=== PATIENT | male | born 1940 | race Caucasian/White ===

== ENCOUNTER 2021-07-14 12:28 | Inpatient (IN) | payer MEDICARE, SELFPAY ==
[2021-07-14] VITALS (12 sets, daily range): BP systolic 76–126; BP diastolic 50–70; PULSE 83–147; RESP 13–24; TEMP 36.6–36.9; O2SAT 93–98; BMI 25.8; BMI 27.9
--- NOTE | ~2021-07-14 | NM_ITS ---
EXAMINATION: NM LUNG IMAGE PERFUSION CLINICAL INFORMATION: Shortness of breath. Elevated d-dimer. Tachycardia. COMPARISON: Previous chest x-ray from the same day and chest CT May 2018 TECHNIQUE: Patient was administered 4 mCi of technetium 99m labeled MAA for perfusion imaging. Perfusion imaging was performed in multiple projections. No ventilation imaging was performed. FINDINGS: There is a large segmental perfusion defect seen in the anterior segment of the right upper lobe. There is a small to moderate moderate segmental perfusion defect seen in the medial segment of the right middle lobe. Evaluation of the left lung is limited due to altered anatomy from previous left upper lobe resection and left base consolidation on chest x-ray. This is an indeterminate exam for pulmonary embolism. NM/NM pul perfusion IMPRESSION: Indeterminate exam for pulmonary embolism.
--- NOTE | ~2021-07-14 | US_ITS ---
EXAMINATION: US VENOUS ULTRASOUND WITH DOPPLER LOWER EXTREMITY, BILATERAL CLINICAL INFORMATION: Shortness of breath and tachycardia. Suspected DVT. COMPARISON: Perfusion lung scan done on 07/14/2021 and Chest radiograph done on 07/14/2021. TECHNIQUE: Ultrasound of the deep veins is performed from the hip to the calf with compression sonography and color and pulse Doppler assessment. Spectral analysis with color-flow imaging is performed. FINDINGS: RIGHT: There is normal venous compression and respiratory variation and augmented flow. The visualized common femoral vein, superficial femoral vein, profunda femoral vein, popliteal vein, and the trifurcation region shows no evidence of deep venous thrombosis. There is no significant popliteal fossa cyst. The right peroneal vein is not well visualized. LEFT: There is normal venous compression and respiratory variation and augmented flow. The visualized common femoral vein, superficial femoral vein, profunda femoral vein, popliteal vein, and the trifurcation region shows no evidence of deep venous thrombosis. There is no significant popliteal fossa cyst. If the patient's symptoms persist, followup ultrasound in 5 days 7 days might be of value to exclude proximal propagation from a non-visualized calf vein. US/US venous duplex LE BI IMPRESSION: No DVT demonstrated in the bilateral lower extremity. Suboptimal visualization of the right peroneal vein.
--- NOTE | ~2021-07-14 | XR_ITS ---
EXAMINATION: XR CHEST CLINICAL INFORMATION: SOB/tachycardia COMPARISON: None TECHNIQUE: Frontal view of the chest was obtained. FINDINGS: The lungs are well-expanded with patchy opacity seen in the left lower lobe likely cord chronic scarring or atelectasis. This wasn't present on the previous CT chest exam 05/27/2018. Mild blunting of left CP angle is noted. Rest of the lungs are clear. The heart size and pulmonary vascularity is normal. No gross bony abnormality seen. XR/XR chest 1V IMPRESSION: Chronic scarring or atelectasis left lung base with slight loss of left lung volume. There is mild blunting of right CP angle question pleural thickening similar findings were seen on the previous study The right lung is expanded and clear.
--- NOTE | 2021-07-14 12:44 | ECG_ITS ---
Test Reason : REPEAT Blood Pressure : / mmHG Vent. Rate : 098 BPM Atrial Rate : 098 BPM P-R Int : 214 ms QRS Dur : 084 ms QT Int : 338 ms P-R-T Axes : 074 098 038 degrees QTc Int : 431 ms Sinus rhythm with 1st degree A-V block Rightward axis Borderline ECG When compared with ECG of 14-JUL-2021 12:41, Rhythm change Referred By: Linda Smith Electronically Signed By:ROSIBEL CASTILLO
[2021-07-14 12:59] LABS: MANUAL DIFF FLAG NO
[2021-07-14 13:00] LABS: Basophils Absolute Auto 0.1 X10*3/uL (0.0-0.2); Basophils Percent Auto 0.3 % (0-2); Eosinophils Absolute Auto 0.1 X10*3/uL (0.0-0.4); Eosinophils Percent Auto 0.2 % (0-4); Hematocrit 46.2 % (42.0-52.0); Hemoglobin 15.6 g/dl (14.0-18.0); Imm Gran Abs Auto 0.08 X10*3/uL (0.00-0.03); Imm Gran Pct Auto 0.4 % (0.0-0.4); Lymphocytes Absolute Auto 0.8 X10*3/uL (1.2-4.9); Lymphocytes Percent Auto 3.7 % (20-40); Mean Corpuscular HGB Conc 33.8 g/dl (31.0-36.0); Mean Corpuscular Hemoglobin 31.5 pg (27.0-33.0); Mean Corpuscular Volume 93.1 fL (80.0-98.0); Mean Platelet Volume 9.4 fL (9.4-12.4); Monocytes Absolute Auto 1.4 X10*3/uL (0.1-1.2); Monocytes Percent Auto 6.5 % (2-11); Neutrophils Absolute Auto 19.1 x10*3/uL (2.0-8.3); Neutrophils Percent Auto 88.9 % (45-73); Platelet Count 193 X10*3/uL (160-400); Red Blood Count 4.96 X10*6/uL (4.60-5.80); Red Cell Distribution Width 12.8 % (11.0-16.0); White Blood Count 21.5 X10*3/uL (4.8-10.8)
--- NOTE | 2021-07-14 13:11 | ED_ITS ---
HPI - Chest Pain General Chief Complaint: Chest Pain Stated Complaint: diff breathing/dizziness Time Seen by Provider: 07/14/21 13:07 Source: patient and family (son) Mode of arrival: ambulatory Limitations: no limitations History of Present Illness HPI narrative: Patient is a 80 year old male presenting to the emergency department today with shortness of breath, intermittent chest pain, nausea, vomiting, and feeling generally unwell over the last 3 days. Patient states that he started feeling sick 3 days ago and is getting progressively worse. Patient denies any dizziness, lightheadedness, abdominal pain, fever, chills, blurry vision, double vision, loss of vision, chest pain, difficulty breathing, back pain, night sweats, pain with urination, increased urinary frequency, increased urinary ur gency, blood in his urine or stool, syncope or a near syncopal episode, recent trauma or falls, bowel incontinence, bladder incontinence, bowel retention, bladder retention, or any other complaints at this time. Onset (ago): day(s) (3) Severity: moderate Relieving factors: nothing Exacerbating factors: nothing Context: recent illness Associated symptoms: nausea, vomiting, diaphoresis, dyspnea and cough Treatment prior to arrival: none Related Data Home Medications Medication Instructions Recorded Confirmed albuterol sulfate 90 mcg/actuation 2 puff INHALATION Q4H PRN 07/14/21 07/14/21 aerosol inhaler metoprolol succinate 50 mg 1 tab PO DAILY 07/14/21 07/14/21 tablet,extended release 24 hr omeprazole 20 mg capsule,delayed 1 cap PO DAILY 07/14/21 07/14/21 release paroxetine HCl 40 mg tablet 1 tab PO QAM 07/14/21 07/14/21 tamsulosin 0.4 mg capsule 1 cap PO DAILY 07/14/21 07/14/21 zolpidem 12.5 mg tablet,extended 1 tab PO BEDTIME PRN 07/14/21 07/14/21 release,multiphase Allergies Allergy/AdvReac Type Severity Reaction Status Date / Time pseudoephedrine AdvReac Intermediate AGITATION Unverified 11/11/19 14:44 [facility] Review of Systems Constitutional: Constitutional: Reports no additional constitutional complaints, Denies chills, Denies fever(s) and Denies night sweats Eyes: Eyes: Reports no additional eye complaints, Denies blurry vision, Denies change in vision, Denies diplopia, Denies eye discharge, Denies loss of vision and Denies eye pain ENT: Denies dizziness Cardiovascular: Cardiovascular: Reports no additional cardiovascular complaints, Reports chest pain (intermittent), Denies lightheadedness, Denies Loss of Consciousness and Reports dyspnea Respiratory: Respiratory: Reports no additional respiratory complaints, Reports cough and Reports dyspnea Gastrointestinal: Gastrointestinal: Reports no additional gastrointestinal complaints, Denies abdominal pain, Denies melena, Denies hematochezia, Denies change in bowel habits, Denies change in stool character, Reports nausea and Reports vomiting Genitourinary: Genitourinary: Reports no additional male genitourinary complaints, Denies hematuria, Denies oliguria, Denies difficulty urinating, Denies dysuria, Denies urinary frequency, Denies urinary hesitancy, Denies urinary incontinence and Denies urinary urgency Musculoskeletal: Musculoskeletal: Reports no additional musculoskeletal complaints, Denies numbness and Denies tingling Neurologic: Denies dizziness, Denies loss of vision, Denies numbness and Denies tingling Psychiatric: Psychiatric: Reports no additional psychiatric complaints Endocrine: Endocrine: Reports no additional endocrine complaints Hematologic/Lymphatic: Hematologic/Lymphatic: Reports no additional hematologic/lymphatic complaints Allergic/Immunologic: Allergic/Immunologic: Reports no additional allergic/immunologic complaints PMFSH Past Medical History Attestation statement: The following information was validated with the patient. Source: old records reviewed Social History Social History Advance Directives: No Advance Directives Information Provided: Yes Physical Exam Vital Signs: Vital Signs: Last Vital Signs Temp 98.2 F 07/14/21 16:22 Pulse 103 H 07/14/21 16:28 Resp 18 07/14/21 16:28 BP 108/62 07/14/21 16:28 Pulse Ox 96 07/14/21 16:28 BMI result Body Mass Index 25.8 Const: General: cooperative, alert, awake, acute distress, diaphoretic and ill appearing Nutritional Appearance: well nourished Orientation/consciousness: patient oriented x3 Limitations: no limitations HEENT: Head: Yes normal to inspection and Yes atraumatic Ears: hearing grossly normal bilaterally and external ears normal General nose exam: Normal external nose present, no nasal discharge noted and no epistaxis Face and sinus: Yes normal facial exam, No abrasion and No laceration Mouth: Normal oral and palatal mucosa present, no drooling and no muffled voice Eyes: General: appearance normal, both eyes and all related structures Periorbital: periorbital findings normal Eyelids: Yes eyelids normal Conjunctivae: conjunctivae normal Pupils: Equal, round and reactive pupils present EOM: EOMs intact bilaterally Neck: Neck: Yes normal visual inspection, Yes full ROM and Yes no lymphadenopathy Chest: Chest palpation & inspection: normal inspection of the chest Resp: Effort & Inspection: able to speak in complete sentences and labored Auscultation: wheezes Cardio: Rate: tachycardic Rhythm: abnormal rhythm irregularly irregular GI: Inspection: Yes normal to inspection Palpation (GI): Soft to palpation, not firm, nontender and no guarding Neuro: General: patient oriented x3 and moves all extremities Cranial nerves: Yes Equal, round and reactive pupils present Cognition (Neuro): normal cognition Motor exam (neuro): 5/5 motor strength present throughout Sensory Exam: Normal double simultaneous stimulation for sensation Coordination: [id number] test normal Extrem: General: Yes normal to inspection, Yes full ROM and Yes capillary refill normal Psych: Appearance: grossly normal Mental Status: mental status grossly normal Affect: normal affect Attitude: cooperative Thought process: Normal thought process present Thought content: Normal thought content present Insight: Good insight present (Psych) MDM - Chest Pain MDM Narrative Medical decision making narrative: Patient is a 80 year old male presenting to the emergency department today with SOB. Patient's physical exam showed a 80 year old male in acute distress with shortness of breath, wheezing, cough, diaphoresis, and hypotension. Patient's blood work showed an elevated WBC count at 21.5, patient's magnesium was low at 1.4, patient's d dimer was elevated at 900. Patient's initial lactic acid was 2 .9 and repeated it went down to 2.6. Patient's EKG showed atrial fibrillation with rapid ventricular response. Patient's chest x-ray showed a left lower lobe infiltrate. After evaluating the patient, a sepsis alert was called. Patient was immediately given 30mg/kg of IV fluids, rocephin and azithromycin with cultures drawn, and all other sepsis protocol followed. Patient's heart rate dramatically reduced after fluids and 1 dose of digoxin. Patient's blood pressure also normalized very quickly after IV fluids. Patient was also given a duoneb which he stated helped his breathing significantly. Patient's rapid COVID-19 and influenza tests were negative. Patient's VQ scan is pending. I explained my physical exam findings as well as all test results to the patient and the patient's son. I answered all questions asked by the patient and the patient's son. I spoke to Dr. Yang who agreed to admission pending the results of the VQ scan. Patient verbalized agreement and understanding with this treatment plan and admission. Differential Diagnosis Differential diagnosis: pneumonia, sepsis, PE Medical Records Data Attestation: I reviewed the patient's medical records. Lab Data Attestation: I reviewed the patient's lab results. Result diagrams: 07/14/21 12:54 07/14/21 12:54 Labs: Lab Results 07/14/21 07/14/21 07/14/21 Range/Units 12:54 12:54 12:54 WBC 21.5 H (4.8-10.8) X10*3/uL RBC 4.96 (4.60-5.80) X10*6/uL Hgb 15.6 (14.0-18.0) g/dl Hct 46.2 (42.0-52.0) % MCV 93.1 (80.0-98.0) fL MCH 31.5 (27.0-33.0) pg MCHC 33.8 (31.0-36.0) g/dl RDW 12.8 (11.0-16.0) % Plt Count 193 (160-400) X10*3/uL MPV 9.4 (9.4-12.4) fL Immature Gran % (Auto) 0.4 (0.0-0.4) % Neut % (Auto) 88.9 H (45-73) % Lymph % (Auto) 3.7 L (20-40) % Karnes % (Auto) 6.5 (2-11) % Eos % (Auto) 0.2 (0-4) % Baso % (Auto) 0.3 (0-2) % Lymph # (Auto) 0.8 L (1.2-4.9) X10*3/uL Karnes # (Auto) 1.4 H (0.1-1.2) X10*3/uL Eos # (Auto) 0.1 (0.0-0.4) X10*3/uL Baso # (Auto) 0.1 (0.0-0.2) X10*3/uL Abs Immat Gran (auto) 0.08 H (0.00-0.03) X10*3/uL Absolute Neuts (auto) 19.1 H (2.0-8.3) x10*3/uL Absolute Nucleated RBC 0.000 (0.0-0.012) X10*3/uL Nucleated RBC % (auto) 0.0 (0.0-0.2) /100WBC PT (9.9-13.0) SEC INR (0.9-1.1) APTT (24.1-38.0) SEC D-Dimer High Sensitivty NG/ML Sodium 135 (135-145) mmol/L Potassium 4.3 (3.3-5.1) mmol/L Chloride 102 (96-108) mmol/L Carbon Dioxide 21 L (22-29) mmol/L Anion Gap 16 (12-20) BUN 29 H (9-16) mg/dL Creatinine 1.75 H (0.5-1.4) mg/dL Estim Creat Clear Calc 35.3 Estimated GFR 38 Random Glucose 125 H (60-115) mg/dL Lactic Acid (0.5-2.0) mmol/L Lactic Acid F/U @ 2Hr (0.5-2.0) mmol/L Calcium 9.2 (8.4-10.2) mg/dL Magnesium 1.4 L* (1.6-2.6) mg/dL Total Bilirubin 1.1 H (0.0-1.0) mg/dL Direct Bilirubin 0.5 (0.0-0.5) mg/dL AST 20 (5-37) U/L ALT 16 (0-40) U/L Alkaline Phosphatase 56 (39-117) U/L Troponin I High Sens 6.3 (<3.5-35.0) ng/L B-Natriuretic Peptide 73 (<100) pg/mL Total Protein 7.5 (6.5-8.0) g/dL Albumin 4.0 (3.5-5.0) g/dL COVID-19 (NATHANAEL) (Negative) COVID-19 Clin Com Influenza Type A (LISBET) (Negative) Influenza Type B (LISBET) (Negative) Influenza A & B Note 07/14/21 07/14/21 07/14/21 Range/Units 13:27 13:27 13:27 WBC (4.8-10.8) X10*3/uL RBC (4.60-5.80) X10*6/uL Hgb (14.0-18.0) g/dl Hct (42.0-52.0) % MCV (80.0-98.0) fL MCH (27.0-33.0) pg MCHC (31.0-36.0) g/dl RDW (11.0-16.0) % Plt Count (160-400) X10*3/uL MPV (9.4-12.4) fL Immature Gran % (Auto) (0.0-0.4) % Neut % (Auto) (45-73) % Lymph % (Auto) (20-40) % Karnes % (Auto) (2-11) % Eos % (Auto) (0-4) % Baso % (Auto) (0-2) % Lymph # (Auto) (1.2-4.9) X10*3/uL Karnes # (Auto) (0.1-1.2) X10*3/uL Eos # (Auto) (0.0-0.4) X10*3/uL Baso # (Auto) (0.0-0.2) X10*3/uL Abs Immat Gran (auto) (0.00-0.03) X10*3/uL Absolute Neuts (auto) (2.0-8.3) x10*3/uL Absolute Nucleated RBC (0.0-0.012) X10*3/uL Nucleated RBC % (auto) (0.0-0.2) /100WBC PT 12.4 (9.9-13.0) SEC INR 1.1 (0.9-1.1) APTT 31.8 (24.1-38.0) SEC D-Dimer High Sensitivty 900 NG/ML Sodium (135-145) mmol/L Potassium (3.3-5.1) mmol/L Chloride (96-108) mmol/L Carbon Dioxide (22-29) mmol/L Anion Gap (12-20) BUN (9-16) mg/dL Creatinine (0.5-1.4) mg/dL Estim Creat Clear Calc Estimated GFR Random Glucose (60-115) mg/dL Lactic Acid 2.9 H* (0.5-2.0) mmol/L Lactic Acid F/U @ 2Hr (0.5-2.0) mmol/L Calcium (8.4-10.2) mg/dL Magnesium (1.6-2.6) mg/dL Total Bilirubin (0.0-1.0) mg/dL Direct Bilirubin (0.0-0.5) mg/dL AST (5-37) U/L ALT (0-40) U/L Alkaline Phosphatase (39-117) U/L Troponin I High Sens (<3.5-35.0) ng/L B-Natriuretic Peptide (<100) pg/mL Total Protein (6.5-8.0) g/dL Albumin (3.5-5.0) g/dL COVID-19 (NATHANAEL) (Negative) COVID-19 Clin Com Influenza Type A (LISBET) Negative (Negative) Influenza Type B (LISBET) Negative (Negative) Influenza A & B Note See Note 07/14/21 07/14/21 07/14/21 Range/Units 13:27 16:01 16:35 WBC (4.8-10.8) X10*3/uL RBC (4.60-5.80) X10*6/uL Hgb (14.0-18.0) g/dl Hct (42.0-52.0) % MCV (80.0-98.0) fL MCH (27.0-33.0) pg MCHC (31.0-36.0) g/dl RDW (11.0-16.0) % Plt Count (160-400) X10*3/uL MPV (9.4-12.4) fL Immature Gran % (Auto) (0.0-0.4) % Neut % (Auto) (45-73) % Lymph % (Auto) (20-40) % Karnes % (Auto) (2-11) % Eos % (Auto) (0-4) % Baso % (Auto) (0-2) % Lymph # (Auto) (1.2-4.9) X10*3/uL Karnes # (Auto) (0.1-1.2) X10*3/uL Eos # (Auto) (0.0-0.4) X10*3/uL Baso # (Auto) (0.0-0.2) X10*3/uL Abs Immat Gran (auto) (0.00-0.03) X10*3/uL Absolute Neuts (auto) (2.0-8.3) x10*3/uL Absolute Nucleated RBC (0.0-0.012) X10*3/uL Nucleated RBC % (auto) (0.0-0.2) /100WBC PT (9.9-13.0) SEC INR (0.9-1.1) APTT (24.1-38.0) SEC D-Dimer High Sensitivty NG/ML Sodium (135-145) mmol/L Potassium (3.3-5.1) mmol/L Chloride (96-108) mmol/L Carbon Dioxide (22-29) mmol/L Anion Gap (12-20) BUN (9-16) mg/dL Creatinine (0.5-1.4) mg/dL Estim Creat Clear Calc Estimated GFR Random Glucose (60-115) mg/dL Lactic Acid (0.5-2.0) mmol/L Lactic Acid F/U @ 2Hr 2.6 H* (0.5-2.0) mmol/L Calcium (8.4-10.2) mg/dL Magnesium (1.6-2.6) mg/dL Total Bilirubin (0.0-1.0) mg/dL Direct Bilirubin (0.0-0.5) mg/dL AST (5-37) U/L ALT (0-40) U/L Alkaline Phosphatase (39-117) U/L Troponin I High Sens 19.9 D (<3.5-35.0) ng/L B-Natriuretic Peptide (<100) pg/mL Total Protein (6.5-8.0) g/dL Albumin (3.5-5.0) g/dL COVID-19 (NATHANAEL) Negative (Negative) COVID-19 Clin Com See Note Influenza Type A (LISBET) (Negative) Influenza Type B (LISBET) (Negative) Influenza A & B Note Imaging Data Chest x-ray: Attestation: I personally reviewed and interpreted this imaging study as follows: My impression: Left lower lobe infiltrate Radiologist's impression: EXAMINATION: XR CHEST CLINICAL INFORMATION: SOB/tachycardia COMPARISON: None TECHNIQUE: Frontal view of the chest was obtained. FINDINGS: The lungs are well-expanded with patchy opacity seen in the left lower lobe likely cord chronic scarring or atelectasis. This wasn't present on the previous CT chest exam 05/27/2018. Mild blunting of left CP angle is noted. Rest of the lungs are clear. The heart size and pulmonary vascularity is normal. No gross bony abnormality seen. XR/XR chest 1V IMPRESSION: Chronic scarring or atelectasis left lung base with slight loss of left lung volume. There is mild blunting of right CP angle question pleural thickening similar findings were seen on the previous study ? The right lung is expanded and clear. Dictated By: Neftali Leal MD Signed By: Electronically signed by Neftali Leal MD 07/14/21 1358 ECG Data ECG #1: Attestation: I personally reviewed and interpreted this ECG as follows: ECG interpretation date: 07/14/21 ECG interpretation time: 12:41 Prior ECG tracings: not available for review Interpretation: Ventricualr rate: 168bpm KS interval: QRS duration: 70ms QT/QTC: 292/488 ms P-R-T axes * 113 70 Undetermined rhythm Right axis deviation Low voltage QRS Septal infarct, age undetermined Abnormal ECG Discharge Plan Discharge Clinical Impression: Sepsis, Pneumonia, Hypomagnesemia Patient Disposition: Admitted As Inpatient Prescriptions: No Action metoprolol succinate 50 mg tablet extended release 24 hr 1 tab PO DAILY 0RF tamsulosin 0.4 mg capsule 1 cap PO DAILY 0RF omeprazole 20 mg capsule,delayed release(DR/EC) 1 cap PO DAILY 0RF albuterol sulfate 90 mcg/actuation HFA aerosol inhaler 2 puff inhalation Q4H PRN (Reason: wheezing) 0RF paroxetine HCl 40 mg tablet 1 tab PO QAM 0RF zolpidem 12.5 mg tablet,ext release multiphase 1 tab PO BEDTIME PRN (Reason: insomnia) 0RF Print Language: Jamaican
[2021-07-14 13:14] LABS: Anion Gap 16 (12-20); Blood Urea Nitrogen 29 mg/dL (9-16); Calcium 9.2 mg/dL (8.4-10.2); Carbon Dioxide 21 mmol/L (22-29); Chloride 102 mmol/L (96-108); Creatinine Clr Calc Pharmacy 35.3; Estimated Glomerular Filt Rate 38; Glucose Random 125 mg/dL (60-115); Potassium 4.3 mmol/L (3.3-5.1); Sodium 135 mmol/L (135-145)
[2021-07-14 13:21] LABS: Troponin-I High Sensitivity 6.3 ng/L (<3.5-35.0)
[2021-07-14] MEDS: 0.9 % Sodium Chloride 2,449.41 ML 2449.41 ML IV (13:32)
--- NOTE | 2021-07-14 13:50 | PC.NURSE ---
Pt comes in from home with c/o CP over the past few days with cough and congestion, pt states he thought it would improve on it's own. ST in the 150-170's on the monitor, denies pain at this time, lungs with coarse crackles throughout. PT is A&OX4, abd soft, non tender, no edema noted, +pulses. IV established, medicated as per MAR orders. Awaiting further orders. Will continue to monitor,
[2021-07-14 13:52] LABS: INTERNATIONAL NORM RATIO 1.1 (0.9-1.1); Prothrombin Time 12.4 SEC (9.9-13.0)
[2021-07-14 13:54] LABS: D Dimer High Sensitivity 900 NG/ML
[2021-07-14 13:55] LABS: Partial Thromboplastin Time 31.8 SEC (24.1-38.0)
[2021-07-14 14:04] LABS: COVID-19 Test Negative (Negative); IDNOW Serial# 16C4AD1C; Influenza A Negative (Negative); Influenza B2 Negative (Negative)
[2021-07-14 14:10] LABS: B Type Natriuretic Peptide 73 pg/mL (<100)
[2021-07-14 14:12] LABS: Lactic Acid 2.9 mmol/L (0.5-2.0)
[2021-07-14 14:15] LABS: Alanine Aminotransferase 16 U/L (0-40); Alkaline Phosphatase 56 U/L (39-117); Aspartate Amino Transferase 20 U/L (5-37); Bilirubin Direct 0.5 mg/dL (0.0-0.5); Bilirubin Total 1.1 mg/dL (0.0-1.0); Magnesium 1.4 mg/dL (1.6-2.6); Total Protein 7.5 g/dL (6.5-8.0)
[2021-07-14] MEDS: cefTRIAXone sodium 1 GM in 0.9 % Sodium Chloride 50 ML IV (14:16)
[2021-07-14] MEDS: Magnesium Sulfate/H2O 2 GM/50 ML PIGGYBACK IV (14:31)
[2021-07-14] MEDS: Azithromycin 500 MG in 0.9 % Sodium Chloride 250 ML 125 MG IV (14:31)
[2021-07-14 15:43] LABS: Reflex Lactate? Lactic Acid Added
[2021-07-14] MEDS: Albuterol/Iprat 2.5/0.5MG 3 ML AMPUL.NEB INHALE ×2 (16:22→19:41)
[2021-07-14 16:25] LABS: ~Lactic Acid-LAB USE ONLY 2.6 mmol/L (0.5-2.0)
[2021-07-14 17:05] LABS: Troponin-I High Sensitivity 19.9 ng/L (<3.5-35.0)
--- NOTE | 2021-07-14 17:13 | PHA.MEDREC ---
Pharmacy Consult ? Medication Reconciliation Pharmacy has completed the medication reconciliation. SPOKE WITH PT
[2021-07-14 18:04] LABS: Reflex Lactate? 2 Y
--- NOTE | 2021-07-14 18:43 | ECG_ITS ---
Test Reason : TACHY Blood Pressure : / mmHG Vent. Rate : 168 BPM Atrial Rate : 170 BPM P-R Int : 000 ms QRS Dur : 070 ms QT Int : 292 ms P-R-T Axes : 000 113 070 degrees QTc Int : 488 ms Atrial fibrillation with rapid ventricular response Right axis deviation Low voltage QRS Septal infarct , age undetermined Abnormal ECG When compared with ECG of 15-FEB-2013 15:21, Rhythm change Referred By: Linda Smith Electronically Signed By:ROSIBEL CASTILLO
--- NOTE | 2021-07-14 19:00 | P.HPHOSP_ITS ---
History of Present Illness Date of Service: 07/14/21 Attending physician on admission: Toñito Yang Chief Complaint: pneumonia ,hypotension ,aflutter 80-year-old male with history of hypertension, lung cancer post resection right- sided, 30 pack-year history of smoking-came to the hospital as per the patient he has progressive shortness of breath from last 5- 6 month but it was slowly g etting worse from last few weeks and he thought that maybe have had cold in last couple of weeks that might have contributed to it-and from last week or so he is having cough and clear phlegm and has subjective fever sensation also. He he also said that he was coughing a lot and having chest tightness which is upper chest , reproducible, non radiating, intermittent, could not tell the quality of the pain says on and off sharp pain specially with coughing. Does not able to tell any alleviating or aggravating factors. From 3-4 days also having nausea and vomiting and diarrhea. Denies any urinary complaints or weakness or numbness or any runny nose or ear pain or throat pain or headaches or blurry vision. Ed course: wbc 21.5, KATLIN creatinine of 1.75, magnesium 1.4, chest x-ray possible: Atelectasis//scarring. Past medical history: Hypertension, lung cancer as above. Social history: Came with the son Rafy, has history of 30 pack-year history of smoking, no alcohol or recreation drug use Family history: Both pain and had lung cancer. Review of Systems Review of Systems: As above. Yes all other systems are reviewed and are negative [facility] Social History Advance Directives: No Advance Directives Information Provided: Yes Meds Allergies Allergy/AdvReac Type Severity Reaction Status Date / Time pseudoephedrine AdvReac Intermediate AGITATION Unverified 11/11/19 14:44 [From SUDAFED] Active Medications: Current Medications Albuterol Sulfate (Albuterol Sulfate 90 Mcg 8 Gm Inhaler) 2 puff INHALE Q4H PRN PRN Reason: wheezing Albuterol/Ipratropium (Albuterol/Iprat 2.5/0.5mg 3 Ml Ampul.Neb) 3 ml INHALE RQ4H JOSE Azithromycin 500 mg/ Sodium (Chloride) 250 mls @ 125 mls/hr IV Q24H JOSE Ceftriaxone Sodium 1 gm/ (Sodium Chloride) 50 mls @ 100 mls/hr IV DAILY [facility] Metoprolol Succinate (Metoprolol Succinate Er 50 Mg Tab.Er.24h) 50 mg PO DAILY [facility]; Protocol Omeprazole (Omeprazole 20 Mg Capsule.Dr) 20 mg PO DAILY@0630 JOSE Paroxetine HCl (Paroxetine Hcl 40 Mg Tablet) 40 mg PO DAILY [facility] Pharmacy Consult (Consult Rx Perform Med Rec) 1 each MISCELLANE ONCE PRN PRN Reason: Consult order Sodium Chloride (0.9 % Sodium Chloride Flush 3 Ml Syringe) 3 ml IVFLUSH QSHIFT [facility] Tamsulosin HCl (Tamsulosin Hcl 0.4 Mg Capsule) 0.4 mg PO DAILY [facility] Zolpidem Tartrate (Zolpidem Tartrate 5 Mg Tablet) 5 mg PO BEDTIME PRN PRN Reason: insomnia Home Medications Medication Instructions Recorded Confirmed Last Taken Type albuterol sulfate 90 mcg/actuation 2 puff INHALATION Q4H PRN 07/14/21 07/14/21 07/13/21 History aerosol inhaler metoprolol succinate 50 mg 1 tab PO DAILY 07/14/21 07/14/21 07/13/21 History tablet,extended release 24 hr omeprazole 20 mg capsule,delayed 1 cap PO DAILY 07/14/21 07/14/21 07/13/21 History release paroxetine HCl 40 mg tablet 1 tab PO QAM 07/14/21 07/14/21 07/13/21 History tamsulosin 0.4 mg capsule 1 cap PO DAILY 07/14/21 07/14/21 07/13/21 History zolpidem 12.5 mg tablet,extended 1 tab PO BEDTIME PRN 07/14/21 07/14/21 07/13/21 History release,multiphase Physical Exam Vital Signs and Narrative: Vital Signs: Last Vital Signs Temp 98.2 F 07/14/21 16:22 Pulse 96 07/14/21 18:00 Resp 20 07/14/21 18:00 BP 114/59 L 07/14/21 18:00 Pulse Ox 94 07/14/21 18:00 BMI result Body Mass Index 25.8 Appearance: Alert.? Oriented X3.? not in distress.? Eyes: Pupils equal, round and reactive to light.? Sclera nonicteric.? ENT: Pharynx normal.? Moist mucous membranes. cvs: reglaur rythem, [id number] . res: fair air entry, has b/l wheezing abd: no rebound or guarding ,nt, bs present. ext pulses present , no cyanosis . neuro: axo3 , nonfocal. Results Labs CBC and Chem 7: 07/14/21 12:54 07/14/21 12:54 Labs: Laboratory Results - last 24 hr 07/14/21 07/14/21 07/14/21 12:54 12:54 12:54 MCV 93.1 MCH 31.5 MCHC 33.8 RDW 12.8 Plt Count 193 MPV 9.4 Immature Gran % (Auto) 0.4 Neut % (Auto) 88.9 H Lymph % (Auto) 3.7 L [place] % (Auto) 6.5 Eos % (Auto) 0.2 Baso % (Auto) 0.3 Lymph # (Auto) 0.8 L [place] # (Auto) 1.4 H Eos # (Auto) 0.1 Baso # (Auto) 0.1 Abs Immat Gran (auto) 0.08 H Absolute Neuts (auto) 19.1 H Absolute Nucleated RBC 0.000 Nucleated RBC % (auto) 0.0 PT INR APTT D-Dimer High Sensitivty Anion Gap 16 Estim Creat Clear Calc 35.3 Estimated GFR 38 Random Glucose 125 H Lactic Acid Lactic Acid F/U @ 2Hr Calcium 9.2 Magnesium 1.4 L* Total Bilirubin 1.1 H Direct Bilirubin 0.5 AST 20 ALT 16 Alkaline Phosphatase 56 Troponin I High Sens 6.3 B-Natriuretic Peptide 73 Total Protein 7.5 Albumin 4.0 COVID-19 (NATHANAEL) COVID-19 Clin Com Influenza Type A (LISBET) Influenza Type B (LISBET) Influenza A & B Note 07/14/21 07/14/21 07/14/21 13:27 13:27 13:27 MCV MCH MCHC RDW Plt Count MPV Immature Gran % (Auto) Neut % (Auto) Lymph % (Auto) [place] % (Auto) Eos % (Auto) Baso % (Auto) Lymph # (Auto) [place] # (Auto) Eos # (Auto) Baso # (Auto) Abs Immat Gran (auto) Absolute Neuts (auto) Absolute Nucleated RBC Nucleated RBC % (auto) PT 12.4 INR 1.1 APTT 31.8 D-Dimer High Sensitivty 900 Anion Gap Estim Creat Clear Calc Estimated GFR Random Glucose Lactic Acid 2.9 H* Lactic Acid F/U @ 2Hr Calcium Magnesium Total Bilirubin Direct Bilirubin AST ALT Alkaline Phosphatase Troponin I High Sens B-Natriuretic Peptide Total Protein Albumin COVID-19 (NATHANAEL) COVID-19 Clin Com Influenza Type A (LISBET) Negative Influenza Type B (LISBET) Negative Influenza A & B Note See Note 07/14/21 07/14/21 07/14/21 13:27 16:01 16:35 MCV MCH MCHC RDW Plt Count MPV Immature Gran % (Auto) Neut % (Auto) Lymph % (Auto) [place] % (Auto) Eos % (Auto) Baso % (Auto) Lymph # (Auto) [place] # (Auto) Eos # (Auto) Baso # (Auto) Abs Immat Gran (auto) Absolute Neuts (auto) Absolute Nucleated RBC Nucleated RBC % (auto) PT INR APTT D-Dimer High Sensitivty Anion Gap Estim Creat Clear Calc Estimated GFR Random Glucose Lactic Acid Lactic Acid F/U @ 2Hr 2.6 H* Calcium Magnesium Total Bilirubin Direct Bilirubin AST ALT Alkaline Phosphatase Troponin I High Sens 19.9 D B-Natriuretic Peptide Total Protein Albumin COVID-19 (NATHANAEL) Negative COVID-19 Clin Com See Note Influenza Type A (LISBET) Influenza Type B (LISBET) Influenza A & B Note ECG Attestation: I personally reviewed and interpreted this ECG as follows: (a flutter , vent rate 168 , no ther st changes ) Imaging Radiologist's Impressions: Impressions Chest X-Ray 07/14/21 13:25 IMPRESSION: Chronic scarring or atelectasis left lung base with slight loss of left lung volume. There is mild blunting of right CP angle question pleural thickening similar findings were seen on the previous study The right lung is expanded and clear. Assessment and Plan (1) Sepsis: Status: Acute (2) Pneumonia: Status: Acute (3) Hypomagnesemia: Status: Acute (4) Hypotension: Status: Acute Plan 80-year-old male came to the emergency room with shortness of breath, wheezing, cough initially also had hypotension. 1. Hypotension probably multifactorial: A flutter, dehydration, KATLIN, poor oral intake. Patient was given bolus for believes sepsis secondary to pneumonia also. 2. Possible severe sepsis secondary to possible clinical pneumonia with hypotension: res panel Responded to the fluid bolus above. Sepsis exam completed Lactic acid trending down last - 2.6 range Continue antibiotics, blood cultures sent Id evaluation 3. A flutter: Responded to fluid and dose of digoxin Patient converted back to sinus Rhythm, troponin flat Will start heparin drip and monitor closely Cardiology evaluation added. Currently heart rate is in 80s. Added echo Added IV heparin drip. 4. KATLIN: Probably related to dehydration, nausea vomiting and diarrhea. stool studies Received fluid as above Monitor BMP in the morning Hypomagnesemia-IV magnesium given EGD. 5. With above presentation with the hypotension/shortness of breath, elevated D- dimer: V/Q scan was done, pending Patient is already started on heparin drip for a flutter we will check V/Q scan results. 6. History of lung cancer status ? Lobectomy: Patient follows out patiently. 7. Possible also COPD exacerbation since has history of smoking and also has w heezing will add nebs, and low-dose steroids. DVT prophylaxis: Already IV heparin Patient seems to be improving with IV hydration given and antibiotics as well as converted back into sinus rhythm with digoxin and fluid bolus. Will continue to monitor. Above management discussed with patient in detail length as well as his son Mr. Hillman his phone number is [phone] patient is DNR DNI patient understand above management and in agreement with the plan. Considering multiple issues as above sepsis/pneumonia/KATLIN patient may benefit from 2 midnight stays Quality Stroke Does the patient have a stroke diagnosis?: No VTE Prior VTE?: No VTE Risk Level:: Medical - moderate - high VTE Device Contraindication: N/A - Device Ordered VTE Drug Contraindication: N/A - Med Ordered
[2021-07-14 19:23] LABS: ~Lactic Acid-LAB USE ONLY 2.5 mmol/L (0.5-2.0)
--- NOTE | 2021-07-14 19:48 | PC.NURSE ---
Addendum entered by Yelitza Diane 07/14/21 22:41: report given to RUTH Severino Addendum entered by Yelitza Diane 07/14/21 22:16: pt started on 2L NC for comfort Addendum entered by Yelitza Diane 07/14/21 22:15: audible wheezes notice, Dr. Ortiz aware, per DR hylton given another neb tx. respiratory made aware Original Note: report received from RUTH Sin. pt is alert and oriented. resting in bed. no signs of acute distress notice. pt on continuos cardiac monitoring
[2021-07-14 20:10] LABS: Thyroid Stimulating Hormone 1.53 uIU/mL (0.32-4.0)
[2021-07-14 20:22] LABS: Hematocrit 37.3 % (42.0-52.0); Hemoglobin 12.5 g/dl (14.0-18.0); Mean Corpuscular HGB Conc 33.5 g/dl (31.0-36.0); Mean Corpuscular Hemoglobin 31.6 pg (27.0-33.0); Mean Corpuscular Volume 94.2 fL (80.0-98.0); Mean Platelet Volume 9.4 fL (9.4-12.4); Platelet Count 156 X10*3/uL (160-400); Red Blood Count 3.96 X10*6/uL (4.60-5.80); Red Cell Distribution Width 12.8 % (11.0-16.0); White Blood Count 19.2 X10*3/uL (4.8-10.8)
[2021-07-14 20:29] LABS: INTERNATIONAL NORM RATIO 1.2 (0.9-1.1); Prothrombin Time 13.6 SEC (9.9-13.0)
[2021-07-14 20:31] LABS: PTT Heparin Drip 30.3 SEC (53-77.9)
[2021-07-14] MEDS: Heparin Sodium,Porcine/1/2NS 25,000 UNIT/250 ML IV.SOLN 12.38 UNIT IVCONT (20:37)
[2021-07-15] VITALS (9 sets, daily range): BP systolic 125–164; BP diastolic 67–78; PULSE 76–97; RESP 18–24; TEMP 36.5–37.1; O2SAT 92–97; BMI 27.9
[2021-07-15 02:46] LABS: Basophils Percent Auto 0.3 % (0-2); Eosinophils Absolute Auto 0.1 X10*3/uL (0.0-0.4); Eosinophils Percent Auto 0.4 % (0-4); Hematocrit 35.9 % (42.0-52.0); Hemoglobin 12.1 g/dl (14.0-18.0); Imm Gran Abs Auto 0.08 X10*3/uL (0.00-0.03); Imm Gran Pct Auto 0.5 % (0.0-0.4); Lymphocytes Absolute Auto 1.4 X10*3/uL (1.2-4.9); Lymphocytes Percent Auto 9.3 % (20-40); MANUAL DIFF FLAG NO; Mean Corpuscular HGB Conc 33.7 g/dl (31.0-36.0); Mean Corpuscular Hemoglobin 31.8 pg (27.0-33.0); Mean Corpuscular Volume 94.5 fL (80.0-98.0); Mean Platelet Volume 9.4 fL (9.4-12.4); Monocytes Absolute Auto 0.8 X10*3/uL (0.1-1.2); Monocytes Percent Auto 5.5 % (2-11); Neutrophils Absolute Auto 12.4 x10*3/uL (2.0-8.3); Platelet Count 148 X10*3/uL (160-400); White Blood Count 14.8 X10*3/uL (4.8-10.8)
[2021-07-15 02:55] LABS: PTT Heparin Drip 40.9 SEC (53-77.9)
[2021-07-15] MEDS: Heparin Sodium,Porcine 5,000 UNIT/ML VIAL 3500 UNIT IVPUSH (03:05)
[2021-07-15 03:07] LABS: Anion Gap 10 (12-20); Blood Urea Nitrogen 26 mg/dL (9-16); Calcium 8.3 mg/dL (8.4-10.2); Carbon Dioxide 23 mmol/L (22-29); Chloride 108 mmol/L (96-108); Creatinine Clr Calc Pharmacy 48.1; Estimated Glomerular Filt Rate 50; Glucose Random 101 mg/dL (60-115); Potassium 4.2 mmol/L (3.3-5.1); Sodium 137 mmol/L (135-145)
[2021-07-15] MEDS: Omeprazole 20 MG CAPSULE.DR PO (05:50)
[2021-07-15] MEDS: Metoprolol Succinate ER 50 MG TAB.ER.24H PO (07:49)
[2021-07-15] MEDS: PARoxetine HCL 40 MG TABLET PO (07:49)
--- NOTE | 2021-07-15 07:53 | PC.NURSE ---
patient a&ox3, pt medicated per order, pt has audible in/ex wheezing- will notify RT, cardiac rehabilitation specialist nsr 80s, vitals stable, call dejesus within reach, will continue to monitor
--- NOTE | 2021-07-15 07:54 | PC.NURSE ---
o2 sat 96% on 2L
[2021-07-15] MEDS: Albuterol/Iprat 2.5/0.5MG 3 ML AMPUL.NEB INHALE ×3 (08:04→15:18)
--- NOTE | 2021-07-15 08:20 | P.PNIM_ITS ---
Subjective Subjective Date of Service: 07/15/21 Interval History: pneumonia ,hypotension ,aflutter, pulm embolism Review of Systems Says shortness of breath seems improving, denies any chest pain or abdominal pain or nausea or vomiting. Physical Exam Vital Signs: Vital Signs: Last Vital Signs Temp 97.9 F 07/15/21 07:24 Pulse 78 07/15/21 08:04 Resp 18 07/15/21 08:04 BP 164/77 H 07/15/21 07:24 Pulse Ox 96 07/15/21 07:24 BMI result Body Mass Index 27.9 ?Appearance: Alert.? Oriented X3.? not in distress.? cvs: reglaur rythem, [id number] . res: fair air entry, has b/l wheezing abd: no rebound or guarding ,nt, bs present. ext pulses present , no cyanosis . neuro: axo3 , nonfocal. Objective Data Active Medications Albuterol Sulfate (Albuterol Sulfate 90 Mcg 8 Gm Inhaler) 2 puff INHALE Q4H PRN PRN Reason: wheezing Albuterol/Ipratropium (Albuterol/Iprat 2.5/0.5mg 3 Ml Ampul.Neb) 3 ml INHALE RQ4H JOSE Last Admin: 07/15/21 08:04 Dose: 3 ml Documented by: KATLYN Heparin Sodium (Porcine) (Heparin Sodium,Porcine 5,000 Unit/Ml Vial) 3,500 unit 40 unit/kg (3500 unit) IVPUSH PROTOCOL BOLUS PRN; Protocol PRN Reason: 40 unit/kg - Heparin Protocol Last Admin: 07/15/21 03:05 Dose: 3,500 unit Documented by: ABIGAIL Heparin Sodium (Porcine) (Heparin Sodium,Porcine 5,000 Unit/Ml Vial) 7,100 unit 80 unit/kg (7100 unit) IVPUSH PROTOCOL BOLUS PRN; Protocol PRN Reason: 80 unit/kg - Heparin Protocol Azithromycin 500 mg/ Sodium (Chloride) 250 mls @ 125 mls/hr IV Q24H JOSE Ceftriaxone Sodium 1 gm/ (Sodium Chloride) 50 mls @ 100 mls/hr IV Q24H JOSE Heparin Sodium/Sodium Chloride () 25,000 unit in 250 mls @ 0 mls/hr IVCONT .Q0M JOSE; Protocol Last Titration: 07/15/21 03:03 Dose: 16 units/kg/hr, 14.14 mls/hr Documented by: ABIGAIL Cosigned by: BENITO Metoprolol Succinate (Metoprolol Succinate Er 50 Mg Tab.Er.24h) 50 mg PO DAILY [facility]; Protocol Last Admin: 07/15/21 07:49 Dose: 50 mg Documented by: DORENE Omeprazole (Omeprazole 20 Mg Capsule.Dr) 20 mg PO DAILY@0630 [facility] Last Admin: 07/15/21 05:50 Dose: 20 mg Documented by: ABIGAIL Paroxetine HCl (Paroxetine Hcl 40 Mg Tablet) 40 mg PO DAILY [facility] Last Admin: 07/15/21 07:49 Dose: 40 mg Documented by: DORENE Pharmacy Consult (Consult Rx Perform Med Rec) 1 each MISCELLANE ONCE PRN PRN Reason: Consult order Sodium Chloride (0.9 % Sodium Chloride Flush 3 Ml Syringe) 3 ml IVFLUSH QSHIFT [facility] Last Admin: 07/15/21 07:49 Dose: Not Given Documented by: DORENE Non-Admin Reason: IV Running Tamsulosin HCl (Tamsulosin Hcl 0.4 Mg Capsule) 0.4 mg PO DAILY [facility] Zolpidem Tartrate (Zolpidem Tartrate 5 Mg Tablet) 5 mg PO BEDTIME PRN PRN Reason: insomnia Labs CBC & Chem 7: 07/15/21 08:46 07/15/21 02:36 Labs: Laboratory Results - last 24 hr 07/14/21 07/14/21 07/14/21 12:54 12:54 12:54 MCV 93.1 MCH 31.5 MCHC 33.8 RDW 12.8 Plt Count 193 MPV 9.4 Immature Gran % (Auto) 0.4 Neut % (Auto) 88.9 H Lymph % (Auto) 3.7 L [place] % (Auto) 6.5 Eos % (Auto) 0.2 Baso % (Auto) 0.3 Lymph # (Auto) 0.8 L [place] # (Auto) 1.4 H Eos # (Auto) 0.1 Baso # (Auto) 0.1 Abs Immat Gran (auto) 0.08 H Absolute Neuts (auto) 19.1 H Absolute Nucleated RBC 0.000 Nucleated RBC % (auto) 0.0 PT INR APTT aPTT Heparin Protocol D-Dimer High Sensitivty Anion Gap 16 Creatinine 1.75 H Estim Creat Clear Calc 35.3 Estimated GFR 38 Random Glucose 125 H Lactic Acid Lactic Acid F/U @ 2Hr Lactic Acid F/U @ 4Hr Calcium 9.2 Magnesium 1.4 L* Total Bilirubin 1.1 H Direct Bilirubin 0.5 AST 20 ALT 16 Alkaline Phosphatase 56 Troponin I High Sens 6.3 B-Natriuretic Peptide 73 Total Protein 7.5 Albumin 4.0 TSH 1.53 COVID-19 (NATHANAEL) COVID-19 Clin Com Influenza Type A (LISBET) Influenza Type B (LISBET) Influenza A & B Note 07/14/21 07/14/21 07/14/21 13:27 13:27 13:27 MCV MCH MCHC RDW Plt Count MPV Immature Gran % (Auto) Neut % (Auto) Lymph % (Auto) [place] % (Auto) Eos % (Auto) Baso % (Auto) Lymph # (Auto) [place] # (Auto) Eos # (Auto) Baso # (Auto) Abs Immat Gran (auto) Absolute Neuts (auto) Absolute Nucleated RBC Nucleated RBC % (auto) PT 12.4 INR 1.1 APTT 31.8 aPTT Heparin Protocol D-Dimer High Sensitivty 900 Anion Gap Creatinine Estim Creat Clear Calc Estimated GFR Random Glucose Lactic Acid 2.9 H* Lactic Acid F/U @ 2Hr Lactic Acid F/U @ 4Hr Calcium Magnesium Total Bilirubin Direct Bilirubin AST ALT Alkaline Phosphatase Troponin I High Sens B-Natriuretic Peptide Total Protein Albumin TSH COVID-19 (NATHANAEL) COVID-19 Clin Com Influenza Type A (LISBET) Negative Influenza Type B (LISBET) Negative Influenza A & B Note See Note 07/14/21 07/14/21 07/14/21 13:27 16:01 16:35 MCV MCH MCHC RDW Plt Count MPV Immature Gran % (Auto) Neut % (Auto) Lymph % (Auto) [place] % (Auto) Eos % (Auto) Baso % (Auto) Lymph # (Auto) [place] # (Auto) Eos # (Auto) Baso # (Auto) Abs Immat Gran (auto) Absolute Neuts (auto) Absolute Nucleated RBC Nucleated RBC % (auto) PT INR APTT aPTT Heparin Protocol D-Dimer High Sensitivty Anion Gap Creatinine Estim Creat Clear Calc Estimated GFR Random Glucose Lactic Acid Lactic Acid F/U @ 2Hr 2.6 H* Lactic Acid F/U @ 4Hr Calcium Magnesium Total Bilirubin Direct Bilirubin AST ALT Alkaline Phosphatase Troponin I High Sens 19.9 D B-Natriuretic Peptide Total Protein Albumin TSH COVID-19 (NATHANAEL) Negative COVID-19 Clin Com See Note Influenza Type A (LISBET) Influenza Type B (LISBET) Influenza A & B Note 07/14/21 07/14/21 07/14/21 19:00 20:13 20:13 MCV 94.2 MCH 31.6 MCHC 33.5 RDW 12.8 Plt Count 156 L MPV 9.4 Immature Gran % (Auto) Neut % (Auto) Lymph % (Auto) [place] % (Auto) Eos % (Auto) Baso % (Auto) Lymph # (Auto) [place] # (Auto) Eos # (Auto) Baso # (Auto) Abs Immat Gran (auto) Absolute Neuts (auto) Absolute Nucleated RBC 0.000 Nucleated RBC % (auto) 0.0 PT 13.6 H INR 1.2 H APTT aPTT Heparin Protocol 30.3 L D-Dimer High Sensitivty Anion Gap Creatinine Estim Creat Clear Calc Estimated GFR Random Glucose Lactic Acid Lactic Acid F/U @ 2Hr Lactic Acid F/U @ 4Hr 2.5 H* Calcium Magnesium Total Bilirubin Direct Bilirubin AST ALT Alkaline Phosphatase Troponin I High Sens B-Natriuretic Peptide Total Protein Albumin TSH COVID-19 (NATHANAEL) COVID-19 Clin Com Influenza Type A (LISBET) Influenza Type B (LISBET) Influenza A & B Note 07/15/21 07/15/21 07/15/21 02:36 02:36 02:36 MCV 94.5 MCH 31.8 MCHC 33.7 RDW 13.0 Plt Count 148 L MPV 9.4 Immature Gran % (Auto) 0.5 H Neut % (Auto) 84.0 H Lymph % (Auto) 9.3 L [place] % (Auto) 5.5 Eos % (Auto) 0.4 Baso % (Auto) 0.3 Lymph # (Auto) 1.4 [place] # (Auto) 0.8 Eos # (Auto) 0.1 Baso # (Auto) 0.0 Abs Immat Gran (auto) 0.08 H Absolute Neuts (auto) 12.4 H Absolute Nucleated RBC 0.000 Nucleated RBC % (auto) 0.0 PT INR APTT aPTT Heparin Protocol 40.9 L D D-Dimer High Sensitivty Anion Gap 10 L Creatinine 1.37 Estim Creat Clear Calc 48.1 Estimated GFR 50 Random Glucose 101 Lactic Acid Lactic Acid F/U @ 2Hr Lactic Acid F/U @ 4Hr Calcium 8.3 L D Magnesium Total Bilirubin Direct Bilirubin AST ALT Alkaline Phosphatase Troponin I High Sens B-Natriuretic Peptide Total Protein Albumin TSH COVID-19 (NATHANAEL) COVID-19 Clin Com Influenza Type A (LISBET) Influenza Type B (LISBET) Influenza A & B Note Assessment and Plan (1) COPD (chronic obstructive pulmonary disease): Status: Acute (2) Pulmonary emboli: Status: Acute (3) Atrial fibrillation with rapid ventricular response: Status: Acute Plan 80-year-old male came to the emergency room with shortness of breath, wheezing, cough initially also had hypotension. 1. Hypotension probably multifactorial:? A flutter, dehydration, KATLIN, poor oral intake. Patient was given bolus for believes sepsis secondary to pneumonia also. 2. Possible severe sepsis secondary to possible clinical pneumonia with hypotension: Lactic acid trend down ,no need further trend unless clinical condition worsens. Continue antibiotics, blood cultures pending pulm eval noted -continue iv antibiotics, may need to switch to oral anticoagulation, recommended to repeat V/Q scan in 2 months outpatient 3. A fib:? Responded to fluid and dose of digoxin Patient converted back to sinus Rhythm, troponin flat echo moniter IV heparin drip and pt/ptt as per protocol. 4. KATLIN:? Probably related to dehydration, nausea vomiting and diarrhea. stool studies Received fluid as above Monitor BMP in the morning 5. With above presentation with the hypotension/shortness of breath, elevated D- dimer:vq scan intermediate probability pulm eval added V/Q scan was done, pending Patient is already started on heparin drip for a flutter we will check V/Q scan results. 6. History of lung cancer status ?? Lobectomy:? Patient follows out patiently. 7. Possible also COPD exacerbation : continue nebs, and low-dose steroids. DVT prophylaxis:? Already IV heparin need for inaptient:copd excerebation , abnormal vq scan Quality Stroke Does the patient have a stroke diagnosis?: No VTE Prior VTE?: No VTE Risk Level:: Medical - moderate - high VTE Device Contraindication: N/A - Device Ordered VTE Drug Contraindication: N/A - Med Ordered
[2021-07-15] MEDS: Tamsulosin HCL 0.4 MG CAPSULE PO (08:21)
[2021-07-15 08:54] LABS: Hematocrit 36.5 % (42.0-52.0); Hemoglobin 12.4 g/dl (14.0-18.0); Mean Corpuscular Hemoglobin 31.8 pg (27.0-33.0); Mean Corpuscular Volume 93.6 fL (80.0-98.0); Mean Platelet Volume 9.9 fL (9.4-12.4); Platelet Count 147 X10*3/uL (160-400); Red Cell Distribution Width 12.9 % (11.0-16.0); White Blood Count 12.6 X10*3/uL (4.8-10.8)
[2021-07-15 09:01] LABS: INTERNATIONAL NORM RATIO 1.3 (0.9-1.1); Prothrombin Time 14.9 SEC (9.9-13.0)
[2021-07-15 09:04] LABS: PTT Heparin Drip 32.1 SEC (53-77.9)
[2021-07-15] MEDS: Heparin Sodium,Porcine 5,000 UNIT/ML VIAL 7100 UNIT IVPUSH (09:42)
[2021-07-15] MEDS: Heparin Sodium,Porcine/1/2NS 25,000 UNIT/250 ML IV.SOLN 17.68 UNIT IVCONT ×2 (09:43→13:44)
--- NOTE | 2021-07-15 10:06 | PC.NURSE ---
ptt was adjusted with nursing supervisor bottle machines bernabe, pharmacy noted that the 20 rate was not showing appropriately, upon the dosage was put in the field where ptt low is, nursing supervisor bottle machines was notified will fix in system, pt is currently at 20 per hr as needed.
--- NOTE | 2021-07-15 10:44 | PM.CNCAR ---
History of Present Illness History of Present Illness Date of Service: 07/15/21 Chief complaint: Pneumonia, Alutter Narrative: This is a cardiology consultation regarding atrial flutter. Patient has a history of hypertension, lung cancer status post resection and long smoking history. He states that he has been getting short of breath recently but he does have baseline shortness of breath. There is a mention of cold in the last couple of weeks that might have contributed. Some subjective fevers. He was coughing a lot and that led to chest tightness in the upper chest, not sounding anginal. Based on H and P, it seems that patient had atrial flutter and subsequently we have been asked to see him. Patient himself does not feel any cardiac symptoms at this time. He states he has never had anything cardiac related I coronary disease myocardial infarction or in fact anything cardiac related at all. Review of Systems Review of Systems: Yes all other systems are reviewed and are negative Constitutional: Constitutional: Reports as per HPI Eyes: Eyes: Reports as per HPI ENT: Reports as per HPI Cardiovascular: Cardiovascular: Reports as per HPI, Denies acrocyanosis, Denies cool extremities, Reports chest pain, Denies leg edema, Denies lightheadedness, Denies palpitations and Reports dyspnea Respiratory: Respiratory: Reports as per HPI, Reports no additional respiratory complaints and Reports dyspnea Gastrointestinal: Gastrointestinal: Reports as per HPI and Reports no additional gastrointestinal complaints Genitourinary: Genitourinary: Reports no additional male genitourinary complaints and Reports as per HPI Musculoskeletal: Musculoskeletal: Reports no additional musculoskeletal complaints and Reports as per HPI Integumentary/Breasts: Skin/Breast: Reports system reviewed and no additional complaints, except as docu Neurologic: Reports system reviewed and no additional complaints, except as documented and Reports as per HPI Psychiatric: Psychiatric: Reports no additional psychiatric complaints and Reports as per HPI Endocrine: Endocrine: Reports no additional endocrine complaints, Reports as per HPI and Denies palpitations Hematologic/Lymphatic: Hematologic/Lymphatic: Reports no additional hematologic/lymphatic complaints and Reports as per HPI Allergic/Immunologic: Allergic/Immunologic: Reports no additional allergic/immunologic complaints and Reports as per HPI [facility] Past Medical History Medical History (Updated 07/15/21 @ 10:55 by Tobin Morse MD) Essential hypertension Lung cancer Family History Family History (Updated 07/15/21 @ 10:46 by Tobin Morse MD) Father Lung cancer Social History Social History (Updated 07/15/21 @ 10:55 by Tobin Morse MD) Alcohol intake: never Patient Tobacco Use Status: Former Tobacco user Advance Directives: No Advance Directives Information Provided: Yes Meds Allergies Allergy/AdvReac Type Severity Reaction Status Date / Time pseudoephedrine AdvReac Intermediate AGITATION Unverified 11/11/19 14:44 [From SUDAFED] Active Medications: Current Medications Albuterol Sulfate (Albuterol Sulfate 90 Mcg 8 Gm Inhaler) 2 puff INHALE Q4H PRN PRN Reason: wheezing Albuterol/Ipratropium (Albuterol/Iprat 2.5/0.5mg 3 Ml Ampul.Neb) 3 ml INHALE RQ4H JOSE Last Admin: 07/15/21 08:04 Dose: 3 ml Documented by: Heparin Sodium (Porcine) (Heparin Sodium,Porcine 5,000 Unit/Ml Vial) 3,500 unit 40 unit/kg (3500 unit) IVPUSH PROTOCOL BOLUS PRN; Protocol PRN Reason: 40 unit/kg - Heparin Protocol Last Admin: 07/15/21 03:05 Dose: 3,500 unit Documented by: Heparin Sodium (Porcine) (Heparin Sodium,Porcine 5,000 Unit/Ml Vial) 7,100 unit 80 unit/kg (7100 unit) IVPUSH PROTOCOL BOLUS PRN; Protocol PRN Reason: 80 unit/kg - Heparin Protocol Last Admin: 07/15/21 09:42 Dose: 7,100 unit Documented by: Azithromycin 500 mg/ Sodium (Chloride) 250 mls @ 125 mls/hr IV Q24H JOSE Ceftriaxone Sodium 1 gm/ (Sodium Chloride) 50 mls @ 100 mls/hr IV Q24H JOSE Heparin Sodium/Sodium Chloride () 25,000 unit in 250 mls @ 0 mls/hr IVCONT .Q0M JOSE; Protocol Last Admin: 07/15/21 09:43 Dose: 16 units/kg/hr, 14.14 mls/hr Documented by: Metoprolol Succinate (Metoprolol Succinate Er 50 Mg Tab.Er.24h) 50 mg PO DAILY [facility]; Protocol Last Admin: 07/15/21 07:49 Dose: 50 mg Documented by: Omeprazole (Omeprazole 20 Mg Capsule.Dr) 20 mg PO DAILY@0630 [facility] Last Admin: 07/15/21 05:50 Dose: 20 mg Documented by: Paroxetine HCl (Paroxetine Hcl 40 Mg Tablet) 40 mg PO DAILY [facility] Last Admin: 07/15/21 07:49 Dose: 40 mg Documented by: Pharmacy Consult (Consult Rx Perform Med Rec) 1 each MISCELLANE ONCE PRN PRN Reason: Consult order Sodium Chloride (0.9 % Sodium Chloride Flush 3 Ml Syringe) 3 ml IVFLUSH QSHIFT [facility] Last Admin: 07/15/21 07:49 Dose: Not Given Documented by: Tamsulosin HCl (Tamsulosin Hcl 0.4 Mg Capsule) 0.4 mg PO DAILY [facility] Last Admin: 07/15/21 08:21 Dose: 0.4 mg Documented by: Zolpidem Tartrate (Zolpidem Tartrate 5 Mg Tablet) 5 mg PO BEDTIME PRN PRN Reason: insomnia Home Medications Medication Instructions Recorded Confirmed Last Taken Type albuterol sulfate 90 mcg/actuation 2 puff INHALATION Q4H PRN 07/14/21 07/14/21 07/13/21 History aerosol inhaler metoprolol succinate 50 mg 1 tab PO DAILY 07/14/21 07/14/21 07/13/21 History tablet,extended release 24 hr omeprazole 20 mg capsule,delayed 1 cap PO DAILY 07/14/21 07/14/21 07/13/21 History release paroxetine HCl 40 mg tablet 1 tab PO QAM 07/14/21 07/14/21 07/13/21 History tamsulosin 0.4 mg capsule 1 cap PO DAILY 07/14/21 07/14/21 07/13/21 History zolpidem 12.5 mg tablet,extended 1 tab PO BEDTIME PRN 07/14/21 07/14/21 07/13/21 History release,multiphase Physical Exam Vital Signs: Vital Signs: Last Vital Signs Temp 97.9 F 07/15/21 07:24 Pulse 78 07/15/21 08:04 Resp 18 07/15/21 08:04 BP 164/77 H 07/15/21 07:24 Pulse Ox 96 07/15/21 07:24 BMI result Body Mass Index 27.9 Const: General: comfortable and no acute distress Orientation/consciousness: patient oriented x3 HEENT: Other: Unremarkable Head: Yes normal to inspection Neck: Neck: Yes normal visual inspection Chest: Chest palpation & inspection: normal inspection of the chest Resp: Auscultation: rhonchi and diminished lung sounds Cardio: Other: Limited exam and heart sounds feel very distant. No definitive murmurs but difficult auscultation. GI: Palpation (GI): Soft to palpation Back/Spine/Pelvis: Other: unremarkable Skin: General skin exam: no rashes or lesions noted Neuro: General: patient oriented x3 Extrem: General: Yes normal to inspection Psych: Mental Status: mental status grossly normal Objective Labs and Meds Result diagrams: 07/15/21 08:46 07/15/21 02:36 Lab results: Laboratory Results - last 24 hr 07/14/21 07/14/21 07/14/21 12:54 12:54 12:54 WBC 21.5 H RBC 4.96 Hgb 15.6 Hct 46.2 MCV 93.1 MCH 31.5 MCHC 33.8 RDW 12.8 Plt Count 193 MPV 9.4 Immature Gran % (Auto) 0.4 Neut % (Auto) 88.9 H Lymph % (Auto) 3.7 L [place] % (Auto) 6.5 Eos % (Auto) 0.2 Baso % (Auto) 0.3 Lymph # (Auto) 0.8 L [place] # (Auto) 1.4 H Eos # (Auto) 0.1 Baso # (Auto) 0.1 Abs Immat Gran (auto) 0.08 H Absolute Neuts (auto) 19.1 H Absolute Nucleated RBC 0.000 Nucleated RBC % (auto) 0.0 PT INR APTT aPTT Heparin Protocol D-Dimer High Sensitivty Sodium 135 Potassium 4.3 Chloride 102 Carbon Dioxide 21 L Anion Gap 16 BUN 29 H Creatinine 1.75 H Estim Creat Clear Calc 35.3 Estimated GFR 38 Random Glucose 125 H Lactic Acid Lactic Acid F/U @ 2Hr Lactic Acid F/U @ 4Hr Calcium 9.2 Magnesium 1.4 L* Total Bilirubin 1.1 H Direct Bilirubin 0.5 AST 20 ALT 16 Alkaline Phosphatase 56 Troponin I High Sens 6.3 B-Natriuretic Peptide 73 Total Protein 7.5 Albumin 4.0 TSH 1.53 Respiratory Panel [place] Adenovirus (Rapid PCR) B.pert (TEM-PCR) B.parapertussis DNA PCR C. pneumoniae DNA (PCR) Coronavirus OC43 (PCR) Coronavirus HKU1 (PCR) Coronavirus 229E (PCR) COVID-19 (NATHANAEL) COVID-19 Clin Com Coronavirus NL63 (PCR) Human Metapneumovir PCR Influenza Type A (LISBET) Influenza A (RT-PCR) Influenza Type B (LISBET) Influenza B (RT-PCR) Influenza A & B Note M. pneumoniae (PCR) Parainfluenza 1 (PCR) Parainfluenza 2 (PCR) Parainfluenza 3 (PCR) Parainfluenza 4 (PCR) RSV (PCR) Entero/Rhino (PCR) SARS-CoV-2 RNA (RT-PCR) 07/14/21 07/14/21 07/14/21 13:27 13:27 13:27 WBC RBC Hgb Hct MCV MCH MCHC RDW Plt Count MPV Immature Gran % (Auto) Neut % (Auto) Lymph % (Auto) [place] % (Auto) Eos % (Auto) Baso % (Auto) Lymph # (Auto) [place] # (Auto) Eos # (Auto) Baso # (Auto) Abs Immat Gran (auto) Absolute Neuts (auto) Absolute Nucleated RBC Nucleated RBC % (auto) PT 12.4 INR 1.1 APTT 31.8 aPTT Heparin Protocol D-Dimer High Sensitivty 900 Sodium Potassium Chloride Carbon Dioxide Anion Gap BUN Creatinine Estim Creat Clear Calc Estimated GFR Random Glucose Lactic Acid 2.9 H* Lactic Acid F/U @ 2Hr Lactic Acid F/U @ 4Hr Calcium Magnesium Total Bilirubin Direct Bilirubin AST ALT Alkaline Phosphatase Troponin I High Sens B-Natriuretic Peptide Total Protein Albumin TSH Respiratory Panel [place] Adenovirus (Rapid PCR) B.pert (TEM-PCR) B.parapertussis DNA PCR C. pneumoniae DNA (PCR) Coronavirus OC43 (PCR) Coronavirus HKU1 (PCR) Coronavirus 229E (PCR) COVID-19 (NATHANAEL) COVID-19 Clin Com Coronavirus NL63 (PCR) Human Metapneumovir PCR Influenza Type A (LISBET) Negative Influenza A (RT-PCR) Influenza Type B (LISBET) Negative Influenza B (RT-PCR) Influenza A & B Note See Note M. pneumoniae (PCR) Parainfluenza 1 (PCR) Parainfluenza 2 (PCR) Parainfluenza 3 (PCR) Parainfluenza 4 (PCR) RSV (PCR) Entero/Rhino (PCR) SARS-CoV-2 RNA (RT-PCR) 07/14/21 07/14/21 07/14/21 13:27 16:01 16:35 WBC RBC Hgb Hct MCV MCH MCHC RDW Plt Count MPV Immature Gran % (Auto) Neut % (Auto) Lymph % (Auto) [place] % (Auto) Eos % (Auto) Baso % (Auto) Lymph # (Auto) [place] # (Auto) Eos # (Auto) Baso # (Auto) Abs Immat Gran (auto) Absolute Neuts (auto) Absolute Nucleated RBC Nucleated RBC % (auto) PT INR APTT aPTT Heparin Protocol D-Dimer High Sensitivty Sodium Potassium Chloride Carbon Dioxide Anion Gap BUN Creatinine Estim Creat Clear Calc Estimated GFR Random Glucose Lactic Acid Lactic Acid F/U @ 2Hr 2.6 H* Lactic Acid F/U @ 4Hr Calcium Magnesium Total Bilirubin Direct Bilirubin AST ALT Alkaline Phosphatase Troponin I High Sens 19.9 D B-Natriuretic Peptide Total Protein Albumin TSH Respiratory Panel [place] Adenovirus (Rapid PCR) B.pert (TEM-PCR) B.parapertussis DNA PCR C. pneumoniae DNA (PCR) Coronavirus OC43 (PCR) Coronavirus HKU1 (PCR) Coronavirus 229E (PCR) COVID-19 (NATHANAEL) Negative COVID-19 Clin Com See Note Coronavirus NL63 (PCR) Human Metapneumovir PCR Influenza Type A (LISBET) Influenza A (RT-PCR) Influenza Type B (LISBET) Influenza B (RT-PCR) Influenza A & B Note M. pneumoniae (PCR) Parainfluenza 1 (PCR) Parainfluenza 2 (PCR) Parainfluenza 3 (PCR) Parainfluenza 4 (PCR) RSV (PCR) Entero/Rhino (PCR) SARS-CoV-2 RNA (RT-PCR) 07/14/21 07/14/21 07/14/21 19:00 20:13 20:13 WBC 19.2 H RBC 3.96 L D Hgb 12.5 L Hct 37.3 L MCV 94.2 MCH 31.6 MCHC 33.5 RDW 12.8 Plt Count 156 L MPV 9.4 Immature Gran % (Auto) Neut % (Auto) Lymph % (Auto) [place] % (Auto) Eos % (Auto) Baso % (Auto) Lymph # (Auto) [place] # (Auto) Eos # (Auto) Baso # (Auto) Abs Immat Gran (auto) Absolute Neuts (auto) Absolute Nucleated RBC 0.000 Nucleated RBC % (auto) 0.0 PT 13.6 H INR 1.2 H APTT aPTT Heparin Protocol 30.3 L D-Dimer High Sensitivty Sodium Potassium Chloride Carbon Dioxide Anion Gap BUN Creatinine Estim Creat Clear Calc Estimated GFR Random Glucose Lactic Acid Lactic Acid F/U @ 2Hr Lactic Acid F/U @ 4Hr 2.5 H* Calcium Magnesium Total Bilirubin Direct Bilirubin AST ALT Alkaline Phosphatase Troponin I High Sens B-Natriuretic Peptide Total Protein Albumin TSH Respiratory Panel [place] Adenovirus (Rapid PCR) B.pert (TEM-PCR) B.parapertussis DNA PCR C. pneumoniae DNA (PCR) Coronavirus OC43 (PCR) Coronavirus HKU1 (PCR) Coronavirus 229E (PCR) COVID-19 (NATHANAEL) COVID-19 Clin Com Coronavirus NL63 (PCR) Human Metapneumovir PCR Influenza Type A (LISBET) Influenza A (RT-PCR) Influenza Type B (LISBET) Influenza B (RT-PCR) Influenza A & B Note M. pneumoniae (PCR) Parainfluenza 1 (PCR) Parainfluenza 2 (PCR) Parainfluenza 3 (PCR) Parainfluenza 4 (PCR) RSV (PCR) Entero/Rhino (PCR) SARS-CoV-2 RNA (RT-PCR) 07/14/21 07/15/21 07/15/21 23:15 02:36 02:36 WBC 14.8 H RBC 3.80 L Hgb 12.1 L Hct 35.9 L MCV 94.5 MCH 31.8 MCHC 33.7 RDW 13.0 Plt Count 148 L MPV 9.4 Immature Gran % (Auto) 0.5 H Neut % (Auto) 84.0 H Lymph % (Auto) 9.3 L [place] % (Auto) 5.5 Eos % (Auto) 0.4 Baso % (Auto) 0.3 Lymph # (Auto) 1.4 [place] # (Auto) 0.8 Eos # (Auto) 0.1 Baso # (Auto) 0.0 Abs Immat Gran (auto) 0.08 H Absolute Neuts (auto) 12.4 H Absolute Nucleated RBC 0.000 Nucleated RBC % (auto) 0.0 PT INR APTT aPTT Heparin Protocol 40.9 L D D-Dimer High Sensitivty Sodium Potassium Chloride Carbon Dioxide Anion Gap BUN Creatinine Estim Creat Clear Calc Estimated GFR Random Glucose Lactic Acid Lactic Acid F/U @ 2Hr Lactic Acid F/U @ 4Hr Calcium Magnesium Total Bilirubin Direct Bilirubin AST ALT Alkaline Phosphatase Troponin I High Sens B-Natriuretic Peptide Total Protein Albumin TSH Respiratory Panel [place] Cancelled Adenovirus (Rapid PCR) Cancelled B.pert (TEM-PCR) Cancelled B.parapertussis DNA PCR Cancelled C. pneumoniae DNA (PCR) Cancelled Coronavirus OC43 (PCR) Cancelled Coronavirus HKU1 (PCR) Cancelled Coronavirus 229E (PCR) Cancelled COVID-19 (NATHANAEL) COVID-19 Clin Com Coronavirus NL63 (PCR) Cancelled Human Metapneumovir PCR Cancelled Influenza Type A (LISBET) Influenza A (RT-PCR) Cancelled Influenza Type B (LISBET) Influenza B (RT-PCR) Cancelled Influenza A & B Note M. pneumoniae (PCR) Cancelled Parainfluenza 1 (PCR) Cancelled Parainfluenza 2 (PCR) Cancelled Parainfluenza 3 (PCR) Cancelled Parainfluenza 4 (PCR) Cancelled RSV (PCR) Cancelled Entero/Rhino (PCR) Cancelled SARS-CoV-2 RNA (RT-PCR) Cancelled 07/15/21 07/15/21 07/15/21 02:36 08:46 08:46 WBC 12.6 H RBC 3.90 L Hgb 12.4 L Hct 36.5 L MCV 93.6 MCH 31.8 MCHC 34.0 RDW 12.9 Plt Count 147 L MPV 9.9 Immature Gran % (Auto) Neut % (Auto) Lymph % (Auto) [place] % (Auto) Eos % (Auto) Baso % (Auto) Lymph # (Auto) [place] # (Auto) Eos # (Auto) Baso # (Auto) Abs Immat Gran (auto) Absolute Neuts (auto) Absolute Nucleated RBC 0.000 Nucleated RBC % (auto) 0.0 PT 14.9 H INR 1.3 H APTT aPTT Heparin Protocol 32.1 L D D-Dimer High Sensitivty Sodium 137 Potassium 4.2 Chloride 108 Carbon Dioxide 23 Anion Gap 10 L BUN 26 H Creatinine 1.37 Estim Creat Clear Calc 48.1 Estimated GFR 50 Random Glucose 101 Lactic Acid Lactic Acid F/U @ 2Hr Lactic Acid F/U @ 4Hr Calcium 8.3 L D Magnesium Total Bilirubin Direct Bilirubin AST ALT Alkaline Phosphatase Troponin I High Sens B-Natriuretic Peptide Total Protein Albumin TSH Respiratory Panel [place] Adenovirus (Rapid PCR) B.pert (TEM-PCR) B.parapertussis DNA PCR C. pneumoniae DNA (PCR) Coronavirus OC43 (PCR) Coronavirus HKU1 (PCR) Coronavirus 229E (PCR) COVID-19 ([facility]HA[facility]EL) COVID-19 Clin Com Coronavirus NL63 (PCR) Human Metapneumovir PCR Influenza Type A (LISBET) Influenza A (RT-PCR) Influenza Type B (LISBET) Influenza B (RT-PCR) Influenza A & B Note M. pneumoniae (PCR) Parainfluenza 1 (PCR) Parainfluenza 2 (PCR) Parainfluenza 3 (PCR) Parainfluenza 4 (PCR) RSV (PCR) Entero/Rhino (PCR) SARS-CoV-2 RNA (RT-PCR) ECG Interpretation: EKG from 07/15/19- 18:40-sinus rhythm, 98/Min; LA prolongation to 214 milliseconds; EKG from 12:41- atrial fibrillation rapid rate at 168/Min. Old septal infarct. Imaging Radiologist's impression: Impressions Chest X-Ray 07/14/21 13:25 IMPRESSION: Chronic scarring or atelectasis left lung base with slight loss of left lung volume. There is mild blunting of right CP angle question pleural thickening similar findings were seen on the previous study The right lung is expanded and clear. Pulmonary Perfusion Imaging 07/14/21 18:05 IMPRESSION: Indeterminate exam for pulmonary embolism. Venous Duplex 07/15/21 08:35 IMPRESSION: No DVT demonstrated in the bilateral lower extremity. Suboptimal visualization of the right peroneal vein. Assessment and Plan (1) Atrial fibrillation with rapid ventricular response: Status: Acute Plan Labs reviewed. Hemoglobin 12.4. White cells 12.6. Platelets 147. Creatinine 1.37. Potassium 4.2. Magnesium 1.4. High sensitivity troponins are 6.3 and 19.9. Cardiac BNP 73. We can scan reported have intermediate exam for pulmonary embolism. No evidence of DVT in lower extremities based on ultrasound. Chest x-ray with chronic scarring/atelectasis left lung base. Mild blunting of right costophrenic angle. Overall, elderly gentleman with chronic pulmonary issues also having atrial fibrillation rapid rate but now back in sinus rhythm. He is on metoprolol succinate 50 mg daily. We can go up on the dose to 75 mg daily (has slight LA prolongation on EKG). For anticoagulation, may use Eliquis. Echocardiogram tomorrow. Correct electrolyte issues. Will follow up with you. Discussed with Dr. Yang. Procedures Date of Service Date of Service: 07/15/21
--- NOTE | 2021-07-15 11:24 | PM.CNPUL ---
History of Present Illness History of Present Illness Consult date: 07/15/21 Chief complaint: Pneumonia, Alutter Narrative: This is an inpatient pulmonary consultation. The patient is a 80-year-old male with history of hypertension, lung cancer post resection right-sided, 30 pack-year history of smoking-came to the hospital as per the patient he has progressive shortness of breath from last 5- 6 month but it was slowly getting worse from last few weeks and he thought that maybe have had cold in last couple of weeks that might have contributed to it-and from last week or so he is having cough and clear phlegm and has subjective fever sensation also. He he also said that he was coughing a lot and having chest tightness which is upper chest , reproducible, non radiating, intermittent, could not tell the quality of the pain says on and off sharp pain specially with coughing. Does not able to tell any alleviating or aggravating factors. His chest x-ray I personally reviewed demonstrating a left lower lung zone opacity which appears to be more chronic. In addition to that he underwent a D-dimer study that was positive. He could not have a CTA due to the elevated creatinine so therefore had a V/Q scan was intermediate probability. His troponin I and brain atretic peptide were both negative for any evidence of any cardiac strain. The patient denies any leg swelling. His lower extremity Dopplers negative for any blood clots. The patient does not have a history of blood clots either. He was started on antibiotics for the left lower lobe opacity specially since his lactic levels were elevated suggesting some degree of sepsis. Currently the patient is feeling better. He is asking to go home. He is getting oxygen initially, but when I saw him he had taken off his oxygen he was maintaining a pulse ox of 92%. He has also had previous CT scans of the chest that I personally reviewed demonstrating significant emphysematous changes and Saber sheath trachea which is related to his significant COPD. Also to note while in hospital he was diagnosed with atrial fibrillation with rapid ventricular response that is likely contributing to a significant amount of his symptoms. Currently working with cardiology. He will need lifelong anticoagulation for that reason as well. Review of Systems Review of Systems: Yes all other systems are reviewed and are negative Constitutional: Constitutional: Reports as per HPI Eyes: Eyes: Reports as per HPI ENT: Reports as per HPI Cardiovascular: Cardiovascular: Reports as per HPI, Denies acrocyanosis, Denies cool extremities, Reports chest pain, Denies leg edema, Denies lightheadedness, Denies palpitations and Reports dyspnea Respiratory: Respiratory: Reports as per HPI, Reports no additional respiratory complaints and Reports dyspnea Gastrointestinal: Gastrointestinal: Reports as per HPI and Reports no additional gastrointestinal complaints Genitourinary: Genitourinary: Reports no additional male genitourinary complaints and Reports as per HPI Musculoskeletal: Musculoskeletal: Reports no additional musculoskeletal complaints and Reports as per HPI Integumentary/Breasts: Skin/Breast: Reports system reviewed and no additional complaints, except as docu Neurologic: Reports system reviewed and no additional complaints, except as documented and Reports as per HPI Psychiatric: Psychiatric: Reports no additional psychiatric complaints and Reports as per HPI Endocrine: Endocrine: Reports no additional endocrine complaints, Reports as per HPI and Denies palpitations Hematologic/Lymphatic: Hematologic/Lymphatic: Reports no additional hematologic/lymphatic complaints and Reports as per HPI Allergic/Immunologic: Allergic/Immunologic: Reports no additional allergic/immunologic complaints and Reports as per HPI [facility] Past Medical History Medical History (Updated 07/15/21 @ 11:29 by Jaylen Marley MD) COPD (chronic obstructive pulmonary disease) Essential hypertension Lung cancer Family History Family History (Updated 07/15/21 @ 10:46 by Tobin Morse MD) Father Lung cancer Social History Social History (Updated 07/15/21 @ 10:55 by Tobin Morse MD) Alcohol intake: never Patient Tobacco Use Status: Former Tobacco user Advance Directives: No Advance Directives Information Provided: Yes Meds Allergies Allergy/AdvReac Type Severity Reaction Status Date / Time pseudoephedrine AdvReac Intermediate AGITATION Unverified 11/11/19 14:44 [From SUDAFED] Active Medications: Current Medications Albuterol Sulfate (Albuterol Sulfate 90 Mcg 8 Gm Inhaler) 2 puff INHALE Q4H PRN PRN Reason: wheezing Albuterol/Ipratropium (Albuterol/Iprat 2.5/0.5mg 3 Ml Ampul.Neb) 3 ml INHALE RQ4H JOSE Last Admin: 07/15/21 08:04 Dose: 3 ml Documented by: Heparin Sodium (Porcine) (Heparin Sodium,Porcine 5,000 Unit/Ml Vial) 3,500 unit 40 unit/kg (3500 unit) IVPUSH PROTOCOL BOLUS PRN; Protocol PRN Reason: 40 unit/kg - Heparin Protocol Last Admin: 07/15/21 03:05 Dose: 3,500 unit Documented by: Heparin Sodium (Porcine) (Heparin Sodium,Porcine 5,000 Unit/Ml Vial) 7,100 unit 80 unit/kg (7100 unit) IVPUSH PROTOCOL BOLUS PRN; Protocol PRN Reason: 80 unit/kg - Heparin Protocol Last Admin: 07/15/21 09:42 Dose: 7,100 unit Documented by: Azithromycin 500 mg/ Sodium (Chloride) 250 mls @ 125 mls/hr IV Q24H JOSE Ceftriaxone Sodium 1 gm/ (Sodium Chloride) 50 mls @ 100 mls/hr IV Q24H JOSE Heparin Sodium/Sodium Chloride () 25,000 unit in 250 mls @ 0 mls/hr IVCONT .Q0M [facility]; Protocol Last Admin: 07/15/21 09:43 Dose: 20 units/kg/hr, 17.68 mls/hr Documented by: Metoprolol Succinate (Metoprolol Succinate Er 50 Mg Tab.Er.24h) 50 mg PO DAILY [facility]; Protocol Last Admin: 07/15/21 07:49 Dose: 50 mg Documented by: Omeprazole (Omeprazole 20 Mg Capsule.) 20 mg PO DAILY@0630 [facility] Last Admin: 07/15/21 05:50 Dose: 20 mg Documented by: Paroxetine HCl (Paroxetine Hcl 40 Mg Tablet) 40 mg PO DAILY [facility] Last Admin: 07/15/21 07:49 Dose: 40 mg Documented by: Pharmacy Consult (Consult Rx Perform Med Rec) 1 each MISCELLANE ONCE PRN PRN Reason: Consult order Sodium Chloride (0.9 % Sodium Chloride Flush 3 Ml Syringe) 3 ml IVFLUSH QSHIFT [facility] Last Admin: 07/15/21 07:49 Dose: Not Given Documented by: Tamsulosin HCl (Tamsulosin Hcl 0.4 Mg Capsule) 0.4 mg PO DAILY [facility] Last Admin: 07/15/21 08:21 Dose: 0.4 mg Documented by: Zolpidem Tartrate (Zolpidem Tartrate 5 Mg Tablet) 5 mg PO BEDTIME PRN PRN Reason: insomnia Home Medications Medication Instructions Recorded Confirmed Last Taken Type albuterol sulfate 90 mcg/actuation 2 puff INHALATION Q4H PRN 07/14/21 07/14/2122 History aerosol inhaler metoprolol succinate 50 mg 1 tab PO DAILY 07/14/21 07/14/21 07/13/21 History tablet,extended release 24 hr omeprazole 20 mg capsule,delayed 1 cap PO DAILY 07/14/21 07/14/21 07/13/21 History release paroxetine HCl 40 mg tablet 1 tab PO QAM 07/14/21 07/14/21 07/13/21 History tamsulosin 0.4 mg capsule 1 cap PO DAILY 07/14/21 07/14/21 07/13/21 History zolpidem 12.5 mg tablet,extended 1 tab PO BEDTIME PRN 07/14/21 07/14/21 07/13/21 History release,multiphase Physical Exam Vital Signs: Vital Signs: Last Vital Signs Temp 97.9 F 07/15/21 07:24 Pulse 78 07/15/21 08:04 Resp 18 07/15/21 08:04 BP 164/77 H 07/15/21 07:24 Pulse Ox 96 07/15/21 07:24 BMI result Body Mass Index 27.9 Const: General: alert Neck: Neck: Yes normal visual inspection, Yes full ROM and Yes no lymphadenopathy Chest: Chest palpation & inspection: normal inspection of the chest Resp: Auscultation: diminished lung sounds Cardio: Rate: regular rate Rhythm: regular rhythm Heart sounds: S1 normal heart sound present and S2 normal heart sound present GI: Palpation (GI): Soft to palpation and nontender Auscultation: normal bowel sounds Skin: General skin exam: rashes and/or lesions noted Results Laboratory Findings CBC and BMP: 07/15/21 08:46 07/15/21 02:36 ABG, PT/INR, D-dimer: PT/INR, D-dimer PT 14.9 SEC (9.9-13.0) H 07/15/21 08:46 INR 1.3 (0.9-1.1) H 07/15/21 08:46 Abnormal lab findings: Abnormal Labs 07/14/21 07/14/21 07/14/21 12:54 12:54 13:27 WBC 21.5 H RBC Hgb Hct Plt Count Immature Gran % (Auto) Neut % (Auto) 88.9 H Lymph % (Auto) 3.7 L Lymph # (Auto) 0.8 L Canadian # (Auto) 1.4 H Abs Immat Gran (auto) 0.08 H Absolute Neuts (auto) 19.1 H PT INR aPTT Heparin Protocol Carbon Dioxide 21 L Anion Gap BUN 29 H Creatinine 1.75 H Random Glucose 125 H Lactic Acid 2.9 H* Lactic Acid F/U @ 2Hr Lactic Acid F/U @ 4Hr Calcium Magnesium 1.4 L* Total Bilirubin 1.1 H 07/14/21 07/14/21 07/14/21 16:01 19:00 20:13 WBC 19.2 H RBC 3.96 L D Hgb 12.5 L Hct 37.3 L Plt Count 156 L Immature Gran % (Auto) Neut % (Auto) Lymph % (Auto) Lymph # (Auto) Canadian # (Auto) Abs Immat Gran (auto) Absolute Neuts (auto) PT INR aPTT Heparin Protocol Carbon Dioxide Anion Gap BUN Creatinine Random Glucose Lactic Acid Lactic Acid F/U @ 2Hr 2.6 H* Lactic Acid F/U @ 4Hr 2.5 H* Calcium Magnesium Total Bilirubin 07/14/21 07/15/21 07/15/21 20:13 02:36 02:36 WBC 14.8 H RBC 3.80 L Hgb 12.1 L Hct 35.9 L Plt Count 148 L Immature Gran % (Auto) 0.5 H Neut % (Auto) 84.0 H Lymph % (Auto) 9.3 L Lymph # (Auto) Canadian # (Auto) Abs Immat Gran (auto) 0.08 H Absolute Neuts (auto) 12.4 H PT 13.6 H INR 1.2 H aPTT Heparin Protocol 30.3 L 40.9 L D Carbon Dioxide Anion Gap BUN Creatinine Random Glucose Lactic Acid Lactic Acid F/U @ 2Hr Lactic Acid F/U @ 4Hr Calcium Magnesium Total Bilirubin 07/15/21 07/15/21 07/15/21 02:36 08:46 08:46 WBC 12.6 H RBC 3.90 L Hgb 12.4 L Hct 36.5 L Plt Count 147 L Immature Gran % (Auto) Neut % (Auto) Lymph % (Auto) Lymph # (Auto) Canadian # (Auto) Abs Immat Gran (auto) Absolute Neuts (auto) PT 14.9 H INR 1.3 H aPTT Heparin Protocol 32.1 L D Carbon Dioxide Anion Gap 10 L BUN 26 H Creatinine Random Glucose Lactic Acid Lactic Acid F/U @ 2Hr Lactic Acid F/U @ 4Hr Calcium 8.3 L D Magnesium Total Bilirubin Assessment and Plan (1) Pneumonia: Status: Acute (2) Sepsis: Status: Acute (3) Pulmonary emboli: Status: Acute (4) COPD (chronic obstructive pulmonary disease): Status: Acute Plan At this point the patient is presenting with symptoms of progressive dyspnea. He had an elevated D-dimer and also intermediate V/Q scan. Cannot rule out thromboembolic disease. However, it is less likely. The patient will need anticoagulation for the atrial fibrillation anyways so therefore they will be a reasonable treatment to go along with Eliquis and to treat both conditions. 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 Recommendations: Eliquis at least for 3 months for the pulmonary emboli but will need lifelong potentially for atrial fibrillation Will consider as an outpatient repeating V/Q scan in 2 months to make sure that there is resolution of the process Continue antibiotics for 8 days total Respiratory therapy Currently off oxygen but titrate oxygen to maintain a pulse ox above 90% the patient will need walking oximetry prior to discharge The patient will need outpatient set up with outpatient pulmonary Procedures Date of Service Date of Service: 07/15/21
--- NOTE | 2021-07-15 12:28 | PC.NURSE ---
patient a&ox3, ambulated the unit with stby assist, pt moved from overflow bed 4 to overflow bed 5 for hospital convenience, pt sitting up in chair, heparin drip running at 20,nsr 80s, call dejesus within reach, resting comfortably at this time, will continue to monitor.
[2021-07-15] MEDS: cefTRIAXone sodium 1 GM in 0.9 % Sodium Chloride 50 ML IV (13:48)
[2021-07-15] MEDS: Azithromycin 500 MG in 0.9 % Sodium Chloride 250 ML 125 MG IV (14:40)
[2021-07-15 16:31] LABS: PTT Heparin Drip 137.8 SEC (53-77.9)
--- NOTE | 2021-07-15 16:40 | PC.NURSE ---
pt PTT was elevated, heparin drip was put on hold, attempted to contact dr reyez who is covering for dr anderson but tiger text is currently down, nursing supervisor waterproofing was notified, this nurse obtained hospitalist office number, dr reyez is not in the office at this time and a message was taken to give him. this nurse is following the protocol in place, and will have a repeat ptt drawn
--- NOTE | 2021-07-15 17:00 | PC.NURSE ---
was able to get ahold of dr. reyez and notified him the heparin drip was placed on hold and repeat ptt would be done in an hour.
[2021-07-15 18:52] LABS: PTT Heparin Drip 76.4 SEC (53-77.9)
[2021-07-15] MEDS: 0.9 % Sodium Chloride Flush 3 ML SYRINGE IVFLUSH (19:26)
[2021-07-16] VITALS (9 sets, daily range): BP systolic 108–152; BP diastolic 67–87; PULSE 71–125; RESP 16–19; TEMP 36.4–37.1; O2SAT 92–97
--- NOTE | 2021-07-16 | ECG_ITS ---
Test Reason : a fklutter Blood Pressure : / mmHG Vent. Rate : 084 BPM Atrial Rate : 084 BPM P-R Int : 178 ms QRS Dur : 084 ms QT Int : 370 ms P-R-T Axes : 071 093 054 degrees QTc Int : 437 ms Normal sinus rhythm Rightward axis Borderline ECG When compared with ECG of 14-JUL-2021 18:40, [place] interval has decreased Referred By: Toñito Yang Electronically Signed By:Temo Jonas
[2021-07-16 01:34] LABS: PTT Heparin Drip 152.7 SEC (53-77.9)
[2021-07-16 03:05] LABS: PTT Heparin Drip 85.4 SEC (53-77.9)
[2021-07-16] MEDS: Omeprazole 20 MG CAPSULE.DR PO (05:48)
--- NOTE | 2021-07-16 07:00 | CA_ITS ---
Transthoracic Echocardiogram Patient (Last, First, Middle): Karson Taylor A Gender: Male Date of : 1940 Age: 81 Procedure Date: 07/16/2021 Procedure Type: Transthoracic [place]ocardi[place] [facility] [place]: 177.8 cm Weight: 88. kg BSA: 2.06 m2 Heart Rate: bpm BP: 143 / 82 mmHg [employer] Internship: FANY Angel MD: Toñito Yang MD Symptoms: aflutter ,sob Study Quality: Fair Conclusions: - Normal left ventricular size, thickness, systolic function, and wall motion. The visually estimated ejection fraction is between 55-60%. Diastolic function is normal for age. Normal global longitudinal strain. - Normal right ventricular cavity size and systolic function. - There is mild mitral valve regurgitation. Findings Left Ventricle Normal left ventricular size, thickness, systolic function, and wall motion. The visually estimated ejection fraction is between 55-60%. Diastolic function is normal for age. Normal global longitudinal strain. Right Ventricle Normal right ventricular cavity size and systolic function. Atria Both atria are normal in size. Aortic Valve There is a normal trileaflet aortic valve. There is no aortic valve stenosis. There is no aortic valve regurgitation. Aortic valve is mildly to moderately calcified. Mitral Valve The mitral valve appears normal. There is mild mitral valve regurgitation. There is no mitral valve stenosis. Pulmonic Valve The pulmonic valve is likely normal. Tricuspid Valve Normal tricuspid valve structure and function. There is trace tricuspid valve regurgitation. Normal right atrial pressure. There is no evidence of pulmonary hypertension. Great Vessels All visible segments of the aorta are normal in size. The visualized portions of the pulmonary artery and branches are normal. Venous The inferior vena cava is normal in size and collapses greater than 50% with inspiration. Pericardium/Pleural There is no evidence of pericardial effusion. Prior Study Comparison No prior study available for comparison. Measurements 2D Linear Measurements IVSd: 0.98 0.6-0.9/0.6-1.0 cm LVIDd: 3.90 3.9-5.3/4.2-5.9 cm LVIDd Index: 1.89 2.4-3.2/2.2-3.1 cm/m2 LVIDs: 2.93 2.0-3.6 cm LVPWd: 0.88 0.7-1.1 cm LA Diam: 3.60 2.7-3.8/3.0-4.0 cm LAIDs Index: 1.75 1.5-2.3 cm/m2 LV Mass: 136.64 67-162/88-224 g LV Mass Index: 66.33 43-95/49-115 g/m2 LVOT Diam: 2.00 3.0+(-)1.3 cm 2D Systolic Function EF 4C: 67.00 >55% EF 2C: 66.80 >55% EF BiP: 67.00 >55% Mitral Valve MV Pk E: 1.04 MV PK A: 1.43 MV Decel Time: 141.00 E/A: 0.70 E'Lateral: 9.14 E'Medial: 9.57 E/E' Med: 10.90 E/E' Lat: 11.40 PHT: 41.00 MVA PHT: 5.37 Decel Gordon: 7.35 Aortic Valve AoV Pk Crhistian: 1.35 AoV Mn Christian: 0.95 AoV VTI: 0.28 AoV Pk Grad: 7.00 Aov Mn Grad: 4.00 LIZETT Cont.VTI: 2.53 LVOT LVOT Pk Christian: 1.11 LVOT Mn Christian: 0.73 LVOT VTI: 0.23 LVOT Pk Grad: 5.00 LVOT Mn Grad: 2.00 LVOT Diam: 2.00 LVOT Area: 3.14 Diastolic Function MV Pk E: 1.04 MV Pk A: 1.43 E/A: 0.70 E'Medial: 9.57 E/E' Med: 10.90 E' Laterial: 9.14 E/E' Lat: 11.40 Right Ventricle TAPSE (mm): 26.40 TVS' Christian: 13.90 Tricuspid Valve TR Pk Christian: 2.57 TR Pk Grad: 26.00 RA Press: 3.00 RVSP: 29.00 Great Vessels Aorta Sinus of Valsalva: 3.08 2.0-3.[address] Ridge: 2.94 1.7-3.4 cm Ao Asc: 3.20 2.1-3.4 cm Updated in Other Vendor System with Status of Final Temo Jonas MD electronically signed on 07/16/2021 12:52:15 PM with status of Final
--- NOTE | 2021-07-16 07:35 | HO.PM.IMPN ---
Subjective Subjective Date of Service: 07/16/21 Interval History: pneumonia ,hypotension ,aflutter, pulm embolism Review of Systems Patient seems short of breath and wheezing Talking in short sentences Denies any nausea vomiting or abdominal pain No fever or night. Physical Exam Vital Signs: Vital Signs: Last Vital Signs Temp 98.2 F 07/16/21 02:56 Pulse 93 07/16/21 02:56 Resp 19 07/16/21 02:56 BP 143/82 H 07/16/21 02:56 Pulse Ox 94 07/16/21 02:56 BMI result Body Mass Index 27.9 Appearance: Alert.? Oriented X3.? not in distress.? cvs: reglaur rythem, [id number] . res: fair air entry, has b/l wheezing abd: no rebound or guarding ,nt, bs present. ext pulses present , no cyanosis . neuro: axo3 , nonfocal. Objective Data Active Medications Albuterol Sulfate (Albuterol Sulfate 90 Mcg 8 Gm Inhaler) 2 puff INHALE Q4H PRN PRN Reason: wheezing Albuterol/Ipratropium (Albuterol/Iprat 2.5/0.5mg 3 Ml Ampul.Neb) 3 ml INHALE RQ4H [facility] Last Admin: 07/16/21 03:38 Dose: Not Given Documented by: MAYA Non-Admin Reason: Patient Asleep Heparin Sodium (Porcine) (Heparin Sodium,Porcine 5,000 Unit/Ml Vial) 3,500 unit 40 unit/kg (3500 unit) IVPUSH PROTOCOL BOLUS PRN; Protocol PRN Reason: 40 unit/kg - Heparin Protocol Last Admin: 07/15/21 03:05 Dose: 3,500 unit Documented by: ABIGAIL Heparin Sodium (Porcine) (Heparin Sodium,Porcine 5,000 Unit/Ml Vial) 7,100 unit 80 unit/kg (7100 unit) IVPUSH PROTOCOL BOLUS PRN; Protocol PRN Reason: 80 unit/kg - Heparin Protocol Last Admin: 07/15/21 09:42 Dose: 7,100 unit Documented by: DORENE Azithromycin 500 mg/ Sodium (Chloride) 250 mls @ 125 mls/hr IV Q24H [facility] Last Infusion: 07/15/21 16:48 Dose: 0 mls/hr Documented by: DORENE Ceftriaxone Sodium 1 gm/ (Sodium Chloride) 50 mls @ 100 mls/hr IV Q24H [facility] Last Infusion: 07/15/21 14:20 Dose: 0 mls/hr Documented by: DORENE Heparin Sodium/Sodium Chloride () 25,000 unit in 250 mls @ 0 mls/hr IVCONT .Q0M [facility]; Protocol Last Titration: 07/16/21 03:15 Dose: 12 units/kg/hr, 10.61 mls/hr Documented by: DARIUSZ Cosigned by: LARY Metoprolol Succinate (Metoprolol Succinate Er 50 Mg Tab.Er.24h) 50 mg PO DAILY [facility]; Protocol Last Admin: 07/15/21 07:49 Dose: 50 mg Documented by: DORENE Omeprazole (Omeprazole 20 Mg Capsule.Dr) 20 mg PO DAILY@0630 [facility] Last Admin: 07/16/21 05:48 Dose: 20 mg Documented by: DARIUSZ Paroxetine HCl (Paroxetine Hcl 40 Mg Tablet) 40 mg PO DAILY [facility] Last Admin: 07/15/21 07:49 Dose: 40 mg Documented by: DORENE Pharmacy Consult (Consult Rx Perform Med Rec) 1 each MISCELLANE ONCE PRN PRN Reason: Consult order Sodium Chloride (0.9 % Sodium Chloride Flush 3 Ml Syringe) 3 ml IVFLUSH QSHIFT [facility] Last Admin: 07/15/21 19:26 Dose: 3 ml Documented by: DARIUSZ Tamsulosin HCl (Tamsulosin Hcl 0.4 Mg Capsule) 0.4 mg PO DAILY [facility] Last Admin: 07/15/21 08:21 Dose: 0.4 mg Documented by: DORENE Zolpidem Tartrate (Zolpidem Tartrate 5 Mg Tablet) 5 mg PO BEDTIME PRN PRN Reason: insomnia Labs CBC & Chem 7: 07/16/21 09:42 07/16/21 09:42 Labs: Laboratory Results - last 24 hr 07/14/21 07/14/21 07/14/21 12:54 12:54 23:15 MCV MCH MCHC RDW Plt Count MPV Absolute Nucleated RBC Nucleated RBC % (auto) PT INR aPTT Heparin Protocol Magnesium 1.4 L* Total Bilirubin 1.1 H Direct Bilirubin 0.5 AST 20 ALT 16 Alkaline Phosphatase 56 B-Natriuretic Peptide 73 Total Protein 7.5 Albumin 4.0 TSH 1.53 Respiratory Panel [place] Cancelled Adenovirus (Rapid PCR) Cancelled B.pert (TEM-PCR) Cancelled B.parapertussis DNA PCR Cancelled C. pneumoniae DNA (PCR) Cancelled Coronavirus OC43 (PCR) Cancelled Coronavirus HKU1 (PCR) Cancelled Coronavirus 229E (PCR) Cancelled Coronavirus NL63 (PCR) Cancelled Human Metapneumovir PCR Cancelled Influenza A (RT-PCR) Cancelled Influenza B (RT-PCR) Cancelled M. pneumoniae (PCR) Cancelled Parainfluenza 1 (PCR) Cancelled Parainfluenza 2 (PCR) Cancelled Parainfluenza 3 (PCR) Cancelled Parainfluenza 4 (PCR) Cancelled RSV (PCR) Cancelled Entero/Rhino (PCR) Cancelled SARS-CoV-2 RNA (RT-PCR) Cancelled 07/15/21 07/15/21 07/15/21 02:36 08:46 08:46 MCV 93.6 MCH 31.8 MCHC 34.0 RDW 12.9 Plt Count 147 L MPV 9.9 Absolute Nucleated RBC 0.000 Nucleated RBC % (auto) 0.0 PT 14.9 H INR 1.3 H aPTT Heparin Protocol 32.1 L D Magnesium 2.0 Total Bilirubin Direct Bilirubin AST ALT Alkaline Phosphatase B-Natriuretic Peptide Total Protein Albumin TSH Respiratory Panel [place] Adenovirus (Rapid PCR) B.pert (TEM-PCR) B.parapertussis DNA PCR C. pneumoniae DNA (PCR) Coronavirus OC43 (PCR) Coronavirus HKU1 (PCR) Coronavirus 229E (PCR) Coronavirus NL63 (PCR) Human Metapneumovir PCR Influenza A (RT-PCR) Influenza B (RT-PCR) M. pneumoniae (PCR) Parainfluenza 1 (PCR) Parainfluenza 2 (PCR) Parainfluenza 3 (PCR) Parainfluenza 4 (PCR) RSV (PCR) Entero/Rhino (PCR) SARS-CoV-2 RNA (RT-PCR) 07/15/21 07/15/21 07/16/21 15:39 18:16 00:58 MCV MCH MCHC RDW Plt Count MPV Absolute Nucleated RBC Nucleated RBC % (auto) PT INR aPTT Heparin Protocol 137.8 H* D 76.4 D 152.7 H* D Magnesium Total Bilirubin Direct Bilirubin AST ALT Alkaline Phosphatase B-Natriuretic Peptide Total Protein Albumin TSH Respiratory Panel [place] Adenovirus (Rapid PCR) B.pert (TEM-PCR) B.parapertussis DNA PCR C. pneumoniae DNA (PCR) Coronavirus OC43 (PCR) Coronavirus HKU1 (PCR) Coronavirus 229E (PCR) Coronavirus NL63 (PCR) Human Metapneumovir PCR Influenza A (RT-PCR) Influenza B (RT-PCR) M. pneumoniae (PCR) Parainfluenza 1 (PCR) Parainfluenza 2 (PCR) Parainfluenza 3 (PCR) Parainfluenza 4 (PCR) RSV (PCR) Entero/Rhino (PCR) SARS-CoV-2 RNA (RT-PCR) 07/16/21 02:49 MCV MCH MCHC RDW Plt Count MPV Absolute Nucleated RBC Nucleated RBC % (auto) PT INR aPTT Heparin Protocol 85.4 H D Magnesium Total Bilirubin Direct Bilirubin AST ALT Alkaline Phosphatase B-Natriuretic Peptide Total Protein Albumin TSH Respiratory Panel [place] Adenovirus (Rapid PCR) B.pert (TEM-PCR) B.parapertussis DNA PCR C. pneumoniae DNA (PCR) Coronavirus OC43 (PCR) Coronavirus HKU1 (PCR) Coronavirus 229E (PCR) Coronavirus NL63 (PCR) Human Metapneumovir PCR Influenza A (RT-PCR) Influenza B (RT-PCR) M. pneumoniae (PCR) Parainfluenza 1 (PCR) Parainfluenza 2 (PCR) Parainfluenza 3 (PCR) Parainfluenza 4 (PCR) RSV (PCR) Entero/Rhino (PCR) SARS-CoV-2 RNA (RT-PCR) Microbiology Microbiology Results: Microbiology 07/14/21 14:05 Blood Culture - Preliminary Blood - Venous No growth after 24 hours. 07/14/21 13:27 Blood Culture - Preliminary Blood - Venous No growth after 24 hours. Assessment and Plan (1) PAF (paroxysmal atrial fibrillation): Status: Acute (2) COPD (chronic obstructive pulmonary disease): Status: Acute (3) Pulmonary emboli: Status: Acute Plan 80-year-old male came to the emergency room with shortness of breath, wheezing, cough initially also had hypotension. 1. Hypotension probably multifactorial: ? A flutter, dehydration, KATLIN, poor oral intake. Patient was given bolus for believes sepsis secondary to pneumonia also. 2. Possible severe sepsis secondary to possible clinical pneumonia with hypotension: Lactic acid trend down ,no need further trend unless clinical condition worsens. Continue antibiotics, blood cultures @24 hours pendin pullaura coles noted -continue iv antibiotics, may need to switch to oral anticoagulation, recommended to repeat V/Q scan in 2 months outpatient 3. A fib:? Responded to fluid and dose of digoxin Patient converted back to sinus Rhythm, troponin flat echo pendin Continue metoprolol and Eliquis. 4. KATLIN:? Probably related to dehydration, nausea vomiting and diarrhea. stool studies,no stool sample yet Received fluid as above Monitor BMP in the morning 5. With above presentation with the hypotension/shortness of breath, elevated D-dimer:vq scan intermediate probability pullaura coles added V/Q scan was done-Indeterminate exam for pulmonary embolism. Patient is already started on heparin drip for a flutter we will check V/Q scan results. 6. History of lung cancer status ?? Lobectomy:? Patient follows out patiently. 7. COPD exacerbation :still sob and wheezing, continue? nebs, and low-dose steroids. DVT prophylaxis:?on AC. need for inaptient:copd excerebation , abnormal vq scan Quality Stroke Does the patient have a stroke diagnosis?: No VTE Prior VTE?: No VTE Risk Level:: Medical - moderate - high VTE Device Contraindication: N/A - Device Ordered VTE Drug Contraindication: N/A - Med Ordered
[2021-07-16] MEDS: PARoxetine HCL 40 MG TABLET PO (09:58)
[2021-07-16] MEDS: Tamsulosin HCL 0.4 MG CAPSULE PO (09:58)
[2021-07-16] MEDS: Metoprolol Succinate ER 50 MG TAB.ER.24H PO (09:58)
[2021-07-16] MEDS: 0.9 % Sodium Chloride Flush 3 ML SYRINGE IVFLUSH ×3 (09:58→21:14)
[2021-07-16 09:59] LABS: Hemoglobin 12.8 g/dl (14.0-18.0); Mean Corpuscular HGB Conc 33.7 g/dl (31.0-36.0); Mean Corpuscular Hemoglobin 31.6 pg (27.0-33.0); Mean Corpuscular Volume 93.8 fL (80.0-98.0); Mean Platelet Volume 9.7 fL (9.4-12.4); Platelet Count 170 X10*3/uL (160-400); Red Blood Count 4.05 X10*6/uL (4.60-5.80); Red Cell Distribution Width 12.8 % (11.0-16.0); White Blood Count 10.4 X10*3/uL (4.8-10.8)
[2021-07-16 10:10] LABS: PTT Heparin Drip 97.1 SEC (53-77.9)
[2021-07-16 10:21] LABS: Anion Gap 14 (12-20); Blood Urea Nitrogen 23 mg/dL (9-16); Calcium 8.8 mg/dL (8.4-10.2); Carbon Dioxide 20 mmol/L (22-29); Chloride 108 mmol/L (96-108); Creatinine Clr Calc Pharmacy 54.9; Estimated Glomerular Filt Rate 58; Glucose Random 107 mg/dL (60-115); Sodium 138 mmol/L (135-145)
[2021-07-16] MEDS: Azithromycin 500 MG TABLET PO (10:31)
[2021-07-16] MEDS: Apixaban 5 MG TABLET PO ×2 (10:31→21:13)
[2021-07-16] MEDS: Albuterol/Iprat 2.5/0.5MG 3 ML AMPUL.NEB INHALE ×3 (11:58→19:15)
--- NOTE | 2021-07-16 12:53 | PM.PNCARD ---
Subjective Subjective Date of Service: 07/16/21 Interval history: Back in sinus rhythm. Continues to be wheezy. Denies shortness of breath. Echocardiography reviewed which showed normal biventricular function. Physical Exam Vital Signs: Last Vital Signs Temp 97.5 F 07/16/21 11:36 Pulse 71 07/16/21 12:01 Resp 18 07/16/21 12:01 BP 139/82 07/16/21 11:36 Pulse Ox 95 07/16/21 11:36 BMI result Body Mass Index 27.9 GENERAL APPEARANCE: in no acute distress, pleasant. NECK: no carotid bruit, no significant jugular venous distention. SKIN: no suspicious lesions, warm and dry. HEART: no murmurs, regular rate and rhythm. LUNGS: Bilateral expiratory wheezes. ABDOMEN: soft, nontender. EXTREMITIES: no edema. PERIPHERAL PULSES: equal. NEUROLOGIC: No gross deficits, AAO X 3 Objective Labs and Meds Result diagrams: 07/16/21 09:42 07/16/21 09:42 Lab results: Laboratory Results - last 24 hr 07/15/21 07/15/21 07/15/21 02:36 15:39 18:16 WBC RBC Hgb Hct MCV MCH MCHC RDW Plt Count MPV Absolute Nucleated RBC Nucleated RBC % (auto) aPTT Heparin Protocol 137.8 H* D 76.4 D Sodium Potassium Chloride Carbon Dioxide Anion Gap BUN Creatinine Estim Creat Clear Calc Estimated GFR Random Glucose Calcium Magnesium 2.0 07/16/21 07/16/21 07/16/21 00:58 02:49 09:42 WBC 10.4 RBC 4.05 L Hgb 12.8 L Hct 38.0 L MCV 93.8 MCH 31.6 MCHC 33.7 RDW 12.8 Plt Count 170 MPV 9.7 Absolute Nucleated RBC 0.000 Nucleated RBC % (auto) 0.0 aPTT Heparin Protocol 152.7 H* D 85.4 H D Sodium Potassium Chloride Carbon Dioxide Anion Gap BUN Creatinine Estim Creat Clear Calc Estimated GFR Random Glucose Calcium Magnesium 07/16/21 07/16/21 09:42 09:42 WBC RBC Hgb Hct MCV MCH MCHC RDW Plt Count MPV Absolute Nucleated RBC Nucleated RBC % (auto) aPTT Heparin Protocol 97.1 H Sodium 138 Potassium 4.0 Chloride 108 Carbon Dioxide 20 L Anion Gap 14 BUN 23 H Creatinine 1.20 Estim Creat Clear Calc 54.9 Estimated GFR 58 Random Glucose 107 Calcium 8.8 D Magnesium Progress Note: A&P Assessment and plan (1) PAF (paroxysmal atrial fibrillation): Status: Acute Plan Pleasant 81-year-old gentleman with paroxysmal atrial fibrillation setting of pneumonia. Is on azithromycin and cefuroxime right now. Overall clinically improving but still wheezing on examination. He does not appear to be volume overloaded. He is back in sinus rhythm at this stage. Agree with Toprol 75 mg once a day. He should have nebulizer given to him and if breathing improving then can go home. Overall from cardiovascular point of view he is fairly stable. Paroxysmal atrial fibrillation probably happen due to pneumonia. Agree with Eliquis 5 mg twice a day. Thank you for allowing me to participate in the care of your patient. Please feel free to contact me if you have any questions. Time Spent With Patient Time: Total time spent is greater than 50% in coordination of care (as documented) at patient's floor/unit and/or counseling patient: Progress Note: Quality Stroke Does the patient have a stroke diagnosis?: No Procedures Date of Service Date of Service: 07/16/21
[2021-07-16] MEDS: methylPREDNISolone Sod Succ 40 MG/ML VIAL IVPUSH ×2 (14:28→21:13)
--- NOTE | 2021-07-16 15:44 | MHC.CM.PN ---
Male 81 DX PNA A-FLUTTER Per AC therapy s/p V-Q scan. Rolly guzman has been provided to RN for discharge.
[2021-07-16] MEDS: Metoprolol Tartrate 5 MG/5 ML VIAL IVPUSH (22:16)
[2021-07-16] MEDS: Zolpidem Tartrate 5 MG TABLET PO (23:20)
[2021-07-17 03:13] VITALS: BP 136/70; PULSE 80; RESP 17; TEMP 36.5; O2SAT 95
[2021-07-17 06:25] LABS: Hematocrit 36.2 % (42.0-52.0); Hemoglobin 12.2 g/dl (14.0-18.0)
[2021-07-17] MEDS: methylPREDNISolone Sod Succ 40 MG/ML VIAL IVPUSH (06:26)
[2021-07-17] MEDS: Omeprazole 20 MG CAPSULE.DR PO (06:26)
[2021-07-17 06:52] LABS: Anion Gap 13 (12-20); Blood Urea Nitrogen 25 mg/dL (9-16); Calcium 9.2 mg/dL (8.4-10.2); Carbon Dioxide 23 mmol/L (22-29); Chloride 107 mmol/L (96-108); Creatinine Clr Calc Pharmacy 52.7; Estimated Glomerular Filt Rate 56; Glucose Random 158 mg/dL (60-115); Potassium 4.3 mmol/L (3.3-5.1); Sodium 139 mmol/L (135-145)
[2021-07-17 07:25] VITALS: BP 173/85; PULSE 83; RESP 20; TEMP 36.7; O2SAT 95
--- NOTE | 2021-07-17 08:24 | PM.DS ---
DS: Providers Provider Date of Service: 07/17/21 Date of admission: 07/14/21 18:51 Primary care physician: Philippe Cesar III, MD Consults: 07/14/21 18:54 Consult to Cardiology Routine Consulting Provider: Tobin Morse Reason for consultation: new a flutter, chest tightness Has provider been notified: No 07/15/21 08:18 Consult to Pulmonology Routine Consulting Provider: Jaylen Marley Reason for consultation: Acute hypotension/hypoxia -pulm embolism Has provider been notified: No DS: Diagnosis Discharge Diagnosis (1) PAF (paroxysmal atrial fibrillation): Status: Acute (2) COPD (chronic obstructive pulmonary disease): Status: Acute (3) Pulmonary emboli: Status: Acute DS: Summary Hospital Course Hospital Course: 80-year-old male with history of hypertension, lung cancer post resection right-sided, 30 pack-year history of smoking-came to the hospital as per the patient he has progressive shortness of breath from last 5- 6 month but it was slowly getting worse from last few weeks and he thought that maybe have had cold in last couple of weeks that might have contributed to it-and from last week or so he is having cough and clear phlegm and has subjective fever sensation also. He he also said that he was coughing a lot and having chest tightness which is upper chest , reproducible, non radiating, intermittent, could not tell the quality of the pain says on and off sharp pain specially with coughing. Does not able to tell any alleviating or aggravating factors. From 3-4 days also having nausea and vomiting and diarrhea. Denies any urinary complaints or weakness or numbness or any runny nose or ear pain or throat pain or headaches or blurry vision. Ed course: wbc 21.5, KATLIN creatinine of 1.75, magnesium 1.4, chest x-ray possible:? Atelectasis//scarring. Past medical history:? Hypertension, lung cancer as above. Social history:? Came with the son Rafy, has history of 30 pack-year history of smoking, no alcohol or recreation drug use Family history: Both pain and had lung cancer. Hospital course: Patient was admitted due to acute hypoxemic respiratory failure secondary to possible pneumonia, sepsis, also had AFib new, in addition patient was found to have elevated D-dimer and intermediate probability of V/Q scan( possible pulmonary embolism): Patient was started on IV heparin, IV antibiotics, oxygen support, received digoxin load and adjusted metoprolol to 75 mg daily and started on Eliquis for stroke prevention, heart rate is controlled now in sinus rhythm. Blood culture negative at 48 hours. COPD exacerbation: Patient was sees treated with nebs and steroids. Plan: Complete the course of antibiotic for pneumonia, and repeat chest imaging in 3-4 weeks out patiently to seeresolution of pneumonia. Need to repeat v/qscan in 2 months out patiently-currently patient is anticoagulated due to AFib also-pulmonary recommended to continue that. Follow up outpatient with Pulmonary. Complete steroid therapy for COPD, continue home COPD medications If if patient condition worsen-come to the nearest emergency room. Above management discussed with the patient in detail length she understand and in agreement with the above plan, time spent 50 minutes and 50% time spent on counseling. Significant findings: As above. Procedures performed: None. Treatment and response: As above. Complications: None. Time Spent with Patient Time attestation: Total time spent providing and/or coordinating discharge services: Discharge coordination time: Greater than 30 minutes Quality: Safe Use of Opioids Does Pt have an Active Cancer Diagnosis on the Problem List?: No Quality: Stroke Does the patient have a stroke diagnosis?: No Physical Exam Vital Signs: Vital Signs: Last Vital Signs Temp 98.1 F 07/17/21 07:25 Pulse 83 07/17/21 07:25 Resp 20 07/17/21 07:25 BP 173/85 H 07/17/21 07:25 Pulse Ox 95 07/17/21 07:25 BMI result Body Mass Index 27.9 DS: Data Data Completed and Pending Labs on day of discharge: Laboratory Results - last 24 hr 07/16/21 07/16/21 07/16/21 09:42 09:42 09:42 WBC 10.4 RBC 4.05 L Hgb 12.8 L Hct 38.0 L MCV 93.8 MCH 31.6 MCHC 33.7 RDW 12.8 Plt Count 170 MPV 9.7 Absolute Nucleated RBC 0.000 Nucleated RBC % (auto) 0.0 aPTT Heparin Protocol 97.1 H Sodium 138 Potassium 4.0 Chloride 108 Carbon Dioxide 20 L Anion Gap 14 BUN 23 H Creatinine 1.20 Estim Creat Clear Calc 54.9 Estimated GFR 58 Random Glucose 107 Calcium 8.8 D 07/17/21 07/17/21 05:44 05:44 WBC RBC Hgb 12.2 L Hct 36.2 L MCV MCH MCHC RDW Plt Count MPV Absolute Nucleated RBC Nucleated RBC % (auto) aPTT Heparin Protocol Sodium 139 Potassium 4.3 Chloride 107 Carbon Dioxide 23 Anion Gap 13 BUN 25 H Creatinine 1.25 Estim Creat Clear Calc 52.7 Estimated GFR 56 Random Glucose 158 H D Calcium 9.2 Preliminary micro results at discharge 07/14/21 14:05 Blood Culture - Preliminary Blood - Venous No growth after 48 hours. 07/14/21 13:27 Blood Culture - Preliminary Blood - Venous No growth after 48 hours. Discharge Plan Discharge Patient Disposition: Home Health Service Discharge Diagnosis: sepsis possible pneumonia , afib , abnormal v/q scan intermediate probabilty(possible Pulm embolism),copd excerebation Referrals: [facility] [Other] - 1 Week [facility] [Outside] - 1 Week Philippe Cesar III, MD [Primary Care Provider] - 1 Week Jaylen Marley MD [Physician] - 2 Weeks (follow up outpatiently) Discharge Medications: New cefuroxime axetil 500 mg Tablet 500 mg PO Q12H Qty: 14 0RF azithromycin 500 mg Tablet 500 mg PO Q24H Qty: 5 0RF metoprolol succinate 25 mg Tablet Extended Release 24 Hr 75 mg PO DAILY Qty: 30 0RF Protocol: Hold for SBP/HR < HOLD for SBP < : 90 HOLD for HR < : 60 prednisone 20 mg tablet 40 mg PO DAILY Qty: 8 0RF Breo Ellipta 200-25 mcg/dose blister with device 1 inh inhalation DAILY Qty: 28 0RF Eliquis 5 mg Tablet 10 mg PO BID Qty: 40 0RF Rx Instructions: take 2 tabs eliquis by mouth twice daily until 07/23/21 and on 07/24/21 change to eliquis 1 tab by mouth twice daily Continued tamsulosin 0.4 mg capsule 1 cap PO DAILY 0RF omeprazole 20 mg capsule,delayed release(DR/EC) 1 cap PO DAILY 0RF albuterol sulfate 90 mcg/actuation HFA aerosol inhaler 2 puff inhalation Q4H PRN (Reason: wheezing) 0RF paroxetine HCl 40 mg tablet 1 tab PO QAM 0RF zolpidem 12.5 mg tablet,ext release multiphase 1 tab PO BEDTIME PRN (Reason: insomnia) 0RF Discontinued metoprolol succinate 50 mg tablet extended release 24 hr 1 tab PO DAILY 0RF Discharge Orders: Discharge Order (Routine); Ordered 07/17/21 Ordered By: Toñito Yang Diet: advance to usual diet Activity on Discharge: As tolerated Stand Alone Forms: Patient Portal Discharge page Print Language: Faroese Care Plan Goals: Patient was admitted due to acute hypoxemic respiratory failure secondary to possible pneumonia, sepsis, also had AFib new, in addition patient was found to have elevated D-dimer and intermediate probability of V/Q scan: Patient was started on IV heparin, IV antibiotics, oxygen support, received digoxin load and adjusted metoprolol to 75 mg daily and started on Eliquis for stroke prevention, heart rate is controlled now in sinus rhythm. Blood culture negative at 48 hours. COPD exacerbation: Patient was sees treated with nebs and steroids. Health Concerns: Complete the course of antibiotic for pneumonia, and repeat chest imaging in 3-4 weeks out patiently to seeresolution of pneumonia. Need to repeat v/qscan in 2 months out patiently-currently patient is anticoagulated due to AFib also-pulmonary recommended to continue that. Follow up outpatient with Pulmonary. Take Eliquis 2 tablets by mouth twice daily until 07/23/2021, afterwards changed to Eliquis 1 tab by mouth twice daily. Complete steroid therapy for COPD, continue home COPD medications If if patient condition worsen-come to the nearest emergency room. Above management discussed with the patient in detail length. Plan of Treatment: As above. Assessment: As above.
--- NOTE | 2021-07-17 08:35 | MHC.CM.PN ---
Patient has been medically cleared for dc to home today, with services. A referral was made to [facility], who has been made aware of today's dc. Last IMM addressed yesterday.
[2021-07-17] MEDS: Apixaban 5 MG TABLET 10 MG PO (10:09)
[2021-07-17] MEDS: Metoprolol Succinate ER 25 MG TAB.ER.24H 75 MG PO (10:10)
[2021-07-17] MEDS: PARoxetine HCL 40 MG TABLET PO (10:10)
[2021-07-17] MEDS: Azithromycin 500 MG TABLET PO (10:11)
[2021-07-17] MEDS: Tamsulosin HCL 0.4 MG CAPSULE PO (10:11)
[2021-07-17] MEDS: Fluticasone/Vilanterol 200/25 BLST.W.DEV 1 PUFF INHALE (10:22)
--- NOTE | 2021-07-17 10:57 | W.MHC.F2F ---
Service Date Service Date: 07/17/21 Encounter Date of encounter: 07/17/21 Encounter: COPD exacerbation, pneumonia, possible pulmonary embolism. Reasons for Services Signs and symptoms assessed: Shortness of breath, cough Reason for senior living: medication management, medication treatment and teach disease management MD Overseeing Care: Philippe Cesar III Homebound: Leaving the home is medically contraindicated at this time without the asist of a device and/or another person due th the listed conditions above and below. Reason homebound: weakness related to hospital stay Homebound supporting statement: Patient is generalized weak has multiple comorbidities including new AFib, possible pulmonary embolism, pneumonia-need help to go to appointments and blood draws and medication management. Certification: Based on the above findings, I certify that this patient is confined to the home and needs intermittent senior living care, physical therapy and/or speech therapy, or continues to need occupational therapy. The patient is under my care, and I have initiated the establishment of the plan of care. The patient will be followed by a physician who will periodically review the plan of care.
== END 2021-07-17 11:28 | disposition home health service (06) | DRG 871 ==
LOC: HO.ED 17:40 → HO.EDOVER 19:52 → HO.IMC 07-15 17:04
PROVIDERS: Physician Assistant Medical; Admitting Provider Internal Medicine; Emergency Provider Emergency Medicine; PCP Internal Medicine; Visit Provider Internal Medicine
DX: A41.9 Sepsis, unspecified organism (principal); J18.9 Pneumonia, unspecified organism; J96.01 Acute respiratory failure with hypoxia; I26.99 Other pulmonary embolism without acute cor pulmonale; J44.0 Chronic obstructive pulmonary disease with (acute) lower respiratory infection; J44.1 Chronic obstructive pulmonary disease with (acute) exacerbation; N17.9 Acute kidney failure, unspecified; I48.92 Unspecified atrial flutter; I48.0 Paroxysmal atrial fibrillation; E83.42 Hypomagnesemia; E86.0 Dehydration; R65.20 Severe sepsis without septic shock; Z85.118 Personal history of other malignant neoplasm of bronchus and lung; Z87.891 Personal history of nicotine dependence; Z88.8 Allergy status to other drugs, medicaments and biological substances; Z79.01 Long term (current) use of anticoagulants; Z79.51 Long term (current) use of inhaled steroids; Z79.52 Long term (current) use of systemic steroids; Z79.899 Other long term (current) drug therapy
CPT/HCPCS: 36415; 71045; 78580; 80048; 80076; 83605; 83735; 83880; 84443; 84484; 85014; 85018; 85025; 85027; 85379; 85610; 85730; 87040; 87502; 87633; 87635; 93005; 93306; 93970; 94640; 96365; 96367; 96375; 99285; A9540; J0456; J0696; J1160; J2920; J3475

== ENCOUNTER → 2021-08-16 13:03 | Outpatient (BNVA) | payer MEDICARE, SELFPAY | PROVIDERS: PCP Internal Medicine; Referring Provider Internal Medicine; Visit Provider Nurse Practitioner Family | DX: I48.0 Paroxysmal atrial fibrillation (principal); I26.99 Other pulmonary embolism without acute cor pulmonale; R06.02 Shortness of breath; Z79.01 Long term (current) use of anticoagulants; Z79.899 Other long term (current) drug therapy | CPT/HCPCS: 99212 ==

== ENCOUNTER 2021-10-06 19:51 | Inpatient (IN) | payer MEDICARE, SELFPAY ==
--- NOTE | 2021-10-06 | ECG_ITS ---
Test Reason : DYSPNEA Blood Pressure : / mmHG Vent. Rate : 096 BPM Atrial Rate : 096 BPM P-R Int : 160 ms QRS Dur : 082 ms QT Int : 352 ms P-R-T Axes : 062 096 053 degrees QTc Int : 444 ms Normal sinus rhythm Rightward axis Borderline ECG When compared with ECG of 16-JUL-2021 12:22, No significant change was found Referred By: Generic ED Physician Electronically Signed By:ROSIBEL CASTILLO
--- NOTE | ~2021-10-06 | XR_ITS ---
EXAMINATION: XR CHEST CLINICAL INFORMATION: Follow-up after diuresis. COMPARISON: 10/11/2021 TECHNIQUE: Frontal view of the chest was obtained. FINDINGS: Cardiac leads overlie the chest. The lungs are well expanded. There is no focal consolidation, edema, or effusion. No pneumothorax. The cardiomediastinal silhouette is within normal limits. No acute osseous abnormality. XR/XR chest 1V IMPRESSION: Improvement of previous edema. Clear lungs..
--- NOTE | ~2021-10-06 | XR_ITS ---
EXAMINATION: XR CHEST CLINICAL INFORMATION: Hypoxia COMPARISON: Previous chest x-ray most recent 10/06/2021 TECHNIQUE: Frontal view of the chest was obtained. FINDINGS: The cardiac and mediastinal contours are stable. There are increased lung markings suggestive of bronchial wall thickening and probable bronchopneumonia, right greater than left. There is no pleural effusion or pneumothorax. Bony structures are unremarkable. XR/XR chest 1V IMPRESSION: New increased lung markings probably representing bronchopneumonia, right side greater than left.
--- NOTE | ~2021-10-06 | XR_ITS ---
EXAMINATION: XR CHEST CLINICAL INFORMATION: Shortness breath COMPARISON: 07/14/2021 TECHNIQUE: Frontal view of the chest was obtained. FINDINGS: Volume loss on the left related to previous left upper lobectomy. Severe emphysema. Chronic pleural-parenchymal scarring redemonstrated at left lung base, with linear reticular markings within the mid and lower lung on the left. No discrete consolidation. No pleural effusion or pneumothorax. Normal heart size and pulmonary vascularity. XR/XR chest 1V IMPRESSION: No definite acute findings. 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
[2021-10-06 20:40] VITALS: BP 135/74; PULSE 102; RESP 26; TEMP 37.1; O2SAT 88; O2SAT 99; BMI 26.4
--- NOTE | 2021-10-06 21:05 | ED.SOB ---
HPI - SOB/Dyspnea General Chief Complaint: Dyspnea Stated Complaint: sob Time Seen by Provider: 10/06/21 20:55 Source: patient and EMS Mode of arrival: EMS Limitations: no limitations History of Present Illness HPI Narrative: Patient comes to the emergency room complaining of shortness of breath for approximately 4 days. Patient also reports vomiting, no abdominal pain or below. No fevers or chills. Today, patient called the ambulance, per EMS, patient's oxygen saturation was 88% on room air. On the way to the hospital, patient received 125 mg of Solu-Medrol and 1 DuoNeb. On arrival to the ED, patient was still getting his DuoNeb, speaking full sentences. Patient states that this time he feels much better, but still mildly short of breath. Patient denies any chest pain or palpitations Related Data Home Medications Medication Instructions Recorded Confirmed albuterol sulfate 90 mcg/actuation 2 puff inhalation Q4H PRN wheezing 07/14/21 08/16/21 aerosol inhaler omeprazole 20 mg capsule,delayed 1 cap PO DAILY 07/14/21 08/16/21 release paroxetine HCl 40 mg tablet 1 tab PO QAM 07/14/21 08/16/21 tamsulosin 0.4 mg capsule 1 cap PO DAILY 07/14/21 08/16/21 zolpidem 12.5 mg tablet,extended 1 tab PO BEDTIME PRN insomnia 07/14/21 08/16/21 release,multiphase apixaban 5 mg tablet (Eliquis) 5 mg PO BID 08/16/21 08/16/21 Previous Rx's Medication Instructions Recorded fluticasone furoate 200 1 inh inhalation DAILY #28 ea 07/17/21 mcg-vilanterol 25 mcg/dose inhalation powder (Breo Ellipta) metoprolol succinate 25 mg 75 mg PO DAILY #30 tabs 07/17/21 tablet,extended release 24 hr prednisone 20 mg tablet 40 mg PO DAILY #8 tabs 07/17/21 Allergies Allergy/AdvReac Type Severity Reaction Status Date / Time No Known Allergies Allergy Verified 08/16/21 13:32 Review of Systems Review of Systems: Constitutional : No Weight loss, No Fever, No Chills, No Night Sweats, No Fatigue, No Malaise ENT/Mouth : No Hearing loss, No Ear Pain, No Nasal Congestion, No Sinus Pain, No Hoarseness, No sore throat, No Rhinorrhea, No Swallowing Difficulty Eyes: No Eye Pain, No Swelling, No Redness, No Foreign Body, No Discharge, No Vision Changes Cardiovascular : No Chest Pain, complaining of dyspnea worse with exertion, no orthopnea no lower extremity edema Respiratory : Complaining of cough at baseline, worsening wheezing and shortness of breath Gastrointestinal : Complaining of nausea and vomiting. No Diarrhea, No Constipation, No abdominal Pain, No Hematochezia, No Melena Genitourinary : no irregular bleeding, No Dysuria, No Urinary Frequency, No Hematuria, No Urinary Incontinence, No Urgency, No Flank Pain, No Urinary Flow Changes, No Hesitancy Musculoskeletal : No joint pain, No Myalgias, No Joint Swelling Skin : No Skin Lesions, No rash Neuro : No Weakness, No Numbness, No Paresthesias, No Loss of Consciousness, No Dizziness, No Headache Psych : No Anxiety/Panic, No Depression, No SI/HI/AH/VH, No Social Issues, Heme/Lymph: No Bruising, No Bleeding,No Lymphadenopathy Endocrine : No Polyuria, No Polydipsia, No Temperature Intolerance [facility] Past Medical History Medical History (Updated 10/06/21 @ 22:09 by Lakesha Henriquez MD) COPD (chronic obstructive pulmonary disease) Essential hypertension Lung cancer PAF (paroxysmal atrial fibrillation) Pulmonary emboli Surgical History No pertinent past surgical history Family History Family History Father Lung cancer Social History Social History Household Members: Children Housing: House Alcohol intake: never Patient Tobacco Use Status: Former Tobacco user Advance Directives: No Advance Directives Information Provided: No Physical Exam Vital Signs: Vital Signs: Last Vital Signs Temp 98.8 F 10/06/21 20:40 Pulse 114 H 10/06/21 22:58 Resp 16 10/06/21 22:58 BP 119/67 10/06/21 22:58 Pulse Ox 95 10/06/21 22:58 O2 Del Method 10/06/21 22:58 O2 Flow Rate 2 10/06/21 22:58 BMI result Body Mass Index 26.4 Const: Other: Appearance: Alert. Oriented X3. No acute distress. Eyes: Pupils equal, round and reactive to light. ENT: Pharynx normal. Neck: Normal inspection. Neck supple. No lymph nodes noted. No crepitus CVS: Normal heart rate and rhythm. Pulses normal. Normal S1 and S2 Respiratory: No respiratory distress. Patient is on 2 L saturating 94%, bilateral wheezing, moderate air movement Abdomen: Soft and nontender. No rigidity. No distention. Skin: Skin warm and dry. Normal skin color. Normal skin turgor. Extremities: No lower extremity edema. No Lacerations. No Rash Neuro: Oriented X 3. No motor deficit. No sensory deficit. Moving all extremities. No slurred speech. CN 2 through 12 grossly intact Psych: calm, cooperative, normal affect Course Course Course Narrative: Patient's vitals are stable, respiratory rate mildly elevated. Patient is receiving at this time fluids, our long nebulization treatment. All the labs and imaging are pending. I discussed the labs with the patient, patient of positive for COVID-19. Patient states that he has been immunized. On room air, oxygen saturation drops to 88. Patient is not oxygen dependent. I discussed the patient with Dr. Landeros, patient is being admitted. MDM - SOB/Dyspnea Lab Data Result diagrams: 10/06/21 21:14 10/06/21 21:14 Labs: Lab Results 10/06/21 10/06/21 10/06/21 Range/Units 21:13 21:14 21:14 WBC 5.7 (4.8-10.8) X10*3/uL RBC 4.32 L (4.60-5.80) X10*6/uL Hgb 13.4 L (14.0-18.0) g/dl Hct 38.9 L (42.0-52.0) % MCV 90.0 (80.0-98.0) fL MCH 31.0 (27.0-33.0) pg MCHC 34.4 (31.0-36.0) g/dl RDW 13.2 (11.0-16.0) % Plt Count 152 L (160-400) X10*3/uL MPV 10.1 (9.4-12.4) fL Immature Gran % (Auto) 1.8 H (0.0-0.4) % Neut % (Auto) 87.0 H (45-73) % Lymph % (Auto) 6.2 L (20-40) % [place] % (Auto) 4.1 (2-11) % Eos % (Auto) 0.7 (0-4) % Baso % (Auto) 0.2 (0-2) % Lymph # (Auto) 0.4 L (1.2-4.9) X10*3/uL [place] # (Auto) 0.2 (0.1-1.2) X10*3/uL Eos # (Auto) 0.0 (0.0-0.4) X10*3/uL Baso # (Auto) 0.0 (0.0-0.2) X10*3/uL Abs Immat Gran (auto) 0.10 H (0.00-0.03) X10*3/uL Absolute Neuts (auto) 4.9 (2.0-8.3) x10*3/uL Absolute Nucleated RBC 0.000 (0.0-0.012) X10*3/uL Nucleated RBC % (auto) 0.0 (0.0-0.2) /100WBC PT (10.0-13.1) SEC INR (0.9-1.1) VBG pH (7.32-7.43) VBG pCO2 mmHg VBG pO2 mmHg VBG HCO3 (22-26) mmol/L VBG O2 Saturation % VBG Base Excess mmol/L Sodium 135 (135-145) mmol/L Potassium 4.5 (3.3-5.1) mmol/L Chloride 100 (96-108) mmol/L Carbon Dioxide 21 L (22-29) mmol/L Anion Gap 19 (12-20) BUN 23 H (9-16) mg/dL Creatinine 1.41 H (0.5-1.4) mg/dL Estim Creat Clear Calc 43.1 Estimated GFR 48 Random Glucose 107 (60-115) mg/dL Lactic Acid (0.5-2.0) mmol/L Calcium 8.0 L D (8.4-10.2) mg/dL Magnesium 1.6 (1.6-2.6) mg/dL Total Bilirubin 0.7 (0.0-1.0) mg/dL AST 30 D (5-37) U/L ALT 15 (0-40) U/L Alkaline Phosphatase 52 (39-117) U/L Troponin I High Sens 7.0 D (<3.5-35.0) ng/L B-Natriuretic Peptide 51 (<100) pg/mL Total Protein 6.6 (6.5-8.0) g/dL Albumin 3.5 (3.5-5.0) g/dL COVID-19 (NATHANAEL) (Negative) COVID-19 Clin Com 10/06/21 10/06/21 10/06/21 Range/Units 21:14 21:14 21:14 WBC (4.8-10.8) X10*3/uL RBC (4.60-5.80) X10*6/uL Hgb (14.0-18.0) g/dl Hct (42.0-52.0) % MCV (80.0-98.0) fL MCH (27.0-33.0) pg MCHC (31.0-36.0) g/dl RDW (11.0-16.0) % Plt Count (160-400) X10*3/uL MPV (9.4-12.4) fL Immature Gran % (Auto) (0.0-0.4) % Neut % (Auto) (45-73) % Lymph % (Auto) (20-40) % [place] % (Auto) (2-11) % Eos % (Auto) (0-4) % Baso % (Auto) (0-2) % Lymph # (Auto) (1.2-4.9) X10*3/uL [place] # (Auto) (0.1-1.2) X10*3/uL Eos # (Auto) (0.0-0.4) X10*3/uL Baso # (Auto) (0.0-0.2) X10*3/uL Abs Immat Gran (auto) (0.00-0.03) X10*3/uL Absolute Neuts (auto) (2.0-8.3) x10*3/uL Absolute Nucleated RBC (0.0-0.012) X10*3/uL Nucleated RBC % (auto) (0.0-0.2) /100WBC PT 20.2 H (10.0-13.1) SEC INR 1.7 H (0.9-1.1) VBG pH (7.32-7.43) VBG pCO2 mmHg VBG pO2 mmHg VBG HCO3 (22-26) mmol/L VBG O2 Saturation % VBG Base Excess mmol/L Sodium (135-145) mmol/L Potassium (3.3-5.1) mmol/L Chloride (96-108) mmol/L Carbon Dioxide (22-29) mmol/L Anion Gap (12-20) BUN (9-16) mg/dL Creatinine (0.5-1.4) mg/dL Estim Creat Clear Calc Estimated GFR Random Glucose (60-115) mg/dL Lactic Acid 1.2 (0.5-2.0) mmol/L Calcium (8.4-10.2) mg/dL Magnesium Cancelled (1.6-2.6) mg/dL Total Bilirubin (0.0-1.0) mg/dL AST (5-37) U/L ALT (0-40) U/L Alkaline Phosphatase (39-117) U/L Troponin I High Sens (<3.5-35.0) ng/L B-Natriuretic Peptide (<100) pg/mL Total Protein (6.5-8.0) g/dL Albumin (3.5-5.0) g/dL COVID-19 (NATHANAEL) (Negative) COVID-19 Clin Com 10/06/21 10/06/21 10/06/21 Range/Units 21:14 21:14 21:28 WBC (4.8-10.8) X10*3/uL RBC (4.60-5.80) X10*6/uL Hgb (14.0-18.0) g/dl Hct (42.0-52.0) % MCV (80.0-98.0) fL MCH (27.0-33.0) pg MCHC (31.0-36.0) g/dl RDW (11.0-16.0) % Plt Count (160-400) X10*3/uL MPV (9.4-12.4) fL Immature Gran % (Auto) (0.0-0.4) % Neut % (Auto) (45-73) % Lymph % (Auto) (20-40) % [place] % (Auto) (2-11) % Eos % (Auto) (0-4) % Baso % (Auto) (0-2) % Lymph # (Auto) (1.2-4.9) X10*3/uL [place] # (Auto) (0.1-1.2) X10*3/uL Eos # (Auto) (0.0-0.4) X10*3/uL Baso # (Auto) (0.0-0.2) X10*3/uL Abs Immat Gran (auto) (0.00-0.03) X10*3/uL Absolute Neuts (auto) (2.0-8.3) x10*3/uL Absolute Nucleated RBC (0.0-0.012) X10*3/uL Nucleated RBC % (auto) (0.0-0.2) /100WBC PT (10.0-13.1) SEC INR (0.9-1.1) VBG pH 7.42 (7.32-7.43) VBG pCO2 34 mmHg VBG pO2 52 mmHg VBG HCO3 22 (22-26) mmol/L VBG O2 Saturation 80.0 % VBG Base Excess -1.1 mmol/L Sodium (135-145) mmol/L Potassium (3.3-5.1) mmol/L Chloride (96-108) mmol/L Carbon Dioxide (22-29) mmol/L Anion Gap (12-20) BUN (9-16) mg/dL Creatinine (0.5-1.4) mg/dL Estim Creat Clear Calc Estimated GFR Random Glucose (60-115) mg/dL Lactic Acid (0.5-2.0) mmol/L Calcium (8.4-10.2) mg/dL Magnesium (1.6-2.6) mg/dL Total Bilirubin (0.0-1.0) mg/dL AST (5-37) U/L ALT (0-40) U/L Alkaline Phosphatase (39-117) U/L Troponin I High Sens (<3.5-35.0) ng/L B-Natriuretic Peptide Cancelled (<100) pg/mL Total Protein (6.5-8.0) g/dL Albumin (3.5-5.0) g/dL COVID-19 (NATHANAEL) Positive A (Negative) COVID-19 Clin Com See Note Imaging Data Chest x-ray: Radiologist's impression: FINDINGS: Volume loss on the left related to previous left upper lobectomy. Severe emphysema. Chronic pleural-parenchymal scarring redemonstrated at left lung base, with linear reticular markings within the mid and lower lung on the left. No discrete consolidation. No pleural effusion or pneumothorax. Normal heart size and pulmonary vascularity. XR/XR chest 1V IMPRESSION: No definite acute findings. 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 Critical Care Time Critical Care Time Critical Care Time: Yes Total Critical Care Time: 40 Attestation: I have personally provided critical care time. Time includes review of lab data, radiology results, discussion with consultants, and monitoring for potential decompensation. Intervention performed as documented. Discharge Plan Discharge Clinical Impression: COVID-19 Patient Disposition: Admitted As Inpatient
[2021-10-06 21:11] VITALS: BP 138/80; PULSE 96; RESP 16; O2SAT 96
[2021-10-06 21:20] VITALS: PULSE 96; RESP 18; O2SAT 96
[2021-10-06] MEDS: Albuterol Sulfate (0.083%) 2.5 MG/3 ML VIAL.NEB 10 MG INHALE (21:20)
[2021-10-06] MEDS: ondansetron HCL 4 MG/2 ML VIAL IVPUSH (21:24)
[2021-10-06] MEDS: Magnesium Sulfate/H2O 2 GM/50 ML PIGGYBACK IV (21:25)
[2021-10-06 21:32] LABS: MANUAL DIFF FLAG NO
[2021-10-06 21:33] LABS: VBG Base Excess -1.1 mmol/L; VBG HCO3 22 mmol/L (22-26); VBG pCO2 34 mmHg; VBG pH 7.42 (7.32-7.43); VBG pO2 52 mmHg
[2021-10-06 21:34] LABS: Venous Blood Gas Refer to POC result
[2021-10-06 21:38] LABS: Basophils Percent Auto 0.2 % (0-2); Eosinophils Percent Auto 0.7 % (0-4); Hematocrit 38.9 % (42.0-52.0); Hemoglobin 13.4 g/dl (14.0-18.0); Imm Gran Pct Auto 1.8 % (0.0-0.4); Lymphocytes Absolute Auto 0.4 X10*3/uL (1.2-4.9); Lymphocytes Percent Auto 6.2 % (20-40); Mean Corpuscular HGB Conc 34.4 g/dl (31.0-36.0); Mean Platelet Volume 10.1 fL (9.4-12.4); Monocytes Absolute Auto 0.2 X10*3/uL (0.1-1.2); Monocytes Percent Auto 4.1 % (2-11); Neutrophils Absolute Auto 4.9 x10*3/uL (2.0-8.3); Platelet Count 152 X10*3/uL (160-400); Red Blood Count 4.32 X10*6/uL (4.60-5.80); Red Cell Distribution Width 13.2 % (11.0-16.0); White Blood Count 5.7 X10*3/uL (4.8-10.8)
[2021-10-06 21:47] LABS: INTERNATIONAL NORM RATIO 1.7 (0.9-1.1); Prothrombin Time 20.2 SEC (10.0-13.1)
[2021-10-06 21:49] LABS: Lactic Acid 1.2 mmol/L (0.5-2.0)
[2021-10-06 21:54] LABS: COVID-19 Test Positive (Negative); IDNOW Serial# 55D5AD1C
[2021-10-06 21:55] LABS: Alanine Aminotransferase 15 U/L (0-40); Albumin Level 3.5 g/dL (3.5-5.0); Alkaline Phosphatase 52 U/L (39-117); Anion Gap 19 (12-20); Aspartate Amino Transferase 30 U/L (5-37); Bilirubin Total 0.7 mg/dL (0.0-1.0); Blood Urea Nitrogen 23 mg/dL (9-16); Carbon Dioxide 21 mmol/L (22-29); Chloride 100 mmol/L (96-108); Creatinine Clr Calc Pharmacy 43.1; Estimated Glomerular Filt Rate 48; Glucose Random 107 mg/dL (60-115); Magnesium 1.6 mg/dL (1.6-2.6); Potassium 4.5 mmol/L (3.3-5.1); Sodium 135 mmol/L (135-145); Total Protein 6.6 g/dL (6.5-8.0)
[2021-10-06 22:01] LABS: B Type Natriuretic Peptide 51 pg/mL (<100)
[2021-10-06] MEDS: dexAMETHasone sod phosphate 4 MG/ML VIAL 6 MG IVPUSH (22:49)
[2021-10-06] MEDS: 0.9 % Sodium Chloride 1,000 ML 500 ML IVCONT (22:49)
[2021-10-06 22:58] VITALS: BP 119/67; PULSE 114; RESP 16; O2SAT 95
--- NOTE | 2021-10-06 23:00 | P.HPHOSP_ITS ---
History of Present Illness Date of Service: 10/06/21 Chief Complaint: SOB 81-year-old male with past medical history of COPD, paroxysmal AFib, PE, HTN, who presents to the hospital with complaints of shortness of breath as well as wheezing for the past 4 days. Patient denies any cough, he reports that he does have some phlegm when he clears his throat, reports feeling feverish, has chills, no abdominal pain nausea or vomiting, has had few episodes of diarrhea nonbloody, no urinary symptoms and no lower extremity edema. No headache or change in vision. Patient reports being vaccinated against COVID x2 but does not remember the vaccine. Patient denies any headache, no change in vision, no chest pain, no palpitations, no numbness tingling or weakness in his extremities On arrival to the ED patient hemodynamically stable with no significant abnormal vitals except for heart rate of 102 and respiratory rate of 26 . Patient was found to have an oxygen level of 86-88% on room air. Labs are significant for WBC count of 5.7, hemoglobin of 13.4, hematocrit 38.9, INR of 1.7, creatinine of 1.41 with a baseline of around 1.2, positive COVID-19 pneumonia Chest x-ray showed no definite acute findings, severe emphysema Patient will be admitted for further management Review of Systems Review of Systems: Yes all other systems are reviewed and are negative [facility] Medical History COPD (chronic obstructive pulmonary disease) Essential hypertension Lung cancer PAF (paroxysmal atrial fibrillation) Pulmonary emboli Family History Father Lung cancer Surgical History No pertinent past surgical history Social History Household Members: Children Housing: House Alcohol intake: never Patient Tobacco Use Status: Former Tobacco user Advance Directives: No Advance Directives Information Provided: No Meds Allergies Allergy/AdvReac Type Severity Reaction Status Date / Time No Known Allergies Allergy Verified 08/16/21 13:32 Active Medications: Current Medications Magnesium Sulfate (Magnesium Sulfate/H2o) 2 gm in 50 mls @ 25 mls/hr IV ONCE ONE Stop: 10/06/21 23:03 Last Admin: 10/06/21 21:25 Dose: 25 mls/hr Sodium Chloride (Ns) 1,000 mls @ 500 mls/hr IVCONT .Q2H ONE Stop: 10/06/21 23:04 Last Admin: 10/06/21 22:49 Dose: 500 mls/hr Pharmacy Consult (Consult Rx Perform Med Rec) 1 each MISCELLANE ONCE PRN PRN Reason: Consult order Home Medications Medication Instructions Recorded Confirmed Last Taken Type albuterol sulfate 90 mcg/actuation 2 puff inhalation Q4H PRN wheezing 07/14/21 10/07/21 07/13/21 History aerosol inhaler omeprazole 20 mg capsule,delayed 1 cap PO DAILY 07/14/21 10/07/21 07/13/21 History release paroxetine HCl 40 mg tablet 1 tab PO QAM 07/14/21 10/07/21 07/13/21 History tamsulosin 0.4 mg capsule 1 cap PO DAILY 07/14/21 10/07/21 07/13/21 History zolpidem 12.5 mg tablet,extended 1 tab PO BEDTIME PRN insomnia 07/14/21 10/07/21 07/13/21 History release,multiphase apixaban 5 mg tablet (Eliquis) 5 mg PO BID 08/16/21 10/07/21 Unknown History Physical Exam Vital Signs and Narrative: Vital Signs: Last Vital Signs Temp 98.8 F 10/06/21 20:40 Pulse 114 H 10/06/21 22:58 Resp 16 10/06/21 22:58 BP 119/67 10/06/21 22:58 Pulse Ox 95 10/06/21 22:58 O2 Del Method 10/06/21 22:58 O2 Flow Rate 2 10/06/21 22:58 BMI result Body Mass Index 26.4 Const: General: cooperative and no acute distress Orientation/consciousness: patient oriented x3 Eyes: General: appearance normal, both eyes and all related structures Resp: Other: Patient has significant auditory wheezing Effort & Inspection: normal respiratory effort Cardio: Rate: regular rate Rhythm: regular rhythm GI: Palpation (GI): Soft to palpation Auscultation: normal bowel sounds Skin: General skin exam: no rashes or lesions noted Neuro: General: patient oriented x3 Cognition (Neuro): normal cognition Extrem: Other: No lower extremity edema General: Yes normal to inspection and Yes no pedal edema Results Labs CBC and Chem 7: 10/06/21 21:14 10/06/21 21:14 Labs: Laboratory Results - last 24 hr 10/06/21 10/06/21 10/06/21 21:13 21:14 21:14 MCV 90.0 MCH 31.0 MCHC 34.4 RDW 13.2 Plt Count 152 L MPV 10.1 Immature Gran % (Auto) 1.8 H Neut % (Auto) 87.0 H Lymph % (Auto) 6.2 L [place] % (Auto) 4.1 Eos % (Auto) 0.7 Baso % (Auto) 0.2 Lymph # (Auto) 0.4 L [place] # (Auto) 0.2 Eos # (Auto) 0.0 Baso # (Auto) 0.0 Abs Immat Gran (auto) 0.10 H Absolute Neuts (auto) 4.9 Absolute Nucleated RBC 0.000 Nucleated RBC % (auto) 0.0 PT INR VBG pH VBG pCO2 VBG pO2 VBG HCO3 VBG O2 Saturation VBG Base Excess Anion Gap 19 Estim Creat Clear Calc 43.1 Estimated GFR 48 Random Glucose 107 Lactic Acid Calcium 8.0 L D Magnesium 1.6 Total Bilirubin 0.7 AST 30 D ALT 15 Alkaline Phosphatase 52 B-Natriuretic Peptide 51 Total Protein 6.6 Albumin 3.5 COVID-19 (NATHANAEL) COVIDGamida Cell 10/06/21 10/06/21 10/06/21 21:14 21:14 21:14 MCV MCH MCHC RDW Plt Count MPV Immature Gran % (Auto) Neut % (Auto) Lymph % (Auto) [place] % (Auto) Eos % (Auto) Baso % (Auto) Lymph # (Auto) [place] # (Auto) Eos # (Auto) Baso # (Auto) Abs Immat Gran (auto) Absolute Neuts (auto) Absolute Nucleated RBC Nucleated RBC % (auto) PT 20.2 H INR 1.7 H VBG pH VBG pCO2 VBG pO2 VBG HCO3 VBG O2 Saturation VBG Base Excess Anion Gap Estim Creat Clear Calc Estimated GFR Random Glucose Lactic Acid 1.2 Calcium Magnesium Cancelled Total Bilirubin AST ALT Alkaline Phosphatase B-Natriuretic Peptide Total Protein Albumin COVID-19 (NATHANAEL) COVID-[place] 10/06/21 10/06/21 10/06/21 21:14 21:14 21:28 MCV MCH MCHC RDW Plt Count MPV Immature Gran % (Auto) Neut % (Auto) Lymph % (Auto) [place] % (Auto) Eos % (Auto) Baso % (Auto) Lymph # (Auto) [place] # (Auto) Eos # (Auto) Baso # (Auto) Abs Immat Gran (auto) Absolute Neuts (auto) Absolute Nucleated RBC Nucleated RBC % (auto) PT INR VBG pH 7.42 VBG pCO2 34 VBG pO2 52 VBG HCO3 22 VBG O2 Saturation 80.0 VBG Base Excess -1.1 Anion Gap Estim Creat Clear Calc Estimated GFR Random Glucose Lactic Acid Calcium Magnesium Total Bilirubin AST ALT Alkaline Phosphatase B-Natriuretic Peptide Cancelled Total Protein Albumin COVID-19 (NATHANAEL) Positive A COVID-19 Clin Com See Note Imaging Radiologist's Impressions: Impressions Chest X-Ray 10/06/21 21:55 IMPRESSION: No definite acute findings. 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 Assessment and Plan (1) COVID-19: Status: Acute (2) Acute respiratory failure with hypoxia: Status: Acute Plan 81-year-old male with past medical history of COPD, AFib who presents to the hospital with shortness of breath found to have COVID-19 infection # acute hypoxic respiratory failure - likely secondary to COVID-19 infection in an underlying COPD lung - patient has significant wheezing, was found to be in the 80s on room air - will continue oxygen supplement - will treat with dexamethasone and breathing treatments p.r.n. - monitor respiratory status # COVID-19 infection - no evidence of pneumonia on chest x-ray - but has significant hypoxia, therefore will treat with dexamethasone, DuoNeb p.r.n. as well as scheduled - continue to monitor respiratory status # COPD - although has dyspnea significant wheezing, patient has no cough or increased phone production - patient will be on breathing treatments as well as steroids for above # paroxysmal AFib - continue Eliquis, and metoprolol # history of PE - on Eliquis DVT prophylaxis: Eliquis Given patient's oxygen requirement patient will require minimum 2 night hospital stay for further management and monitoring Quality Stroke Does the patient have a stroke diagnosis?: No VTE Prior VTE?: No VTE Risk Level:: Medical - moderate - high VTE Device Contraindication: Treatment Not Indicated VTE Drug Contraindication: N/A - Med Ordered
[2021-10-06] MEDS: Azithromycin 500 MG in 0.9 % Sodium Chloride 250 ML 125 MG IV (23:53)
[2021-10-07] VITALS (7 sets, daily range): BP systolic 95–188; BP diastolic 54–91; PULSE 73–99; RESP 14–25; TEMP 36.9; O2SAT 90–96
--- NOTE | 2021-10-07 00:13 | PC.NURSE ---
Assumed care of pt. from EMS. Placed pt. on 2L O2, audible wheezing, respiratory called for nebulizer treatment. Pt. finished treatment and cont. on O2 at 2L. Pt. given medications per MAR and is resting comfortably in bed watching tv. Pt. denies pain. Pt. is A&O, however, is hard of hearing.
--- NOTE | 2021-10-07 03:50 | PC.NURSE ---
Pt. sleeping, in no apparent distress.
--- NOTE | 2021-10-07 04:42 | PC.NURSE ---
I assumed nursing care of Karson upon his arrival to bed 3 via EMS. he p[resented to ED from home for evaluation of increasing shortness of breath. Karson is alert and oriented x 3, very [place], calm and cooperative. he makes eye contact with staff and is able to verbalize his needs/demonstrates an understanding of how to use call dejesus. On arrival there is mild audible wheezing, RR 22-28, no cyanosis, room air sat's 91% (2L nc given, sat's up to 94%). Pt was given DuoNeb en route and it completed as he arrived. he is able to speak in full sentences. No cough noted. He denies fevers or chills. Karson takes PO fluids without difficulty. No nausea, no vomiting, no change in bowel or bladder habits. Karson is aware that he is TBADM and verbalizes an understanding of this. We sandra continue to monitor Karson.
[2021-10-07 06:35] LABS: Hematocrit 37.1 % (42.0-52.0); Hemoglobin 12.8 g/dl (14.0-18.0); Imm Gran Abs Auto 0.09 X10*3/uL (0.00-0.03); Imm Gran Pct Auto 4.3 % (0.0-0.4); Lymphocytes Absolute Auto 0.3 X10*3/uL (1.2-4.9); MANUAL DIFF FLAG SCAN; Mean Corpuscular HGB Conc 34.5 g/dl (31.0-36.0); Mean Corpuscular Hemoglobin 31.2 pg (27.0-33.0); Mean Corpuscular Volume 90.5 fL (80.0-98.0); Mean Platelet Volume 10.1 fL (9.4-12.4); Monocytes Absolute Auto 0.1 X10*3/uL (0.1-1.2); Monocytes Percent Auto 3.3 % (2-11); Neutrophils Absolute Auto 1.7 x10*3/uL (2.0-8.3); Neutrophils Percent Auto 80.4 % (45-73); Platelet Count 151 X10*3/uL (160-400); Red Cell Distribution Width 13.2 % (11.0-16.0); SCAN SMEAR FLAG 1
[2021-10-07 06:49] LABS: White Blood Count 2.1 X10*3/uL (4.8-10.8)
[2021-10-07 07:14] LABS: SLIDE REVIEW VERIFIED
[2021-10-07 08:01] LABS: Anion Gap 18 (12-20); Blood Urea Nitrogen 22 mg/dL (9-16); Carbon Dioxide 19 mmol/L (22-29); Chloride 102 mmol/L (96-108); Creatinine Clr Calc Pharmacy 46.7; Estimated Glomerular Filt Rate 53; Glucose Random 205 mg/dL (60-115); Potassium 4.8 mmol/L (3.3-5.1); Sodium 134 mmol/L (135-145)
[2021-10-07] MEDS: dexAMETHasone sod phosphate 4 MG/ML VIAL 6 MG IVPUSH (08:04)
[2021-10-07] MEDS: 0.9 % Sodium Chloride Flush 3 ML SYRINGE IVFLUSH ×2 (08:08→16:57)
--- NOTE | 2021-10-07 09:50 | MHC.CM.PN ---
Patient is Covid (+); CM spoke with Son/HCP/Gregory @ [phone] and addressed IMM with him (original to be mailed certified letter to Gregory and a copy to be placed on the chart. Patient lives in a house with his Son and he required no DME nor services [employer]. Home/no services is the goal and CM gas initiated and will follow for dc planning. Patient has received Covid vax X 2 and his PCP is from [facility] (Dr. Cesar).
[2021-10-07] MEDS: Omeprazole 20 MG CAPSULE.DR PO (10:15)
[2021-10-07] MEDS: Remdesivir 200 MG in 0.9 % Sodium Chloride 210 ML 105 MG IV (10:15)
[2021-10-07] MEDS: Metoprolol Succinate ER 25 MG TAB.ER.24H 75 MG PO (10:15)
[2021-10-07] MEDS: Apixaban 5 MG TABLET PO ×2 (10:15→22:09)
--- NOTE | 2021-10-07 10:26 | HO.PM.IMPN ---
Subjective Subjective Date of Service: 10/07/21 Interval History: the patient was seen and evaluated this morning Laying in bed, feels Chest tightness and shortness of breath denies any chest pain No reported other overnight events. Systemic review: No fever, chills but has decreased appetite and increase weakness No chest pain, palpitation reporting shortness of breath, wheezing and coughing No abdominal pain, nausea or vomiting No urinary symptoms No any rash or wounds Physical Exam Vital Signs: Vital Signs: Last Vital Signs Temp 98.8 F 10/06/21 20:40 Pulse 99 10/07/21 08:07 Resp 22 H 10/07/21 08:07 BP 144/77 H 10/07/21 08:07 Pulse Ox 92 10/07/21 08:07 O2 Del Method 10/07/21 08:07 O2 Flow Rate 2 10/07/21 08:07 BMI result Body Mass Index 26.4 Const: Other: Constitutional : Alert, oriented, not in distress Neck : Normal inspection, Supple Cardiovascular : RRR, no JVP, no lower extremity edema Respiratory : fair bilateral air entry, no crackles, bilateral expiratory wheezes oxygen supply Gastrointestinal: soft, lax, Normal bowel sounds, Non tender Skin : Warm, Dry Neurological : Alert & oriented x3, No focal deficit , CN 2-12 within normal Objective Data Active Medications Acetaminophen (Acetaminophen 325 Mg Tablet) 650 mg PO Q6H PRN PRN Reason: Pain, Mild (Pain Scale 1-3) Albuterol/Ipratropium (Albuterol/Iprat 2.5/0.5mg 3 Ml Ampul.Neb) 3 ml INHALE RQ4H PRN PRN Reason: Shortness of Breath/Wheezing Albuterol/Ipratropium (Albuterol/Iprat 2.5/0.5mg 3 Ml Ampul.Neb) 3 ml INHALE RQ4H WHILE AWAKE [facility] Last Admin: 10/07/21 08:23 Dose: Not Given Documented By: TRACEY Non-Admin Reason: Patient Asleep Apixaban (Apixaban 5 Mg Tablet) 5 mg PO BID [facility] Last Admin: 10/07/21 10:15 Dose: 5 mg Documented By: JOSEPHINE Dexamethasone Sodium Phosphate (Dexamethasone Sod Phosphate 4 Mg/Ml Vial) 6 mg IVPUSH DAILY [facility] Last Admin: 10/07/21 08:04 Dose: 6 mg Documented By: JOSEPHINE Docusate Sodium (Docusate Sodium 100 Mg Capsule) 100 mg PO DAILY PRN PRN Reason: Constipation Azithromycin 500 mg/ Sodium (Chloride) 250 mls @ 125 mls/hr IV Q24H [facility] Last Infusion: 10/07/21 05:26 Dose: 0 mls/hr Documented By: LORRIE Remdesivir 200 mg/ Sodium (Chloride) 210 mls @ 105 mls/hr IV ONCE ONE Stop: 10/07/21 11:59 Last Admin: 10/07/21 10:15 Dose: 105 mls/hr Documented By: JOSEPHINE Remdesivir 100 mg/ Sodium (Chloride) 230 mls @ 115 mls/hr IV Q24H [facility] Stop: 10/11/21 11:59 Metoprolol Succinate (Metoprolol Succinate Er 25 Mg Tab.Er.24h) 75 mg PO DAILY [facility]; Protocol Last Admin: 10/07/21 10:15 Dose: 75 mg Documented By: JOSEPHINE Omeprazole (Omeprazole 20 Mg Capsule.Dr) 20 mg PO DAILY@0630 [facility] Last Admin: 10/07/21 10:15 Dose: 20 mg Documented By: JOSEPHINE Ondansetron HCl (Ondansetron Hcl 4 Mg/2 Ml Vial) 4 mg IVPUSH Q8H PRN PRN Reason: Nausea and Vomiting Paroxetine HCl (Paroxetine Hcl 40 Mg Tablet) 40 mg PO DAILY [facility] Pharmacy Consult (Consult Rx Perform Med Rec) 1 each MISCELLANE ONCE PRN PRN Reason: Consult order Sodium Chloride (0.9 % Sodium Chloride Flush 3 Ml Syringe) 3 ml IVFLUSH QSHIFT [facility] Last Admin: 10/07/21 08:08 Dose: 3 ml Documented By: JOSEPHINE Tamsulosin HCl (Tamsulosin Hcl 0.4 Mg Capsule) 0.4 mg PO DAILY@1730 [facility] Zolpidem Tartrate (Zolpidem Tartrate 5 Mg Tablet) 5 mg PO BEDTIME PRN PRN Reason: insomnia Labs CBC & Chem 7: 10/07/21 05:48 10/07/21 05:48 Labs: Laboratory Results - last 24 hr 10/06/21 10/06/21 10/06/21 21:13 21:14 21:14 MCV 90.0 MCH 31.0 MCHC 34.4 RDW 13.2 Plt Count 152 L MPV 10.1 Immature Gran % (Auto) 1.8 H Neut % (Auto) 87.0 H Lymph % (Auto) 6.2 L Greer % (Auto) 4.1 Eos % (Auto) 0.7 Baso % (Auto) 0.2 Lymph # (Auto) 0.4 L Greer # (Auto) 0.2 Eos # (Auto) 0.0 Baso # (Auto) 0.0 Abs Immat Gran (auto) 0.10 H Absolute Neuts (auto) 4.9 Absolute Nucleated RBC 0.000 Nucleated RBC % (auto) 0.0 Smear Tech's Comments PT INR VBG pH VBG pCO2 VBG pO2 VBG HCO3 VBG O2 Saturation VBG Base Excess Anion Gap 19 Estim Creat Clear Calc 43.1 Estimated GFR 48 Random Glucose 107 Lactic Acid Calcium 8.0 L D Magnesium 1.6 Total Bilirubin 0.7 AST 30 D ALT 15 Alkaline Phosphatase 52 B-Natriuretic Peptide 51 Total Protein 6.6 Albumin 3.5 COVID-19 (NATHANAEL) COVIDPairy 10/06/21 10/06/21 10/06/21 21:14 21:14 21:14 MCV MCH MCHC RDW Plt Count MPV Immature Gran % (Auto) Neut % (Auto) Lymph % (Auto) Greer % (Auto) Eos % (Auto) Baso % (Auto) Lymph # (Auto) Greer # (Auto) Eos # (Auto) Baso # (Auto) Abs Immat Gran (auto) Absolute Neuts (auto) Absolute Nucleated RBC Nucleated RBC % (auto) Smear Tech's Comments PT 20.2 H INR 1.7 H VBG pH VBG pCO2 VBG pO2 VBG HCO3 VBG O2 Saturation VBG Base Excess Anion Gap Estim Creat Clear Calc Estimated GFR Random Glucose Lactic Acid 1.2 Calcium Magnesium Cancelled Total Bilirubin AST ALT Alkaline Phosphatase B-Natriuretic Peptide Total Protein Albumin COVID-19 (NATHANAEL) COVIDPairy 10/06/21 10/06/21 10/06/21 21:14 21:14 21:28 MCV MCH MCHC RDW Plt Count MPV Immature Gran % (Auto) Neut % (Auto) Lymph % (Auto) Greer % (Auto) Eos % (Auto) Baso % (Auto) Lymph # (Auto) Greer # (Auto) Eos # (Auto) Baso # (Auto) Abs Immat Gran (auto) Absolute Neuts (auto) Absolute Nucleated RBC Nucleated RBC % (auto) Smear Tech's Comments PT INR VBG pH 7.42 VBG pCO2 34 VBG pO2 52 VBG HCO3 22 VBG O2 Saturation 80.0 VBG Base Excess -1.1 Anion Gap Estim Creat Clear Calc Estimated GFR Random Glucose Lactic Acid Calcium Magnesium Total Bilirubin AST ALT Alkaline Phosphatase B-Natriuretic Peptide Cancelled Total Protein Albumin COVID-19 (NATHANAEL) Positive A COVID-19 Clin Com See Note 10/07/21 10/07/21 05:48 05:48 MCV 90.5 MCH 31.2 MCHC 34.5 RDW 13.2 Plt Count 151 L MPV 10.1 Immature Gran % (Auto) 4.3 H Neut % (Auto) 80.4 H Lymph % (Auto) 12.0 L Greer % (Auto) 3.3 Eos % (Auto) 0.0 Baso % (Auto) 0.0 Lymph # (Auto) 0.3 L Greer # (Auto) 0.1 Eos # (Auto) 0.0 Baso # (Auto) 0.0 Abs Immat Gran (auto) 0.09 H Absolute Neuts (auto) 1.7 L Absolute Nucleated RBC 0.000 Nucleated RBC % (auto) 0.0 Smear Tech's Comments VERIFIED PT INR VBG pH VBG pCO2 VBG pO2 VBG HCO3 VBG O2 Saturation VBG Base Excess Anion Gap 18 Estim Creat Clear Calc 46.7 Estimated GFR 53 Random Glucose 205 H D Lactic Acid Calcium 8.0 L Magnesium Total Bilirubin AST ALT Alkaline Phosphatase B-Natriuretic Peptide Total Protein Albumin COVID-19 (NATHANAEL) COVID-19 Clin Com Assessment and Plan (1) COVID-19: Status: Acute (2) Acute respiratory failure with hypoxia: Status: Acute (3) COPD (chronic obstructive pulmonary disease): Status: Acute Plan 81-year-old male with past medical history of COPD, AFib who presents to the hospital with shortness of breath found to have COVID-19 infection # acute hypoxic respiratory failure # secondary to COVID-19 infection and COPD exacerbation - no evidence of pneumonia on chest x-ray start remdesivir Continue dexamethasone Bronchodilator nebulizers wean oxygen down as tolerated # paroxysmal AFib continue Eliquis, and metoprolol # history of PE on Eliquis DVT prophylaxis: Eliquis Given patient's oxygen requirement patient will require Overnight hospital stay for further management and monitoring to prevent possible decompensation into respiratory failure Quality Stroke Does the patient have a stroke diagnosis?: No VTE Prior VTE?: No VTE Risk Level:: Medical - moderate - high VTE Device Contraindication: Treatment Not Indicated VTE Drug Contraindication: N/A - Med Ordered
[2021-10-07] MEDS: Albuterol/Iprat 2.5/0.5MG 3 ML AMPUL.NEB INHALE ×3 (11:18→22:04)
[2021-10-07] MEDS: PARoxetine HCL 40 MG TABLET PO (13:15)
--- NOTE | 2021-10-07 15:17 | PC.NURSE ---
alert, nad, declined breakfast, skin wpd, son came to visit and spoke w pt from outside the room, this seemed to lift his spirits quite a bit
[2021-10-07] MEDS: Tamsulosin HCL 0.4 MG CAPSULE PO (16:57)
--- NOTE | 2021-10-07 17:05 | PC.NURSE ---
pt a&ox3, hard of hearing, increased resp effort noted, resp cotacted for breathing treatment, medicated per provider order.
[2021-10-07] MEDS: Azithromycin 500 MG in 0.9 % Sodium Chloride 250 ML 125 MG IV (22:09)
[2021-10-07] MEDS: Zolpidem Tartrate 5 MG TABLET PO (22:09)
--- NOTE | 2021-10-07 22:27 | PC.NURSE ---
pt aa&ox3, vss, medicated per provider order, pt requested pm Ambien, breathing treatment given by resp.
[2021-10-08] VITALS (10 sets, daily range): BP systolic 141–163; BP diastolic 66–86; PULSE 72–91; RESP 16–22; TEMP 36.4–37.3; O2SAT 88–93
[2021-10-08] MEDS: 0.9 % Sodium Chloride Flush 3 ML SYRINGE IVFLUSH ×4 (02:06→21:03)
[2021-10-08] MEDS: Omeprazole 20 MG CAPSULE.DR PO (05:31)
[2021-10-08 06:36] LABS: Hematocrit 36.4 % (42.0-52.0); Hemoglobin 12.6 g/dl (14.0-18.0); Mean Corpuscular HGB Conc 34.6 g/dl (31.0-36.0); Mean Corpuscular Hemoglobin 31.1 pg (27.0-33.0); Mean Corpuscular Volume 89.9 fL (80.0-98.0); Mean Platelet Volume 10.5 fL (9.4-12.4); Platelet Count 179 X10*3/uL (160-400); Red Blood Count 4.05 X10*6/uL (4.60-5.80); Red Cell Distribution Width 12.9 % (11.0-16.0); White Blood Count 12.3 X10*3/uL (4.8-10.8)
[2021-10-08 07:04] LABS: C Reactive Protein 4.77 mg/dL (< or = 0.50); Lactate Dehydrogenase 364 U/L (118-273)
[2021-10-08 07:27] LABS: Anion Gap 16 (12-20); Blood Urea Nitrogen 36 mg/dL (9-16); Calcium 8.4 mg/dL (8.4-10.2); Carbon Dioxide 23 mmol/L (22-29); Chloride 103 mmol/L (96-108); Creatinine Clr Calc Pharmacy 48.6; Estimated Glomerular Filt Rate 56; Glucose Random 96 mg/dL (60-115); Potassium 5.1 mmol/L (3.3-5.1); Sodium 137 mmol/L (135-145)
[2021-10-08] MEDS: Albuterol/Iprat 2.5/0.5MG 3 ML AMPUL.NEB INHALE ×3 (07:51→19:08)
[2021-10-08] MEDS: dexAMETHasone sod phosphate 4 MG/ML VIAL 6 MG IVPUSH (07:56)
[2021-10-08] MEDS: Metoprolol Succinate ER 25 MG TAB.ER.24H 75 MG PO (07:57)
[2021-10-08] MEDS: Apixaban 5 MG TABLET PO ×2 (07:58→21:01)
[2021-10-08] MEDS: PARoxetine HCL 40 MG TABLET PO (07:58)
--- NOTE | 2021-10-08 11:53 | MHC.CM.PN ---
Per MD rounds, patient sandra be ready in 2-3 days for d/c. Case Management will continue to follow along for d/c planning.
[2021-10-08] MEDS: Sodium Polystyrene Sulfon/Sorb 15 GM/60 ML ORAL.SUSP 30 GM PO (12:27)
--- NOTE | 2021-10-08 13:01 | HO.PM.IMPN ---
Subjective Subjective Date of Service: 10/08/21 Interval History: the patient was seen and evaluated this morning Feels much better today denies any chest pain No reported other overnight events. Systemic review: No fever, chills but has decreased appetite and increase weakness No chest pain, palpitation Still reporting shortness of breath, wheezing and coughing No abdominal pain, nausea or vomiting No urinary symptoms No any rash or wounds Physical Exam Vital Signs: Vital Signs: Last Vital Signs Temp 97.6 F 10/08/21 11:34 Pulse 80 10/08/21 11:34 Resp 22 H 10/08/21 11:34 BP 149/81 H 10/08/21 11:34 Pulse Ox 92 10/08/21 11:34 O2 Del Method 10/08/21 11:34 O2 Flow Rate 5 10/08/21 11:34 BMI result Body Mass Index 26.4 Const: Other: Constitutional : Alert, oriented, not in distress Neck : Normal inspection, Supple Cardiovascular : RRR, no JVP, no lower extremity edema Respiratory : fair bilateral air entry, no crackles, scattered bilateral expiratory wheezes, on oxygen supply Gastrointestinal: soft, lax, Normal bowel sounds, Non tender Skin : Warm, Dry Neurological : Alert & oriented x3, No focal deficit , CN 2-12 within normal Objective Data Active Medications Acetaminophen (Acetaminophen 325 Mg Tablet) 650 mg PO Q6H PRN PRN Reason: Pain, Mild (Pain Scale 1-3) Albuterol/Ipratropium (Albuterol/Iprat 2.5/0.5mg 3 Ml Ampul.Neb) 3 ml INHALE RQ4H PRN PRN Reason: Shortness of Breath/Wheezing Last Admin: 10/07/21 22:04 Dose: 3 ml Documented By: ROSA M Albuterol/Ipratropium (Albuterol/Iprat 2.5/0.5mg 3 Ml Ampul.Neb) 3 ml INHALE RQ4H WHILE AWAKE [facility] Last Admin: 10/08/21 11:33 Dose: 3 ml Documented By: REYNOLD Apixaban (Apixaban 5 Mg Tablet) 5 mg PO BID [facility] Last Admin: 10/08/21 07:58 Dose: 5 mg Documented By: OLVIN Dexamethasone Sodium Phosphate (Dexamethasone Sod Phosphate 4 Mg/Ml Vial) 6 mg IVPUSH DAILY [facility] Last Admin: 10/08/21 07:56 Dose: 6 mg Documented By: OLVIN Docusate Sodium (Docusate Sodium 100 Mg Capsule) 100 mg PO DAILY PRN PRN Reason: Constipation Azithromycin 500 mg/ Sodium (Chloride) 250 mls @ 125 mls/hr IV Q24H [facility] Last Infusion: 10/08/21 01:47 Dose: 0 mls/hr Documented By: ANTOIC Remdesivir 100 mg/ Sodium (Chloride) 230 mls @ 115 mls/hr IV Q24H [facility] Stop: 10/11/21 11:59 Last Admin: 10/08/21 12:40 Dose: Not Given Documented By: OLVIN Non-Admin Reason: Med Not Available Metoprolol Succinate (Metoprolol Succinate Er 25 Mg Tab.Er.24h) 75 mg PO DAILY [facility]; Protocol Last Admin: 10/08/21 07:57 Dose: 75 mg Documented By: OLVIN Omeprazole (Omeprazole 20 Mg Capsule.Dr) 20 mg PO DAILY@0630 [facility] Last Admin: 10/08/21 05:31 Dose: 20 mg Documented By: ALEX Ondansetron HCl (Ondansetron Hcl 4 Mg/2 Ml Vial) 4 mg IVPUSH Q8H PRN PRN Reason: Nausea and Vomiting Paroxetine HCl (Paroxetine Hcl 40 Mg Tablet) 40 mg PO DAILY [facility] Last Admin: 10/08/21 07:58 Dose: 40 mg Documented By: OLVIN Pharmacy Consult (Consult Rx Perform Med Rec) 1 each MISCELLANE ONCE PRN PRN Reason: Consult order Sodium Chloride (0.9 % Sodium Chloride Flush 3 Ml Syringe) 3 ml IVFLUSH QSHIFT [facility] Last Admin: 10/08/21 07:59 Dose: 3 ml Documented By: OLVIN Tamsulosin HCl (Tamsulosin Hcl 0.4 Mg Capsule) 0.4 mg PO DAILY@1730 [facility] Last Admin: 10/07/21 16:57 Dose: 0.4 mg Documented By: ALOK Zolpidem Tartrate (Zolpidem Tartrate 5 Mg Tablet) 5 mg PO BEDTIME PRN PRN Reason: insomnia Last Admin: 10/07/21 22:09 Dose: 5 mg Documented By: HO.MADDENL Labs CBC & Chem 7: 10/08/21 06:12 10/08/21 06:12 Labs: Laboratory Results - last 24 hr 10/08/21 10/08/21 10/08/21 06:12 06:12 06:12 MCV 89.9 MCH 31.1 MCHC 34.6 RDW 12.9 Plt Count 179 MPV 10.5 Absolute Nucleated RBC 0.000 Nucleated RBC % (auto) 0.0 Anion Gap 16 Estim Creat Clear Calc 48.6 Estimated GFR 56 Random Glucose 96 D Calcium 8.4 Lactate Dehydrogenase 364 H C-Reactive Protein 4.77 H Microbiology Microbiology Results: Microbiology 10/06/21 21:22 Blood Culture - Preliminary Blood - Venous No growth after 24 hours. 10/06/21 21:22 Blood Culture - Preliminary Blood - Venous No growth after 24 hours. Assessment and Plan (1) Acute respiratory failure with hypoxia: Status: Acute (2) COVID-19: Status: Acute Plan 81-year-old male with past medical history of COPD, AFib who presents to the hospital with shortness of breath found to have COVID-19 infection # acute hypoxic respiratory failure # secondary to COVID-19 infection and COPD exacerbation Continue remdesivir 2/5 Continue dexamethasone 3/10 Bronchodilator nebulizers wean oxygen down as tolerated # paroxysmal AFib continue Eliquis, and metoprolol # history of PE on Eliquis DVT prophylaxis: Eliquis Given patient's oxygen requirement patient will require Overnight hospital stay for further management and monitoring to prevent possible decompensation into respiratory failure Quality Stroke Does the patient have a stroke diagnosis?: No VTE Prior VTE?: No VTE Risk Level:: Medical - moderate - high VTE Device Contraindication: Treatment Not Indicated VTE Drug Contraindication: N/A - Med Ordered
[2021-10-08] MEDS: Remdesivir 100 MG in 0.9 % Sodium Chloride 230 ML 115 MG IV (16:41)
[2021-10-08] MEDS: Tamsulosin HCL 0.4 MG CAPSULE PO (16:42)
--- NOTE | 2021-10-08 18:36 | PC.NURSE ---
Nursing Note: Patient with increased shortness of breath at 1640, sitting on edge of bed c/o dyspnea. O2 sats 81% on 5 liters nasal cannula. Lung sounds diminished with wheeze. Given duoneb and increased O2 to 7 liters via nc. Sats 88 to 89% and patient less tachypneic. Ate a bit of dinner. Resting comfortably. Dr. Rose alerted via secure message.
[2021-10-08] MEDS: Azithromycin 500 MG in 0.9 % Sodium Chloride 250 ML 125 MG IV (21:01)
[2021-10-08] MEDS: Zolpidem Tartrate 5 MG TABLET PO (22:56)
[2021-10-09] VITALS (11 sets, daily range): BP systolic 120–159; BP diastolic 61–82; PULSE 76–92; RESP 18–20; TEMP 36.2–36.7; O2SAT 83–94
[2021-10-09] MEDS: Omeprazole 20 MG CAPSULE.DR PO (05:49)
[2021-10-09 06:21] LABS: Hematocrit 36.1 % (42.0-52.0); Hemoglobin 12.3 g/dl (14.0-18.0); Mean Corpuscular HGB Conc 34.1 g/dl (31.0-36.0); Mean Corpuscular Hemoglobin 30.8 pg (27.0-33.0); Mean Corpuscular Volume 90.5 fL (80.0-98.0); Platelet Count 211 X10*3/uL (160-400); Red Blood Count 3.99 X10*6/uL (4.60-5.80); Red Cell Distribution Width 13.1 % (11.0-16.0); White Blood Count 11.4 X10*3/uL (4.8-10.8)
[2021-10-09 06:39] LABS: Anion Gap 16 (12-20); Blood Urea Nitrogen 42 mg/dL (9-16); Calcium 8.4 mg/dL (8.4-10.2); Carbon Dioxide 23 mmol/L (22-29); Chloride 104 mmol/L (96-108); Creatinine Clr Calc Pharmacy 45.3; Estimated Glomerular Filt Rate 51; Glucose Random 94 mg/dL (60-115); Potassium 4.5 mmol/L (3.3-5.1); Sodium 138 mmol/L (135-145)
[2021-10-09] MEDS: Albuterol/Iprat 2.5/0.5MG 3 ML AMPUL.NEB INHALE ×4 (08:05→20:00)
[2021-10-09] MEDS: Metoprolol Succinate ER 25 MG TAB.ER.24H 75 MG PO (09:21)
[2021-10-09] MEDS: PARoxetine HCL 40 MG TABLET PO (09:21)
[2021-10-09] MEDS: Apixaban 5 MG TABLET PO ×2 (09:21→20:33)
[2021-10-09] MEDS: 0.9 % Sodium Chloride Flush 3 ML SYRINGE IVFLUSH ×2 (09:22→15:52)
[2021-10-09] MEDS: dexAMETHasone sod phosphate 4 MG/ML VIAL 6 MG IVPUSH (09:22)
--- NOTE | 2021-10-09 12:10 | P.PNIM_ITS ---
Subjective Subjective Date of Service: 10/09/21 Interval History: the patient was seen and evaluated this morning Requiring more oxygen overnight More anxious this morning Not eating much according to nursing staff No reported other overnight events. Systemic review: No fever, chills but has decreased appetite and increase weakness No chest pain, palpitation Still reporting shortness of breath, wheezing and coughing No abdominal pain, nausea or vomiting No urinary symptoms No any rash or wounds Physical Exam Vital Signs: Vital Signs: Last Vital Signs Temp 97.5 F 10/09/21 11:33 Pulse 85 10/09/21 11:33 Resp 20 10/09/21 11:33 BP 152/78 H 10/09/21 11:33 Pulse Ox 91 L 10/09/21 11:33 O2 Del Method 10/09/21 11:33 O2 Flow Rate 11 10/09/21 11:33 BMI result Body Mass Index 26.4 Const: Other: Constitutional : Alert, oriented, in mild respiratory distress Neck : Normal inspection, Supple Cardiovascular : RRR, no JVP, no lower extremity edema Respiratory : fair bilateral air entry, no crackles, scattered bilateral expiratory wheezes, on oxygen supply Gastrointestinal: soft, lax, Normal bowel sounds, Non tender Skin : Warm, Dry Neurological : Alert & oriented x3, No focal deficit , CN 2-12 within normal Objective Data Active Medications Acetaminophen (Acetaminophen 325 Mg Tablet) 650 mg PO Q6H PRN PRN Reason: Pain, Mild (Pain Scale 1-3) Albuterol/Ipratropium (Albuterol/Iprat 2.5/0.5mg 3 Ml Ampul.Neb) 3 ml INHALE RQ4H PRN PRN Reason: Shortness of Breath/Wheezing Last Admin: 10/07/21 22:04 Dose: 3 ml Documented By: ROSA M Albuterol/Ipratropium (Albuterol/Iprat 2.5/0.5mg 3 Ml Ampul.Neb) 3 ml INHALE RQ4H WHILE AWAKE [facility] Last Admin: 10/09/21 11:12 Dose: 3 ml Documented By: REYNOLD Apixaban (Apixaban 5 Mg Tablet) 5 mg PO BID [facility] Last Admin: 10/09/21 09:21 Dose: 5 mg Documented By: JOE Dexamethasone Sodium Phosphate (Dexamethasone Sod Phosphate 4 Mg/Ml Vial) 6 mg IVPUSH DAILY [facility] Last Admin: 10/09/21 09:22 Dose: 6 mg Documented By: JOE Comments: Docusate Sodium (Docusate Sodium 100 Mg Capsule) 100 mg PO DAILY PRN PRN Reason: Constipation Azithromycin 500 mg/ Sodium (Chloride) 250 mls @ 125 mls/hr IV Q24H [facility] Last Infusion: 10/08/21 23:06 Dose: 0 mls/hr Documented By: DARIUSZ Remdesivir 100 mg/ Sodium (Chloride) 230 mls @ 115 mls/hr IV Q24H [facility] Stop: 10/11/21 17:59 Last Infusion: 10/08/21 18:18 Dose: 0 mls/hr Documented By: OLVIN Metoprolol Succinate (Metoprolol Succinate Er 25 Mg Tab.Er.24h) 75 mg PO DAILY [facility]; Protocol Last Admin: 10/09/21 09:21 Dose: 75 mg Documented By: JOE Omeprazole (Omeprazole 20 Mg Capsule.Dr) 20 mg PO DAILY@0630 [facility] Last Admin: 10/09/21 05:49 Dose: 20 mg Documented By: LYNN Ondansetron HCl (Ondansetron Hcl 4 Mg/2 Ml Vial) 4 mg IVPUSH Q8H PRN PRN Reason: Nausea and Vomiting Paroxetine HCl (Paroxetine Hcl 40 Mg Tablet) 40 mg PO DAILY [facility] Last Admin: 10/09/21 09:21 Dose: 40 mg Documented By: JOE Pharmacy Consult (Consult Rx Perform Med Rec) 1 each MISCELLANE ONCE PRN PRN Reason: Consult order Sodium Chloride (0.9 % Sodium Chloride Flush 3 Ml Syringe) 3 ml IVFLUSH QSHIFT [facility] Last Admin: 10/09/21 09:22 Dose: 3 ml Documented By: JOE Tamsulosin HCl (Tamsulosin Hcl 0.4 Mg Capsule) 0.4 mg PO DAILY@1730 [facility] Last Admin: 10/08/21 16:42 Dose: 0.4 mg Documented By: OLVIN Zolpidem Tartrate (Zolpidem Tartrate 5 Mg Tablet) 5 mg PO BEDTIME PRN PRN Reason: insomnia Last Admin: 10/08/21 22:56 Dose: 5 mg Documented By: LYNN Labs CBC & Chem 7: 10/09/21 05:58 10/09/21 05:58 Labs: Laboratory Results - last 24 hr 10/07/21 10/09/21 10/09/21 05:48 05:58 05:58 MCV 90.5 MCH 30.8 MCHC 34.1 RDW 13.1 Plt Count 211 MPV 10.0 Absolute Nucleated RBC 0.000 Nucleated RBC % (auto) 0.0 Smear Path Review SEE NOTE Anion Gap 16 Estim Creat Clear Calc 45.3 Estimated GFR 51 Random Glucose 94 Calcium 8.4 Microbiology Microbiology Results: Microbiology 10/06/21 21:22 Blood Culture - Preliminary Blood - Venous No growth after 48 hours. 10/06/21 21:22 Blood Culture - Preliminary Blood - Venous No growth after 48 hours. Assessment and Plan (1) Acute respiratory failure with hypoxia: Status: Acute (2) COVID-19: Status: Acute Plan 81-year-old male with past medical history of COPD, AFib who presents to the hospital with shortness of breath found to have COVID-19 infection # acute hypoxic respiratory failure # secondary to COVID-19 infection and COPD exacerbation Continue remdesivir 3/5 Continue dexamethasone 4/10 Bronchodilator nebulizers wean oxygen down as tolerated # anxiety attacks Seems to be related to worsening condition and increased oxygen supplement, steroid usage Small dose Ativan p.r.n. for now # paroxysmal AFib continue Eliquis, and metoprolol # history of PE on Eliquis DVT prophylaxis: Eliquis Given patient's oxygen requirement patient will require Overnight hospital stay for further management and monitoring to prevent possible decompensation into respiratory failure Quality Stroke Does the patient have a stroke diagnosis?: No VTE Prior VTE?: No VTE Risk Level:: Medical - moderate - high VTE Device Contraindication: Treatment Not Indicated VTE Drug Contraindication: N/A - Med Ordered
[2021-10-09] MEDS: LORazepam 0.5 MG TABLET PO (12:35)
--- NOTE | 2021-10-09 12:59 | PC.NURSE ---
[employer] alerted this nurse about oxygen saturation in the low 80s while on 7L o2 via alberto cannula. Oxymask at 11L was applied and o2 sat candice to 91-92. Pt expressed anxiety noting that he was scared as hell he was going to . notified of both issues. Ativan was administered subsequently.
[2021-10-09] MEDS: Remdesivir 100 MG in 0.9 % Sodium Chloride 230 ML 115 MG IV (15:53)
[2021-10-09] MEDS: Tamsulosin HCL 0.4 MG CAPSULE PO (17:08)
[2021-10-09] MEDS: Zolpidem Tartrate 5 MG TABLET PO (20:33)
[2021-10-10] VITALS (11 sets, daily range): BP systolic 124–162; BP diastolic 58–83; PULSE 75–85; RESP 16–20; TEMP 36–36.8; O2SAT 88–100
[2021-10-10] MEDS: Azithromycin 500 MG in 0.9 % Sodium Chloride 250 ML 125 MG IV (00:04)
[2021-10-10] MEDS: 0.9 % Sodium Chloride Flush 3 ML SYRINGE IVFLUSH ×3 (02:29→15:35)
[2021-10-10] MEDS: Omeprazole 20 MG CAPSULE.DR PO (05:34)
[2021-10-10 06:24] LABS: C Reactive Protein 4.68 mg/dL (< or = 0.50); Lactate Dehydrogenase 460 U/L (118-273)
[2021-10-10 06:25] LABS: Anion Gap 16 (12-20); Blood Urea Nitrogen 40 mg/dL (9-16); Calcium 8.3 mg/dL (8.4-10.2); Carbon Dioxide 20 mmol/L (22-29); Chloride 103 mmol/L (96-108); Creatinine Clr Calc Pharmacy 48.2; Estimated Glomerular Filt Rate 55; Glucose Random 92 mg/dL (60-115); Potassium 4.3 mmol/L (3.3-5.1); Sodium 135 mmol/L (135-145)
[2021-10-10 06:38] LABS: Hematocrit 38.6 % (42.0-52.0); Hemoglobin 13.4 g/dl (14.0-18.0); Mean Corpuscular HGB Conc 34.7 g/dl (31.0-36.0); Mean Corpuscular Volume 89.4 fL (80.0-98.0); Mean Platelet Volume 9.7 fL (9.4-12.4); Platelet Count 227 X10*3/uL (160-400); Red Blood Count 4.32 X10*6/uL (4.60-5.80); Red Cell Distribution Width 13.2 % (11.0-16.0); White Blood Count 14.9 X10*3/uL (4.8-10.8)
[2021-10-10] MEDS: Metoprolol Succinate ER 25 MG TAB.ER.24H 75 MG PO (07:38)
[2021-10-10] MEDS: dexAMETHasone sod phosphate 4 MG/ML VIAL 6 MG IVPUSH (07:38)
[2021-10-10] MEDS: PARoxetine HCL 40 MG TABLET PO (07:38)
[2021-10-10] MEDS: Apixaban 5 MG TABLET PO ×2 (07:39→21:20)
[2021-10-10] MEDS: Albuterol/Iprat 2.5/0.5MG 3 ML AMPUL.NEB INHALE ×4 (07:43→20:11)
--- NOTE | 2021-10-10 07:51 | PC.NURSE ---
Patient found a/ox1, confused, anxiou, without oxymask on this morning. Patient has safety camera in room, did not alert RN or JAMMER HOOKER. According to previous nightshift RN, patient was a/ox3; afebrile. Left pupil a 3mm, right 4mm; unsure if this is his baseline, all other neuros intact. [place] Rose MD aware at 0736. No orders placed; stated he would see him in rounds .
--- NOTE | 2021-10-10 11:43 | HO.PM.IMPN ---
Subjective Subjective Date of Service: 10/10/21 Interval History: the patient was seen and evaluated this morning Increased oxygen supplement overnight More anxious and confused this morning Not eating much No reported other overnight events. Systemic review: No fever, chills but has decreased appetite and increase weakness No chest pain, palpitation Still reporting shortness of breath, wheezing and coughing No abdominal pain, nausea or vomiting No urinary symptoms No any rash or wounds Physical Exam Vital Signs: Vital Signs: Last Vital Signs Temp 98.2 F 10/10/21 10:57 Pulse 85 10/10/21 11:08 Resp 18 10/10/21 11:08 BP 150/81 H 10/10/21 10:57 Pulse Ox 88 L 10/10/21 10:57 O2 Del Method 10/10/21 10:57 O2 Flow Rate 15 10/10/21 10:57 BMI result Body Mass Index 26.4 Const: Other: Constitutional : Alert, refused, in mild respiratory distress Neck : Normal inspection, Supple Cardiovascular : RRR, no JVP, no lower extremity edema Respiratory : fair bilateral air entry, no crackles, scattered bilateral expiratory wheezes, increased oxygen supply Gastrointestinal: soft, lax, Normal bowel sounds, Non tender Skin : Warm, Dry Neurological : Alert & disoriented, No focal deficit , CN 2-12 within normal Objective Data Active Medications Acetaminophen (Acetaminophen 325 Mg Tablet) 650 mg PO Q6H PRN PRN Reason: Pain, Mild (Pain Scale 1-3) Albuterol/Ipratropium (Albuterol/Iprat 2.5/0.5mg 3 Ml Ampul.Neb) 3 ml INHALE RQ4H PRN PRN Reason: Shortness of Breath/Wheezing Last Admin: 10/07/21 22:04 Dose: 3 ml Documented By: ROSA M Albuterol/Ipratropium (Albuterol/Iprat 2.5/0.5mg 3 Ml Ampul.Neb) 3 ml INHALE RQ4H WHILE AWAKE [facility] Last Admin: 10/10/21 11:06 Dose: 3 ml Documented By: REYNOLD Apixaban (Apixaban 5 Mg Tablet) 5 mg PO BID [facility] Last Admin: 10/10/21 07:39 Dose: 5 mg Documented By: CARMEL-RIVLA Dexamethasone Sodium Phosphate (Dexamethasone Sod Phosphate 4 Mg/Ml Vial) 6 mg IVPUSH DAILY [facility] Last Admin: 10/10/21 07:38 Dose: 6 mg Documented By: KARY Comments: 1.5ML Docusate Sodium (Docusate Sodium 100 Mg Capsule) 100 mg PO DAILY PRN PRN Reason: Constipation Azithromycin 500 mg/ Sodium (Chloride) 250 mls @ 125 mls/hr IV Q24H [facility] Last Infusion: 10/10/21 02:30 Dose: 0 mls/hr Documented By: TARAH Remdesivir 100 mg/ Sodium (Chloride) 230 mls @ 115 mls/hr IV Q24H [facility] Stop: 10/11/21 17:59 Last Infusion: 10/09/21 18:27 Dose: 0 mls/hr Documented By: JOE Metoprolol Succinate (Metoprolol Succinate Er 25 Mg Tab.Er.24h) 75 mg PO DAILY [facility]; Protocol Last Admin: 10/10/21 07:38 Dose: 75 mg Documented By: KARY Comments: BP-124/64 Omeprazole (Omeprazole 20 Mg Capsule.Dr) 20 mg PO DAILY@0630 [facility] Last Admin: 10/10/21 05:34 Dose: 20 mg Documented By: TARAH Ondansetron HCl (Ondansetron Hcl 4 Mg/2 Ml Vial) 4 mg IVPUSH Q8H PRN PRN Reason: Nausea and Vomiting Paroxetine HCl (Paroxetine Hcl 40 Mg Tablet) 40 mg PO DAILY [facility] Last Admin: 10/10/21 07:38 Dose: 40 mg Documented By: KARY Pharmacy Consult (Consult Rx Perform Med Rec) 1 each MISCELLANE ONCE PRN PRN Reason: Consult order Sodium Chloride (0.9 % Sodium Chloride Flush 3 Ml Syringe) 3 ml IVFLUSH QSHIFT [facility] Last Admin: 10/10/21 07:38 Dose: 3 ml Documented By: KARY Tamsulosin HCl (Tamsulosin Hcl 0.4 Mg Capsule) 0.4 mg PO DAILY@1730 [facility] Last Admin: 10/09/21 17:08 Dose: 0.4 mg Documented By: JOE Zolpidem Tartrate (Zolpidem Tartrate 5 Mg Tablet) 5 mg PO BEDTIME PRN PRN Reason: insomnia Last Admin: 10/09/21 20:33 Dose: 5 mg Documented By: ALFONSO Labs CBC & Chem 7: 10/10/21 05:47 10/10/21 05:47 Labs: Laboratory Results - last 24 hr 10/10/21 10/10/21 10/10/21 05:47 05:47 05:47 MCV 89.4 MCH 31.0 MCHC 34.7 RDW 13.2 Plt Count 227 MPV 9.7 Absolute Nucleated RBC 0.000 Nucleated RBC % (auto) 0.0 Anion Gap 16 Estim Creat Clear Calc 48.2 Estimated GFR 55 Random Glucose 92 Calcium 8.3 L Lactate Dehydrogenase 460 H C-Reactive Protein 4.68 H Assessment and Plan (1) Acute respiratory failure with hypoxia: Status: Acute (2) COVID-19: Status: Acute (3) Delirium due to general medical condition: Status: Acute Plan 81-year-old male with past medical history of COPD, AFib who presents to the hospital with shortness of breath found to have COVID-19 infection # acute hypoxic respiratory failure # secondary to COVID-19 infection and COPD exacerbation Requiring more oxygen and more confused today, still not eating well Continue remdesivir 4/5 Continue dexamethasone 5/10 Azithromycin for anti-inflammatory effect Bronchodilator nebulizers wean oxygen down as tolerated ID evaluation # delirium due to medical condition Recurrent reorientation Try a small dose of Seroquel for now # anxiety attacks Seems to be related to worsening condition and increased oxygen supplement, steroid usage P.r.n. Atarax # paroxysmal AFib continue Eliquis, and metoprolol # history of PE on Eliquis DVT prophylaxis: Eliquis Given patient's oxygen requirement patient will require Overnight hospital stay for further management and monitoring to prevent possible decompensation into respiratory failure I spoke with his sound to discuss ongoing treatment plan. His son Gregory mobile phone: [phone] Quality Stroke Does the patient have a stroke diagnosis?: No VTE Prior VTE?: No VTE Risk Level:: Medical - moderate - high VTE Device Contraindication: Treatment Not Indicated VTE Drug Contraindication: N/A - Med Ordered
[2021-10-10] MEDS: QUEtiapine Fumarate 25 MG TABLET 12.5 MG PO (15:34)
[2021-10-10] MEDS: Tamsulosin HCL 0.4 MG CAPSULE PO (15:34)
--- NOTE | 2021-10-10 16:24 | MHC.CM.PN ---
Addendum entered by Fabi Wallace 10/10/21 16:27: The patient is now on High Flow Oxygen. Original Note: Male 81 DX Covid+ DP initially home no services. Family will provide transportation home. The patient is now requiring more Oxygen. CM will follow to change the DP to address change in dc needs.
[2021-10-10] MEDS: Remdesivir 100 MG in 0.9 % Sodium Chloride 230 ML 115 MG IV (16:34)
--- NOTE | 2021-10-10 16:47 | P.CNID_ITS ---
History of Present Illness Data of Consult Service Date: 10/10/21 Requesting physician: [place] Primary Care Provider: [facility] Reason for consult: shortness of breath ,COVID He presents with shortness of breath and cough for four days. He has positive COVID. He has had two vaccines. Review of Systems Review of Systems: Yes all other systems are reviewed and are negative [facility] Past Medical History Medical History COPD (chronic obstructive pulmonary disease) Essential hypertension Lung cancer PAF (paroxysmal atrial fibrillation) Pulmonary emboli Family History Family History Father Lung cancer Family history: reviewed and not pertinent Surgical History Surgical History No pertinent past surgical history Social History Social History Household Members: None Housing: House Do you presently have visiting nurse or other home services: No Alcohol intake: never Patient Tobacco Use Status: Former Tobacco user service: Yes Current occupational status: retired [employer] Allergies Allergy/AdvReac Type Severity Reaction Status Date / Time No Known Allergies Allergy Verified 08/16/21 13:32 Active Medications: Current Medications Acetaminophen (Acetaminophen 325 Mg Tablet) 650 mg PO Q6H PRN PRN Reason: Pain, Mild (Pain Scale 1-3) Albuterol/Ipratropium (Albuterol/Iprat 2.5/0.5mg 3 Ml Ampul.Neb) 3 ml INHALE RQ4H PRN PRN Reason: Shortness of Breath/Wheezing Last Admin: 10/07/21 22:04 Dose: 3 ml Albuterol/Ipratropium (Albuterol/Iprat 2.5/0.5mg 3 Ml Ampul.Neb) 3 ml INHALE RQ4H WHILE AWAKE [facility] Last Admin: 10/10/21 15:20 Dose: 3 ml Apixaban (Apixaban 5 Mg Tablet) 5 mg PO BID [facility] Last Admin: 10/10/21 07:39 Dose: 5 mg Dexamethasone Sodium Phosphate (Dexamethasone Sod Phosphate 4 Mg/Ml Vial) 6 mg IVPUSH DAILY [facility] Last Admin: 10/10/21 07:38 Dose: 6 mg Docusate Sodium (Docusate Sodium 100 Mg Capsule) 100 mg PO DAILY PRN PRN Reason: Constipation Hydroxyzine HCl (Hydroxyzine Hcl 25 Mg Tablet) 25 mg PO Q8H PRN PRN Reason: anxiety/restlessness Azithromycin 500 mg/ Sodium (Chloride) 250 mls @ 125 mls/hr IV Q24H [facility] Last Infusion: 10/10/21 02:30 Dose: Infused Remdesivir 100 mg/ Sodium (Chloride) 230 mls @ 115 mls/hr IV Q24H [facility] Stop: 10/11/21 17:59 Last Admin: 10/10/21 16:34 Dose: 115 mls/hr Metoprolol Succinate (Metoprolol Succinate Er 25 Mg Tab.Er.24h) 75 mg PO DAILY [facility]; Protocol Last Admin: 10/10/21 07:38 Dose: 75 mg Omeprazole (Omeprazole 20 Mg Capsule.Dr) 20 mg PO DAILY@0630 [facility] Last Admin: 10/10/21 05:34 Dose: 20 mg Ondansetron HCl (Ondansetron Hcl 4 Mg/2 Ml Vial) 4 mg IVPUSH Q8H PRN PRN Reason: Nausea and Vomiting Paroxetine HCl (Paroxetine Hcl 40 Mg Tablet) 40 mg PO DAILY [facility] Last Admin: 10/10/21 07:38 Dose: 40 mg Pharmacy Consult (Consult Rx Perform Med Rec) 1 each MISCELLANE ONCE PRN PRN Reason: Consult order Sodium Chloride (0.9 % Sodium Chloride Flush 3 Ml Syringe) 3 ml IVFLUSH QSHIFT [facility] Last Admin: 10/10/21 15:35 Dose: 3 ml Tamsulosin HCl (Tamsulosin Hcl 0.4 Mg Capsule) 0.4 mg PO DAILY@1730 [facility] Last Admin: 10/10/21 15:34 Dose: 0.4 mg Zolpidem Tartrate (Zolpidem Tartrate 5 Mg Tablet) 5 mg PO BEDTIME PRN PRN Reason: insomnia Last Admin: 10/09/21 20:33 Dose: 5 mg Home Medications Medication Instructions Recorded Confirmed Last Taken Type albuterol sulfate 90 mcg/actuation 2 puff inhalation Q4H PRN wheezing 07/14/21 10/07/21 07/13/21 History aerosol inhaler omeprazole 20 mg capsule,delayed 1 cap PO DAILY 07/14/21 10/07/21 07/13/21 History release paroxetine HCl 40 mg tablet 1 tab PO QAM 07/14/21 10/07/21 07/13/21 History tamsulosin 0.4 mg capsule 1 cap PO DAILY 07/14/21 10/07/21 07/13/21 History zolpidem 12.5 mg tablet,extended 1 tab PO BEDTIME PRN insomnia 07/14/21 10/07/21 07/13/21 History release,multiphase apixaban 5 mg tablet (Eliquis) 5 mg PO BID 08/16/21 10/07/21 Unknown History Physical Exam Vital Signs: Vital Signs: Last Vital Signs Temp 98.0 F 10/10/21 14:57 Pulse 82 10/10/21 14:57 Resp 20 10/10/21 15:20 BP 162/77 H 10/10/21 14:57 Pulse Ox 92 10/10/21 14:57 O2 Del Method 10/10/21 14:57 O2 Flow Rate 50 10/10/21 14:57 FiO2 98 10/10/21 14:57 BMI result Body Mass Index 26.4 Const: General: cooperative HEENT: Head: Yes normal to inspection Face and sinus: Yes normal facial exam Mouth: Normal oral and palatal mucosa present Teeth and gingiva: dentition normal Eyes: General: appearance normal, both eyes and all related structures Pupils: Equal, round and reactive pupils present Resp: Other: mild respiratory insufficiency Cardio: Rate: regular rate Rhythm: regular rhythm GI: Palpation (GI): Soft to palpation and nontender : General: Yes no CVA tenderness Back/Spine/Pelvis: Back: no CVA tenderness Skin: General skin exam: no rashes or lesions noted Neuro: Other: confused General: moves all extremities Cranial nerves: Yes Equal, round and reactive pupils present Extrem: General: Yes normal to inspection Psych: Appearance: grossly normal Results Labs CBC & Chem 7: 10/10/21 05:47 10/10/21 05:47 Labs: Short CBC 10/10/21 Range/Units 05:47 WBC 14.9 H (4.8-10.8) X10*3/uL Hgb 13.4 L (14.0-18.0) g/dl Hct 38.6 L (42.0-52.0) % Plt Count 227 (160-400) X10*3/uL BMP 10/10/21 05:47 Sodium 135 Potassium 4.3 Chloride 103 Carbon Dioxide 20 L BUN 40 H Creatinine 1.26 Calcium 8.3 L Microbiology Microbiology Results: Microbiology 10/06/21 21:22 Blood - Venous Blood Culture - Preliminary No growth after 48 hours. 10/06/21 21:22 Blood - Venous Blood Culture - Preliminary No growth after 48 hours. 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 He has improved saturation now on oxymask to 91% so follow and if becomes lower than 88% on current settings institute baricitinib
[2021-10-10] MEDS: Haloperidol Lactate 5 MG/ML VIAL 2.5 MG IVPUSH (23:45)
[2021-10-11] VITALS (12 sets, daily range): BP systolic 114–143; BP diastolic 57–88; PULSE 77–106; RESP 16–22; TEMP 36.2–36.7; O2SAT 88–96
[2021-10-11] MEDS: 0.9 % Sodium Chloride Flush 3 ML SYRINGE IVFLUSH ×4 (01:29→19:46)
[2021-10-11] MEDS: Azithromycin 500 MG in 0.9 % Sodium Chloride 250 ML 125 MG IV ×2 (01:30→19:46)
[2021-10-11] MEDS: hydrOXYzine HCL 25 MG TABLET PO ×2 (04:49→19:46)
[2021-10-11 06:58] LABS: Hematocrit 38.5 % (42.0-52.0); Hemoglobin 13.3 g/dl (14.0-18.0); Mean Corpuscular HGB Conc 34.5 g/dl (31.0-36.0); Mean Corpuscular Hemoglobin 30.9 pg (27.0-33.0); Mean Corpuscular Volume 89.5 fL (80.0-98.0); Mean Platelet Volume 9.9 fL (9.4-12.4); Platelet Count 242 X10*3/uL (160-400); Red Cell Distribution Width 13.2 % (11.0-16.0); White Blood Count 20.5 X10*3/uL (4.8-10.8)
[2021-10-11 07:12] LABS: Anion Gap 17 (12-20); Blood Urea Nitrogen 47 mg/dL (9-16); Calcium 8.2 mg/dL (8.4-10.2); Carbon Dioxide 17 mmol/L (22-29); Chloride 104 mmol/L (96-108); Creatinine Clr Calc Pharmacy 46.7; Estimated Glomerular Filt Rate 53; Glucose Random 88 mg/dL (60-115); Potassium 4.3 mmol/L (3.3-5.1); Sodium 134 mmol/L (135-145)
[2021-10-11] MEDS: Albuterol/Iprat 2.5/0.5MG 3 ML AMPUL.NEB INHALE ×3 (07:58→15:40)
[2021-10-11] MEDS: Metoprolol Succinate ER 25 MG TAB.ER.24H 75 MG PO (09:50)
[2021-10-11] MEDS: Apixaban 5 MG TABLET PO ×2 (09:51→19:46)
[2021-10-11] MEDS: PARoxetine HCL 40 MG TABLET PO (09:51)
[2021-10-11] MEDS: methylPREDNISolone Sod Succ 40 MG/ML VIAL IVPUSH ×3 (11:00→19:47)
[2021-10-11 12:30] LABS: ABG Base Excess -5.1 mmol/L; ABG HCO3 15 mmol/L (22-26); ABG pCO2 20 mmHg (32-45); ABG pH 7.49 (7.35-7.45); ABG pO2 94 mmHg (83-108)
[2021-10-11 12:54] LABS: ABG Refer to POC result
[2021-10-11] MEDS: Furosemide 40 MG/4 ML VIAL IVPUSH (13:49)
--- NOTE | 2021-10-11 14:05 | P.CONCC_ITS ---
History of Present Illness Data of Consult Service Date: 10/11/21 Requesting physician: [place] Primary Care Provider: [facility] Reason for consult: Hypoxemia 81-year-old gentleman with underlying history of advanced COPD, lung cancer status post left lobectomy, paroxysmal AFib, PE, hypertension admitted on 10/06/2021 with worsening shortness of breath and hypoxemia. Patient was noted to have acute COVID-19 ARDS necessitating support with high-flow supplemental oxygen. He has been treated with a a course of remdesivir and systemic glucocorticoids. Now he maintains normal oximetry on high-flow nasal cannula 80% 50 L. His chest x-ray today demonstrates coarsened of interstitial markings. His arterial blood gas shows hyperventilation with increased A-a g radient. Patient himself is some while inches, but appears comfortable. Review of Systems Constitutional: Constitutional: Denies daytime sleepiness, Denies excessive sweating, Denies fatigue, Denies fever(s), Denies lethargy, Denies malaise, Denies night sweats, Denies snoring and Denies weight loss Eyes: Eyes: Denies blurry vision and Denies itchy eyes ENT: Denies nasal congestion, Denies post nasal drip, Denies sinus pain, Denies sinus pressure and Denies other ( Thrush) Cardiovascular: Cardiovascular: Denies chest pain, Denies pedal edema, Reports dyspnea, Reports dyspnea on exertion, Denies orthopnea and Denies paroxysmal nocturnal dyspnea Respiratory: Respiratory: Denies cough, Denies hemoptysis, Denies excessive phlegm production, Reports dyspnea, Reports dyspnea on exertion, Denies snoring and Denies wheezing Gastrointestinal: Gastrointestinal: Denies abdominal pain and Denies heartburn Musculoskeletal: Musculoskeletal: Denies myalgias, Denies arthralgias and Denies joint swelling Integumentary/Breasts: Skin/Breast: Denies rash Neurologic: Denies memory loss and Denies seizure-like activity Psychiatric: Psychiatric: Denies abnormal sleep pattern, Denies anxiety and Denies memory loss Endocrine: Endocrine: Denies excessive sweating, Denies fatigue and Denies heat intolerance Hematologic/Lymphatic: Hematologic/Lymphatic: Denies easy bruising Allergic/Immunologic: Allergic/Immunologic: Denies itchy eyes, Denies seasonal rhinorrhea and Denies wheezing PMFSH Past Medical History Medical History COPD (chronic obstructive pulmonary disease) Essential hypertension Lung cancer PAF (paroxysmal atrial fibrillation) Pulmonary emboli Family History Family History Father Lung cancer Family history: reviewed and not pertinent Surgical History Surgical History No pertinent past surgical history Social History Social History Household Members: None Housing: House Do you presently have visiting nurse or other home services: No Alcohol intake: never Patient Tobacco Use Status: Former Tobacco user service: Yes Current occupational status: [employer] Allergies Allergy/AdvReac Type Severity Reaction Status Date / Time No Known Allergies Allergy Verified 08/16/21 13:32 Active Medications: Current Medications Acetaminophen (Acetaminophen 325 Mg Tablet) 650 mg PO Q6H PRN PRN Reason: Pain, Mild (Pain Scale 1-3) Albuterol/Ipratropium (Albuterol/Iprat 2.5/0.5mg 3 Ml Ampul.Neb) 3 ml INHALE RQ4H PRN PRN Reason: Shortness of Breath/Wheezing Last Admin: 10/07/21 22:04 Dose: 3 ml Albuterol/Ipratropium (Albuterol/Iprat 2.5/0.5mg 3 Ml Ampul.Neb) 3 ml INHALE RQ4H WHILE AWAKE [facility] Last Admin: 10/11/21 11:23 Dose: 3 ml Apixaban (Apixaban 5 Mg Tablet) 5 mg PO BID [facility] Last Admin: 10/11/21 09:51 Dose: 5 mg Docusate Sodium (Docusate Sodium 100 Mg Capsule) 100 mg PO DAILY PRN PRN Reason: Constipation Hydroxyzine HCl (Hydroxyzine Hcl 25 Mg Tablet) 25 mg PO Q8H PRN PRN Reason: anxiety/restlessness Last Admin: 10/11/21 04:49 Dose: 25 mg Azithromycin 500 mg/ Sodium (Chloride) 250 mls @ 125 mls/hr IV Q24H [facility] Last Infusion: 10/11/21 04:23 Dose: Infused Remdesivir 100 mg/ Sodium (Chloride) 230 mls @ 115 mls/hr IV Q24H [facility] Stop: 10/11/21 17:59 Last Infusion: 10/10/21 20:28 Dose: Infused Methylprednisolone Sodium Succinate (Methylprednisolone Sod Succ 40 Mg/Ml Vial) 40 mg IVPUSH Q8H [facility] Last Admin: 10/11/21 11:00 Dose: 40 mg Metoprolol Succinate (Metoprolol Succinate Er 25 Mg Tab.Er.24h) 75 mg PO DAILY [facility]; Protocol Last Admin: 10/11/21 09:50 Dose: 75 mg Omeprazole (Omeprazole 20 Mg Capsule.Dr) 20 mg PO DAILY@0630 [facility] Last Admin: 10/11/21 07:47 Dose: Not Given Ondansetron HCl (Ondansetron Hcl 4 Mg/2 Ml Vial) 4 mg IVPUSH Q8H PRN PRN Reason: Nausea and Vomiting Paroxetine HCl (Paroxetine Hcl 40 Mg Tablet) 40 mg PO DAILY [facility] Last Admin: 10/11/21 09:51 Dose: 40 mg Pharmacy Consult (Consult Rx Perform Med Rec) 1 each MISCELLANE ONCE PRN PRN Reason: Consult order Sodium Chloride (0.9 % Sodium Chloride Flush 3 Ml Syringe) 3 ml IVFLUSH QSHIFT [facility] Last Admin: 10/11/21 09:52 Dose: 3 ml Tamsulosin HCl (Tamsulosin Hcl 0.4 Mg Capsule) 0.4 mg PO DAILY@1730 [facility] Last Admin: 10/10/21 15:34 Dose: 0.4 mg Zolpidem Tartrate (Zolpidem Tartrate 5 Mg Tablet) 5 mg PO BEDTIME PRN PRN Reason: insomnia Last Admin: 10/09/21 20:33 Dose: 5 mg Home Medications Medication Instructions Recorded Confirmed Last Taken Type albuterol sulfate 90 mcg/actuation 2 puff inhalation Q4H PRN wheezing 07/14/21 10/07/21 07/13/21 History aerosol inhaler omeprazole 20 mg capsule,delayed 1 cap PO DAILY 07/14/21 10/07/21 07/13/21 History release paroxetine HCl 40 mg tablet 1 tab PO QAM 07/14/21 10/07/21 07/13/21 History tamsulosin 0.4 mg capsule 1 cap PO DAILY 07/14/21 10/07/21 07/13/21 History zolpidem 12.5 mg tablet,extended 1 tab PO BEDTIME PRN insomnia 07/14/21 10/07/21 07/13/21 History release,multiphase apixaban 5 mg tablet (Eliquis) 5 mg PO BID 08/16/21 10/07/21 Unknown History Physical Exam Vital Signs: Vital Signs: Last Vital Signs Temp 97.1 F 10/11/21 11:35 Pulse 89 10/11/21 11:35 Resp 20 10/11/21 11:35 BP 130/86 10/11/21 11:35 Pulse Ox 93 10/11/21 11:35 O2 Del Method 10/11/21 11:35 O2 Flow Rate 50 10/11/21 11:35 FiO2 80 10/11/21 11:35 BMI result Body Mass Index 26.4 Const: General: no acute distress and alert Nutritional Appearance: not obese Orientation/consciousness: Other orientation findings ( oriented) HEENT: Head: Yes atraumatic Eyes: General: appearance normal, both eyes and all related structures Sclerae: sclerae normal EOM: EOMs intact bilaterally Neck: Neck: Yes supple Lymphatic: no lymphadenopathy noted Resp: Effort & Inspection: no use of accessory muscles Auscultation: crackles (Diffuse bilateral) Cardio: Rate: regular rate Rhythm: regular rhythm Heart sounds: no gall ops, no murmurs and no rubs GI: Palpation (GI): Soft to palpation and Other GI palpation findings present ( nontender) Skin: General skin exam: other ( warm) Rashes: no rashes Extrem: General: No clubbing, No cyanosis and No edema Results Labs CBC & Chem 7: 10/11/21 06:39 10/11/21 06:39 Labs: Short CBC 10/11/21 Range/Units 06:39 WBC 20.5 H (4.8-10.8) X10*3/uL Hgb 13.3 L (14.0-18.0) g/dl Hct 38.5 L (42.0-52.0) % Plt Count 242 (160-400) X10*3/uL BMP 10/11/21 06:39 Sodium 134 L Potassium 4.3 Chloride 104 Carbon Dioxide 17 L BUN 47 H Creatinine 1.30 Calcium 8.2 L Microbiology Microbiology Results: Microbiology 10/06/21 21:22 Blood - Venous Blood Culture - Preliminary No growth after 48 hours. 10/06/21 21:22 Blood - Venous Blood Culture - Preliminary No growth after 48 hours. Assessment and Plan (1) Acute respiratory failure with hypoxia: Status: Acute (2) COVID-19: Status: Acute (3) COPD (chronic obstructive pulmonary disease): Status: Acute Plan Impression: 81-year-old gentleman with underlying advanced COPD and history of left-sided lobectomy for lung cancer admitted with acute hypoxic respiratory failure secondary to COVID-19 ARDS now requiring high-flow nasal cannula supplemental oxygen support, treated with remdesivir and systemic glucocorticoids. X-ray today with worsening pulmonary congestion. Hyperventilation on arterial blood gases. Recommendations: Will given dose of Lasix to improve pulmonary congestion. Agree with systemic glucocorticoids and bronchodilators. Continue with supplemental oxygen support, if fails high-flow nasal cannula support, will consider transferred to intensive care unit for noninvasive positive pressure ventilation or ventilatory support.
--- NOTE | 2021-10-11 14:08 | HO.PM.IMPN ---
Subjective Subjective Date of Service: 10/11/21 Interval History: the patient was seen and evaluated this morning Increased oxygen supplement overnight to high-flow More anxious and confused this morning, saying that he is going to Not eating much No reported other overnight events. Systemic review: No fever, chills but has decreased appetite and increase weakness No chest pain, palpitation Still reporting shortness of breath, wheezing and coughing No abdominal pain, nausea or vomiting No urinary symptoms No any rash or wounds Physical Exam Vital Signs: Vital Signs: Last Vital Signs Temp 97.1 F 10/11/21 11:35 Pulse 89 10/11/21 11:35 Resp 20 10/11/21 11:35 BP 130/86 10/11/21 11:35 Pulse Ox 93 10/11/21 11:35 O2 Del Method 10/11/21 11:35 O2 Flow Rate 50 10/11/21 11:35 FiO2 80 10/11/21 11:35 BMI result Body Mass Index 26.4 Const: Other: Constitutional : Alert, refused, in mild respiratory distress Neck : Normal inspection, Supple Cardiovascular : RRR, no JVP, no lower extremity edema Respiratory : fair bilateral air entry, no crackles, scattered bilateral expiratory wheezes, on high-flow oxygen 50 L, 80% Gastrointestinal: soft, lax, Normal bowel sounds, Non tender Skin : Warm, Dry Neurological : Alert & disoriented, No focal deficit , CN 2-12 within normal Objective Data Active Medications Acetaminophen (Acetaminophen 325 Mg Tablet) 650 mg PO Q6H PRN PRN Reason: Pain, Mild (Pain Scale 1-3) Albuterol/Ipratropium (Albuterol/Iprat 2.5/0.5mg 3 Ml Ampul.Neb) 3 ml INHALE RQ4H PRN PRN Reason: Shortness of Breath/Wheezing Last Admin: 10/07/21 22:04 Dose: 3 ml Documented By: ROSA M Albuterol/Ipratropium (Albuterol/Iprat 2.5/0.5mg 3 Ml Ampul.Neb) 3 ml INHALE RQ4H WHILE AWAKE [facility] Last Admin: 10/11/21 11:23 Dose: 3 ml Documented By: TRACEY Apixaban (Apixaban 5 Mg Tablet) 5 mg PO BID [facility] Last Admin: 10/11/21 09:51 Dose: 5 mg Documented By: QUINN Docusate Sodium (Docusate Sodium 100 Mg Capsule) 100 mg PO DAILY PRN PRN Reason: Constipation Hydroxyzine HCl (Hydroxyzine Hcl 25 Mg Tablet) 25 mg PO Q8H PRN PRN Reason: anxiety/restlessness Last Admin: 10/11/21 04:49 Dose: 25 mg Documented By: TARAH Azithromycin 500 mg/ Sodium (Chloride) 250 mls @ 125 mls/hr IV Q24H [facility] Last Infusion: 10/11/21 04:23 Dose: 125 mls/hr Documented By: TARAH Remdesivir 100 mg/ Sodium (Chloride) 230 mls @ 115 mls/hr IV Q24H [facility] Stop: 10/11/21 17:59 Last Infusion: 10/10/21 20:28 Dose: 115 mls/hr Documented By: TARAH Methylprednisolone Sodium Succinate (Methylprednisolone Sod Succ 40 Mg/Ml Vial) 40 mg IVPUSH Q8H [facility] Last Admin: 10/11/21 11:00 Dose: 40 mg Documented By: QUINN Metoprolol Succinate (Metoprolol Succinate Er 25 Mg Tab.Er.24h) 75 mg PO DAILY [facility]; Protocol Last Admin: 10/11/21 09:50 Dose: 75 mg Documented By: QUINN Omeprazole (Omeprazole 20 Mg Capsule.Dr) 20 mg PO DAILY@0630 [facility] Last Admin: 10/11/21 07:47 Dose: Not Given Documented By: QUINN Non-Admin Reason: Patient Refused Ondansetron HCl (Ondansetron Hcl 4 Mg/2 Ml Vial) 4 mg IVPUSH Q8H PRN PRN Reason: Nausea and Vomiting Paroxetine HCl (Paroxetine Hcl 40 Mg Tablet) 40 mg PO DAILY [facility] Last Admin: 10/11/21 09:51 Dose: 40 mg Documented By: QUINN Pharmacy Consult (Consult Rx Perform Med Rec) 1 each MISCELLANE ONCE PRN PRN Reason: Consult order Sodium Chloride (0.9 % Sodium Chloride Flush 3 Ml Syringe) 3 ml IVFLUSH QSHIFT [facility] Last Admin: 10/11/21 09:52 Dose: 3 ml Documented By: QUINN Tamsulosin HCl (Tamsulosin Hcl 0.4 Mg Capsule) 0.4 mg PO DAILY@1730 [facility] Last Admin: 10/10/21 15:34 Dose: 0.4 mg Documented By: KARY Zolpidem Tartrate (Zolpidem Tartrate 5 Mg Tablet) 5 mg PO BEDTIME PRN PRN Reason: insomnia Last Admin: 10/09/21 20:33 Dose: 5 mg Documented By: ALFONSO Labs CBC & Chem 7: 10/11/21 06:39 10/11/21 06:39 Labs: Laboratory Results - last 24 hr 10/11/21 10/11/21 10/11/21 06:39 06:39 12:24 MCV 89.5 MCH 30.9 MCHC 34.5 RDW 13.2 Plt Count 242 MPV 9.9 Absolute Nucleated RBC 0.000 Nucleated RBC % (auto) 0.0 O2 Saturation 96.0 ABG pH at Pt Temp 7.49 H ABG pCO2 at Pt Temp 20 L* ABG pO2 at Pt Temp 94 ABG HCO3 15 L ABG Base Excess (Actual) -5.1 Anion Gap 17 Estim Creat Clear Calc 46.7 Estimated GFR 53 Random Glucose 88 Calcium 8.2 L Assessment and Plan (1) Delirium due to general medical condition: Status: Acute (2) Acute respiratory failure with hypoxia: Status: Acute (3) COVID-19: Status: Acute Plan 81-year-old male with past medical history of COPD, AFib who presents to the hospital with shortness of breath found to have COVID-19 infection # acute hypoxic respiratory failure # secondary to COVID-19 infection and COPD exacerbation Requiring more oxygen and more confused today, still not eating well Escalated to high-flow 50 L, 80% Continue remdesivir 5/5 Continue dexamethasone 6/10 Azithromycin for anti-inflammatory effect Bronchodilator nebulizers Repeat CXR wean oxygen down as tolerated ID evaluation appreciated get critical care evaluation # delirium due to medical condition Recurrent reorientation Consider Seroquel if needed # anxiety attacks Seems to be related to worsening condition and increased oxygen supplement, steroid usage P.r.n. Atarax # paroxysmal AFib continue Eliquis, and metoprolol # history of PE on Eliquis DVT prophylaxis: Eliquis Given patient's oxygen requirement patient will require Overnight hospital stay for further management and monitoring to prevent possible decompensation into respiratory failure I spoke with his sound to discuss ongoing treatment plan. His son Gregory mobile phone: [phone] Quality Stroke Does the patient have a stroke diagnosis?: No VTE Prior VTE?: No VTE Risk Level:: Medical - moderate - high VTE Device Contraindication: Treatment Not Indicated VTE Drug Contraindication: N/A - Med Ordered
[2021-10-11] MEDS: Tamsulosin HCL 0.4 MG CAPSULE PO (16:56)
[2021-10-11] MEDS: Remdesivir 100 MG in 0.9 % Sodium Chloride 230 ML 115 MG IV (16:56)
[2021-10-11] MEDS: Zolpidem Tartrate 5 MG TABLET PO (19:46)
[2021-10-12] VITALS (18 sets, daily range): BP systolic 123–145; BP diastolic 66–80; PULSE 79–108; RESP 17–24; TEMP 36.1–36.7; O2SAT 84–98
[2021-10-12] MEDS: Omeprazole 20 MG CAPSULE.DR PO (06:06)
[2021-10-12 06:29] LABS: Hematocrit 39.8 % (42.0-52.0); Hemoglobin 13.8 g/dl (14.0-18.0); Mean Corpuscular HGB Conc 34.7 g/dl (31.0-36.0); Mean Corpuscular Hemoglobin 30.9 pg (27.0-33.0); Mean Corpuscular Volume 89.2 fL (80.0-98.0); Mean Platelet Volume 10.3 fL (9.4-12.4); Platelet Count 300 X10*3/uL (160-400); Red Blood Count 4.46 X10*6/uL (4.60-5.80); Red Cell Distribution Width 13.2 % (11.0-16.0)
[2021-10-12 06:51] LABS: C Reactive Protein 5.76 mg/dL (< or = 0.50); Lactate Dehydrogenase 506 U/L (118-273)
[2021-10-12 06:56] LABS: Anion Gap 20 (12-20); Blood Urea Nitrogen 64 mg/dL (9-16); Calcium 8.8 mg/dL (8.4-10.2); Carbon Dioxide 16 mmol/L (22-29); Chloride 104 mmol/L (96-108); Creatinine Clr Calc Pharmacy 36.6; Estimated Glomerular Filt Rate 40; Glucose Random 117 mg/dL (60-115); Potassium 4.5 mmol/L (3.3-5.1); Sodium 135 mmol/L (135-145)
[2021-10-12] MEDS: Albuterol/Iprat 2.5/0.5MG 3 ML AMPUL.NEB INHALE ×4 (07:58→18:44)
[2021-10-12] MEDS: methylPREDNISolone Sod Succ 40 MG/ML VIAL IVPUSH ×3 (08:17→23:05)
[2021-10-12] MEDS: 0.9 % Sodium Chloride Flush 3 ML SYRINGE IVFLUSH ×3 (08:18→19:51)
[2021-10-12] MEDS: Furosemide 40 MG/4 ML VIAL IVPUSH ×2 (10:53→17:15)
--- NOTE | 2021-10-12 11:24 | HO.PM.IMPN ---
Subjective Subjective Date of Service: 10/12/21 Interval History: cc: sob interval history:confused, agitated, sob Cardiovascular Cardiovascular: Reports no additional cardiovascular complaints Genitourinary Genitourinary: Reports no additional male genitourinary complaints Physical Exam Vital Signs: Vital Signs: Last Vital Signs Temp 97.6 F 10/12/21 03:46 Pulse 100 10/12/21 08:00 Resp 17 10/12/21 08:00 BP 123/73 10/12/21 08:00 Pulse Ox 84 L 10/12/21 11:01 O2 Del Method 10/12/21 11:01 O2 Flow Rate 50 10/12/21 08:00 FiO2 80 10/11/21 19:16 BMI result Body Mass Index 26.4 General: AO X 1, agitated, ill appearing Resp: Crackles bilateral, accessory muscles used CVS: S1,S2,RRR GI: soft, non tender, non distended Neuro: motor grossly intact, alert Psych: aggressive affect, impaired insight Objective Data Active Medications Acetaminophen (Acetaminophen 325 Mg Tablet) 650 mg PO Q6H PRN PRN Reason: Pain, Mild (Pain Scale 1-3) Albuterol/Ipratropium (Albuterol/Iprat 2.5/0.5mg 3 Ml Ampul.Neb) 3 ml INHALE RQ4H PRN PRN Reason: Shortness of Breath/Wheezing Last Admin: 10/07/21 22:04 Dose: 3 ml Documented By: ROSA M Albuterol/Ipratropium (Albuterol/Iprat 2.5/0.5mg 3 Ml Ampul.Neb) 3 ml INHALE RQ4H WHILE AWAKE [facility] Last Admin: 10/12/21 07:58 Dose: 3 ml Documented By: TRACEY Apixaban (Apixaban 5 Mg Tablet) 5 mg PO BID [facility] Last Admin: 10/12/21 08:17 Dose: Not Given Documented By: ANU Non-Admin Reason: Patient Refused Docusate Sodium (Docusate Sodium 100 Mg Capsule) 100 mg PO DAILY PRN PRN Reason: Constipation Furosemide (Furosemide 40 Mg/4 Ml Vial) 40 mg IVPUSH BID@0900,1800 [facility]; Protocol Last Admin: 10/12/21 10:53 Dose: 40 mg Documented By: ANU Hydroxyzine HCl (Hydroxyzine Hcl 25 Mg Tablet) 25 mg PO Q8H PRN PRN Reason: anxiety/restlessness Last Admin: 10/11/21 19:46 Dose: 25 mg Documented By: ALEX Azithromycin 500 mg/ Sodium (Chloride) 250 mls @ 125 mls/hr IV Q24H [facility] Last Infusion: 10/11/21 21:52 Dose: 0 mls/hr Documented By: ALEX Methylprednisolone Sodium Succinate (Methylprednisolone Sod Succ 40 Mg/Ml Vial) 40 mg IVPUSH Q8H [facility] Last Admin: 10/12/21 08:17 Dose: 40 mg Documented By: ANU Metoprolol Succinate (Metoprolol Succinate Er 25 Mg Tab.Er.24h) 75 mg PO DAILY [facility]; Protocol Last Admin: 10/12/21 08:17 Dose: Not Given Documented By: ANU Non-Admin Reason: Patient Refused Omeprazole (Omeprazole 20 Mg Capsule.) 20 mg PO DAILY@0630 [facility] Last Admin: 10/12/21 06:06 Dose: 20 mg Documented By: ALEX Ondansetron HCl (Ondansetron Hcl 4 Mg/2 Ml Vial) 4 mg IVPUSH Q8H PRN PRN Reason: Nausea and Vomiting Paroxetine HCl (Paroxetine Hcl 40 Mg Tablet) 40 mg PO DAILY [facility] Last Admin: 10/12/21 08:17 Dose: Not Given Documented By: ANU Non-Admin Reason: Patient Refused Pharmacy Consult (Consult Rx Perform Med Rec) 1 each MISCELLANE ONCE PRN PRN Reason: Consult order Sodium Chloride (0.9 % Sodium Chloride Flush 3 Ml Syringe) 3 ml IVFLUSH QSHIFT [facility] Last Admin: 10/12/21 08:18 Dose: 3 ml Documented By: ANU Tamsulosin HCl (Tamsulosin Hcl 0.4 Mg Capsule) 0.4 mg PO DAILY@1730 [facility] Last Admin: 10/11/21 16:56 Dose: 0.4 mg Documented By: QUINN Zolpidem Tartrate (Zolpidem Tartrate 5 Mg Tablet) 5 mg PO BEDTIME PRN PRN Reason: insomnia Last Admin: 10/11/21 19:46 Dose: 5 mg Documented By: ALEX Labs CBC & Chem 7: 10/12/21 06:11 10/12/21 06:11 Labs: Laboratory Results - last 24 hr 10/11/21 10/12/21 10/12/21 12:24 06:11 06:11 MCV 89.2 MCH 30.9 MCHC 34.7 RDW 13.2 Plt Count 300 MPV 10.3 Absolute Nucleated RBC 0.000 Nucleated RBC % (auto) 0.0 O2 Saturation 96.0 ABG pH at Pt Temp 7.49 H ABG pCO2 at Pt Temp 20 L* ABG pO2 at Pt Temp 94 ABG HCO3 15 L ABG Base Excess (Actual) -5.1 Anion Gap 20 Estim Creat Clear Calc 36.6 Estimated GFR 40 Random Glucose 117 H Calcium 8.8 D Lactate Dehydrogenase C-Reactive Protein 10/12/21 06:11 MCV MCH MCHC RDW Plt Count MPV Absolute Nucleated RBC Nucleated RBC % (auto) O2 Saturation ABG pH at Pt Temp ABG pCO2 at Pt Temp ABG pO2 at Pt Temp ABG HCO3 ABG Base Excess (Actual) Anion Gap Estim Creat Clear Calc Estimated GFR Random Glucose Calcium Lactate Dehydrogenase 506 H C-Reactive Protein 5.76 H Microbiology Microbiology Results: Microbiology 10/06/21 21:22 Blood Culture - Final Blood - Venous No growth after 5 days. 10/06/21 21:22 Blood Culture - Final Blood - Venous No growth after 5 days. Assessment and Plan (1) Delirium due to general medical condition: Status: Acute (2) Acute respiratory failure with hypoxia: Status: Acute (3) COVID-19: Status: Acute Plan 81-year-old male with past medical history of COPD, AFib who presented to the hospital with shortness of breath found to have COVID-19 infection acute hypoxic respiratory failure secondary to COVID-19 infection, COPD with acute decopmensation, and acute on chronic diastolic chf completed remdisivir, continues steroids day 7 on high-flow 50 L, 80% Azithromycin for anti-inflammatory effect Bronchodilator nebulizers Repeat CXR 10/11 showed interstitial opacities, ? covid vs pulmonary edema continue empiric diuresis wean oxygen down as tolerated delirium due to medical condition Recurrent reorientation Consider Seroquel if needed anxiety attacks Seems to be related to worsening condition and increased oxygen supplement, steroid usage P.r.n. Atarax paroxysmal AFib continue Eliquis, and metoprolol history of PE on Eliquis DVT prophylaxis: Eliquis reason for continued hospitalization: severe hypoxia Gregory mobile phone: [phone] Quality Stroke Does the patient have a stroke diagnosis?: No VTE Prior VTE?: No VTE Risk Level:: Medical - moderate - high VTE Device Contraindication: Treatment Not Indicated VTE Drug Contraindication: N/A - Med Ordered
[2021-10-12] MEDS: Apixaban 5 MG TABLET PO ×2 (11:44→19:51)
[2021-10-12] MEDS: hydrOXYzine HCL 25 MG TABLET PO ×2 (11:44→22:03)
--- NOTE | 2021-10-12 11:44 | MHC.CM.PN ---
Per ROUNDS discussion, Patient is not yet medically cleared for dc (IV Azithromycin, IV Solu Medrol, High Flow O2,needs PT eval); STR appears likely but CM will continue to follow to finalize dc plan.
[2021-10-12] MEDS: PARoxetine HCL 40 MG TABLET PO (11:45)
[2021-10-12] MEDS: Metoprolol Succinate ER 25 MG TAB.ER.24H 75 MG PO (11:45)
--- NOTE | 2021-10-12 14:03 | PC.NURSE ---
0830- Patient agitated, combative,yelling, resistive to care. Refusing po medications. Continuously removing high flow 02. Patient desat to 80% without high flow. Sitter at bedside for safety. MD notified. 1000- Patient 82-85% on high flow, 100% nonrebreather applied in addition. 02 sat 95% at this time. Atarax given at 1145. At this time patient resting comfortably in bed.
[2021-10-12] MEDS: Tamsulosin HCL 0.4 MG CAPSULE PO (17:12)
[2021-10-12] MEDS: Azithromycin 500 MG in 0.9 % Sodium Chloride 250 ML 125 MG IV (23:06)
[2021-10-13] VITALS (11 sets, daily range): BP systolic 112–147; BP diastolic 61–93; PULSE 72–116; RESP 16–24; TEMP 36–36.7; O2SAT 91–99
[2021-10-13] MEDS: Omeprazole 20 MG CAPSULE.DR PO (06:02)
[2021-10-13 06:57] LABS: Hematocrit 40.8 % (42.0-52.0); Hemoglobin 14.3 g/dl (14.0-18.0); Mean Corpuscular Volume 88.5 fL (80.0-98.0); Mean Platelet Volume 10.1 fL (9.4-12.4); Platelet Count 319 X10*3/uL (160-400); Red Blood Count 4.61 X10*6/uL (4.60-5.80); Red Cell Distribution Width 13.6 % (11.0-16.0); White Blood Count 20.1 X10*3/uL (4.8-10.8)
[2021-10-13 07:22] LABS: Anion Gap 21 (12-20); Blood Urea Nitrogen 85 mg/dL (9-16); Calcium 8.7 mg/dL (8.4-10.2); Carbon Dioxide 18 mmol/L (22-29); Chloride 100 mmol/L (96-108); Creatinine Clr Calc Pharmacy 32.1; Estimated Glomerular Filt Rate 34; Glucose Fasting 124 mg/dL (60-99); Potassium 4.5 mmol/L (3.3-5.1); Sodium 134 mmol/L (135-145)
[2021-10-13] MEDS: Albuterol/Iprat 2.5/0.5MG 3 ML AMPUL.NEB INHALE ×4 (07:45→19:00)
--- NOTE | 2021-10-13 10:25 | HO.PM.IMPN ---
Subjective Subjective Date of Service: 10/13/21 Interval History: cc: sob interval history:confused, more comfortable today Cardiovascular Cardiovascular: Reports no additional cardiovascular complaints Genitourinary Genitourinary: Reports no additional male genitourinary complaints Physical Exam Vital Signs: Vital Signs: Last Vital Signs Temp 96.8 F 10/13/21 07:59 Pulse 83 10/13/21 07:59 Resp 20 10/13/21 07:59 BP 114/77 10/13/21 07:59 Pulse Ox 99 10/13/21 07:59 O2 Del Method 10/13/21 07:59 O2 Flow Rate 60 10/13/21 07:59 FiO2 100 10/13/21 07:59 BMI result Body Mass Index 26.4 General: AO X 1, calmer and less dyspneic, ill appearing Resp: Crackles bilateral, accessory muscles used CVS: S1,S2,RRR GI: soft, non tender, non distended Neuro: motor grossly intact, alert Psych: aggressive affect, impaired insight Objective Data Active Medications Acetaminophen (Acetaminophen 325 Mg Tablet) 650 mg PO Q6H PRN PRN Reason: Pain, Mild (Pain Scale 1-3) Albuterol/Ipratropium (Albuterol/Iprat 2.5/0.5mg 3 Ml Ampul.Neb) 3 ml INHALE RQ4H PRN PRN Reason: Shortness of Breath/Wheezing Last Admin: 10/07/21 22:04 Dose: 3 ml Documented By: ROSA M Albuterol/Ipratropium (Albuterol/Iprat 2.5/0.5mg 3 Ml Ampul.Neb) 3 ml INHALE RQ4H WHILE AWAKE [facility] Last Admin: 10/13/21 07:45 Dose: 3 ml Documented By: TRACEY Apixaban (Apixaban 5 Mg Tablet) 5 mg PO BID [facility] Last Admin: 10/12/21 19:51 Dose: 5 mg Documented By: DARIUSZ Docusate Sodium (Docusate Sodium 100 Mg Capsule) 100 mg PO DAILY PRN PRN Reason: Constipation Hydroxyzine HCl (Hydroxyzine Hcl 25 Mg Tablet) 25 mg PO Q8H PRN PRN Reason: anxiety/restlessness Last Admin: 10/12/21 22:03 Dose: 25 mg Documented By: HO.BRIGC Azithromycin 500 mg/ Sodium (Chloride) 250 mls @ 125 mls/hr IV Q24H [facility] Last Infusion: 10/13/21 01:08 Dose: 0 mls/hr Documented By: DARIUSZ Methylprednisolone Sodium Succinate (Methylprednisolone Sod Succ 40 Mg/Ml Vial) 40 mg IVPUSH Q8H [facility] Last Admin: 10/12/21 23:05 Dose: 40 mg Documented By: DARIUSZ Metoprolol Succinate (Metoprolol Succinate Er 25 Mg Tab.Er.24h) 75 mg PO DAILY [facility]; Protocol Last Admin: 10/12/21 11:45 Dose: 75 mg Documented By: ANU Omeprazole (Omeprazole 20 Mg Capsule.Dr) 20 mg PO DAILY@0630 [facility] Last Admin: 10/13/21 06:02 Dose: 20 mg Documented By: DARIUSZ Ondansetron HCl (Ondansetron Hcl 4 Mg/2 Ml Vial) 4 mg IVPUSH Q8H PRN PRN Reason: Nausea and Vomiting Paroxetine HCl (Paroxetine Hcl 40 Mg Tablet) 40 mg PO DAILY [facility] Last Admin: 10/12/21 11:45 Dose: 40 mg Documented By: ANU Pharmacy Consult (Consult Rx Perform Med Rec) 1 each MISCELLANE ONCE PRN PRN Reason: Consult order Sodium Chloride (0.9 % Sodium Chloride Flush 3 Ml Syringe) 3 ml IVFLUSH QSHIFT [facility] Last Admin: 10/12/21 19:51 Dose: 3 ml Documented By: DARIUSZ Tamsulosin HCl (Tamsulosin Hcl 0.4 Mg Capsule) 0.4 mg PO DAILY@1730 [facility] Last Admin: 10/12/21 17:12 Dose: 0.4 mg Documented By: CAMILLE Zolpidem Tartrate (Zolpidem Tartrate 5 Mg Tablet) 5 mg PO BEDTIME PRN PRN Reason: insomnia Last Admin: 10/11/21 19:46 Dose: 5 mg Documented By: ANTFREDDIE Labs CBC & Chem 7: 10/13/21 06:40 10/13/21 06:40 Labs: Laboratory Results - last 24 hr 10/13/21 10/13/21 06:40 06:40 MCV 88.5 MCH 31.0 MCHC 35.0 RDW 13.6 Plt Count 319 MPV 10.1 Absolute Nucleated RBC 0.000 Nucleated RBC % (auto) 0.0 Anion Gap 21 H Estim Creat Clear Calc 32.1 Estimated GFR 34 Fasting Glucose 124 H Calcium 8.7 Assessment and Plan (1) Delirium due to general medical condition: Status: Acute (2) Acute respiratory failure with hypoxia: Status: Acute (3) COVID-19: Status: Acute Plan 81-year-old male with past medical history of COPD, AFib who presented to the hospital with shortness of breath found to have COVID-19 infection acute hypoxic respiratory failure secondary to COVID-19 infection, COPD with acute decopmensation, and acute on chronic diastolic chf completed remdisivir, continues steroids day 8 on high-flow, but weaned off NRB Azithromycin for anti-inflammatory effect Bronchodilator nebulizers Repeat CXR 10/11 showed interstitial opacities, ? covid vs pulmonary edema s/p empiric diuresis, bnu, creat increasing, will hold for now and check repeat cxr wean oxygen down as tolerated delirium due to medical condition Recurrent reorientation Consider Seroquel if needed anxiety attacks Seems to be related to worsening condition and increased oxygen supplement, steroid usage P.r.n. Atarax paroxysmal AFib continue Eliquis, and metoprolol history of PE on Eliquis DVT prophylaxis: Eliquis reason for continued hospitalization: severe hypoxia Gregory mobile phone: [phone] Quality Stroke Does the patient have a stroke diagnosis?: No VTE Prior VTE?: No VTE Risk Level:: Medical - moderate - high VTE Device Contraindication: Treatment Not Indicated VTE Drug Contraindication: N/A - Med Ordered
[2021-10-13] MEDS: Metoprolol Succinate ER 25 MG TAB.ER.24H 75 MG PO (11:43)
[2021-10-13] MEDS: PARoxetine HCL 40 MG TABLET PO (11:43)
[2021-10-13] MEDS: Apixaban 5 MG TABLET PO ×2 (11:44→21:28)
[2021-10-13] MEDS: methylPREDNISolone Sod Succ 40 MG/ML VIAL IVPUSH ×2 (11:44→16:05)
[2021-10-13] MEDS: 0.9 % Sodium Chloride Flush 3 ML SYRINGE IVFLUSH ×2 (11:44→16:06)
[2021-10-13] MEDS: Metoprolol Tartrate 5 MG/5 ML VIAL IVPUSH (16:05)
[2021-10-13] MEDS: Tamsulosin HCL 0.4 MG CAPSULE PO (18:09)
[2021-10-13] MEDS: hydrOXYzine HCL 25 MG TABLET PO (18:09)
[2021-10-13] MEDS: dilTIAZem HCL 125 MG in 0.9 % Sodium Chloride 100 ML 10 MG IVCONT (18:10)
[2021-10-13] MEDS: Zolpidem Tartrate 5 MG TABLET PO (21:28)
[2021-10-14] VITALS (13 sets, daily range): BP systolic 100–140; BP diastolic 58–84; PULSE 63–115; RESP 16–20; TEMP 36–36.6; O2SAT 92–99
[2021-10-14] MEDS: Azithromycin 500 MG in 0.9 % Sodium Chloride 250 ML 125 MG IV ×2 (00:38→23:23)
[2021-10-14] MEDS: methylPREDNISolone Sod Succ 40 MG/ML VIAL IVPUSH ×4 (00:38→23:26)
[2021-10-14] MEDS: 0.9 % Sodium Chloride Flush 3 ML SYRINGE IVFLUSH ×4 (00:38→20:42)
[2021-10-14 06:44] LABS: Hematocrit 41.7 % (42.0-52.0); Hemoglobin 14.4 g/dl (14.0-18.0); Mean Corpuscular HGB Conc 34.5 g/dl (31.0-36.0); Mean Corpuscular Hemoglobin 30.8 pg (27.0-33.0); Mean Corpuscular Volume 89.1 fL (80.0-98.0); Mean Platelet Volume 9.7 fL (9.4-12.4); Platelet Count 286 X10*3/uL (160-400); Red Blood Count 4.68 X10*6/uL (4.60-5.80); Red Cell Distribution Width 13.3 % (11.0-16.0); White Blood Count 18.8 X10*3/uL (4.8-10.8)
[2021-10-14 07:05] LABS: Anion Gap 16 (12-20); Blood Urea Nitrogen 85 mg/dL (9-16); Calcium 8.7 mg/dL (8.4-10.2); Carbon Dioxide 22 mmol/L (22-29); Chloride 99 mmol/L (96-108); Creatinine Clr Calc Pharmacy 37.5; Estimated Glomerular Filt Rate 41; Glucose Fasting 187 mg/dL (60-99); Potassium 4.6 mmol/L (3.3-5.1); Sodium 132 mmol/L (135-145)
[2021-10-14] MEDS: Albuterol/Iprat 2.5/0.5MG 3 ML AMPUL.NEB INHALE (07:42)
[2021-10-14] MEDS: dilTIAZem HCL 125 MG in 0.9 % Sodium Chloride 100 ML 10 MG IVCONT (08:29)
[2021-10-14] MEDS: PARoxetine HCL 40 MG TABLET PO (08:30)
[2021-10-14] MEDS: Apixaban 5 MG TABLET PO ×2 (08:30→20:41)
[2021-10-14] MEDS: Metoprolol Succinate ER 25 MG TAB.ER.24H 75 MG PO (08:34)
--- NOTE | 2021-10-14 10:30 | HO.PM.IMPN ---
Subjective Subjective Date of Service: 10/14/21 Interval History: cc: sob interval history:confused, contiues to improve Cardiovascular Cardiovascular: Reports no additional cardiovascular complaints Genitourinary Genitourinary: Reports no additional male genitourinary complaints Physical Exam Vital Signs: Vital Signs: Last Vital Signs Temp 96.9 F 10/14/21 07:48 Pulse 115 H 10/14/21 07:48 Resp 16 10/14/21 07:48 BP 135/58 L 10/14/21 07:48 Pulse Ox 99 10/14/21 07:48 O2 Del Method 10/14/21 07:48 O2 Flow Rate 60 10/13/21 12:00 FiO2 80 10/14/21 07:48 BMI result Body Mass Index 26.4 General: AO X 1, continues to be calmer and less dyspneic Resp: Crackles bilateral, mild accessory muscles used CVS: S1,S2,RRR GI: soft, non tender, non distended Neuro: motor grossly intact, alert Psych: aggressive affect, impaired insight Objective Data Active Medications Acetaminophen (Acetaminophen 325 Mg Tablet) 650 mg PO Q6H PRN PRN Reason: Pain, Mild (Pain Scale 1-3) Apixaban (Apixaban 5 Mg Tablet) 5 mg PO BID [facility] Last Admin: 10/14/21 08:30 Dose: 5 mg Documented By: BONILLA Docusate Sodium (Docusate Sodium 100 Mg Capsule) 100 mg PO DAILY PRN PRN Reason: Constipation Hydroxyzine HCl (Hydroxyzine Hcl 25 Mg Tablet) 25 mg PO Q8H PRN PRN Reason: anxiety/restlessness Last Admin: 10/13/21 18:09 Dose: 25 mg Documented By: BONILLA Azithromycin 500 mg/ Sodium (Chloride) 250 mls @ 125 mls/hr IV Q24H [facility] Last Infusion: 10/14/21 04:00 Dose: 0 mls/hr Documented By: LARY Diltiazem HCl 125 mg/ Sodium (Chloride) 125 mls @ 0 mls/hr IVCONT .Q0M [facility]; Protocol Last Admin: 10/14/21 08:29 Dose: 10 mg/hr, 10 mls/hr Documented By: BONILLA Methylprednisolone Sodium Succinate (Methylprednisolone Sod Succ 40 Mg/Ml Vial) 40 mg IVPUSH Q8H [facility] Last Admin: 10/14/21 08:29 Dose: 40 mg Documented By: BONILLA Metoprolol Succinate (Metoprolol Succinate Er 25 Mg Tab.Er.24h) 75 mg PO DAILY [facility]; Protocol Last Admin: 10/14/21 08:34 Dose: 75 mg Documented By: BONILLA Omeprazole (Omeprazole 20 Mg Capsule.Dr) 20 mg PO DAILY@0630 [facility] Last Admin: 10/14/21 06:30 Dose: Not Given Documented By: LARY Non-Admin Reason: Patient Refused Ondansetron HCl (Ondansetron Hcl 4 Mg/2 Ml Vial) 4 mg IVPUSH Q8H PRN PRN Reason: Nausea and Vomiting Paroxetine HCl (Paroxetine Hcl 40 Mg Tablet) 40 mg PO DAILY [facility] Last Admin: 10/14/21 08:30 Dose: 40 mg Documented By: BONILLA Pharmacy Consult (Consult Rx Perform Med Rec) 1 each MISCELLANE ONCE PRN PRN Reason: Consult order Sodium Chloride (0.9 % Sodium Chloride Flush 3 Ml Syringe) 3 ml IVFLUSH QSHIFT [facility] Last Admin: 10/14/21 10:01 Dose: 3 ml Documented By: CONRADO Tamsulosin HCl (Tamsulosin Hcl 0.4 Mg Capsule) 0.4 mg PO DAILY@1730 [facility] Last Admin: 10/13/21 18:09 Dose: 0.4 mg Documented By: BONILLA Zolpidem Tartrate (Zolpidem Tartrate 5 Mg Tablet) 5 mg PO BEDTIME PRN PRN Reason: insomnia Last Admin: 10/13/21 21:28 Dose: 5 mg Documented By: WHIT Labs CBC & Chem 7: 10/14/21 06:16 10/14/21 06:16 Labs: Laboratory Results - last 24 hr 10/14/21 10/14/21 06:16 06:16 MCV 89.1 MCH 30.8 MCHC 34.5 RDW 13.3 Plt Count 286 MPV 9.7 Absolute Nucleated RBC 0.000 Nucleated RBC % (auto) 0.0 Anion Gap 16 Estim Creat Clear Calc 37.5 Estimated GFR 41 Fasting Glucose 187 H D Calcium 8.7 Assessment and Plan (1) Delirium due to general medical condition: Status: Acute (2) Acute respiratory failure with hypoxia: Status: Acute (3) COVID-19: Status: Acute Plan 81-year-old male with past medical history of COPD, AFib who presented to the hospital with shortness of breath found to have COVID-19 infection acute hypoxic respiratory failure secondary to COVID-19 infection, COPD with acute decopmensation, and acute on chronic diastolic chf completed remdisivir, continues steroids day 9 on high-flow, but weaned off NRB Azithromycin for anti-inflammatory effect Bronchodilator nebulizers Repeat CXR 10/11 showed interstitial opacities, ? covid vs pulmonary edema s/p empiric diuresis, bun, creat increasing (jamel), cxr with improved edema wean oxygen down as tolerated will change to po lasix 40mg daily delirium due to medical condition Recurrent reorientation Consider Seroquel if needed anxiety attacks Seems to be related to worsening condition and increased oxygen supplement, steroid usage P.r.n. Atarax paroxysmal AFib continue Eliquis, and metoprolol history of PE on Eliquis DVT prophylaxis: Eliquis reason for continued hospitalization: severe hypoxia Gregory mobile phone: [phone] Quality Stroke Does the patient have a stroke diagnosis?: No VTE Prior VTE?: No VTE Risk Level:: Medical - moderate - high VTE Device Contraindication: Treatment Not Indicated VTE Drug Contraindication: N/A - Med Ordered
[2021-10-14] MEDS: Furosemide 40 MG TABLET PO (13:46)
[2021-10-14] MEDS: Tamsulosin HCL 0.4 MG CAPSULE PO (17:42)
[2021-10-15] VITALS (9 sets, daily range): BP systolic 95–130; BP diastolic 67–85; PULSE 66–102; RESP 18–22; TEMP 36.1–37.3; O2SAT 91–96
[2021-10-15] MEDS: Omeprazole 20 MG CAPSULE.DR PO (05:51)
[2021-10-15 07:27] LABS: Hematocrit 41.9 % (42.0-52.0); Hemoglobin 14.3 g/dl (14.0-18.0); Mean Corpuscular HGB Conc 34.1 g/dl (31.0-36.0); Mean Corpuscular Volume 90.7 fL (80.0-98.0); Mean Platelet Volume 10.2 fL (9.4-12.4); Platelet Count 310 X10*3/uL (160-400); Red Blood Count 4.62 X10*6/uL (4.60-5.80); Red Cell Distribution Width 13.3 % (11.0-16.0); White Blood Count 13.2 X10*3/uL (4.8-10.8)
[2021-10-15 07:39] LABS: Anion Gap 18 (12-20); Blood Urea Nitrogen 73 mg/dL (9-16); Calcium 8.7 mg/dL (8.4-10.2); Carbon Dioxide 23 mmol/L (22-29); Chloride 100 mmol/L (96-108); Creatinine Clr Calc Pharmacy 36.4; Estimated Glomerular Filt Rate 40; Glucose Fasting 189 mg/dL (60-99); Potassium 4.5 mmol/L (3.3-5.1); Sodium 136 mmol/L (135-145)
[2021-10-15] MEDS: methylPREDNISolone Sod Succ 40 MG/ML VIAL IVPUSH ×2 (08:56→16:24)
[2021-10-15] MEDS: Furosemide 40 MG TABLET PO (08:56)
[2021-10-15] MEDS: Metoprolol Succinate ER 25 MG TAB.ER.24H 75 MG PO (08:56)
[2021-10-15] MEDS: PARoxetine HCL 40 MG TABLET PO (08:56)
[2021-10-15] MEDS: Apixaban 5 MG TABLET PO ×2 (08:56→20:15)
[2021-10-15] MEDS: 0.9 % Sodium Chloride Flush 3 ML SYRINGE IVFLUSH ×3 (08:56→23:24)
--- NOTE | 2021-10-15 11:17 | HO.PM.IMPN ---
Subjective Subjective Date of Service: 10/15/21 Interval History: cc: sob interval history:confused, contiues to improve Cardiovascular Cardiovascular: Reports no additional cardiovascular complaints Genitourinary Genitourinary: Reports no additional male genitourinary complaints Physical Exam Vital Signs: Vital Signs: Last Vital Signs Temp 97.5 F 10/15/21 07:48 Pulse 102 H 10/15/21 07:48 Resp 22 H 10/15/21 07:48 BP 121/82 10/15/21 07:48 Pulse Ox 91 L 10/15/21 07:48 O2 Del Method 10/15/21 07:48 O2 Flow Rate 45 10/15/21 07:48 FiO2 30 10/15/21 07:48 BMI result Body Mass Index 26.4 General: AO X 1, continues to be calmer and less dyspneic Resp: Crackles bilateral, mild accessory muscles used CVS: S1,S2,RRR GI: soft, non tender, non distended Neuro: motor grossly intact, alert Psych: appropriate affect, impaired insight Objective Data Active Medications Acetaminophen (Acetaminophen 325 Mg Tablet) 650 mg PO Q6H PRN PRN Reason: Pain, Mild (Pain Scale 1-3) Apixaban (Apixaban 5 Mg Tablet) 5 mg PO BID [facility] Last Admin: 10/15/21 08:56 Dose: 5 mg Documented By: ANU Docusate Sodium (Docusate Sodium 100 Mg Capsule) 100 mg PO DAILY PRN PRN Reason: Constipation Furosemide (Furosemide 40 Mg Tablet) 40 mg PO DAILY [facility]; Protocol Last Admin: 10/15/21 08:56 Dose: 40 mg Documented By: ANU Hydroxyzine HCl (Hydroxyzine Hcl 25 Mg Tablet) 25 mg PO Q8H PRN PRN Reason: anxiety/restlessness Last Admin: 10/13/21 18:09 Dose: 25 mg Documented By: BONILLA Azithromycin 500 mg/ Sodium (Chloride) 250 mls @ 125 mls/hr IV Q24H [facility] Last Infusion: 10/15/21 01:37 Dose: 0 mls/hr Documented By: SHAYAN Diltiazem HCl 125 mg/ Sodium (Chloride) 125 mls @ 0 mls/hr IVCONT .Q0M [facility]; Protocol Last Titration: 10/14/21 11:39 Dose: 0 mg/hr, 0 mls/hr Documented By: BONILLA Methylprednisolone Sodium Succinate (Methylprednisolone Sod Succ 40 Mg/Ml Vial) 40 mg IVPUSH Q8H [facility] Last Admin: 10/15/21 08:56 Dose: 40 mg Documented By: ANU Metoprolol Succinate (Metoprolol Succinate Er 25 Mg Tab.Er.24h) 75 mg PO DAILY [facility]; Protocol Last Admin: 10/15/21 08:56 Dose: 75 mg Documented By: ANU Omeprazole (Omeprazole 20 Mg Capsule.) 20 mg PO DAILY@0630 [facility] Last Admin: 10/15/21 05:51 Dose: 20 mg Documented By: SHAYAN Ondansetron HCl (Ondansetron Hcl 4 Mg/2 Ml Vial) 4 mg IVPUSH Q8H PRN PRN Reason: Nausea and Vomiting Paroxetine HCl (Paroxetine Hcl 40 Mg Tablet) 40 mg PO DAILY [facility] Last Admin: 10/15/21 08:56 Dose: 40 mg Documented By: ANU Pharmacy Consult (Consult Rx Perform Med Rec) 1 each MISCELLANE ONCE PRN PRN Reason: Consult order Sodium Chloride (0.9 % Sodium Chloride Flush 3 Ml Syringe) 3 ml IVFLUSH QSHIFT [facility] Last Admin: 10/15/21 08:56 Dose: 3 ml Documented By: ANU Tamsulosin HCl (Tamsulosin Hcl 0.4 Mg Capsule) 0.4 mg PO DAILY@1730 [facility] Last Admin: 10/14/21 17:42 Dose: 0.4 mg Documented By: BONILLA Zolpidem Tartrate (Zolpidem Tartrate 5 Mg Tablet) 5 mg PO BEDTIME PRN PRN Reason: insomnia Last Admin: 10/13/21 21:28 Dose: 5 mg Documented By: WHIT Labs CBC & Chem 7: 10/15/21 06:26 10/15/21 06:26 Labs: Laboratory Results - last 24 hr 10/15/21 10/15/21 06:26 06:26 MCV 90.7 MCH 31.0 MCHC 34.1 RDW 13.3 Plt Count 310 MPV 10.2 Absolute Nucleated RBC 0.000 Nucleated RBC % (auto) 0.0 Anion Gap 18 Estim Creat Clear Calc 36.4 Estimated GFR 40 Fasting Glucose 189 H Calcium 8.7 Assessment and Plan (1) Delirium due to general medical condition: Status: Acute (2) Acute respiratory failure with hypoxia: Status: Acute (3) COVID-19: Status: Acute Plan 81-year-old male with past medical history of COPD, AFib who presented to the hospital with shortness of breath found to have COVID-19 infection acute hypoxic respiratory failure secondary to COVID-19 infection, COPD with acute decopmensation, and acute on chronic diastolic chf completed remdisivir, continues steroids day 10 on high-flow, but weaning down, overall improving Azithromycin for anti-inflammatory effect Bronchodilator nebulizers Repeat CXR 10/11 showed interstitial opacities, likley covid plus pulmonary edema s/p empiric diuresis, bun, creat increasing (jamel), cxr with improved edema cointinue to wean oxygen down as tolerated changed to po lasix 40mg daily delirium due to medical condition Recurrent reorientation Seroquel if needed anxiety attacks Seems to be related to worsening condition and increased oxygen supplement, steroid usage P.r.n. Atarax paroxysmal AFib continue Eliquis, and metoprolol history of PE on Eliquis DVT prophylaxis: Eliquis reason for continued hospitalization: severe hypoxia Gregory mobile phone: [phone] Quality Stroke Does the patient have a stroke diagnosis?: No VTE Prior VTE?: No VTE Risk Level:: Medical - moderate - high VTE Device Contraindication: Treatment Not Indicated VTE Drug Contraindication: N/A - Med Ordered
--- NOTE | 2021-10-15 11:18 | MHC.CM.PN ---
Per ROUNDS discussion, Patient is on high Flow O2 and not yet medically cleared for dc. Home vs STR pending PT eval is the goal and CM will continue to follow.
[2021-10-15] MEDS: Tamsulosin HCL 0.4 MG CAPSULE PO (16:24)
[2021-10-15] MEDS: Azithromycin 500 MG in 0.9 % Sodium Chloride 250 ML 125 MG IV (22:19)
[2021-10-16] VITALS (9 sets, daily range): BP systolic 108–146; BP diastolic 66–88; PULSE 72–84; RESP 18–20; TEMP 36.6–36.9; O2SAT 91–94
[2021-10-16] MEDS: methylPREDNISolone Sod Succ 40 MG/ML VIAL IVPUSH (00:26)
[2021-10-16] MEDS: Omeprazole 20 MG CAPSULE.DR PO (05:39)
[2021-10-16 07:16] LABS: Hematocrit 41.2 % (42.0-52.0); Hemoglobin 14.1 g/dl (14.0-18.0); Mean Corpuscular HGB Conc 34.2 g/dl (31.0-36.0); Mean Corpuscular Hemoglobin 30.7 pg (27.0-33.0); Mean Corpuscular Volume 89.8 fL (80.0-98.0); Mean Platelet Volume 10.1 fL (9.4-12.4); Platelet Count 248 X10*3/uL (160-400); Red Blood Count 4.59 X10*6/uL (4.60-5.80); Red Cell Distribution Width 13.4 % (11.0-16.0)
[2021-10-16 07:45] LABS: Anion Gap 16 (12-20); Blood Urea Nitrogen 80 mg/dL (9-16); C Reactive Protein 0.27 mg/dL (< or = 0.50); Calcium 8.7 mg/dL (8.4-10.2); Carbon Dioxide 23 mmol/L (22-29); Chloride 101 mmol/L (96-108); Estimated Glomerular Filt Rate 41; Glucose Fasting 202 mg/dL (60-99); Lactate Dehydrogenase 299 U/L (118-273); Potassium 4.7 mmol/L (3.3-5.1); Sodium 135 mmol/L (135-145)
[2021-10-16] MEDS: 0.9 % Sodium Chloride Flush 3 ML SYRINGE IVFLUSH ×2 (09:32→17:32)
[2021-10-16] MEDS: Metoprolol Succinate ER 25 MG TAB.ER.24H 75 MG PO (09:32)
[2021-10-16] MEDS: predniSONE 20 MG TABLET 40 MG PO (09:32)
[2021-10-16] MEDS: PARoxetine HCL 40 MG TABLET PO (09:32)
[2021-10-16] MEDS: Furosemide 40 MG TABLET PO (09:32)
[2021-10-16] MEDS: Apixaban 5 MG TABLET PO ×2 (09:32→20:01)
--- NOTE | 2021-10-16 12:56 | HO.PM.IMPN ---
Subjective Subjective Date of Service: 10/16/21 Interval History: cc: sob interval history:confused, contiues to improve Cardiovascular Cardiovascular: Reports no additional cardiovascular complaints Genitourinary Genitourinary: Reports no additional male genitourinary complaints Physical Exam Vital Signs: Vital Signs: Last Vital Signs Temp 97.9 F 10/16/21 11:23 Pulse 75 10/16/21 11:23 Resp 20 10/16/21 11:23 BP 129/78 10/16/21 11:23 Pulse Ox 94 10/16/21 11:23 O2 Del Method 10/16/21 11:23 O2 Flow Rate 35 10/16/21 11:23 FiO2 35 10/16/21 11:23 BMI result Body Mass Index 26.4 General: AO X 1, continues to be calmer and less dyspneic Resp: Crackles bilateral, mild accessory muscles used CVS: S1,S2,RRR GI: soft, non tender, non distended Neuro: motor grossly intact, alert Psych: appropriate affect, impaired insight Objective Data Active Medications Acetaminophen (Acetaminophen 325 Mg Tablet) 650 mg PO Q6H PRN PRN Reason: Pain, Mild (Pain Scale 1-3) Apixaban (Apixaban 5 Mg Tablet) 5 mg PO BID [facility] Last Admin: 10/16/21 09:32 Dose: 5 mg Documented By: CAMILLE Docusate Sodium (Docusate Sodium 100 Mg Capsule) 100 mg PO DAILY PRN PRN Reason: Constipation Furosemide (Furosemide 40 Mg Tablet) 40 mg PO DAILY [facility]; Protocol Last Admin: 10/16/21 09:32 Dose: 40 mg Documented By: CAMILLE Hydroxyzine HCl (Hydroxyzine Hcl 25 Mg Tablet) 25 mg PO Q8H PRN PRN Reason: anxiety/restlessness Last Admin: 10/13/21 18:09 Dose: 25 mg Documented By: BONILLA Azithromycin 500 mg/ Sodium (Chloride) 250 mls @ 125 mls/hr IV Q24H [facility] Last Infusion: 10/16/21 00:27 Dose: 0 mls/hr Documented By: SHAYAN Diltiazem HCl 125 mg/ Sodium (Chloride) 125 mls @ 0 mls/hr IVCONT .Q0M [facility]; Protocol Last Titration: 10/14/21 11:39 Dose: 0 mg/hr, 0 mls/hr Documented By: BONILLA Metoprolol Succinate (Metoprolol Succinate Er 25 Mg Tab.Er.24h) 75 mg PO DAILY [facility]; Protocol Last Admin: 10/16/21 09:32 Dose: 75 mg Documented By: CAMILLE Omeprazole (Omeprazole 20 Mg Capsule.) 20 mg PO DAILY@0630 [facility] Last Admin: 10/16/21 05:39 Dose: 20 mg Documented By: SHAYAN Ondansetron HCl (Ondansetron Hcl 4 Mg/2 Ml Vial) 4 mg IVPUSH Q8H PRN PRN Reason: Nausea and Vomiting Paroxetine HCl (Paroxetine Hcl 40 Mg Tablet) 40 mg PO DAILY [facility] Last Admin: 10/16/21 09:32 Dose: 40 mg Documented By: CAMILLE Pharmacy Consult (Consult Rx Perform Med Rec) 1 each MISCELLANE ONCE PRN PRN Reason: Consult order Prednisone (Prednisone 20 Mg Tablet) 40 mg PO DAILY [facility] Last Admin: 10/16/21 09:32 Dose: 40 mg Documented By: CAMILLE Sodium Chloride (0.9 % Sodium Chloride Flush 3 Ml Syringe) 3 ml IVFLUSH QSHIFT [facility] Last Admin: 10/16/21 09:32 Dose: 3 ml Documented By: CAMILLE Tamsulosin HCl (Tamsulosin Hcl 0.4 Mg Capsule) 0.4 mg PO DAILY@1730 [facility] Last Admin: 10/15/21 16:24 Dose: 0.4 mg Documented By: BERNICE Zolpidem Tartrate (Zolpidem Tartrate 5 Mg Tablet) 5 mg PO BEDTIME PRN PRN Reason: insomnia Last Admin: 10/13/21 21:28 Dose: 5 mg Documented By: WHIT Labs CBC & Chem 7: 10/16/21 06:55 10/16/21 06:55 Labs: Laboratory Results - last 24 hr 10/16/21 10/16/21 06:55 06:55 MCV 89.8 MCH 30.7 MCHC 34.2 RDW 13.4 Plt Count 248 MPV 10.1 Absolute Nucleated RBC 0.000 Nucleated RBC % (auto) 0.0 Anion Gap 16 Estim Creat Clear Calc 37.0 Estimated GFR 41 Fasting Glucose 202 H Calcium 8.7 Lactate Dehydrogenase 299 H C-Reactive Protein 0.27 Assessment and Plan (1) Delirium due to general medical condition: Status: Acute (2) Acute respiratory failure with hypoxia: Status: Acute (3) COVID-19: Status: Acute Plan 81-year-old male with past medical history of COPD, AFib who presented to the hospital with shortness of breath found to have COVID-19 infection acute hypoxic respiratory failure secondary to COVID-19 infection, COPD with acute decopmensation, and acute on chronic diastolic chf completed remdisivir, continues steroids day 11 - will decrease to prednisone 40mg daily on high-flow, but weaning down, overall improving, now on 35L/min at 35% Azithromycin for anti-inflammatory effect Bronchodilator nebulizers Repeat CXR 10/11 showed interstitial opacities, likley covid plus pulmonary edema s/p empiric diuresis, bun, creat increasing (jamel), cxr with improved edema cointinue to wean oxygen down as tolerated changed to po lasix 40mg daily delirium due to medical condition Recurrent reorientation Seroquel if needed anxiety attacks Seems to be related to worsening condition and increased oxygen supplement, steroid usage P.r.n. Atarax paroxysmal AFib continue Eliquis, and metoprolol history of PE on Eliquis DVT prophylaxis: Eliquis reason for continued hospitalization: severe hypoxia Gregory mobile phone: [phone] Quality Stroke Does the patient have a stroke diagnosis?: No VTE Prior VTE?: No VTE Risk Level:: Medical - moderate - high VTE Device Contraindication: Treatment Not Indicated VTE Drug Contraindication: N/A - Med Ordered
[2021-10-16] MEDS: Tamsulosin HCL 0.4 MG CAPSULE PO (17:32)
[2021-10-16] MEDS: Azithromycin 500 MG in 0.9 % Sodium Chloride 250 ML 125 MG IV (22:41)
[2021-10-17] VITALS (11 sets, daily range): BP systolic 102–131; BP diastolic 60–93; PULSE 66–86; RESP 14–20; TEMP 36.1–37; O2SAT 92–98
[2021-10-17] MEDS: 0.9 % Sodium Chloride Flush 3 ML SYRINGE IVFLUSH ×4 (00:07→20:26)
[2021-10-17] MEDS: hydrOXYzine HCL 25 MG TABLET PO (00:07)
[2021-10-17] MEDS: Omeprazole 20 MG CAPSULE.DR PO (05:56)
[2021-10-17 07:10] LABS: Hematocrit 40.6 % (42.0-52.0); Hemoglobin 13.7 g/dl (14.0-18.0); Mean Corpuscular HGB Conc 33.7 g/dl (31.0-36.0); Mean Corpuscular Hemoglobin 30.4 pg (27.0-33.0); Mean Corpuscular Volume 90.2 fL (80.0-98.0); Mean Platelet Volume 10.2 fL (9.4-12.4); Platelet Count 227 X10*3/uL (160-400); Red Cell Distribution Width 13.3 % (11.0-16.0); White Blood Count 16.6 X10*3/uL (4.8-10.8)
[2021-10-17 07:25] LABS: Anion Gap 15 (12-20); Blood Urea Nitrogen 76 mg/dL (9-16); Calcium 8.6 mg/dL (8.4-10.2); Carbon Dioxide 25 mmol/L (22-29); Chloride 100 mmol/L (96-108); Creatinine Clr Calc Pharmacy 39.2; Estimated Glomerular Filt Rate 43; Glucose Fasting 143 mg/dL (60-99); Potassium 4.5 mmol/L (3.3-5.1); Sodium 135 mmol/L (135-145)
[2021-10-17] MEDS: PARoxetine HCL 40 MG TABLET PO (08:44)
[2021-10-17] MEDS: Metoprolol Succinate ER 25 MG TAB.ER.24H 75 MG PO (08:44)
[2021-10-17] MEDS: Furosemide 40 MG TABLET PO (08:44)
[2021-10-17] MEDS: Apixaban 5 MG TABLET PO ×2 (08:44→20:24)
[2021-10-17] MEDS: predniSONE 20 MG TABLET 40 MG PO (08:44)
--- NOTE | 2021-10-17 11:06 | MHC.CM.PN ---
Per ROUNDS discussion, Patient is not yet medically cleared for dc ( Sitter to be dc'd today, High Flow O2, needs PT eval); CM will follow for PT's recommendations.
--- NOTE | 2021-10-17 12:45 | HO.PM.IMPN ---
Subjective Subjective Date of Service: 10/17/21 Interval History: the patient was seen and evaluated this morning Weaning oxygen down to 5 L this morning This anxious and confused this morning Not eating much No reported other overnight events. Systemic review: No fever, chills but has decreased appetite and increase weakness No chest pain, palpitation reporting shortness of breath, but no more coughing No abdominal pain, nausea or vomiting No urinary symptoms No any rash or wounds Physical Exam Vital Signs: Vital Signs: Last Vital Signs Temp 97.0 F 10/17/21 11:04 Pulse 66 10/17/21 11:26 Resp 17 10/17/21 11:04 BP 111/76 10/17/21 11:26 Pulse Ox 97 10/17/21 11:26 O2 Del Method 10/17/21 11:04 O2 Flow Rate 35 10/17/21 11:04 FiO2 40 10/17/21 11:04 BMI result Body Mass Index 26.4 Const: Other: Constitutional : Alert, interactive, mildly anxious Neck : Normal inspection, Supple Cardiovascular : no JVP, no lower extremity edema Respiratory : Chest wall moving bilaterally, no crackles, on 5 L nasal cannula Gastrointestinal: soft, lax, Normal bowel sounds, Non tender Skin : Warm, Dry Neurological : Alert & disoriented, No focal deficit Objective Data Active Medications Acetaminophen (Acetaminophen 325 Mg Tablet) 650 mg PO Q6H PRN PRN Reason: Pain, Mild (Pain Scale 1-3) Apixaban (Apixaban 5 Mg Tablet) 5 mg PO BID [facility] Last Admin: 10/17/21 08:44 Dose: 5 mg Documented By: CAMILLE Docusate Sodium (Docusate Sodium 100 Mg Capsule) 100 mg PO DAILY PRN PRN Reason: Constipation Furosemide (Furosemide 40 Mg Tablet) 40 mg PO DAILY [facility]; Protocol Last Admin: 10/17/21 08:44 Dose: 40 mg Documented By: CAMILLE Hydroxyzine HCl (Hydroxyzine Hcl 25 Mg Tablet) 25 mg PO Q8H PRN PRN Reason: anxiety/restlessness Last Admin: 10/17/21 00:07 Dose: 25 mg Documented By: ANDRESSA Diltiazem HCl 125 mg/ Sodium (Chloride) 125 mls @ 0 mls/hr IVCONT .Q0M [facility]; Protocol Last Titration: 10/14/21 11:39 Dose: 0 mg/hr, 0 mls/hr Documented By: BONILLA Metoprolol Succinate (Metoprolol Succinate Er 25 Mg Tab.Er.24h) 75 mg PO DAILY [facility]; Protocol Last Admin: 10/17/21 08:44 Dose: 75 mg Documented By: CAMILLE Omeprazole (Omeprazole 20 Mg Capsule.) 20 mg PO DAILY@0630 [facility] Last Admin: 10/17/21 05:56 Dose: 20 mg Documented By: ANDRESSA Ondansetron HCl (Ondansetron Hcl 4 Mg/2 Ml Vial) 4 mg IVPUSH Q8H PRN PRN Reason: Nausea and Vomiting Paroxetine HCl (Paroxetine Hcl 40 Mg Tablet) 40 mg PO DAILY [facility] Last Admin: 10/17/21 08:44 Dose: 40 mg Documented By: CAMILLE Pharmacy Consult (Consult Rx Perform Med Rec) 1 each MISCELLANE ONCE PRN PRN Reason: Consult order Prednisone (Prednisone 20 Mg Tablet) 40 mg PO DAILY [facility] Last Admin: 10/17/21 08:44 Dose: 40 mg Documented By: CAMILLE Sodium Chloride (0.9 % Sodium Chloride Flush 3 Ml Syringe) 3 ml IVFLUSH QSHIFT [facility] Last Admin: 10/17/21 08:45 Dose: 3 ml Documented By: CAMILLE Tamsulosin HCl (Tamsulosin Hcl 0.4 Mg Capsule) 0.4 mg PO DAILY@1730 [facility] Last Admin: 10/16/21 17:32 Dose: 0.4 mg Documented By: CAMILLE Labs CBC & Chem 7: 10/17/21 06:20 10/17/21 06:20 Labs: Laboratory Results - last 24 hr 10/17/21 10/17/21 06:20 06:20 MCV 90.2 MCH 30.4 MCHC 33.7 RDW 13.3 Plt Count 227 MPV 10.2 Absolute Nucleated RBC 0.000 Nucleated RBC % (auto) 0.0 Anion Gap 15 Estim Creat Clear Calc 39.2 Estimated GFR 43 Fasting Glucose 143 H Calcium 8.6 Assessment and Plan (1) Acute respiratory failure with hypoxia: Status: Acute (2) COVID-19: Status: Acute Plan 81-year-old male with past medical history of COPD, AFib who presented to the hospital with shortness of breath found to have COVID-19 infection acute hypoxic respiratory failure secondary to COVID-19 infection, COPD with acute decopmensation, and acute on chronic diastolic chf completed remdisivir, continues steroids day 14 - Continue prednisone 40mg daily High-flow discontinued, on 5 L nasal cannula Finished Azithromycin for anti-inflammatory effect Bronchodilator nebulizers Repeat CXR 10/11 showed interstitial opacities, likley covid plus pulmonary edema s/p empiric diuresis, bun, creat increasing (jamel), cxr with improved edema continue to wean oxygen down as tolerated changed to po lasix 40mg daily delirium due to medical condition Recurrent reorientation Seroquel if needed anxiety attacks Seems to be related to worsening condition and increased oxygen supplement, steroid usage P.r.n. Atarax Physical deconditioning PT recommended short-term rehab paroxysmal AFib continue Eliquis, and metoprolol history of PE on Eliquis DVT prophylaxis: Eliquis reason for continued hospitalization: severe hypoxia Gregory mobile phone: [phone] Quality Stroke Does the patient have a stroke diagnosis?: No VTE Prior VTE?: No VTE Risk Level:: Medical - moderate - high VTE Device Contraindication: Treatment Not Indicated VTE Drug Contraindication: N/A - Med Ordered
--- NOTE | 2021-10-17 13:08 | MHC.CM.PN ---
PT is recommending STR; referrals have been initiated and CM will follow.
--- NOTE | 2021-10-17 15:56 | MHC.CM.PN ---
CM spoke with Patient's Son/Gregory @ [phone] regarding dc planning and PT's recommendation for STR. Gregory would like to be able to take his father home with [facility] insteadof him going to STR. Right now, Gregory is not working but he will be going back to work soon and Patient would need to be safe to be left alone for an average of 4-6 hours/day. Gregory explains that the house is small, has no stair and that he feels his Father would eat better at home and therefor get stronger once home. PT has left for the day;ROSANNA has relayed this information to MD and will continue to follow for dc planning.
[2021-10-17] MEDS: Tamsulosin HCL 0.4 MG CAPSULE PO (17:12)
[2021-10-18 04:00] VITALS: BP 98/68; PULSE 66; RESP 18; TEMP 36.1; O2SAT 92
[2021-10-18] MEDS: Omeprazole 20 MG CAPSULE.DR PO (05:34)
[2021-10-18 07:31] VITALS: BP 112/71; PULSE 73; RESP 16; TEMP 36.1; O2SAT 92
[2021-10-18 07:33] LABS: Hematocrit 42.8 % (42.0-52.0); Hemoglobin 14.7 g/dl (14.0-18.0); Mean Corpuscular HGB Conc 34.3 g/dl (31.0-36.0); Mean Corpuscular Volume 90.3 fL (80.0-98.0); Mean Platelet Volume 10.2 fL (9.4-12.4); Platelet Count 202 X10*3/uL (160-400); Red Blood Count 4.74 X10*6/uL (4.60-5.80); Red Cell Distribution Width 13.3 % (11.0-16.0); White Blood Count 19.4 X10*3/uL (4.8-10.8)
[2021-10-18 07:52] LABS: Anion Gap 14 (12-20); Blood Urea Nitrogen 73 mg/dL (9-16); Calcium 8.5 mg/dL (8.4-10.2); Carbon Dioxide 27 mmol/L (22-29); Chloride 97 mmol/L (96-108); Creatinine Clr Calc Pharmacy 36.6; Estimated Glomerular Filt Rate 40; Glucose Random 130 mg/dL (60-115); Potassium 4.3 mmol/L (3.3-5.1); Sodium 134 mmol/L (135-145)
[2021-10-18] MEDS: 0.9 % Sodium Chloride Flush 3 ML SYRINGE IVFLUSH (10:32)
[2021-10-18] MEDS: Furosemide 40 MG TABLET PO (10:33)
[2021-10-18] MEDS: predniSONE 20 MG TABLET 40 MG PO (10:33)
[2021-10-18] MEDS: Apixaban 5 MG TABLET PO (10:33)
[2021-10-18] MEDS: Metoprolol Succinate ER 25 MG TAB.ER.24H 75 MG PO (10:33)
[2021-10-18] MEDS: PARoxetine HCL 40 MG TABLET PO (10:34)
[2021-10-18 11:21] VITALS: BP 109/66; PULSE 76; RESP 18; TEMP 36; O2SAT 92
--- NOTE | 2021-10-18 12:20 | PM.DS ---
DS: Providers Provider Date of Service: 10/18/21 Date of admission: 10/06/21 22:57 Primary care physician: [facility] Consults: 10/10/21 11:54 Consult to Infectious Diseases Routine Consulting Provider: Violeta Johnson Reason for consultation: Covid, worsening hypoxia DS: Diagnosis Discharge Diagnosis (1) Acute respiratory failure with hypoxia: Status: Acute (2) COVID-19: Status: Acute (3) Delirium due to general medical condition: Status: Acute DS: Summary Hospital Course Hospital Course: Admission note HPI 81-year-old male with past medical history of COPD, paroxysmal AFib, PE, HTN, who presents to the hospital with complaints of shortness of breath as well as wheezing for the past 4 days.? Patient denies any cough, he reports that he does have some phlegm when he clears his throat, reports feeling feverish, has chills, no abdominal pain nausea or vomiting, has had few episodes of diarrhea nonbloody, no urinary symptoms and no lower extremity edema.? No headache or change in vision.? Patient reports being vaccinated against COVID x2 but does not remember the vaccine.? Patient denies any headache, no change in vision, no chest pain, no palpitations, no numbness tingling or weakness in his extremities On arrival to the ED patient hemodynamically stable with no significant abnormal vitals except for heart rate of 102 and respiratory rate of 26 .? Patient was found to have an oxygen level of 86-88% on room air. Labs are significant for WBC count of 5.7, hemoglobin of 13.4, hematocrit 38.9, INR of 1.7, creatinine of 1.41 with a baseline of around 1.2, positive COVID-19 pneumonia Chest x-ray showed no definite acute findings, severe emphysema Patient will be admitted for further management Hospital course The patient was admitted for treatment of acute hypoxic respiratory failure secondary to COVID-19 infection with exacerbation of COPD and evidence of acute on chronic diastolic heart failure.completed remdisivir for 5 days and treated with IV steroids of dexamethasone that was changed later to prednisone orally. Required high flow oxygen supplement during the hospital stay which was weaned down to 3 L at the day of discharge satting on 90s. X-rays showed evidence of interstitial opacities secondary to COVID-19 and pulmonary edema which was treated with addition of Lasix with good response as his breathing continue to improve. Developed delirium during hospital stay secondary to medications and being inpatient. Responded well to Seroquel. Improved back to his baseline. Evaluated by physical therapy team who recommended short-term h rehab stay To start physical therapy at rehab facility Tappering dose of steroids Time Spent with Patient Time attestation: Total time spent providing and/or coordinating discharge services: Discharge coordination time: Greater than 30 minutes Quality: Safe Use of Opioids Does Pt have an Active Cancer Diagnosis on the Problem List?: No Quality: Stroke Does the patient have a stroke diagnosis?: No Physical Exam Vital Signs: Vital Signs: Last Vital Signs Temp 96.8 F 10/18/21 11:21 Pulse 76 10/18/21 11:21 Resp 18 10/18/21 11:21 BP 109/66 10/18/21 11:21 Pulse Ox 92 10/18/21 11:21 O2 Del Method 10/18/21 11:21 O2 Flow Rate 3 10/18/21 11:21 FiO2 40 10/17/21 11:04 BMI result Body Mass Index 26.4 Const: Other: Constitutional : Alert, interactive, not in distress Neck : Normal inspection, Supple Cardiovascular : no JVP, no lower extremity edema Respiratory : Chest wall moving bilaterally, no crackles, on 3 L nasal cannula Gastrointestinal: soft, lax, Normal bowel sounds, Non tender Skin : Warm, Dry Neurological : Alert & disoriented, No focal deficit DS: Data Data Completed and Pending Labs on day of discharge: Laboratory Results - last 24 hr 10/18/21 10/18/21 07:13 07:13 WBC 19.4 H RBC 4.74 Hgb 14.7 Hct 42.8 MCV 90.3 MCH 31.0 MCHC 34.3 RDW 13.3 Plt Count 202 MPV 10.2 Absolute Nucleated RBC 0.000 Nucleated RBC % (auto) 0.0 Sodium 134 L Potassium 4.3 Chloride 97 Carbon Dioxide 27 Anion Gap 14 BUN 73 H Creatinine 1.66 H Estim Creat Clear Calc 36.6 Estimated GFR 40 Random Glucose 130 H Calcium 8.5 Imaging Chest x-ray: Radiologist's impression: ITS Impressions Chest X-Ray 10/06/21 21:55 IMPRESSION: No definite acute findings. 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 Chest X-Ray 10/11/21 12:16 IMPRESSION: New increased lung markings probably representing bronchopneumonia, right side greater than left. Chest X-Ray 10/13/21 12:06 IMPRESSION: Improvement of previous edema. Clear lungs.. Discharge Plan Discharge Patient Disposition: [facility], [place] Discharge Diagnosis: Acute hypoxic respiratory failure secondary to COVID-19 infection Referrals: [facility] [Primary Care Provider] - 1 Week Discharge Medications: New prednisone 10 mg tablet See Taper PO DAILY Qty: 22 0RF Taper: Prednisone 40 mg daily for 1 Day and 0 Hour 30 mg daily for 3 Days and 0 Hour 20 mg daily for 3 Days and 0 Hour 10 mg daily for 3 Days and 0 Hour Continued tamsulosin 0.4 mg capsule 1 cap PO DAILY omeprazole 20 mg capsule,delayed release(DR/EC) 1 cap PO DAILY albuterol sulfate 90 mcg/actuation HFA aerosol inhaler 2 puff inhalation Q4H PRN (Reason: wheezing) paroxetine HCl 40 mg tablet 1 tab PO QAM zolpidem 12.5 mg tablet,ext release multiphase 1 tab PO BEDTIME PRN (Reason: insomnia) metoprolol succinate 25 mg Tablet Extended Release 24 Hr 75 mg PO DAILY Qty: 30 0RF Protocol: Hold for SBP/HR < HOLD for SBP < : 90 HOLD for HR < : 60 fluticasone furoate-vilanterol [Breo Ellipta] 200-25 mcg/dose blister with device 1 inh inhalation DAILY Qty: 28 0RF Eliquis 5 mg tablet 5 mg PO BID Discontinued prednisone 20 mg tablet 40 mg PO DAILY Qty: 8 0RF Discharge Orders: Discharge Order (Routine); Ordered 10/18/21 Ordered By: [place] Diet: Advance to usual diet Activity on Discharge: As tolerated Stand Alone Forms: Patient Portal Discharge page Care Plan Goals: Read below Health Concerns: Read below Plan of Treatment: Read below Assessment: You were admitted to the hospital for evaluation of COVID-19 infection. Treated with IV steroids, antiviral medications and oxygen supplement with good response over a course of hospital stay. You were able to ambulate with physical therapy help or recommended short-term rehab stay. Continue tapering dose of prednisone Use incentive spirometry and increase your physical activity as tolerated
--- NOTE | 2021-10-18 12:24 | MHC.CM.PN ---
Patient ready for d/c today. HCP completed with patient. Awaiting confirmation on bed offer. Son Gregory has been kept up-to-date.
[2021-10-18 13:09] LABS: COVID-19 Test Invalid (Negative); IDNOW Serial# 9DB6401D
[2021-10-18 15:36] LABS: Influenza A PCR NEGATIVE (Negative); Influenza B PCR NEGATIVE (Negative); Resp Syncy Virus RNA Qual PCR NEGATIVE (Negative); SARS COV2 PCR INHOUSE POSITIVE (Negative)
[2021-10-18 16:00] VITALS: BP 118/71; PULSE 72; RESP 18; TEMP 36.1; O2SAT 95
== END 2021-10-18 18:03 | disposition skilled nursing facility (03) | DRG 177 ==
LOC: HO.ED 22:09 → HO.EDOVER 23:08 → HO.IMC 10-07 23:45
PROVIDERS: Internal Medicine; Internal Medicine Pulmonary Disease; Admitting Provider Internal Medicine; Emergency Provider Emergency Medicine; Visit Provider Student in an Organized Health Care Education/Training Program
DX: U07.1 COVID-19 (principal); I50.33 Acute on chronic diastolic (congestive) heart failure; J96.01 Acute respiratory failure with hypoxia; J44.1 Chronic obstructive pulmonary disease with (acute) exacerbation; F05 Delirium due to known physiological condition; N17.9 Acute kidney failure, unspecified; F41.0 Panic disorder [episodic paroxysmal anxiety]; I11.0 Hypertensive heart disease with heart failure; I48.0 Paroxysmal atrial fibrillation; Z90.2 Acquired absence of lung [part of]; Z86.711 Personal history of pulmonary embolism; Z85.118 Personal history of other malignant neoplasm of bronchus and lung; Z87.891 Personal history of nicotine dependence; Z79.01 Long term (current) use of anticoagulants; Z79.51 Long term (current) use of inhaled steroids; Z79.899 Other long term (current) drug therapy
CPT/HCPCS: 0241U; 36415; 36600; 71045; 80048; 80053; 82803; 83605; 83615; 83735; 83880; 84484; 85025; 85027; 85610; 86140; 87040; 87635; 93005; 94640; 96365; 96375; 97162; 99285; J0248; J0456; J1100; J1940; J2405; J2920; J3475

== ENCOUNTER 2021-11-05 12:03 | Emergency (ER) | payer MEDICARE, SELFPAY ==
[2021-11-05 12:56] VITALS: BP 120/72; PULSE 87; RESP 18; TEMP 35.7; O2SAT 97; BMI 27.3
== END 2021-11-05 16:10 | disposition left against medical advice (07) ==
PROVIDERS: Emergency Provider Emergency Medicine; PCP Internal Medicine
DX: S51.011A Laceration without foreign body of right elbow, initial encounter (principal); W22.01XA Walked into wall, initial encounter; M25.521 Pain in right elbow; Y93.9 Activity, unspecified; Y92.019 Unspecified place in single-family (private) house as the place of occurrence of the external cause; Y99.9 Unspecified external cause status; Z79.01 Long term (current) use of anticoagulants
CPT/HCPCS: 99281

== ENCOUNTER 2022-06-27 11:25 | Inpatient (IN) | payer MEDICARE, SELFPAY ==
--- NOTE | ~2022-06-27 | XR_ITS ---
EXAMINATION: XR CHEST CLINICAL INFORMATION: Shortness of breath. COMPARISON: 10/13/2021 chest radiograph TECHNIQUE: Frontal view of the chest was obtained. FINDINGS: Mild asymmetric markings are again seen at the left lung base with mild blunting of the left costophrenic angle without significant change. The lungs otherwise clear. The heart and mediastinal structures are unremarkable. XR/XR chest 1V IMPRESSION: Mild asymmetric markings at the left lung base are similar to the previous study and likely represent pleural/parenchymal scarring. An acute on chronic infiltrate cannot be excluded. If symptoms persist or worsen, PA and lateral views of the chest would be helpful.
--- NOTE | ~2022-06-27 | US_ITS ---
EXAMINATION: Ultrasound drain retroperitoneal percutaneous CLINICAL INFORMATION: Large left renal cyst COMPARISON: Previous CT of the abdomen and pelvis from yesterday TECHNIQUE: Procedure and risks and benefits including bleeding, infection and injury to the kidney and adjacent organs was discussed with the patient and informed consent was obtained. The patient was positioned in the right decubitus position. The left flank was prepped and draped in the usual sterile fashion. The skin and soft tissues were anesthetized with 1% lidocaine plain. Using a 5 [place] one-step system, access to the large left renal cyst was obtained. 4.8 L of clear atilio-colored fluid was removed. Specimen was sent for Gram stain culture and cytology. FINDINGS: There is a large simple appearing left renal cyst that was targeted for aspiration. US/US drain geremias retro perc IMPRESSION: Ultrasound-guided left renal cyst aspiration.
--- NOTE | ~2022-06-27 | CT_ITS ---
EXAMINATION: CT ABDOMEN AND PELVIS WITH AND WITHOUT CONTRAST: CT GI BLEEDING STUDY CLINICAL INFORMATION: Rectal bleeding. COMPARISON: CTA chest 10/14/2012. TECHNIQUE: Multidetector volumetric imaging was performed from the lung bases to the pubic symphysis before and after the administration of: Intravenous contrast: 85 mL Omnipaque 350 No contrast reaction reported MIP coronal, sagittal and coronal reformatted images were obtained on the technologist workstation. This CT examination was performed using dose optimization techniques as appropriate, variously including the following: *Automated exposure control *Adjustment of mA and/or kV according to patient size (this includes techniques or standardized protocols for targeted exams where dose is matched to indication/reason for exam; i.e. extremities or head) *Use of iterative reconstruction technique Total exam dose-length product 404 mGy-cm FINDINGS: STOMACH: No abnormal wall thickening or mass. No intraluminal contrast accumulation to suggest hemorrhage. Small hiatal hernia. SMALL BOWEL: No abnormal wall thickening or dilation. No intraluminal contrast accumulation to suggest hemorrhage. COLON: Evaluation is somewhat limited due to residual hyperattenuating contrast in the sigmoid and rectum. However, accounting for this limitation no definite intraluminal contrast accumulation is noted to suggest hemorrhage. Colonic diverticulosis. No colonic wall thickening or pericolonic inflammatory changes. Normal appendix. LUNG BASES: Emphysematous changes and findings most suggestive of pulmonary fibrosis with honeycombing, traction bronchiectasis and reticulation. These are progressed compared to 2013. Partially imaged coronary artery calcifications. LIVER, GALLBLADDER, AND BILIARY TREE: Stable simple cyst in the left hepatic lobe (9:12). Unchanged too small to characterize hypodensity more anteriorly in the left hepatic lobe (9:12), compared to CTA of the chest from 10/14/2012. The liver is normal in size, shape and attenuation. No new liver lesion. No biliary ductal dilatation. The gallbladder is unremarkable with no evidence of radiopaque gallstones, gallbladder wall thickening, or obvious pericholecystic inflammatory changes. PANCREAS: Normal; no mass or surrounding fluid. SPLEEN: Normal size. No focal lesion. ADRENAL GLANDS: Stable asymmetric thickening of the left adrenal gland compared to 2013 with a small calcification along the medial limb, also noted in 2013. Normal right adrenal gland. KIDNEYS AND URETERS: There is a large well-defined homogeneous nonenhancing simple cyst in the left abdomen measuring 23.2 x 13.7 x 28.3 cm. There is a claw sign from the lateral left kidney, suggestive of a renal origin. In retrospect, this was partially imaged on CTA chest from 10/14/2012. This large cyst produces mass effect upon the adjacent organs. Multiple additional smaller simple cysts in the left greater than right kidneys, for which no imaging follow-up is recommended. Symmetric nephrograms. No hydronephrosis. No significant perinephric fat stranding. ABDOMINAL WALL: Small fat-containing left-sided inguinal hernia. LYMPHOVASCULAR STRUCTURES: No lymphadenopathy. Scattered atherosclerotic disease. The infrarenal abdominal aorta measures 2.6 cm in diameter. BLADDER: No focal mass or wall thickening seen. No bladder calculi. PELVIC VISCERA: Coarse prostatic calcifications. The prostate gland is borderline enlarged. No free fluid. OSSEOUS STRUCTURES: Degenerative changes of the spine. No acute or aggressive appearing osseous abnormalities. CT/CT gi bleed abd pel wo/w IVcon IMPRESSION: 1. No evidence of active gastrointestinal hemorrhage with the caveat that evaluation of small foci of bleeding in the rectum and sigmoid is somewhat limited due to residual hyperattenuating intraluminal contrast. 2. Diverticulosis but no evidence of acute diverticulitis. 3. Large left-sided renal cyst measuring up to 28 cm. No suspicious septations or enhancing nodules. This large cyst produces mass effect upon the abdominal organs. Given size surgical consultation is recommended. 4. Emphysematous changes and findings most suggestive of pulmonary fibrosis, progressed compared to 2013. Recommend further evaluation with an elective high-resolution chest CT. 5. 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 Based on published guidelines in J Am Isaura Radiol 2013; 10(10):789-794 and J Vasc Surg. 2018; 67:2-77, the recommendation for an abdominal aorta with diameter 2.6-2.9 cm is follow-up every 5 years if the aorta that meets the criteria for AAA (>1.5 x proximal normal segment; no f/u if < 1.5 x proximal normal segment; no f/u for aorta < 2.6 cm).
--- NOTE | 2022-06-27 11:27 | ECG_ITS ---
Test Reason : WEAK/DIZZY Blood Pressure : / mmHG Vent. Rate : 076 BPM Atrial Rate : 076 BPM P-R Int : 166 ms QRS Dur : 082 ms QT Int : 372 ms P-R-T Axes : 077 107 056 degrees QTc Int : 418 ms Normal sinus rhythm Rightward axis Borderline ECG When compared with ECG of 06-OCT-2021 20:52, No significant change was found Referred By: Joycelyn Reid Electronically Signed By:THERESA YUAN MD
--- NOTE | 2022-06-27 11:29 | ED_ITS ---
HPI - General Adult General Chief complaint: GI Bleed <PAOLO Brooks - Last Filed: 06/27/22 11:35> Stated complaint: abd heart rate low 02 <PAOLO Brooks - Last Filed: 06/27/22 11:35> Time Seen by Provider: 06/27/22 15:50 <PAOLO Brooks - Last Filed: 06/27/22 11:35> Source: patient <PAOLO Brooks - Last Filed: 06/27/22 11:35> Mode of arrival: wheelchair <PAOLO Brooks - Last Filed: 06/27/22 11:35> History of Present Illness HPI narrative: 81-year-old male who presents with dark stool this morning associated with abdominal discomfort, as well as shortness of breath and only takes a daily aspirin. Patient states he has been having dark stools intermittently for 1 month but states he did not discussed with the son because it is not something you talk about . Patient currently denies any shortness of breath, chest pain/palpitations, abdominal pain. <Ester Milan MD - Last Filed: 06/27/22 20:35> Related Data Home medications: Home Medications Medication Instructions Recorded Confirmed albuterol sulfate 90 mcg/actuation 2 puff inhalation Q4H PRN wheezing 07/14/21 10/07/21 aerosol inhaler omeprazole 20 mg capsule,delayed 1 cap PO DAILY 07/14/21 10/07/21 release paroxetine HCl 40 mg tablet 1 tab PO QAM 07/14/21 10/07/21 tamsulosin 0.4 mg capsule 1 cap PO DAILY 07/14/21 10/07/21 zolpidem 12.5 mg tablet,extended 1 tab PO BEDTIME PRN insomnia 07/14/21 10/07/21 release,multiphase apixaban 5 mg tablet (Eliquis) 5 mg PO BID 08/16/21 10/07/21 Previous Rx's Medication Instructions Recorded fluticasone furoate 200 1 inh inhalation DAILY #28 ea 07/17/21 mcg-vilanterol 25 mcg/dose inhalation powder (Breo Ellipta) metoprolol succinate 25 mg 75 mg PO DAILY #30 tabs 05/24/22 tablet,extended release 24 hr prednisone 10 mg tablet See Taper PO DAILY #22 tabs 10/18/21 <PAOLO Brooks - Last Filed: 06/27/22 11:35> Allergies/adverse reactions: Allergies Allergy/AdvReac Type Severity Reaction Status Date / Time No Known Allergies Allergy Verified 06/27/22 16:10 <PAOLO Brooks - Last Filed: 06/27/22 11:35> Review of Systems Review of Systems: Pertinent positives and negatives as stated in HPI <Ester Milan MD - Last Filed: 06/27/22 20:35> PMFSH Past Medical History Source: nursing notes reviewed <Ester Milan MD - Last Filed: 06/27/22 20:35> Medical History: Medical History COPD (chronic obstructive pulmonary disease) Essential hypertension Lung cancer PAF (paroxysmal atrial fibrillation) Pulmonary emboli <PAOLO Brooks - Last Filed: 06/27/22 11:35> Surgical History: Surgical History No pertinent past surgical history <PAOLO Brooks - Last Filed: 06/27/22 11:35> Family History Family History: Family History Father Lung cancer <PAOLO Brooks - Last Filed: 06/27/22 11:35> Social History Social History: Social History Household Members: None Housing: House Do you presently have visiting nurse or other home services: No Alcohol intake: never Patient Tobacco Use Status: Former Tobacco user Smoked in Last 30 Days: Yes Use of substances other than those prescribed or required for medical reasons: No Advance Directives: Yes Advance Directives on File: Yes Advance Directives Date on File: 10/19/21 service: Yes Current occupational status: retired <PAOLO Brooks - Last Filed: 06/27/22 11:35> Physical Exam ED Vital Signs: Vital Signs - 24 hr 06/27/22 11:32 06/27/22 15:46 06/27/22 16:02 Pulse Rate 83 67 67 Respiratory Rate 16 19 16 Blood Pressure 144/73 H 168/66 H 149/79 H Pulse Oximetry 96 100 100 Oxygen Delivery Method Room Air Room Air Room Air 06/27/22 18:49 Pulse Rate 74 Respiratory Rate 20 Blood Pressure 158/81 H Pulse Oximetry 100 Oxygen Delivery Method Room Air BMI result Body Mass Index 25.1 <PAOLO Brooks - Last Filed: 06/27/22 11:35> Vital Signs - 24 hr 06/27/22 11:32 06/27/22 15:46 06/27/22 16:02 Pulse Rate 83 67 67 Respiratory Rate 16 19 16 Blood Pressure 144/73 H 168/66 H 149/79 H Pulse Oximetry 96 100 100 Oxygen Delivery Method Room Air Room Air Room Air 06/27/22 18:49 Pulse Rate 74 Respiratory Rate 20 Blood Pressure 158/81 H Pulse Oximetry 100 Oxygen Delivery Method Room Air BMI result Body Mass Index 25.1 VITAL SIGNS: Reviewed. GENERAL: Well developed, well nourished, in no acute distress. HEAD: Normocephalic/atraumatic EYES: PERRLA, EOMI EARS: Ext canals without abnormality NOSE: Nares patent bilateral OROPHARYNX: no oral lesions noted, posterior pharynx clear NECK: Supple, no adenopathy LUNGS: Normal breath sounds. No adventitious sounds or accessory muscle use. SpO2<100> CARDIOVASCULAR: Regular rate and rhythm without noted murmurs, no JVD or lower extremity edema. ABDOMEN: Soft, non-tender, non-distended with bowel sounds. RAUL: Noninflamed external hemorrhoids noted, loose melena within the rectal vault. MUSCULOSKELETAL: No tenderness, deformities, or effusions noted on gross inspection. EXTREMITIES: No cyanosis, clubbing or edema. SKIN: Inspection of the skin reveals no rashes NEUROLOGIC: Alert and oriented x 4. Strength and sensation to light touch were grossly intact x 4. <Ester Milan MD - Last Filed: 06/27/22 20:35> Course Course Course Narrative: 81 year old male with PMH hypotension, atrial fibrillation, and hypomagnesemia on apixaban presents to the ED with palipations, subjective low O2 saturation and blood in the stool. Patient's son reports his O2 saturation was in the 80s at home this morning and the patient has been complaining of palpitations since last night. Patient also reports he had a large amount of blood in his comode this morning when he went to the bathroom and was alarmed. Patient denies SOB, CP, fever, chills. Patient endorses general malaise. PE: Global weakness, slight pallor Plan: Labs, type and screen, imagin <PAOLO Brooks - Last Filed: 06/27/22 11:35> Medications Administered Discontinued Medications Generic Name Dose Route Start Last Admin Trade Name Freq PRN Reason Stop Dose Admin Sodium Chloride 500 mls @ 999 mls/hr 06/27/22 16:30 06/27/22 17:14 Ns IV 06/27/22 17:00 Infused .Q31M JOSE Infusion Iohexol 100 ml 06/27/22 17:38 06/27/22 17:38 Iohexol 350 Mg/Ml 100 Ml Infus..Btl IV 06/27/22 17:39 85 ml ONCE ONE Administration Pantoprazole Sodium 80 mg 06/27/22 16:20 06/27/22 16:29 Pantoprazole Sodium 40 Mg/10 Ml Vial IVPUSH 06/27/22 16:21 80 mg ONCE ONE Administration <PAOLO Brooks - Last Filed: 06/27/22 11:35> Medications Administered Discontinued Medications Generic Name Dose Route Start Last Admin Trade Name Freq PRN Reason Stop Dose Admin Sodium Chloride 500 mls @ 999 mls/hr 06/27/22 16:30 06/27/22 17:14 Ns IV 06/27/22 17:00 Infused .Q31M JOSE Infusion Iohexol 100 ml 06/27/22 17:38 06/27/22 17:38 Iohexol 350 Mg/Ml 100 Ml Infus..Btl IV 06/27/22 17:39 85 ml ONCE ONE Administration Pantoprazole Sodium 80 mg 06/27/22 16:20 06/27/22 16:29 Pantoprazole Sodium 40 Mg/10 Ml Vial IVPUSH 06/27/22 16:21 80 mg ONCE ONE Administration <Ester Milan MD - Last Filed: 06/27/22 20:35> Medical Decision Making Medical Decision Making MDM Narrative: 81-year-old male with history and clinical presentation suggestive of upper GI bleed. Patient is on Eliquis for paroxysmal atrial fibrillation, current EKG does not demonstrate atrial fibrillation at this time. Rectal exam appears to be consistent with melena and patient will receive Protonix but otherwise appears to be hemodynamically stable. On further evaluation and review of all investigations guaiac was noted to be negative though the stool was quite dark but still patient reports rectal bleeding earlier in the day. He has remained hemodynamically stable but there w as a noted 1 g drop an hemoglobin although the values still remain within normal limits. Patient's renal function is chronically stable. Patient received IV fluids as well as Protonix and is noted to be on anticoagulation medication. On the CT scan there is no evidence of acute bleed but they do discuss an enlarged renal cyst which is impinging on surrounding organs an suggesting surgery follow -up. I will discuss this case with Urology. Of note, the leukocytosis is a stress leukocytosis with chronic CKD this is not in KATLIN, and patient is afebrile. <Ester Milan MD - Last Filed: 06/27/22 20:35> Differential Diagnosis Please see the discussion above <Ester Milan MD - Last Filed: 06/27/22 20:35> Consult Healthcare Provider Management of the patient was discussed with: Embedded Systems Software Engineer <Ester Milan MD - Last Filed: 06/27/22 20:35> 1935: I discussed the case with Urology, Dr. Andrew renteria, who reviewed the imaging studies and states that given that the patient will be admitted she will see him in the morning and try to arrange for IR drainage of the renal cyst although this is not an emergent intervention. 2017: I discussed case with the inpatient hospitalist who accepts admission. <Ester Milan MD - Last Filed: 06/27/22 20:35> Lab Data Please see the discussion above <Ester Milan MD - Last Filed: 06/27/22 20:35> Result Diagrams: 06/27/22 11:45 06/27/22 11:45 <PAOLO Brooks - Last Filed: 06/27/22 11:35> Labs: Lab Results 06/27/22 06/27/22 06/27/22 Range/Units 11:45 11:45 11:45 WBC 13.0 H (4.8-10.8) X10*3/uL RBC 5.24 (4.60-5.80) X10*6/uL Hgb 16.2 (14.0-18.0) g/dl Hct 49.0 (42.0-52.0) % MCV 93.5 (80.0-98.0) fL MCH 30.9 (27.0-33.0) pg MCHC 33.1 (31.0-36.0) g/dl RDW 13.8 (11.0-16.0) % Plt Count 241 (160-400) X10*3/uL MPV 9.6 (9.4-12.4) fL Immature Gran % (Auto) 1.7 H (0.0-0.4) % Neut % (Auto) 76.3 H (45-73) % Lymph % (Auto) 13.9 L (20-40) % [place] % (Auto) 6.2 (2-11) % Eos % (Auto) 1.2 (0-4) % Baso % (Auto) 0.7 (0-2) % Lymph # (Auto) 1.8 (1.2-4.9) X10*3/uL [place] # (Auto) 0.8 (0.1-1.2) X10*3/uL Eos # (Auto) 0.2 (0.0-0.4) X10*3/uL Baso # (Auto) 0.1 (0.0-0.2) X10*3/uL Abs Immat Gran (auto) 0.22 H (0.00-0.03) X10*3/uL Absolute Neuts (auto) 9.9 H (2.0-8.3) x10*3/uL Absolute Nucleated RBC 0.000 (0.0-0.012) X10*3/uL Nucleated RBC % (auto) 0.0 (0.0-0.2) /100WBC Sodium 135 (135-145) mmol/L Potassium 5.0 (3.3-5.1) mmol/L Chloride 102 (96-108) mmol/L Carbon Dioxide 23 (22-29) mmol/L Anion Gap 15 (12-20) BUN 32 H (9-16) mg/dL Creatinine 1.47 H (0.5-1.4) mg/dL Estim Creat Clear Calc 38.7 Estimated GFR 46 Random Glucose 117 H (60-115) mg/dL Calcium 9.9 D (8.4-10.2) mg/dL Magnesium 1.8 (1.6-2.6) mg/dL Total Bilirubin 0.8 (0.0-1.0) mg/dL AST 13 (5-37) U/L ALT 12 (0-40) U/L Alkaline Phosphatase 64 (39-117) U/L Troponin I High Sens < 2.7 (<3.5-35.0) ng/L B-Natriuretic Peptide (<100) pg/mL Total Protein 7.6 (6.5-8.0) g/dL Albumin 4.4 (3.5-5.0) g/dL Urine Color Urine Appearance Urine pH (5.0-9.0) Ur Specific [place] (1.005-1.025) Urine Protein (Neg-Trace) mg/dL Urine Glucose (UA) (Negative) mg/dL Urine Ketones (Negative) mg/dL Urine Blood (Negative) Urine Nitrite (Negative) Ur Leukocyte Esterase (Negative) Stool Occult Blood (NEGATIVE) COVID-19 (NATHANAEL) (Negative) COVID-19 Clin Com Blood Type Antibody Screen 06/27/22 06/27/22 06/27/22 Range/Units 11:45 11:45 11:45 WBC (4.8-10.8) X10*3/uL RBC (4.60-5.80) X10*6/uL Hgb (14.0-18.0) g/dl Hct (42.0-52.0) % MCV (80.0-98.0) fL MCH (27.0-33.0) pg MCHC (31.0-36.0) g/dl RDW (11.0-16.0) % Plt Count (160-400) X10*3/uL MPV (9.4-12.4) fL Immature Gran % (Auto) (0.0-0.4) % Neut % (Auto) (45-73) % Lymph % (Auto) (20-40) % [place] % (Auto) (2-11) % Eos % (Auto) (0-4) % Baso % (Auto) (0-2) % Lymph # (Auto) (1.2-4.9) X10*3/uL [place] # (Auto) (0.1-1.2) X10*3/uL Eos # (Auto) (0.0-0.4) X10*3/uL Baso # (Auto) (0.0-0.2) X10*3/uL Abs Immat Gran (auto) (0.00-0.03) X10*3/uL Absolute Neuts (auto) (2.0-8.3) x10*3/uL Absolute Nucleated RBC (0.0-0.012) X10*3/uL Nucleated RBC % (auto) (0.0-0.2) /100WBC Sodium (135-145) mmol/L Potassium (3.3-5.1) mmol/L Chloride (96-108) mmol/L Carbon Dioxide (22-29) mmol/L Anion Gap (12-20) BUN (9-16) mg/dL Creatinine (0.5-1.4) mg/dL Estim Creat Clear Calc Estimated GFR Random Glucose (60-115) mg/dL Calcium (8.4-10.2) mg/dL Magnesium (1.6-2.6) mg/dL Total Bilirubin (0.0-1.0) mg/dL AST (5-37) U/L ALT (0-40) U/L Alkaline Phosphatase (39-117) U/L Troponin I High Sens (<3.5-35.0) ng/L B-Natriuretic Peptide 14 (<100) pg/mL Total Protein (6.5-8.0) g/dL Albumin (3.5-5.0) g/dL Urine Color Urine Appearance Urine pH (5.0-9.0) Ur Specific [place] (1.005-1.025) Urine Protein (Neg-Trace) mg/dL Urine Glucose (UA) (Negative) mg/dL Urine Ketones (Negative) mg/dL Urine Blood (Negative) Urine Nitrite (Negative) Ur Leukocyte Esterase (Negative) Stool Occult Blood (NEGATIVE) COVID-19 (NATHANAEL) Negative (Negative) COVID-19 Clin Com See Note Blood Type A Positive Antibody Screen NEGATIVE 05/04/23 05/04/23 05/04/23 Range/Units 16:03 16:09 16:31 WBC 14.1 H (4.8-10.8) X10*3/uL RBC 5.05 (4.60-5.80) X10*6/uL Hgb 15.5 (14.0-18.0) g/dl Hct 46.6 (42.0-52.0) % MCV 92.3 (80.0-98.0) fL MCH 30.7 (27.0-33.0) pg MCHC 33.3 (31.0-36.0) g/dl RDW 13.8 (11.0-16.0) % Plt Count 230 (160-400) X10*3/uL MPV 9.6 (9.4-12.4) fL Immature Gran % (Auto) 1.3 H (0.0-0.4) % Neut % (Auto) 78.2 H (45-73) % Lymph % (Auto) 13.7 L (20-40) % [place] % (Auto) 5.3 (2-11) % Eos % (Auto) 0.9 (0-4) % Baso % (Auto) 0.6 (0-2) % Lymph # (Auto) 1.9 (1.2-4.9) X10*3/uL [place] # (Auto) 0.8 (0.1-1.2) X10*3/uL Eos # (Auto) 0.1 (0.0-0.4) X10*3/uL Baso # (Auto) 0.1 (0.0-0.2) X10*3/uL Abs Immat Gran (auto) 0.18 H (0.00-0.03) X10*3/uL Absolute Neuts (auto) 11.1 H (2.0-8.3) x10*3/uL Absolute Nucleated RBC 0.000 (0.0-0.012) X10*3/uL Nucleated RBC % (auto) 0.0 (0.0-0.2) /100WBC Sodium (135-145) mmol/L Potassium (3.3-5.1) mmol/L Chloride (96-108) mmol/L Carbon Dioxide (22-29) mmol/L Anion Gap (12-20) BUN (9-16) mg/dL Creatinine (0.5-1.4) mg/dL Estim Creat Clear Calc Estimated GFR Random Glucose (60-115) mg/dL Calcium (8.4-10.2) mg/dL Magnesium (1.6-2.6) mg/dL Total Bilirubin (0.0-1.0) mg/dL AST (5-37) U/L ALT (0-40) U/L Alkaline Phosphatase (39-117) U/L Troponin I High Sens (<3.5-35.0) ng/L B-Natriuretic Peptide (<100) pg/mL Total Protein (6.5-8.0) g/dL Albumin (3.5-5.0) g/dL Urine Color Yellow Urine Appearance Clear Urine pH 5.5 (5.0-9.0) Ur Specific [place] 1.020 (1.005-1.025) Urine Protein Negative (Neg-Trace) mg/dL Urine Glucose (UA) Negative (Negative) mg/dL Urine Ketones Negative (Negative) mg/dL Urine Blood Negative (Negative) Urine Nitrite Negative (Negative) Ur Leukocyte Esterase Negative (Negative) Stool Occult Blood NEGATIVE (NEGATIVE) COVID-19 (NATHANAEL) (Negative) COVID-19 Clin Com Blood Type Antibody Screen <PAOLO Brooks - Last Filed: 06/27/22 11:35> Lab Results 06/27/22 06/27/22 06/27/22 Range/Units 11:45 11:45 11:45 WBC 13.0 H (4.8-10.8) X10*3/uL RBC 5.24 (4.60-5.80) X10*6/uL Hgb 16.2 (14.0-18.0) g/dl Hct 49.0 (42.0-52.0) % MCV 93.5 (80.0-98.0) fL MCH 30.9 (27.0-33.0) pg MCHC 33.1 (31.0-36.0) g/dl RDW 13.8 (11.0-16.0) % Plt Count 241 (160-400) X10*3/uL MPV 9.6 (9.4-12.4) fL Immature Gran % (Auto) 1.7 H (0.0-0.4) % Neut % (Auto) 76.3 H (45-73) % Lymph % (Auto) 13.9 L (20-40) % [place] % (Auto) 6.2 (2-11) % Eos % (Auto) 1.2 (0-4) % Baso % (Auto) 0.7 (0-2) % Lymph # (Auto) 1.8 (1.2-4.9) X10*3/uL [place] # (Auto) 0.8 (0.1-1.2) X10*3/uL Eos # (Auto) 0.2 (0.0-0.4) X10*3/uL Baso # (Auto) 0.1 (0.0-0.2) X10*3/uL Abs Immat Gran (auto) 0.22 H (0.00-0.03) X10*3/uL Absolute Neuts (auto) 9.9 H (2.0-8.3) x10*3/uL Absolute Nucleated RBC 0.000 (0.0-0.012) X10*3/uL Nucleated RBC % (auto) 0.0 (0.0-0.2) /100WBC Sodium 135 (135-145) mmol/L Potassium 5.0 (3.3-5.1) mmol/L Chloride 102 (96-108) mmol/L Carbon Dioxide 23 (22-29) mmol/L Anion Gap 15 (12-20) BUN 32 H (9-16) mg/dL Creatinine 1.47 H (0.5-1.4) mg/dL Estim Creat Clear Calc 38.7 Estimated GFR 46 Random Glucose 117 H (60-115) mg/dL Calcium 9.9 D (8.4-10.2) mg/dL Magnesium 1.8 (1.6-2.6) mg/dL Total Bilirubin 0.8 (0.0-1.0) mg/dL AST 13 (5-37) U/L ALT 12 (0-40) U/L Alkaline Phosphatase 64 (39-117) U/L Troponin I High Sens < 2.7 (<3.5-35.0) ng/L B-Natriuretic Peptide (<100) pg/mL Total Protein 7.6 (6.5-8.0) g/dL Albumin 4.4 (3.5-5.0) g/dL Urine Color Urine Appearance Urine pH (5.0-9.0) Ur Specific [place] (1.005-1.025) Urine Protein (Neg-Trace) mg/dL Urine Glucose (UA) (Negative) mg/dL Urine Ketones (Negative) mg/dL Urine Blood (Negative) Urine Nitrite (Negative) Ur Leukocyte Esterase (Negative) Stool Occult Blood (NEGATIVE) COVID-19 (NATHANAEL) (Negative) COVID-19 Clin Com Blood Type Antibody Screen 06/27/22 06/27/22 06/27/22 Range/Units 11:45 11:45 11:45 WBC (4.8-10.8) X10*3/uL RBC (4.60-5.80) X10*6/uL Hgb (14.0-18.0) g/dl Hct (42.0-52.0) % MCV (80.0-98.0) fL MCH (27.0-33.0) pg MCHC (31.0-36.0) g/dl RDW (11.0-16.0) % Plt Count (160-400) X10*3/uL MPV (9.4-12.4) fL Immature Gran % (Auto) (0.0-0.4) % Neut % (Auto) (45-73) % Lymph % (Auto) (20-40) % [place] % (Auto) (2-11) % Eos % (Auto) (0-4) % Baso % (Auto) (0-2) % Lymph # (Auto) (1.2-4.9) X10*3/uL [place] # (Auto) (0.1-1.2) X10*3/uL Eos # (Auto) (0.0-0.4) X10*3/uL Baso # (Auto) (0.0-0.2) X10*3/uL Abs Immat Gran (auto) (0.00-0.03) X10*3/uL Absolute Neuts (auto) (2.0-8.3) x10*3/uL Absolute Nucleated RBC (0.0-0.012) X10*3/uL Nucleated RBC % (auto) (0.0-0.2) /100WBC Sodium (135-145) mmol/L Potassium (3.3-5.1) mmol/L Chloride (96-108) mmol/L Carbon Dioxide (22-29) mmol/L Anion Gap (12-20) BUN (9-16) mg/dL Creatinine (0.5-1.4) mg/dL Estim Creat Clear Calc Estimated GFR Random Glucose (60-115) mg/dL Calcium (8.4-10.2) mg/dL Magnesium (1.6-2.6) mg/dL Total Bilirubin (0.0-1.0) mg/dL AST (5-37) U/L ALT (0-40) U/L Alkaline Phosphatase (39-117) U/L Troponin I High Sens (<3.5-35.0) ng/L B-Natriuretic Peptide 14 (<100) pg/mL Total Protein (6.5-8.0) g/dL Albumin (3.5-5.0) g/dL Urine Color Urine Appearance Urine pH (5.0-9.0) Ur Specific [place] (1.005-1.025) Urine Protein (Neg-Trace) mg/dL Urine Glucose (UA) (Negative) mg/dL Urine Ketones (Negative) mg/dL Urine Blood (Negative) Urine Nitrite (Negative) Ur Leukocyte Esterase (Negative) Stool Occult Blood (NEGATIVE) COVID-19 (NATHANAEL) Negative (Negative) COVID-19 Clin Com See Note Blood Type A Positive Antibody Screen NEGATIVE 06/27/22 06/27/22 06/27/22 Range/Units 16:03 16:09 16:31 WBC 14.1 H (4.8-10.8) X10*3/uL RBC 5.05 (4.60-5.80) X10*6/uL Hgb 15.5 (14.0-18.0) g/dl Hct 46.6 (42.0-52.0) % MCV 92.3 (80.0-98.0) fL MCH 30.7 (27.0-33.0) pg MCHC 33.3 (31.0-36.0) g/dl RDW 13.8 (11.0-16.0) % Plt Count 230 (160-400) X10*3/uL MPV 9.6 (9.4-12.4) fL Immature Gran % (Auto) 1.3 H (0.0-0.4) % Neut % (Auto) 78.2 H (45-73) % Lymph % (Auto) 13.7 L (20-40) % [place] % (Auto) 5.3 (2-11) % Eos % (Auto) 0.9 (0-4) % Baso % (Auto) 0.6 (0-2) % Lymph # (Auto) 1.9 (1.2-4.9) X10*3/uL [place] # (Auto) 0.8 (0.1-1.2) X10*3/uL Eos # (Auto) 0.1 (0.0-0.4) X10*3/uL Baso # (Auto) 0.1 (0.0-0.2) X10*3/uL Abs Immat Gran (auto) 0.18 H (0.00-0.03) X10*3/uL Absolute Neuts (auto) 11.1 H (2.0-8.3) x10*3/uL Absolute Nucleated RBC 0.000 (0.0-0.012) X10*3/uL Nucleated RBC % (auto) 0.0 (0.0-0.2) /100WBC Sodium (135-145) mmol/L Potassium (3.3-5.1) mmol/L Chloride (96-108) mmol/L Carbon Dioxide (22-29) mmol/L Anion Gap (12-20) BUN (9-16) mg/dL Creatinine (0.5-1.4) mg/dL Estim Creat Clear Calc Estimated GFR Random Glucose (60-115) mg/dL Calcium (8.4-10.2) mg/dL Magnesium (1.6-2.6) mg/dL Total Bilirubin (0.0-1.0) mg/dL AST (5-37) U/L ALT (0-40) U/L Alkaline Phosphatase (39-117) U/L Troponin I High Sens (<3.5-35.0) ng/L B-Natriuretic Peptide (<100) pg/mL Total Protein (6.5-8.0) g/dL Albumin (3.5-5.0) g/dL Urine Color Yellow Urine Appearance Clear Urine pH 5.5 (5.0-9.0) Ur Specific [place] 1.020 (1.005-1.025) Urine Protein Negative (Neg-Trace) mg/dL Urine Glucose (UA) Negative (Negative) mg/dL Urine Ketones Negative (Negative) mg/dL Urine Blood Negative (Negative) Urine Nitrite Negative (Negative) Ur Leukocyte Esterase Negative (Negative) Stool Occult Blood NEGATIVE (NEGATIVE) COVID-19 ([facility]HANAEL) (Negative) COVID-19 Clin Com Blood Type Antibody Screen <Ester Milan MD - Last Filed: 06/27/22 20:35> Independent Interpretation I performed an independent interpretation of an: EKG <Ester Milan MD - Last Filed: 06/27/22 20:35> Interpretation: Normal sinus rhythm, HR-76, no STEMI, KS/QRS/QTC are within normal limits. <Ester Milan MD - Last Filed: 06/27/22 20:35> Radiology Impression Radiologist Impression: My interpretation is in agreement with radiology's impression of the imaging studies. <Ester Milan MD - Last Filed: 06/27/22 20:35> External Record Review External record reviewed: Outpatient record and Prior outpatient labs <Ester Milan MD - Last Filed: 06/27/22 20:35> Discharge Plan Discharge Clinical Impression: GI bleed, Chronic anticoagulation, Renal cyst, acquired, left <PAOLO Brooks - Last Filed: 06/27/22 11:35> Patient Disposition: Admitted As Inpatient <PAOLO Brooks - Last Filed: 06/27/22 11:35> Prescriptions: No Action prednisone 10 mg tablet See Taper PO DAILY Qty: 22 0RF Taper: Prednisone 40 mg daily for 1 Day and 0 Hour 30 mg daily for 3 Days and 0 Hour 20 mg daily for 3 Days and 0 Hour 10 mg daily for 3 Days and 0 Hour tamsulosin 0.4 mg capsule 1 cap PO DAILY omeprazole 20 mg capsule,delayed release(DR/EC) 1 cap PO DAILY albuterol sulfate 90 mcg/actuation HFA aerosol inhaler 2 puff inhalation Q4H PRN (Reason: wheezing) paroxetine HCl 40 mg tablet 1 tab PO QAM zolpidem 12.5 mg tablet,ext release multiphase 1 tab PO BEDTIME PRN (Reason: insomnia) metoprolol succinate 25 mg Tablet Extended Release 24 Hr 75 mg PO DAILY Qty: 30 0RF Protocol: Hold for SBP/HR < HOLD for SBP < : 90 HOLD for HR < : 60 fluticasone furoate-vilanterol [Breo Ellipta] 200-25 mcg/dose blister with dev ice 1 inh inhalation DAILY Qty: 28 0RF Eliquis 5 mg tablet 5 mg PO BID <PAOLO Brooks - Last Filed: 06/27/22 11:35>
[2022-06-27 11:32] VITALS: BP 144/73; PULSE 83; RESP 16; O2SAT 96; BMI 25.1
[2022-06-27 11:50] LABS: MANUAL DIFF FLAG NO
[2022-06-27 11:53] LABS: Basophils Absolute Auto 0.1 X10*3/uL (0.0-0.2); Basophils Percent Auto 0.7 % (0-2); Eosinophils Absolute Auto 0.2 X10*3/uL (0.0-0.4); Eosinophils Percent Auto 1.2 % (0-4); Hemoglobin 16.2 g/dl (14.0-18.0); Imm Gran Abs Auto 0.22 X10*3/uL (0.00-0.03); Imm Gran Pct Auto 1.7 % (0.0-0.4); Lymphocytes Absolute Auto 1.8 X10*3/uL (1.2-4.9); Lymphocytes Percent Auto 13.9 % (20-40); Mean Corpuscular HGB Conc 33.1 g/dl (31.0-36.0); Mean Corpuscular Hemoglobin 30.9 pg (27.0-33.0); Mean Corpuscular Volume 93.5 fL (80.0-98.0); Mean Platelet Volume 9.6 fL (9.4-12.4); Monocytes Absolute Auto 0.8 X10*3/uL (0.1-1.2); Monocytes Percent Auto 6.2 % (2-11); Neutrophils Absolute Auto 9.9 x10*3/uL (2.0-8.3); Neutrophils Percent Auto 76.3 % (45-73); Platelet Count 241 X10*3/uL (160-400); Red Blood Count 5.24 X10*6/uL (4.60-5.80); Red Cell Distribution Width 13.8 % (11.0-16.0)
[2022-06-27 12:07] LABS: COVID-19 Test Negative (Negative); IDNOW Serial# 55D5AD1C
[2022-06-27 12:13] LABS: Alanine Aminotransferase 12 U/L (0-40); Albumin Level 4.4 g/dL (3.5-5.0); Alkaline Phosphatase 64 U/L (39-117); Anion Gap 15 (12-20); Aspartate Amino Transferase 13 U/L (5-37); Bilirubin Total 0.8 mg/dL (0.0-1.0); Blood Urea Nitrogen 32 mg/dL (9-16); Calcium 9.9 mg/dL (8.4-10.2); Carbon Dioxide 23 mmol/L (22-29); Chloride 102 mmol/L (96-108); Creatinine Clr Calc Pharmacy 38.7; Estimated Glomerular Filt Rate 46; Glucose Random 117 mg/dL (60-115); Magnesium 1.8 mg/dL (1.6-2.6); Sodium 135 mmol/L (135-145); Total Protein 7.6 g/dL (6.5-8.0)
[2022-06-27 12:16] LABS: B Type Natriuretic Peptide 14 pg/mL (<100)
[2022-06-27 12:30] LABS: Troponin-I High Sensitivity < 2.7 ng/L (<3.5-35.0)
[2022-06-27 15:46] VITALS: BP 168/66; PULSE 67; RESP 19; O2SAT 100
--- NOTE | 2022-06-27 15:53 | PC.NURSE ---
Pt brought back from waiting room, resting comfortably on stretcher, denies pain, denies SOB. VSS at this time, blood pressure is a little high. Pt providing us with urine sample at this time. Pt reports not feeling dizzy at this time, however he does admit that if he stands up he will more than likely feel dizzy again. No apparent distress at this time, awaiting provider
[2022-06-27 16:02] VITALS: BP 149/79; PULSE 67; RESP 16; O2SAT 100
[2022-06-27 16:11] LABS: Appearance Urine Clear; Color Urine Yellow; Glucose Urine UA Negative (Negative); Leukocyte Esterase Urine Negative (Negative); Nitrite Urine Negative (Negative); PH 5.5 (5.0-9.0); Urine Blood Negative (Negative); Urine Ketones Negative (Negative); Urine Protein Negative (Neg-Trace)
[2022-06-27] MEDS: Pantoprazole Sodium 40 MG/10 ML VIAL 80 MG IVPUSH (16:29)
[2022-06-27] MEDS: 0.9 % Sodium Chloride 500 ML 999 ML IV (16:30)
[2022-06-27 16:31] LABS: OBS Int Ctl Valid YES; OBS1 NEGATIVE (NEGATIVE)
[2022-06-27 16:38] LABS: MANUAL DIFF FLAG NO
[2022-06-27 16:39] LABS: Basophils Absolute Auto 0.1 X10*3/uL (0.0-0.2); Basophils Percent Auto 0.6 % (0-2); Eosinophils Absolute Auto 0.1 X10*3/uL (0.0-0.4); Eosinophils Percent Auto 0.9 % (0-4); Hematocrit 46.6 % (42.0-52.0); Hemoglobin 15.5 g/dl (14.0-18.0); Imm Gran Abs Auto 0.18 X10*3/uL (0.00-0.03); Imm Gran Pct Auto 1.3 % (0.0-0.4); Lymphocytes Absolute Auto 1.9 X10*3/uL (1.2-4.9); Lymphocytes Percent Auto 13.7 % (20-40); Mean Corpuscular HGB Conc 33.3 g/dl (31.0-36.0); Mean Corpuscular Hemoglobin 30.7 pg (27.0-33.0); Mean Corpuscular Volume 92.3 fL (80.0-98.0); Mean Platelet Volume 9.6 fL (9.4-12.4); Monocytes Absolute Auto 0.8 X10*3/uL (0.1-1.2); Monocytes Percent Auto 5.3 % (2-11); Neutrophils Absolute Auto 11.1 x10*3/uL (2.0-8.3); Neutrophils Percent Auto 78.2 % (45-73); Platelet Count 230 X10*3/uL (160-400); Red Blood Count 5.05 X10*6/uL (4.60-5.80); Red Cell Distribution Width 13.8 % (11.0-16.0); White Blood Count 14.1 X10*3/uL (4.8-10.8)
[2022-06-27] MEDS: iohexoL 350 MG/ML 100 ML INFUS..BTL IV (17:38)
[2022-06-27 18:49] VITALS: BP 158/81; PULSE 74; RESP 20; O2SAT 100
--- NOTE | 2022-06-27 20:38 | P.HPHOSP_ITS ---
History of Present Illness Date of Service: 06/27/22 Chief Complaint: GI bleed Male with past medical history of paroxysmal AFib on Eliquis, PE, HTN, COPD, history of lung cancer in remission according to patient ants on presents to the hospital complaints of 1 episode of dark blood per rectum. Patient reports the episode occurred in the morning, he has had on and off black stools. Denies any abdominal pain. Large amount of dark blood in the toilet bowl which scared him and brought him to the hospital. Patient denies any nausea or vomiting, reports no headache or change in vision, no shortness of breath, no increased cough or sputum production, no urinary symptoms and no lower extremity edema. 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 Urology was consulted, plan for cyst drainage in a.m., patient will also be admitted for evaluation of bleed Review of Systems Review of Systems: Yes all other systems are reviewed and are negative [facility] Medical History COPD (chronic obstructive pulmonary disease) Essential hypertension Lung cancer PAF (paroxysmal atrial fibrillation) Pulmonary emboli Family History Father Lung cancer Surgical History No pertinent past surgical history Social History Household Members: None Housing: House Do you presently have visiting nurse or other home services: No Alcohol intake: never Patient Tobacco Use Status: Current someday Tobacco user Smoked in Last 30 Days: Yes Use of substances other than those prescribed or required for medical reasons: No Advance Directives: Yes Advance Directives on File: Yes Advance Directives Date on File: 10/19/21 Nutrition Risks: No Nutritional Risk service: Yes Current occupational status: retired Meds Allergies Allergy/AdvReac Type Severity Reaction Status Date / Time No Known Allergies Allergy Verified 06/27/22 16:10 Active Medications: Current Medications Pharmacy Consult (Consult Rx Perform Med Rec) 1 each MISCELLANE ONCE PRN PRN Reason: Consult order Home Medications Medication Instructions Recorded Confirmed Last Taken Type albuterol sulfate 90 mcg/actuation 2 puff inhalation Q4H PRN wheezing 07/14/21 06/27/22 07/13/21 History aerosol inhaler omeprazole 20 mg capsule,delayed 1 cap PO DAILY 07/14/21 06/27/22 07/13/21 History release paroxetine HCl 40 mg tablet 1 tab PO QAM 07/14/21 06/27/22 07/13/21 History tamsulosin 0.4 mg capsule 1 cap PO QPM 07/14/21 06/27/22 07/13/21 History apixaban 5 mg tablet (Eliquis) 5 mg PO BID 08/16/21 06/27/22 Unknown History metoprolol succinate 25 mg 50 mg PO DAILY 06/27/22 06/27/22 Unknown History tablet,extended release 24 hr trazodone 50 mg tablet 50 mg PO BEDTIME PRN Insomnia 06/27/22 06/27/22 Unknown History Physical Exam Vital Signs and Narrative: Vital Signs: Last Vital Signs Pulse 74 06/27/22 18:49 Resp 20 06/27/22 18:49 BP 158/81 H 06/27/22 18:49 Pulse Ox 100 06/27/22 18:49 O2 Del Method Room Air 06/27/22 18:49 BMI result Body Mass Index 25.1 Const: General: cooperative and no acute distress Orientation/consciousness: patient oriented x3 Eyes: General: appearance normal, both eyes and all related structures Resp: Effort & Inspection: normal respiratory effort Auscultation: clear to auscultation bilaterally Cardio: Rate: regular rate Rhythm: regular rhythm GI: Other: Abdomen is soft, nontender Palpation (GI): Soft to palpation Auscultation: normal bowel sounds Skin: General skin exam: no rashes or lesions noted Neuro: General: patient oriented x3 Cognition (Neuro): normal cognition Extrem: General: Yes normal to inspection and Yes no pedal edema Results Labs 06/27/22 16:31 06/27/22 11:45 Labs: Laboratory Results - last 24 hr 06/27/22 06/27/22 06/27/22 11:45 11:45 11:45 MCV 93.5 MCH 30.9 MCHC 33.1 RDW 13.8 Plt Count 241 MPV 9.6 Immature Gran % (Auto) 1.7 H Neut % (Auto) 76.3 H Lymph % (Auto) 13.9 L [place] % (Auto) 6.2 Eos % (Auto) 1.2 Baso % (Auto) 0.7 Lymph # (Auto) 1.8 [place] # (Auto) 0.8 Eos # (Auto) 0.2 Baso # (Auto) 0.1 Abs Immat Gran (auto) 0.22 H Absolute Neuts (auto) 9.9 H Absolute Nucleated RBC 0.000 Nucleated RBC % (auto) 0.0 Anion Gap 15 Estim Creat Clear Calc 38.7 Estimated GFR 46 Random Glucose 117 H Calcium 9.9 D Magnesium 1.8 Total Bilirubin 0.8 AST 13 ALT 12 Alkaline Phosphatase 64 Troponin I High Sens < 2.7 B-Natriuretic Peptide Total Protein 7.6 Albumin 4.4 Urine Color Urine Appearance Urine pH Ur Specific [place] Urine Protein Urine Glucose (UA) Urine Ketones Urine Blood Urine Nitrite Ur Leukocyte Esterase Stool Occult Blood COVID-19 (NATHANAEL) COVID-19 Clin Com Blood Type Antibody Screen 06/27/22 06/27/22 06/27/22 11:45 11:45 11:45 MCV MCH MCHC RDW Plt Count MPV Immature Gran % (Auto) Neut % (Auto) Lymph % (Auto) [place] % (Auto) Eos % (Auto) Baso % (Auto) Lymph # (Auto) [place] # (Auto) Eos # (Auto) Baso # (Auto) Abs Immat Gran (auto) Absolute Neuts (auto) Absolute Nucleated RBC Nucleated RBC % (auto) Anion Gap Estim Creat Clear Calc Estimated GFR Random Glucose Calcium Magnesium Total Bilirubin AST ALT Alkaline Phosphatase Troponin I High Sens B-Natriuretic Peptide 14 Total Protein Albumin Urine Color Urine Appearance Urine pH Ur Specific [place] Urine Protein Urine Glucose (UA) Urine Ketones Urine Blood Urine Nitrite Ur Leukocyte Esterase Stool Occult Blood COVID-19 (NATHANAEL) Negative COVID-19 Clin Com See Note Blood Type A Positive Antibody Screen NEGATIVE 06/27/22 06/27/22 06/27/22 16:03 16:09 16:31 MCV 92.3 MCH 30.7 MCHC 33.3 RDW 13.8 Plt Count 230 MPV 9.6 Immature Gran % (Auto) 1.3 H Neut % (Auto) 78.2 H Lymph % (Auto) 13.7 L [place] % (Auto) 5.3 Eos % (Auto) 0.9 Baso % (Auto) 0.6 Lymph # (Auto) 1.9 [place] # (Auto) 0.8 Eos # (Auto) 0.1 Baso # (Auto) 0.1 Abs Immat Gran (auto) 0.18 H Absolute Neuts (auto) 11.1 H Absolute Nucleated RBC 0.000 Nucleated RBC % (auto) 0.0 Anion Gap Estim Creat Clear Calc Estimated GFR Random Glucose Calcium Magnesium Total Bilirubin AST ALT Alkaline Phosphatase Troponin I High Sens B-Natriuretic Peptide Total Protein Albumin Urine Color Yellow Urine Appearance Clear Urine pH 5.5 Ur Specific [place] 1.020 Urine Protein Negative Urine Glucose (UA) Negative Urine Ketones Negative Urine Blood Negative Urine Nitrite Negative Ur Leukocyte Esterase Negative Stool Occult Blood NEGATIVE COVID-19 (NATHANAEL) COVID-19 Clin Com Blood Type Antibody Screen Imaging Radiologist's Impressions: Impressions Chest X-Ray 06/27/22 12:56 IMPRESSION: Mild asymmetric markings at the left lung base are similar to the previous study and likely represent pleural/parenchymal scarring. An acute on chronic infiltrate cannot be excluded. If symptoms persist or worsen, PA and lateral views of the chest would be helpful. Abdomen/Pelvis CT 06/27/22 17:44 IMPRESSION: 1. No evidence of active gastrointestinal hemorrhage with the caveat that evaluation of small foci of bleeding in the rectum and sigmoid is somewhat limited due to residual hyperattenuating intraluminal contrast. 2. Diverticulosis but no evidence of acute diverticulitis. 3. Large left-sided renal cyst measuring up to 28 cm. No suspicious septations or enhancing nodules. This large cyst produces mass effect upon the abdominal organs. Given size surgical consultation is recommended. 4. Emphysematous changes and findings most suggestive of pulmonary fibrosis, progressed compared to 2013. Recommend further evaluation with an elective high-resolution chest CT. 5. 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 Based on published guidelines in J Am Isaura Radiol 2013; 10(10):789-794 and J Vasc Surg. 2018; 67:2-77, the recommendation for an abdominal aorta with diameter 2.6-2.9 cm is follow-up every 5 years if the aorta that meets the criteria for AAA (>1.5 x proximal normal segment; no f/u if < 1.5 x proximal normal segment; no f/u for aorta < 2.6 cm). Assessment and Plan (1) GI bleed: Status: Acute (2) Chronic anticoagulation: Status: Acute (3) Renal cyst, acquired, left: Status: Acute Plan 81-year-old male with past medical history of paroxysmal AFib, PE on Eliquis, presents to the hospital with complain of dark blood per rectum # GI bleed - acute - upper vs lower GI - Has diverticulitis on CT but states blood was dark - hemodynamically stable - hemoglobin stable - given patient's need for anticoagulation in the setting of AFib and history of PE, patient will need evaluation by GI - will keep NPO - ppi IV b.i.d. - follow CBC # renal cyst - large renal cysts requiring surgical intervention - urology consulted, plan for IR drainage in am # paroxysmal AFib - rate controlled - continue metoprolol - hold Eliquis DVT prophylaxis: SCDs Given patient's need for evaluation for GI bleed in the setting of anticoagulation patient will require minimum 2 night inpatient hospital stay for further management and monitoring Time Spent With Patient Time: Total time managing care of this patient today ____ minutes. Quality Stroke Does the patient have a stroke diagnosis?: No VTE Prior VTE?: No VTE Risk Level:: Medical - moderate - high VTE Device Contraindication: N/A - Device Ordered VTE Drug Contraindication: Treatment Not Indicated
--- NOTE | 2022-06-27 20:53 | PM.UROCN ---
History of Present Illness Consult details Consult date: 06/27/22 Narrative: Consult for Nonenhancing Renal Cyst 23.7 x 28 cm. 81-year-old male who presents with dark stool this morning associated with abdominal discomfort, as well as shortness of breath and Patient currently denies any shortness of breath, chest pain/palpitations, abdominal pain. States only takes a daily aspirin.? Patient states he has been having dark stools intermittently for 1 month. Review of labs, CKD, Significantly large renal cyst on CT imaging, no hydronephrosis but due to significant size of cyst will discuss with interventional to drain.? Review of Systems Review of Systems: ROS negative other than stated in HPI [facility] Past Medical History Medical History COPD (chronic obstructive pulmonary disease) Essential hypertension Lung cancer PAF (paroxysmal atrial fibrillation) Pulmonary emboli Family History Family History Father Lung cancer Surgical History Surgical History No pertinent past surgical history Social History Social History Household Members: None Housing: House Do you presently have visiting nurse or other home services: No Alcohol intake: never Patient Tobacco Use Status: Current someday Tobacco user Smoked in Last 30 Days: Yes Use of substances other than those prescribed or required for medical reasons: No Advance Directives: Yes Advance Directives on File: Yes Advance Directives Date on File: 10/19/21 Nutrition Risks: No Nutritional Risk service: Yes Current occupational status: retired Meds Allergies Allergy/AdvReac Type Severity Reaction Status Date / Time No Known Allergies Allergy Verified 06/27/22 16:10 Active Medications: Current Medications Acetaminophen (Acetaminophen 325 Mg Tablet) 650 mg PO Q6H PRN PRN Reason: Pain, Mild (Pain Scale 1-3) Docusate Sodium (Docusate Sodium 100 Mg Capsule) 100 mg PO DAILY PRN PRN Reason: Constipation Ondansetron HCl (Ondansetron Hcl 4 Mg/2 Ml Vial) 4 mg IVPUSH Q8H PRN PRN Reason: Nausea and Vomiting Pantoprazole Sodium (Pantoprazole Sodium 40 Mg/10 Ml Vial) 40 mg IVPUSH BID@0630,1630 [facility] Pharmacy Consult (Consult Rx Perform Med Rec) 1 each MISCELLANE ONCE PRN PRN Reason: Consult order Sodium Chloride (0.9 % Sodium Chloride Flush 3 Ml Syringe) 3 ml IVFLUSH QSHIFT [facility] Home Medications Medication Instructions Recorded Confirmed Last Taken Type albuterol sulfate 90 mcg/actuation 2 puff inhalation Q4H PRN wheezing 07/14/21 06/27/22 07/13/21 History aerosol inhaler omeprazole 20 mg capsule,delayed 1 cap PO DAILY 07/14/21 06/27/22 07/13/21 History release paroxetine HCl 40 mg tablet 1 tab PO QAM 07/14/21 06/27/22 07/13/21 History tamsulosin 0.4 mg capsule 1 cap PO QPM 07/14/21 06/27/22 07/13/21 History apixaban 5 mg tablet (Eliquis) 5 mg PO BID 08/16/21 06/27/22 Unknown History metoprolol succinate 25 mg 50 mg PO DAILY 06/27/22 06/27/22 Unknown History tablet,extended release 24 hr trazodone 50 mg tablet 50 mg PO BEDTIME PRN Insomnia 06/27/22 06/27/22 Unknown History Physical Exam Vital Signs: Vital Signs: Last Vital Signs Pulse 74 06/27/22 18:49 Resp 20 06/27/22 18:49 BP 158/81 H 06/27/22 18:49 Pulse Ox 100 06/27/22 18:49 O2 Del Method Room Air 06/27/22 18:49 BMI result Body Mass Index 25.1 Const: General: no acute distress Results Labs 06/27/22 16:31 06/27/22 11:45 Labs: Abnormal lab results 06/27/22 06/27/22 06/27/22 Range/Units 11:45 11:45 16:31 WBC 13.0 H 14.1 H (4.8-10.8) X10*3/uL Immature Gran % (Auto) 1.7 H 1.3 H (0.0-0.4) % Neut % (Auto) 76.3 H 78.2 H (45-73) % Lymph % (Auto) 13.9 L 13.7 L (20-40) % Abs Immat Gran (auto) 0.22 H 0.18 H (0.00-0.03) X10*3/uL Absolute Neuts (auto) 9.9 H 11.1 H (2.0-8.3) x10*3/uL BUN 32 H (9-16) mg/dL Creatinine 1.47 H (0.5-1.4) mg/dL Random Glucose 117 H (60-115) mg/dL Short CBC 06/27/22 06/27/22 Range/Units 11:45 16:31 WBC 13.0 H 14.1 H (4.8-10.8) X10*3/uL Hgb 16.2 15.5 (14.0-18.0) g/dl Hct 49.0 46.6 (42.0-52.0) % Plt Count 241 230 (160-400) X10*3/uL BMP 06/27/22 11:45 Sodium 135 Potassium 5.0 Chloride 102 Carbon Dioxide 23 BUN 32 H Creatinine 1.47 H Calcium 9.9 D Liver Function 06/27/22 Range/Units 11:45 Total Bilirubin 0.8 (0.0-1.0) mg/dL AST 13 (5-37) U/L ALT 12 (0-40) U/L Alkaline Phosphatase 64 (39-117) U/L Albumin 4.4 (3.5-5.0) g/dL Urine 06/27/22 Range/Units 16:03 Urine Color Yellow Urine Appearance Clear Urine pH 5.5 (5.0-9.0) Ur Specific [place] 1.020 (1.005-1.025) Urine Protein Negative (Neg-Trace) mg/dL Urine Glucose (UA) Negative (Negative) mg/dL Imaging Additional studies: Date of Service: 06/27/22 EXAMINATION: CT ABDOMEN AND PELVIS WITH AND WITHOUT CONTRAST: CT GI BLEEDING STUDY CLINICAL INFORMATION: Rectal bleeding. COMPARISON: CTA chest 10/14/2012. TECHNIQUE: Multidetector volumetric imaging was performed from the lung bases to the pubic symphysis before and after the administration of: Intravenous contrast: 85 mL Omnipaque 350 No contrast reaction reported MIP coronal, sagittal and coronal reformatted images were obtained on the technologist workstation. This CT examination was performed using dose optimization techniques as appropriate, variously including the following: *Automated exposure control *Adjustment of mA and/or kV according to patient size (this includes techniques or standardized protocols for targeted exams where dose is matched to indication/reason for exam; i.e. extremities or head) *Use of iterative reconstruction technique Total exam dose-length product 404 mGy-cm FINDINGS: STOMACH: No abnormal wall thickening or mass. No intraluminal contrast accumulation to suggest hemorrhage. Small hiatal hernia. SMALL BOWEL: No abnormal wall thickening or dilation. No intraluminal contrast accumulation to suggest hemorrhage. COLON: Evaluation is somewhat limited due to residual hyperattenuating contrast in the sigmoid and rectum. However, accounting for this limitation no definite intraluminal contrast accumulation is noted to suggest hemorrhage. Colonic diverticulosis. No colonic wall thickening or pericolonic inflammatory changes. Normal appendix. LUNG BASES: Emphysematous changes and findings most suggestive of pulmonary fibrosis with honeycombing, traction bronchiectasis and reticulation. These are progressed compared to 2013. Partially imaged coronary artery calcifications. LIVER, GALLBLADDER, AND BILIARY TREE: Stable simple cyst in the left hepatic lobe (9:12). Unchanged too small to characterize hypodensity more anteriorly in the left hepatic lobe (9:12), compared to CTA of the chest from 10/14/2012. The liver is normal in size, shape and attenuation. No new liver lesion. No biliary ductal dilatation. The gallbladder is unremarkable with no evidence of radiopaque gallstones, gallbladder wall thickening, or obvious pericholecystic inflammatory changes.? PANCREAS: Normal; no mass or surrounding fluid.? SPLEEN: Normal size. No focal lesion.? ADRENAL GLANDS: Stable asymmetric thickening of the left adrenal gland compared to 2013 with a small calcification along the medial limb, also noted in 2013. Normal right adrenal gland.? KIDNEYS AND URETERS: There is a large well-defined homogeneous nonenhancing simple cyst in the left abdomen measuring 23.2 x 13.7 x 28.3 cm. There is a claw sign from the lateral left kidney, suggestive of a renal origin. In retrospect, this was partially imaged on CTA chest from 10/14/2012. This large cyst produces mass effect upon the adjacent organs. Multiple additional smaller simple cysts in the left greater than right kidneys, for which no imaging follow-up is recommended. Symmetric nephrograms. No hydronephrosis. No significant perinephric fat stranding.? ABDOMINAL WALL: Small fat-containing left-sided inguinal hernia.? LYMPHOVASCULAR STRUCTURES: No lymphadenopathy. Scattered atherosclerotic disease. The infrarenal abdominal aorta measures 2.6 cm in diameter.? BLADDER: No focal mass or wall thickening seen. No bladder calculi.? PELVIC VISCERA: Coarse prostatic calcifications. The prostate gland is borderline enlarged. No free fluid. OSSEOUS STRUCTURES: Degenerative changes of the spine. No acute or aggressive appearing osseous abnormalities.? IMPRESSION: ? 1.? No evidence of active gastrointestinal hemorrhage with the caveat that evaluation of small foci of bleeding in the rectum and sigmoid is somewhat limited due to residual hyperattenuating intraluminal contrast. 2.? Diverticulosis but no evidence of acute diverticulitis. 3.? Large left-sided renal cyst measuring up to 28 cm. No suspicious septations or enhancing nodules. This large cyst produces mass effect upon the abdominal organs. Given size surgical consultation is recommended. 4.? Emphysematous changes and findings most suggestive of pulmonary fibrosis, progressed compared to 2013. Recommend further evaluation with an elective high-resolution chest CT. 5.? 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 Based on published guidelines in J Am Isaura Radiol 2013; 10(10):789-794 and J Vasc Surg. 2018; 67:2-77, the recommendation for an abdominal aorta with diameter 2.6-2.9 cm is follow-up every 5 years if the aorta that meets the criteria for AAA (>1.5 x proximal normal segment; no f/u if < 1.5 x proximal normal segment; no f/u for aorta < 2.6 cm). Assessment and Plan (1) Renal cyst, acquired, left: Status: Acute Plan Significantly large renal cyst on CT imaging, no hydronephrosis but due to significant size of cyst 28 cm x 23.7 cm; will discuss with interventional to drain. Time Spent With Patient Time: Total time managing care of this patient today ____ minutes. Procedures Date of Service Date of Service: 06/27/22
--- NOTE | 2022-06-27 21:40 | PHA.MEDREC ---
MED REC COMPLETE, ENTERED BY RN, CONFIRMED BY [facility], PATIENTS SON STATED METOPROLOL HAS BEEN DECREASED TO 2 TABS 50 MG A DAYPharmacy Consult ? Medication Reconciliation Pharmacy has completed the medication reconciliation.
[2022-06-27] MEDS: traZODone HCL 50 MG TABLET PO (22:28)
[2022-06-27 23:55] VITALS: BP 127/79; PULSE 65; RESP 17; TEMP 36.5; O2SAT 93
[2022-06-28] VITALS (8 sets, daily range): BP systolic 117–170; BP diastolic 73–87; PULSE 65–93; RESP 15–20; TEMP 36–37.2; O2SAT 93–96
--- NOTE | 2022-06-28 00:45 | MHC.EDTECH ---
Patient vitals are stable
[2022-06-28] MEDS: diphenhydrAMINE HCL 50 MG/ML VIAL 25 MG IVPUSH (01:06)
--- NOTE | 2022-06-28 01:08 | PC.NURSE ---
pt reporting not being able to fall asleep, MD Queen aware, Bendaryl ordered and administered per APR. Pt now resting comfortably, no apparent distress, respirations even and unlabored
--- NOTE | 2022-06-28 04:41 | PC.NURSE ---
patient sleeping at this time, respirations even and unlabored, skin pwd
[2022-06-28] MEDS: Pantoprazole Sodium 40 MG/10 ML VIAL IVPUSH ×2 (06:11→17:48)
[2022-06-28 06:30] LABS: MANUAL DIFF FLAG NO
[2022-06-28 06:36] LABS: Basophils Absolute Auto 0.1 X10*3/uL (0.0-0.2); Basophils Percent Auto 0.7 % (0-2); Eosinophils Absolute Auto 0.2 X10*3/uL (0.0-0.4); Eosinophils Percent Auto 1.8 % (0-4); Hematocrit 44.7 % (42.0-52.0); Hemoglobin 14.9 g/dl (14.0-18.0); Imm Gran Abs Auto 0.12 X10*3/uL (0.00-0.03); Imm Gran Pct Auto 1.1 % (0.0-0.4); Lymphocytes Absolute Auto 2.1 X10*3/uL (1.2-4.9); Mean Corpuscular HGB Conc 33.3 g/dl (31.0-36.0); Mean Corpuscular Hemoglobin 31.1 pg (27.0-33.0); Mean Corpuscular Volume 93.3 fL (80.0-98.0); Mean Platelet Volume 9.7 fL (9.4-12.4); Monocytes Absolute Auto 0.6 X10*3/uL (0.1-1.2); Monocytes Percent Auto 5.7 % (2-11); Neutrophils Absolute Auto 8.1 x10*3/uL (2.0-8.3); Neutrophils Percent Auto 71.7 % (45-73); Platelet Count 222 X10*3/uL (160-400); Red Blood Count 4.79 X10*6/uL (4.60-5.80); Red Cell Distribution Width 13.8 % (11.0-16.0); White Blood Count 11.2 X10*3/uL (4.8-10.8)
[2022-06-28 06:59] LABS: Anion Gap 13 (12-20); Blood Urea Nitrogen 29 mg/dL (9-16); Calcium 9.3 mg/dL (8.4-10.2); Carbon Dioxide 25 mmol/L (22-29); Chloride 103 mmol/L (96-108); Creatinine Clr Calc Pharmacy 42.2; Estimated Glomerular Filt Rate 51; Glucose Random 89 mg/dL (60-115); Sodium 136 mmol/L (135-145)
--- NOTE | 2022-06-28 07:04 | PM.GICN ---
History of Present Illness Data of Consult Service Date: 06/28/22 Requesting physician: April Queen Primary Care Provider: Philippe Cesar III, MD HPI Reason for consult: GI Bleed 81 YM with paroxysmal AFib on Eliquis, PE, HTN, COPD, history of lung cancer in remission seen at [facility] on 06/27/22 after he had an episode of dark stools per rectum.? Patient reported he had diarrhea lasting for 6 to 7 days. He took peptobismol for the diarrhea and finished a whole bottle in 5 to 6 days. Pt has been having intermittent black stools over the past week.? He denied any abdominal pain.? Patient also reported he had a large amount of dark/black stools in his commode yesterday morning when he went to the bathroom and was alarmed and came to the ER.? Patient denies heartburn, dysphagia or abdominal pain, nausea or vomiting, headache. He denies any change in his appetite or weight, fever or chills. Diarrhea has resolved. On arrival to the ED patient hemodynamically stable. Labs showed WBC count of 14.1(appears to have chronic leukocytosis), hemoglobin of 15.5 and a hematocrit of 46.6, creatinine of 1.47 which is around his baseline, labs otherwise unremarkable Stool occult blood was negative. Pt was admitted, started on antiemetics and PPI. Urology was consulted, and patient had US guided drainage of the cyst today with removal of > 4 litres of fluid. Patient reports having a colonoscopy 11-[address] [facility] and polyps were removed. Patient was advised to discontinue colorectal cancer screening. Pt is and has 3 children. His of cancer and 1 son of drowning Patient denies known family history of colon polyps or colon cancer. 06/27/[address] SCAN SHOWED: 1.? No evidence of active gastrointestinal hemorrhage with the caveat that evaluation of small foci of bleeding in the rectum and sigmoid is somewhat limited due to residual hyperattenuating intraluminal contrast. 2.? Diverticulosis but no evidence of acute diverticulitis. 3.? Large left-sided renal cyst measuring up to 28 cm. No suspicious septations or enhancing nodules. This large cyst produces mass effect upon the abdominal organs. Given size surgical consultation is recommended. 4.? Emphysematous changes and findings most suggestive of pulmonary fibrosis, progressed compared to 2013. Recommend further evaluation with an elective high-resolution chest CT. 5.? 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 Based on published guidelines in J Am Isaura Radiol 2013; 10(10):789-794 and J Vasc Surg. 2018; 67:2-77, the recommendation for an abdominal aorta with diameter 2.6-2.9 cm is follow-up every 5 years if the aorta that meets the criteria for AAA (>1.5 x proximal normal segment; no f/u if < 1.5 x proximal normal segment; no f/u for aorta < 2.6 cm). Review of Systems Review of Systems: ROS negative other than stated in [facility] Past Medical History Medical History COPD (chronic obstructive pulmonary disease) Essential hypertension Lung cancer PAF (paroxysmal atrial fibrillation) Pulmonary emboli Family History Family History Father Lung cancer Surgical History Surgical History No pertinent past surgical history Social History Social History Household Members: Children Household Members Other:: lives with son Housing: House Do you presently have visiting nurse or other home services: No Alcohol intake: never Patient Tobacco Use Status: Current everyday Tobacco user Tobacco use type: Cigarette Cigarettes Per Day: 6 Years Smoked: 50 e-Cigarette/Vaping Use: Currently Using Second Hand Smoke Exposure: No Advance Directives Date on File: 10/19/21 service: Yes Current occupational status: retired [employer] Allergies Allergy/AdvReac Type Severity Reaction Status Date / Time No Known Allergies Allergy Verified 06/27/22 16:10 Active Medications: Current Medications Acetaminophen (Acetaminophen 325 Mg Tablet) 650 mg PO Q6H PRN PRN Reason: Pain, Mild (Pain Scale 1-3) Docusate Sodium (Docusate Sodium 100 Mg Capsule) 100 mg PO DAILY PRN PRN Reason: Constipation Ondansetron HCl (Ondansetron Hcl 4 Mg/2 Ml Vial) 4 mg IVPUSH Q8H PRN PRN Reason: Nausea and Vomiting Pantoprazole Sodium (Pantoprazole Sodium 40 Mg/10 Ml Vial) 40 mg IVPUSH BID@0630,1630 [facility] Last Admin: 06/28/22 06:11 Dose: 40 mg Pharmacy Consult (Consult Rx Perform Med Rec) 1 each MISCELLANE ONCE PRN PRN Reason: Consult order Sodium Chloride (0.9 % Sodium Chloride Flush 3 Ml Syringe) 3 ml IVFLUSH QSHIFT [facility] Last Admin: 06/28/22 00:13 Dose: Not Given Home Medications Medication Instructions Recorded Confirmed Last Taken Type albuterol sulfate 90 mcg/actuation 2 puff inhalation Q4H PRN wheezing 07/14/21 06/27/22 07/13/21 History aerosol inhaler omeprazole 20 mg capsule,delayed 1 cap PO DAILY 07/14/21 06/27/22 07/13/21 History release paroxetine HCl 40 mg tablet 1 tab PO QAM 07/14/21 06/27/22 07/13/21 History tamsulosin 0.4 mg capsule 1 cap PO QPM 07/14/21 06/27/22 07/13/21 History apixaban 5 mg tablet (Eliquis) 5 mg PO BID 08/16/21 06/27/22 Unknown History metoprolol succinate 25 mg 50 mg PO DAILY 06/27/22 06/27/22 Unknown History tablet,extended release 24 hr trazodone 50 mg tablet 50 mg PO BEDTIME PRN Insomnia 06/27/22 06/27/22 Unknown History Physical Exam Vital Signs: Vital Signs: Last Vital Signs Temp 97.5 F 06/28/22 03:02 Pulse 69 06/28/22 03:02 Resp 17 06/28/22 03:02 BP 127/74 06/28/22 03:02 Pulse Ox 95 06/28/22 03:02 O2 Del Method Room Air 06/28/22 03:02 BMI result Body Mass Index 25.1 Const: General: healthy appearing and no acute distress Nutritional Appearance: average body habitus Orientation/consciousness: patient oriented x3 Limitations: no limitations HEENT: Head: Yes normal to inspection Ears: hearing grossly normal bilaterally Mouth: Normal oral and palatal mucosa present Eyes: Sclerae: sclerae normal Pupils: Equal, round and reactive pupils present Neck: Neck: Yes normal visual inspection Chest: Chest palpation & inspection: normal inspection of the chest Resp: Effort & Inspection: normal respiratory effort Auscultation: clear to auscultation bilaterally Cardio: Palpation: normal PMI Rate: regular rate Rhythm: regular rhythm Heart sounds: S1 normal heart sound present, S2 normal heart sound present and no murmurs GI: Palpation (GI): Soft to palpation, nontender and No hepatosplenomegaly present Auscultation: normal bowel sounds Rectal Exam - Male: Yes deferred Skin: General skin exam: no rashes or lesions noted Neuro: General: patient oriented x3, gait normal and moves all extremities Cranial nerves: Yes Equal, round and reactive pupils present Psych: Appearance: grossly normal Mental Status: mental status grossly normal Results Labs 06/28/22 06:00 06/28/22 06:00 Labs: Short CBC 06/27/22 06/27/22 06/28/22 Range/Units 11:45 16:31 06:00 WBC 13.0 H 14.1 H 11.2 H (4.8-10.8) X10*3/uL Hgb 16.2 15.5 14.9 (14.0-18.0) g/dl Hct 49.0 46.6 44.7 (42.0-52.0) % Plt Count 241 230 222 (160-400) X10*3/uL BMP 06/27/22 06/28/22 11:45 06:00 Sodium 135 136 Potassium 5.0 5.0 Chloride 102 103 Carbon Dioxide 23 25 BUN 32 H 29 H Creatinine 1.47 H 1.35 Calcium 9.9 D 9.3 D Liver Function 06/27/22 Range/Units 11:45 Total Bilirubin 0.8 (0.0-1.0) mg/dL AST 13 (5-37) U/L ALT 12 (0-40) U/L Alkaline Phosphatase 64 (39-117) U/L Albumin 4.4 (3.5-5.0) g/dL Urine 06/27/22 Range/Units 16:03 Urine Color Yellow Urine Appearance Clear Urine pH 5.5 (5.0-9.0) Ur Specific [employer] [place] 1.020 (1.005-1.025) Urine Protein Negative (Neg-Trace) mg/dL Urine Glucose (UA) Negative (Negative) mg/dL Assessment and Plan (1) Chronic anticoagulation: Status: Acute (2) Dark stools: Status: Acute Plan 81 YM with paroxysmal AFib on Eliquis, PE, HTN, COPD, history of lung cancer in remission seen at [facility] on 06/27/22 after he had an episode of dark stools per rectum.? Patient reported he had diarrhea lasting for 6 to 7 days. He took peptobismol for the diarrhea and finished a whole bottle in 5 to 6 days. Pt has been having intermittent black stools.? He denied any abdominal pain.? RECOMMENDATIONS: Black stools are likely related to peptobismol use. H & H has been stable and stool occult blood was negative. Pt can be discharged home in the am and FU with his PCP. Time Spent With Patient Time: Total time managing care of this patient today ____ minutes. Procedures Date of Service Date of Service: 06/28/22
--- NOTE | 2022-06-28 07:12 | PHA.MEDREC ---
Pharmacy Consult ? Medication Reconciliation Pharmacy has reviewed the medication reconciliation.
[2022-06-28 08:25] LABS: Partial Thromboplastin Time 28.9 SEC (26.0-36.4)
[2022-06-28] MEDS: 0.9 % Sodium Chloride Flush 3 ML SYRINGE IVFLUSH ×3 (08:36→20:23)
--- NOTE | 2022-06-28 08:56 | PC.NURSE ---
rn to rn given to kaylie. pt aware of plan of care for transfer to room 354.
--- NOTE | 2022-06-28 12:42 | MHC.CM.PN ---
pt lives with his son has own ride home is covid vax not expected to need servceis when dcd
[2022-06-28 14:05] LABS: INTERNATIONAL NORM RATIO 1.1 (0.9-1.1); Prothrombin Time 12.2 SEC (10.0-13.1)
[2022-06-28 14:08] LABS: Partial Thromboplastin Time 28.7 SEC (26.0-36.4)
--- NOTE | 2022-06-28 15:34 | HO.RADPN ---
RADIOLOGY Narrative Narrative: 4.8 L atilio clear fluid removed from left renal cyst. Specimen sent for gs, culture and cytology.
[2022-06-28] MEDS: Lidocaine HCl 1 % MPF 5 ML VIAL SUBCUT (15:47)
--- NOTE | 2022-06-28 16:40 | HO.PM.IMPN ---
Subjective Subjective Date of Service: 06/28/22 Interval History: No acute issues overnight. No further black tarry stools. When question patient states he has been using Pepto-Bismol for diarrhea. Renal cyst drain for 4 L of fluid Review of Systems Denies chest pain Denies shortness of breath Denies nausea vomiting diarrhea Denies fever chills Physical Exam Vital Signs: Vital Signs: Last Vital Signs Temp 96.8 F 06/28/22 15:52 Pulse 80 06/28/22 15:52 Resp 20 06/28/22 15:52 BP 166/74 H 06/28/22 15:52 Pulse Ox 96 06/28/22 15:52 O2 Del Method Room Air 06/28/22 15:52 BMI result Body Mass Index 25.1 Const: Other: Awake alert orient x3 no acute distress Resp: Other: Clear to auscultation bilaterally no rales rhonchi or wheezes Cardio: Other: No S4; positive S1-S2; no S3 murmurs rubs or gallops GI: Other: Soft nontender nondistended normoactive bowel sounds Neuro: Other: Cranial nerves 2-12 grossly intact as tested. Motor is 5/5 all extremities. Sensation is intact Extrem: Other: No edema bilaterally Objective Data Active Medications Acetaminophen (Acetaminophen 325 Mg Tablet) 650 mg PO Q6H PRN PRN Reason: Pain, Mild (Pain Scale 1-3) Docusate Sodium (Docusate Sodium 100 Mg Capsule) 100 mg PO DAILY PRN PRN Reason: Constipation Ondansetron HCl (Ondansetron Hcl 4 Mg/2 Ml Vial) 4 mg IVPUSH Q8H PRN PRN Reason: Nausea and Vomiting Pantoprazole Sodium (Pantoprazole Sodium 40 Mg/10 Ml Vial) 40 mg IVPUSH BID@0630,1630 [facility] Last Admin: 06/28/22 06:11 Dose: 40 mg Documented By: KEN Pharmacy Consult (Consult Rx Perform Med Rec) 1 each MISCELLANE ONCE PRN PRN Reason: Consult order Sodium Chloride (0.9 % Sodium Chloride Flush 3 Ml Syringe) 3 ml IVFLUSH QSHIFT [facility] Last Admin: 06/28/22 16:26 Dose: 3 ml Documented By: TATIANNA Labs 06/28/22 06:00 06/28/22 06:00 Labs: Laboratory Results - last 24 hr 06/27/22 06/28/22 06/28/22 16:31 06:00 06:00 MCV 92.3 93.3 MCH 30.7 31.1 MCHC 33.3 33.3 RDW 13.8 13.8 Plt Count 230 222 MPV 9.6 9.7 Immature Gran % (Auto) 1.3 H 1.1 H Neut % (Auto) 78.2 H 71.7 Lymph % (Auto) 13.7 L 19.0 L [place] % (Auto) 5.3 5.7 Eos % (Auto) 0.9 1.8 Baso % (Auto) 0.6 0.7 Lymph # (Auto) 1.9 2.1 [place] # (Auto) 0.8 0.6 Eos # (Auto) 0.1 0.2 Baso # (Auto) 0.1 0.1 Abs Immat Gran (auto) 0.18 H 0.12 H Absolute Neuts (auto) 11.1 H 8.1 Absolute Nucleated RBC 0.000 0.000 Nucleated RBC % (auto) 0.0 0.0 PT INR APTT Anion Gap 13 Estim Creat Clear Calc 42.2 Estimated GFR 51 Random Glucose 89 Calcium 9.3 D 06/28/22 06/28/22 08:05 13:47 MCV MCH MCHC RDW Plt Count MPV Immature Gran % (Auto) Neut % (Auto) Lymph % (Auto) [place] % (Auto) Eos % (Auto) Baso % (Auto) Lymph # (Auto) [place] # (Auto) Eos # (Auto) Baso # (Auto) Abs Immat Gran (auto) Absolute Neuts (auto) Absolute Nucleated RBC Nucleated RBC % (auto) PT 12.2 INR 1.1 APTT 28.9 28.7 Anion Gap Estim Creat Clear Calc Estimated GFR Random Glucose Calcium Assessment and Plan (1) Renal cyst, acquired, left: Status: Acute (2) Dark stools: Status: Acute Plan 81-year-old male with past medical history of paroxysmal AFib, PE on Eliquis, presents to the hospital with complain of dark blood per rectum 1. Dark stools likely related to increased Pepto-Bismol use. .. Unlikely GI bleed - discussed with GI heme-negative from below will follow overnight and check CBC in a.m. -restart Eliquis 2.Renal cyst - IR drained 4 L of fluid from cyst -patient notes relief follow clinically 3Paroxysmal AFib - rate controlled on metoprololl - restart Rolly Lofton DNR DNI Will require ongoing hospitalization to monitor post renal cyst drainage and document stabilization of H&H Time Spent With Patient Time: Total time managing care of this patient today ____ minutes. Quality Stroke Does the patient have a stroke diagnosis?: No VTE Prior VTE?: No VTE Risk Level:: Medical - moderate - high VTE Device Contraindication: N/A - Device Ordered VTE Drug Contraindication: Treatment Not Indicated
[2022-06-29 03:26] VITALS: BP 132/81; PULSE 78; RESP 14; TEMP 36.9; O2SAT 96
[2022-06-29] MEDS: Pantoprazole Sodium 40 MG/10 ML VIAL IVPUSH (05:44)
[2022-06-29 06:34] LABS: MANUAL DIFF FLAG NO
[2022-06-29 06:38] LABS: Basophils Absolute Auto 0.1 X10*3/uL (0.0-0.2); Basophils Percent Auto 0.6 % (0-2); Eosinophils Absolute Auto 0.2 X10*3/uL (0.0-0.4); Eosinophils Percent Auto 1.5 % (0-4); Hematocrit 48.6 % (42.0-52.0); Hemoglobin 16.3 g/dl (14.0-18.0); Imm Gran Abs Auto 0.16 X10*3/uL (0.00-0.03); Imm Gran Pct Auto 1.3 % (0.0-0.4); Lymphocytes Absolute Auto 2.2 X10*3/uL (1.2-4.9); Lymphocytes Percent Auto 17.6 % (20-40); Mean Corpuscular HGB Conc 33.5 g/dl (31.0-36.0); Mean Corpuscular Hemoglobin 30.7 pg (27.0-33.0); Mean Corpuscular Volume 91.5 fL (80.0-98.0); Mean Platelet Volume 9.5 fL (9.4-12.4); Monocytes Absolute Auto 0.8 X10*3/uL (0.1-1.2); Monocytes Percent Auto 6.7 % (2-11); Neutrophils Absolute Auto 8.9 x10*3/uL (2.0-8.3); Neutrophils Percent Auto 72.3 % (45-73); Platelet Count 224 X10*3/uL (160-400); Red Blood Count 5.31 X10*6/uL (4.60-5.80); Red Cell Distribution Width 13.6 % (11.0-16.0); White Blood Count 12.4 X10*3/uL (4.8-10.8)
[2022-06-29 06:54] LABS: Alanine Aminotransferase 11 U/L (0-40); Alkaline Phosphatase 64 U/L (39-117); Anion Gap 12 (12-20); Aspartate Amino Transferase 13 U/L (5-37); Blood Urea Nitrogen 34 mg/dL (9-16); Calcium 9.6 mg/dL (8.4-10.2); Carbon Dioxide 26 mmol/L (22-29); Chloride 104 mmol/L (96-108); Creatinine Clr Calc Pharmacy 42.5; Estimated Glomerular Filt Rate 51; Glucose Fasting 94 mg/dL (60-99); Potassium 4.9 mmol/L (3.3-5.1); Sodium 137 mmol/L (135-145); Total Protein 6.9 g/dL (6.5-8.0)
[2022-06-29 07:56] VITALS: BP 142/82; PULSE 80; RESP 16; TEMP 36.4; O2SAT 94
--- NOTE | 2022-06-29 09:15 | PM.DS ---
DS: Providers Provider Date of Service: 06/29/22 Date of admission: 06/27/22 20:35 Date of discharge: 06/29/22 Primary care physician: Philippe Cesar III, MD Consults: 06/27/22 20:34 Consult to Gastroenterology Routine Consulting Provider: Shawna Mehta Reason for consultation: gi bleed Has provider been notified: No 06/27/22 20:36 Consult to Urology Routine Consulting Provider: Rica Burgess Reason for consultation: renal cyst Has provider been notified: Yes Consult to Urology Stat Consulting Provider: Rica Burgess Reason for consultation: Large renal cyst causing external compression on surrounding organs Has provider been notified: Yes DS: Diagnosis Discharge Diagnosis (1) Chronic anticoagulation: Status: Acute (2) Dark stools: Status: Acute (3) Renal cyst, acquired, left: Status: Acute DS: Summary Hospital Course Hospital Course: Male with past medical history of paroxysmal AFib on Eliquis, PE, HTN, COPD, history of lung cancer in remission according to patient ants on presents to the hospital complaints of 1 episode of dark blood per rectum.? Patient reports the episode occurred in the morning, he has had on and off black stools.? Denies any abdominal pain.? Large amount of dark blood in the toilet bowl which scared him and brought him to the hospital.? Patient denies any nausea or vomiting, reports no headache or change in vision, no shortness of breath, no increased cough or sputum production, no urinary symptoms and no lower extremity edema.Male with past medical history of paroxysmal AFib on Eliquis, PE, HTN, COPD, history of lung cancer in remission according to patient ants on presents to the hospital complaints of 1 episode of dark blood per rectum.? Patient reports the episode occurred in the morning, he has had on and off black stools.? Denies any abdominal pain.? Large amount of dark blood in the toilet bowl which scared him and brought him to the hospital.? Patient denies any nausea or vomiting, reports no headache or change in vision, no shortness of breath, no increased cough or sputum production, no urinary symptoms and no lower extremity edema. Hospital Course Patient admitted to general medical floor. Stool for occult blood was negative. When further questioned, patient admits to several days of Pepto-Bismol for diarrhea. Hemoglobin remained stable throughout his admission. He was seen in consultation by Urology for his renal cyst and on 06/28 head drainage of left cyst ultrasound-guided. 4.8 L was removed. Patient tolerated the procedure well. On the day of discharge his hemoglobin is stable and he will be discharged home to follow-up with his PCP Time Spent with Patient Time attestation: Total time managing care of this patient today ____ minutes. Discharge coordination time: Greater than 30 minutes Quality: Safe Use of Opioids Does Pt have an Active Cancer Diagnosis on the Problem List?: No Quality: Stroke Does the patient have a stroke diagnosis?: No Physical Exam Vital Signs: Vital Signs: Last Vital Signs Temp 97.6 F 06/29/22 07:56 Pulse 80 06/29/22 07:56 Resp 16 06/29/22 07:56 BP 142/82 H 06/29/22 07:56 Pulse Ox 94 06/29/22 07:56 O2 Del Method Room Air 06/29/22 07:56 BMI result Body Mass Index 25.1 Const: Other: Awake alert orient x3 no acute distress Resp: Other: Clear to auscultation bilaterally no rales rhonchi or wheezes Cardio: Other: No S4; positive S1-S2; no S3 murmurs rubs or gallops GI: Other: Soft nontender nondistended normoactive bowel sounds Neuro: Other: Cranial nerves 2-12 grossly intact as tested. Motor is 5/5 all extremities. Sensation is intact Extrem: Other: No edema bilaterally DS: Data Data Completed and Pending Completed studies during hospitalization [Text1]: Procedures Introduction of Remdesivir Anti-infective into Peripheral Vein, Percutaneous Approach, [employer] 5 (10/06/21) Pending studies at discharge: Pending at discharge 06/28/22 15:33 Cytology [PTH] Routine Labs on day of discharge: Laboratory Results - last 24 hr 06/28/22 06/29/22 06/29/22 13:47 06:07 06:07 WBC 12.4 H RBC 5.31 Hgb 16.3 Hct 48.6 MCV 91.5 MCH 30.7 MCHC 33.5 RDW 13.6 Plt Count 224 MPV 9.5 Immature Gran % (Auto) 1.3 H Neut % (Auto) 72.3 Lymph % (Auto) 17.6 L [place] % (Auto) 6.7 Eos % (Auto) 1.5 Baso % (Auto) 0.6 Lymph # (Auto) 2.2 [place] # (Auto) 0.8 Eos # (Auto) 0.2 Baso # (Auto) 0.1 Abs Immat Gran (auto) 0.16 H Absolute Neuts (auto) 8.9 H Absolute Nucleated RBC 0.000 Nucleated RBC % (auto) 0.0 PT 12.2 INR 1.1 APTT 28.7 Sodium 137 Potassium 4.9 Chloride 104 Carbon Dioxide 26 Anion Gap 12 BUN 34 H Creatinine 1.34 Estim Creat Clear Calc 42.5 Estimated GFR 51 Fasting Glucose 94 Calcium 9.6 Total Bilirubin 1.0 AST 13 ALT 11 Alkaline Phosphatase 64 Total Protein 6.9 Albumin 4.0 Discharge Plan Discharge Anticipated Discharge Date/Time: 06/29/22 09:14 Patient Disposition: Home, Self-Care Discharge Diagnosis: Left renal cyst Referrals: Philippe Cesar III, MD [Primary Care Provider] - 1 Week Discharge Medications: Continued tamsulosin 0.4 mg capsule 1 cap PO QPM omeprazole 20 mg capsule,delayed release(DR/EC) 1 cap PO DAILY albuterol sulfate 90 mcg/actuation HFA aerosol inhaler 2 puff inhalation Q4H PRN (Reason: wheezing) paroxetine HCl 40 mg tablet 1 tab PO QAM metoprolol succinate 25 mg tablet extended release 24 hr 50 mg PO DAILY Protocol: Hold for SBP/HR < HOLD for SBP < : 90 HOLD for HR < : 60 trazodone 50 mg tablet 50 mg PO BEDTIME PRN (Reason: Insomnia) Eliquis 5 mg tablet 5 mg PO BID Discharge Orders: Discharge Order (Routine); Ordered 06/29/22 Ordered By: Eros Chavez Diet: Advance to usual diet Activity on Discharge: As tolerated Stand Alone Forms: Patient Portal Discharge page Care Plan Goals: Resume all pre-hospital medication Health Concerns: Follow-up with your PCP in 2 weeks Plan of Treatment: Continue omeprazole as ordered Assessment: See discharge summary
== END 2022-06-29 09:54 | disposition home or self-care (01) | DRG 700 ==
LOC: HO.ED 20:35 → HO.EDOVER 20:43 → HO.S3 06-28 07:52
PROVIDERS: Internal Medicine; Physician Assistant; Radiology Diagnostic Radiology; Urology; Admitting Provider Internal Medicine; Emergency Provider Student in an Organized Health Care Education/Training Program; PCP Internal Medicine; Visit Provider Hospitalist
PROC: 0T913ZZ Drainage of Left Kidney, Percutaneous Approach (ICD-10-PCS; principal; 2022-06-28 14:30)
DX: N28.1 Cyst of kidney, acquired (principal); F17.210 Nicotine dependence, cigarettes, uncomplicated; I48.0 Paroxysmal atrial fibrillation; Z66 Do not resuscitate; Z20.822 Contact with and (suspected) exposure to COVID-19; Z85.118 Personal history of other malignant neoplasm of bronchus and lung; Z71.6 Tobacco abuse counseling; Z79.01 Long term (current) use of anticoagulants; Z79.899 Other long term (current) drug therapy
CPT/HCPCS: 36415; 49406; 71045; 74178; 80048; 80053; 81003; 82272; 83735; 83880; 84484; 85025; 85610; 85730; 86850; 86900; 86901; 87070; 87073; 87205; 87635; 88112; 93005; 99285; J1200; Q9967

== ENCOUNTER 2022-12-14 16:22 | Inpatient (IN) | payer MEDICARE, SELFPAY ==
[2022-12-14] VITALS (12 sets, daily range): BP systolic 130–179; BP diastolic 64–90; PULSE 65–86; RESP 14–18; TEMP 36.1–36.9; O2SAT 94–99; BMI 21.8; BMI 22.3
--- NOTE | ~2022-12-14 | CT_ITS ---
EXAMINATION: CT ABDOMEN AND PELVIS WITHOUT CONTRAST CT right hip without contrast CLINICAL INFORMATION: Right hip pain status post fall. Difficulty ambulating. Right lower quadrant abdominal pain. Fall 4 days ago. COMPARISON: 06/27/2022 TECHNIQUE: Multidetector volumetric imaging was performed from the superior aspect of the liver through the pubic symphysis. Sagittal and coronal reformatted images were obtained on the technologist's workstation. This CT examination was performed using dose optimization techniques as appropriate, variously including the following: *Automated exposure control *Adjustment of mA and/or kV according to patient size (this includes techniques or standardized protocols for targeted exams where dose is matched to indication/reason for exam; i.e. extremities or head) *Use of iterative reconstruction technique DLP: 633 mGy-cm FINDINGS: Abdomen pelvis: LUNG BASES: There is reticular interlobular septal thickening at the bilateral lung bases with centrilobular and paraseptal emphysema as well as honeycombing, consistent with a degree of pulmonary fibrosis. LIVER, GALLBLADDER, AND BILIARY TREE: The liver is normal in size, shape, and attenuation. No focal hepatic lesion or biliary ductal dilatation is present. There is a 1 x 1 cm cystic hypodensity within the left hepatic lobe which is unchanged as compared to prior. No recommend imaging follow-up. The gallbladder is unremarkable with no evidence of radiopaque gallstones, gallbladder wall thickening, or obvious pericholecystic inflammatory changes. PANCREAS: Unremarkable. SPLEEN: Unremarkable. ADRENAL GLANDS: Calcification in the left adrenal gland at the medial limb with associated generalized gland thickening, unchanged since 2013. Right gland is normal. KIDNEYS AND URETERS: Again seen is a massive left renal cyst, now measuring 16 x 12.5 x 16.5 cm, decreased in size from 23.2 x 13.7 x 28.3 cm on the prior study. Internal complexity (linear septations) may reflect a degree of interval hemorrhage since the prior study, potentially related to cysts trauma. Trace surrounding fat stranding is noted. Multiple prominent parapelvic cysts are also noted at the left kidney which is displaced medially across the midline by the massive cyst. No appreciable renal calculi. Multiple subcentimeter right renal cysts are identified, too small to characterize. No recommend imaging follow-up. BLADDER: Unremarkable. GASTROINTESTINAL TRACT: Stomach, small bowel, and colon are normal in caliber. No bowel wall thickening. Small amount contrast is present within the sigmoid colon. Mild sigmoid diverticulosis without evidence of acute diverticulitis. No evidence of appendicitis. No intraperitoneal free fluid or free air. ABDOMINAL WALL: Small fat-containing left inguinal hernia. No acute soft tissue findings are identified in the right lower quadrant. LYMPH NODES: Normal. VASCULAR: Infrarenal abdominal aorta measures up to 2.6 cm in diameter, unchanged as compared to prior. Calcific atherosclerosis is present in the abdominal aorta and iliac arteries. PELVIC VISCERA: Dystrophic calcifications are present in the prostate gland centrally. OSSEOUS STRUCTURES: Moderate multifocal degenerative spondylosis is present throughout the lower thoracic and lumbar spine, most pronounced from L3-L4 through L5-S1. Mild multilevel spinal canal stenoses are noted in these regions with more pronounced foraminal encroachment due to foraminal disc osteophyte complexes and facet osteophytes. No acute fractures are identified in the osseous pelvis. Right hip: Bones are osteopenic. Mild osteoarthritis in the hip joint with small marginal osteophytes fracture or malalignment. Mild osteoarthritis the pubic symphysis. Enthesophyte spurring is present at the greater trochanter. There is atrophy of the right gluteus gordo muscle bulk with fatty replacement. More mild muscle atrophy is present throughout the rest of the imaged portion of the right hemipelvis and proximal thigh. CT/CT abdomen pelvis wo IV con IMPRESSION: 1. No acute abnormalities are identified in the right lower quadrant. No acute fractures are identified in the right hip. 2. Complex left renal cyst, decreased in size as compared to prior, potentially due to interval internal hemorrhage as this was simple and larger on the prior study. Consider follow-up assessment with ultrasound on a nonemergent basis. 3. Moderate degenerative spondylosis in the lower thoracic and lumbar spine. 4. Mild osteoarthritis in the right hip joint. 5. Small fat-containing left inguinal hernia. 6. Mild colonic diverticulosis without evidence of acute diverticulitis. 7. 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 Follow-up every 5 years is recommended if the aorta that meets the criteria for AAA (>1.5 x proximal normal segment; no f/u if < 1.5 x proximal normal segment; no f/u for aorta < 2.6 cm).
--- NOTE | 2022-12-14 16:27 | ED_ITS ---
HPI - Fall General Chief Complaint: Extremity Injury, Lower Stated Complaint: R HIP PAIN, FELL 1 WEEK AGO PER EMS Time Seen by Provider: 12/14/22 16:27 Source: patient, EMS, RN notes reviewed and old records reviewed Mode of arrival: EMS History of Present Illness HPI Narrative: 82-year-old male with past medical history of AFib on Eliquis, COPD, PE, HTN, lung CA not currently on chemo or radiation, presenting to the ED via EMS complaining of right hip pain and difficulty ambulating s/p fall 4 days ago. Patient states he was getting out of bed when had mechanical fall onto floor due to there being no power/lights, denies head trauma or LOC. Denies symptoms prior to fall. Has been ambulatory since incident with pain w/cane. Reports feeling lightheaded when standing which he believes is secondary to pain. Denies headache, neck/back pain, abdominal pain, nausea/vomiting MD complaint: fall Related Data Home Medications Medication Instructions Recorded Confirmed albuterol sulfate 90 mcg/actuation 2 puff inhalation Q4H PRN wheezing 07/14/21 06/27/22 aerosol inhaler omeprazole 20 mg capsule,delayed 1 cap PO DAILY 07/14/21 06/27/22 release paroxetine HCl 40 mg tablet 1 tab PO QAM 07/14/21 06/27/22 tamsulosin 0.4 mg capsule 1 cap PO QPM 07/14/21 06/27/22 apixaban 5 mg tablet (Eliquis) 5 mg PO BID 08/16/21 06/27/22 metoprolol succinate 25 mg 50 mg PO DAILY 06/27/22 06/27/22 tablet,extended release 24 hr trazodone 50 mg tablet 50 mg PO BEDTIME PRN Insomnia 06/27/22 06/27/22 Allergies Allergy/AdvReac Type Severity Reaction Status Date / Time No Known Allergies Allergy Verified 06/27/22 16:10 Review of Systems 2 Review of Systems: Constitutional: No Fever, No Chills, No Fatigue, No Malaise ENT/Mouth: No Ear Pain, No sore throat, No Rhinorrhea, No Swallowing Difficulty Eyes: No Eye Pain, No Swelling, No Vision Changes Cardiovascular: No Chest Pain, No SOB, No Edema, No Palpitations Respiratory: No Cough, No Sputum, No Dyspnea Gastrointestinal: No Nausea, No Vomiting, No Diarrhea, No Constipation, No Abdominal pain Genitourinary: No Dysuria, No Urinary Frequency, No Hematuria, No Urinary Incontinence/retention, No Flank Pain Musculoskeletal: + joint pain, No Myalgias, No Joint Swelling Skin: No Skin Lesions, No rash Neuro: No Weakness, No Numbness, No Paresthesias, No Loss of Consciousness, +lightheaded, No Headache, No head trauma Yes all other systems are reviewed and are negative Constitutional: Constitutional: Reports as per [facility] Past Medical History Attestation statement: The following information was validated with the patient. Source: old records reviewed Medical History Chronic anticoagulation PAF (paroxysmal atrial fibrillation) COPD (chronic obstructive pulmonary disease) Pulmonary emboli Essential hypertension Lung cancer Surgical History No pertinent past surgical history Family History Family History Father Lung cancer Social History Social History Household Members: Children Household Members Other:: lives with son Housing: House Do you presently have visiting nurse or other home services: No Alcohol intake: never Patient Tobacco Use Status: Current everyday Tobacco user Tobacco use type: Cigarette Cigarettes Per Day: 6 Years Smoked: 50 e-Cigarette/Vaping Use: Currently Using Second Hand Smoke Exposure: No Advance Directives: Yes Advance Directives on File: Yes Advance Directives Date on File: 10/19/21 service: Yes Current occupational status: retired Physical Exam 2 Vital Signs: Vital Signs: Last Vital Signs Temp 98.4 F 12/14/22 16:28 Pulse 75 12/14/22 17:19 Resp 16 12/14/22 17:08 BP 141/72 H 12/14/22 17:19 Pulse Ox 97 12/14/22 16:28 O2 Del Method Room Air 12/14/22 16:28 BMI result Body Mass Index 21.8 Const: General: cooperative, healthy appearing and no acute distress O rientation/consciousness: patient oriented x3 Limitations: no limitations HEENT: Head: Yes normal to inspection and Yes atraumatic Ears: hearing grossly normal bilaterally General nose exam: Normal external nose present Face and sinus: Yes normal facial exam Mouth: Normal oral and palatal mucosa present Eyes: General: appearance normal, both eyes and all related structures P upils: Equal, round and reactive pupils present EOM: EOMs intact bilaterally Neck: Neck: Yes normal visual inspection, Yes no meningeal signs and No anterior neck swelling Chest: Chest palpation & inspection: normal inspection of the chest Resp: Effort & Inspection: normal respiratory effort and no respiratory distress Auscultation: clear to auscultation bilaterally Cardio: Rate: regular rate Heart sounds: S1 normal heart sound present and S2 normal heart sound present GI: Inspection: Yes normal to inspection Palpation (GI): Soft to palpation, Tenderness to palpation present (GI) in the RLQ; with no rebound tenderness, no guarding, not rigid and no hernias : General: Yes no CVA tenderness Penis: normal penis Scrotum: scrotum normal Testes: Testes normal, no testicular swelling and no testicular tenderness Back/Spine/Pelvis: Other: No midline cervical/thoracic/lumbar spinous tenderness/step-off or deformity Back: no CVA tenderness Skin: Rashes: no rashes Wounds: no wounds Neuro: General: patient oriented x3, tone normal, moves all extremities, no meningeal signs, no focal motor deficits and CN's II-XI intact bilaterally C ranial nerves: Yes CN's II-XII intact bilaterally and Yes Equal, round and reactive pupils present Cognition (Neuro): normal cognition Extrem: Other: Right hip without noted deformity. Mildly tender to palpation. ROM intact. Pelvis stable. Neurovascular intact distally. General: Yes normal to inspection Course Course Course Narrative: -1730--no leukocytosis. Patient notably anemic to 11.4 / 35 (baseline 14/40's). INR 1.6 >> denies current brbpr or melena. Will obtain occult stool - + KATLIN with a creatinine of 2.55, BUN 26 -occult stool negative 1818--CT abdomen pelvis wo IV con//CT hip RT wo IV con IMPRESSION: 1. No acute abnormalities are identified in the right lower quadrant. No acute fractures are identified in the right hip. 2. Complex left renal cyst, decreased in size as compared to prior, potentially due to interval internal hemorrhage as this was simple and larger on the prior study. Consider follow-up assessment with ultrasound on a nonemergent basis. 3. Moderate degenerative spondylosis in the lower thoracic and lumbar spine. 4. Mild osteoarthritis in the right hip joint. 5. Small fat-containing left inguinal hernia. 6. Mild colonic diverticulosis without evidence of acute diverticulitis. 7. 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 Follow-up every 5 years is recommended if the aorta that meets the criteria for AAA (>1.5 x proximal normal segment; no f/u if < 1.5 x proximal normal segment; no f/u for aorta < 2.6 cm). > plan to admit for further management Medications Administered Generic Name Dose Route Start Last Admin Trade Name Freq PRN Reason Stop Dose Admin Sodium Chloride 1,000 mls @ 999 mls/hr 12/14/22 17:30 12/14/22 18:02 Ns IV 12/14/22 18:30 999 mls/hr .Q1H1M JOSE Administration Discontinued Medications Generic Name Dose Route Start Last Admin Trade Name Freq PRN Reason Stop Dose Admin Morphine Sulfate 2 mg 12/14/22 16:39 12/14/22 17:08 Morphine Sulfate 2 Mg/Ml Cartridge IVPUSH 12/14/22 16:40 2 mg ONCE ONE Administration Protocol Medical Decision Making Medical Decision Making [facility] Narrative: 82-year-old male with past medical history of AFib on Eliquis, COPD, PE, HTN, lung CA not currently on chemo or radiation, presenting to the ED via EMS complaining of right hip pain and difficulty ambulating s/p fall 4 days ago. On exam vital signs stable, NAD, nontoxic appearing, physical exam as noted above with +RLQ abdominal tenderness and right hip tenderness with ROM intact. No focal deficits. exam WNL. Concern for appendicitis vs ?hernia vs hip/pelvic fracture vs osteoarthritis. Lower suspicion for renal stones/pyelo, UTI, ICH or septic joint Plan: EKG, labs, UA, CT abdomen/pelvis, CT hip, pain control, orthostatics, re- evaluate Please refer to course for remaining clinical decision making, interpretation of labs/imaging results, and discussions with consultants and/or family members. Differential Diagnosis Differential Diagnoses: The differential diagnosis associated with the presentation includes As above Admission/Observation Consideration of admission/observation: Escalation of care including admission/observation considered Consult Healthcare Provider Management of the patient was discussed with: Hospitalist Lab Data MDM Lab Attestation statement: I reviewed the patient's lab results. 12/14/22 16:52 12/14/22 16:52 Labs: Lab Results 12/14/22 12/14/22 Range/Units 16:52 18:02 WBC 9.2 (4.8-10.8) X10*3/uL RBC 3.83 L D (4.60-5.80) X10*6/uL Hgb 11.4 L D (14.0-18.0) g/dl Hct 35.0 L D (42.0-52.0) % MCV 91.4 (80.0-98.0) fL MCH 29.8 (27.0-33.0) pg MCHC 32.6 (31.0-36.0) g/dl RDW 12.6 (11.0-16.0) % Plt Count 318 D (160-400) X10*3/uL MPV 8.8 L (9.4-12.4) fL Immature Gran % (Auto) 0.3 (0.0-0.4) % Neut % (Auto) 75.3 H (45-73) % Lymph % (Auto) 13.9 L (20-40) % [place] % (Auto) 5.9 (2-11) % Eos % (Auto) 3.7 (0-4) % Baso % (Auto) 0.9 (0-2) % Lymph # (Auto) 1.3 (1.2-4.9) X10*3/uL [place] # (Auto) 0.5 (0.1-1.2) X10*3/uL Eos # (Auto) 0.3 (0.0-0.4) X10*3/uL Baso # (Auto) 0.1 (0.0-0.2) X10*3/uL Abs Immat Gran (auto) 0.03 (0.00-0.03) X10*3/uL Absolute Neuts (auto) 6.9 (2.0-8.3) x10*3/uL Absolute Nucleated RBC 0.000 (0.0-0.012) X10*3/uL Nucleated RBC % (auto) 0.0 (0.0-0.2) /100WBC PT 20.0 H (11.1-13.3) SEC INR 1.6 H (0.9-1.1) Sodium 136 (135-145) mmol/L Potassium 4.5 (3.3-5.1) mmol/L Chloride 104 (96-108) mmol/L Carbon Dioxide 20 L (22-29) mmol/L Anion Gap 17 (12-20) BUN 26 H (9-16) mg/dL Creatinine 2.55 H (0.5-1.4) mg/dL Estim Creat Clear Calc 21.5 Estimated GFR 24 Random Glucose 94 (60-115) mg/dL Calcium 9.3 (8.4-10.2) mg/dL Magnesium 1.7 (1.6-2.6) mg/dL Total Bilirubin 0.5 (0.0-1.0) mg/dL Direct Bilirubin 0.2 (0.0-0.5) mg/dL AST 16 (5-37) U/L ALT 7 (0-40) U/L Alkaline Phosphatase 52 (39-117) U/L Troponin I High Sens < 2.7 (<3.5-35.0) ng/L Total Protein 7.7 (6.5-8.0) g/dL Albumin 3.5 (3.5-5.0) g/dL Stool Occult Blood NEGATIVE (NEGATIVE) Independent Interpretation I performed an independent interpretation of an: EKG (Interpretation EKG sinus rhythm with first-degree AV block at a rate of 65. QRS 82. QTC 420. VA interval increased when compared to prior) and CT Scan Radiology Impression Discussion of test interpretation with radiology: I have reviewed the radiologist's reading. Independent Historian Clinical information obtained from an independent historian. History obtained from or confirmed by: EMS External Record Review External record reviewed: Inpatient record, Office record, Outpatient record, Prior outpatient labs, Prior outpatient radiology, Primary care record and Outside ED record Tests considered The following testing was considered but not selected: As above Prescription Management I considered prescription management with: Pain Medication Chronic Conditions Patient?s care impacted by: Other (Lung CA, AFib on Eliquis) Critical Care Time Critical Care Time Critical Care Time: Yes Total Critical Care Time: 35 Attestation: I have personally provided critical care time exclusive of time spent on separately billable procedures. Time includes review of lab data, radiology results, discussion with consultants, and monitoring for potential decompensation. Intervention performed as documented. Discharge Plan Discharge Clinical Impression: KATLIN (acute kidney injury), Acute hip pain, Cyst of left kidney, Osteoarthritis of right hip, AAA (abdominal aortic aneurysm) Patient Disposition: Admitted As Inpatient
--- NOTE | 2022-12-14 16:39 | ECG_ITS ---
Test Reason : LIGHTHEADED Blood Pressure : / mmHG Vent. Rate : 065 BPM Atrial Rate : 065 BPM P-R Int : 216 ms QRS Dur : 082 ms QT Int : 404 ms P-R-T Axes : 000 100 067 degrees QTc Int : 420 ms Sinus rhythm with 1st degree A-V block Rightward axis Borderline ECG When compared with ECG of 27-JUN-2022 11:31, SC interval has increased Referred By: Rylee Do Electronically Signed By:JALEESA KIRAN MD
[2022-12-14 16:55] LABS: MANUAL DIFF FLAG NO
[2022-12-14 16:59] LABS: Basophils Absolute Auto 0.1 X10*3/uL (0.0-0.2); Basophils Percent Auto 0.9 % (0-2); Eosinophils Absolute Auto 0.3 X10*3/uL (0.0-0.4); Eosinophils Percent Auto 3.7 % (0-4); Hemoglobin 11.4 g/dl (14.0-18.0); Imm Gran Abs Auto 0.03 X10*3/uL (0.00-0.03); Imm Gran Pct Auto 0.3 % (0.0-0.4); Lymphocytes Absolute Auto 1.3 X10*3/uL (1.2-4.9); Lymphocytes Percent Auto 13.9 % (20-40); Mean Corpuscular HGB Conc 32.6 g/dl (31.0-36.0); Mean Corpuscular Hemoglobin 29.8 pg (27.0-33.0); Mean Corpuscular Volume 91.4 fL (80.0-98.0); Mean Platelet Volume 8.8 fL (9.4-12.4); Monocytes Absolute Auto 0.5 X10*3/uL (0.1-1.2); Monocytes Percent Auto 5.9 % (2-11); Neutrophils Absolute Auto 6.9 x10*3/uL (2.0-8.3); Neutrophils Percent Auto 75.3 % (45-73); Platelet Count 318 X10*3/uL (160-400); Red Blood Count 3.83 X10*6/uL (4.60-5.80); Red Cell Distribution Width 12.6 % (11.0-16.0); White Blood Count 9.2 X10*3/uL (4.8-10.8)
[2022-12-14 17:04] LABS: INTERNATIONAL NORM RATIO 1.6 (0.9-1.1)
[2022-12-14] MEDS: Morphine Sulfate 2 MG/ML CARTRIDGE IVPUSH (17:08)
[2022-12-14 17:17] LABS: Alanine Aminotransferase 7 U/L (0-40); Albumin Level 3.5 g/dL (3.5-5.0); Alkaline Phosphatase 52 U/L (39-117); Anion Gap 17 (12-20); Aspartate Amino Transferase 16 U/L (5-37); Bilirubin Direct 0.2 mg/dL (0.0-0.5); Bilirubin Total 0.5 mg/dL (0.0-1.0); Blood Urea Nitrogen 26 mg/dL (9-16); Calcium 9.3 mg/dL (8.4-10.2); Carbon Dioxide 20 mmol/L (22-29); Chloride 104 mmol/L (96-108); Creatinine Clr Calc Pharmacy 21.5; Estimated Glomerular Filt Rate 24; Glucose Random 94 mg/dL (60-115); Magnesium 1.7 mg/dL (1.6-2.6); Potassium 4.5 mmol/L (3.3-5.1); Sodium 136 mmol/L (135-145); Total Protein 7.7 g/dL (6.5-8.0)
[2022-12-14 17:26] LABS: Troponin-I High Sensitivity < 2.7 ng/L (<3.5-35.0)
[2022-12-14] MEDS: 0.9 % Sodium Chloride 1,000 ML 999 ML IV (18:02)
[2022-12-14 18:06] LABS: OBS Int Ctl Valid YES; OBS1 NEGATIVE (NEGATIVE)
--- NOTE | 2022-12-14 18:59 | PHA.MEDREC ---
Pharmacy Consult ? Medication Reconciliation Pharmacy has completed the medication reconciliation. Called son Greogry who manages medications.
--- NOTE | 2022-12-14 19:14 | PC.NURSE ---
assited pt to side of bed and set up with sandwich and gingerale- approx 100mls left of NS at thtis time call bel lillydereji reach- care ongoing
--- NOTE | 2022-12-14 19:48 | P.HPHOSP_ITS ---
History of Present Illness Date of Service: 12/14/22 Attending physician on admission: Neymar Julio Chief Complaint: Right hip pain, hx of fall 1 week ago Pt is an 82-year-old male with a PMH significant for?paroxysmal AFib on Eliquis, hx of PE, HTN, COPD, hx of lung cancer in remission, and BPH who presents to the ED for evaluation of right hip pain and difficulty ambulating after a mechanical fall at home earlier in the week. Patient states Friday the power went out in his house and he fell as he attempted to get up from bed in the middle of the night. Patient experienced left forearm of bruising and right hip pain after the fall. Patient denies LOC or head strike. Had been experiencing pain with ambulation s/p fall, using a cane for assistance. Patient reports chronic lightheadedness and dizziness with standing that has occurred for the past 1 1/2 years since being infected with COVID. He reports he has been eating OK , though admits to not drinking enough fluids. Patient denies shortness of breath. No chest pain/pressure, palpitations. Denies fever, chills, nausea, vomiting. In the ED patient was afebrile but hypertensive up to 179/84, 97% on RA. Labs were significant for H&H of 11.4/35.0, BUN 26, creatinine 2.55. Electrolytes largely WNL. Hepatic function WNL. Troponin negative. Stool negative for occult blood. Orthostatics were positive with an SBP change of 39 and DBP change of 15 from supine to sitting. CT?of abdomen/pelvis and hip showed no acute abnormalities in right lower quadrant and no acute fractures in right hip. Redemonstrated complex left renal cyst that has decreased in size as compared to prior. CT also with chronic findings: Moderate degenerative spondylolysis and lower thoracic and lumbar spine, mild osteoarthritis in right hip joint, small fat containing left inguinal hernia, mild diverticulosis without evidence of acute diverticulitis, unchanged mild aneurysmal dilation of the infrarenal abdominal aorta measuring up to 2.6 cm. EKG demonstrated sinus rhythm with first-degree AV block without evidence of significant ST elevations or depressions. Pt was treated with morphine and IVF. Pt will be admitted to the hospital treatment and further evaluation of KATLIN in the setting of reduced mobility due to right hip pain. Review of Systems 2 Review of Systems: Mechanical fall at home Right hip pain, difficulty ambulating Chronic lightheadedness and dizziness with standing Reduced p.o. intake of liquids Denies chest pain/pressure, palpitations No shortness of breath Denies fever, chills, nausea, vomiting, abdominal pain [facility] Medical History Chronic anticoagulation PAF (paroxysmal atrial fibrillation) COPD (chronic obstructive pulmonary disease) Pulmonary emboli Essential hypertension Lung cancer Family History Father Lung cancer Surgical History No pertinent past surgical history Social History Household Members: Children Household Members Other:: lives with son Housing: House Do you presently have visiting nurse or other home services: No Alcohol intake: never Patient Tobacco Use Status: Current everyday Tobacco user Tobacco use type: Cigarette Cigarettes Per Day: 6 Years Smoked: 50 e-Cigarette/Vaping Use: Currently Using Second Hand Smoke Exposure: No Advance Directives: Yes Advance Directives on File: Yes Advance Directives Date on File: 10/19/21 service: Yes Current occupational status: retired Meds Allergies Allergy/AdvReac Type Severity Reaction Status Date / Time No Known Allergies Allergy Verified 06/27/22 16:10 Active Medications: Current Medications Acetaminophen (Acetaminophen 325 Mg Tablet) 650 mg PO Q6H PRN PRN Reason: Pain, Mild (Pain Scale 1-3) Albuterol Sulfate (Albuterol Sulfate 90 Mcg 8 Gm Inhaler) 2 puff INHALE Q4H PRN PRN Reason: wheezing Apixaban (Apixaban 5 Mg Tablet) 5 mg PO BID [facility] Folic Acid (Folic Acid 1 Mg Tablet) 1 mg PO BEDTIME [facility] Melatonin (Melatonin 3 Mg Tablet) 6 mg PO BEDTIME PRN PRN Reason: Insomnia Metoprolol Succinate (Metoprolol Succinate Er 50 Mg Tab.Er.24h) 50 mg PO DAILY [facility]; Protocol Omeprazole (Omeprazole 20 Mg Capsule.Dr) 20 mg PO DAILY@0630 [facility] Ondansetron HCl (Ondansetron Hcl 4 Mg/2 Ml Vial) 4 mg IVPUSH Q8H PRN PRN Reason: Nausea and Vomiting Paroxetine HCl (Paroxetine Hcl 40 Mg Tablet) 40 mg PO DAILY JOSE Sodium Chloride (0.9 % Sodium Chloride Flush 3 Ml Syringe) 3 ml IVFLUSH QSHIFT JOSE Tamsulosin HCl (Tamsulosin Hcl 0.4 Mg Capsule) 0.4 mg PO BEDTIME JOSE Trazodone HCl (Trazodone Hcl 50 Mg Tablet) 50 mg PO BEDTIME PRN PRN Reason: Insomnia Home Medications Medication Instructions Recorded Confirmed Last Taken Type albuterol sulfate 90 mcg/actuation 2 puff inhalation Q4H PRN wheezing 07/14/21 12/14/22 07/13/21 History aerosol inhaler omeprazole 20 mg capsule,delayed 1 cap PO DAILY@0630 07/14/21 12/14/22 12/14/22 09:00 History release paroxetine HCl 40 mg tablet 1 tab PO DAILY 07/14/21 12/14/22 12/14/22 09:00 History tamsulosin 0.4 mg capsule 1 cap PO BEDTIME 07/14/21 12/14/22 12/13/22 History apixaban 5 mg tablet (Eliquis) 5 mg PO BID 08/16/21 12/14/22 12/14/22 09:00 History metoprolol succinate 25 mg 50 mg PO DAILY 06/27/22 12/14/22 12/14/22 09:00 History tablet,extended release 24 hr trazodone 50 mg tablet 50 mg PO BEDTIME PRN Insomnia 06/27/22 12/14/22 12/13/22 History acetaminophen 325 mg tablet 650 mg PO Q6H PRN Pain 12/14/22 12/14/22 Unknown History (Tylenol) aspirin 81 mg tablet,delayed 81 mg PO DAILY PRN Pain 12/14/22 12/14/22 Unknown History release folic acid 1 mg tablet 1 mg PO BEDTIME 12/14/22 12/14/22 12/13/22 History naproxen sodium 220 mg tablet 220 mg PO BID PRN Pain 12/14/22 12/14/22 Unknown History (Aleve) Physical Exam 2 Vital Signs and Narrative: Vital Signs: Last Vital Signs Temp 98.4 F 12/14/22 16:28 Pulse 69 12/14/22 18:38 Resp 14 12/14/22 18:38 BP 179/84 H 12/14/22 18:38 Pulse Ox 95 12/14/22 18:38 O2 Del Method Room Air 12/14/22 18:38 BMI result Body Mass Index 21.8 Constitutional: Alert, frail looking, in no acute distress. Mental Status: Oriented to person, place and time. Eyes: Pupils are equal, round, and reactive to light. Ear, Nose, and Throat: Oropharynx clear, mucous membranes moist. Ears and nose without deformities. Trachea midline. Poor dentition. Respiratory: Clear to auscultation bilaterally. No wheezing, rales, or rhonchi. Cardiovascular: S1, S2 regular. No murmurs, rubs, or gallops. Gastrointestinal: Abdomen soft, non-tender, non-distended. Normal bowel sounds. Neurologic: Cranial nerves II-XII are grossly intact bilaterally. No focal neurological deficits. Moves all extremities spontaneously. Skin: No rashes or lesions noted. Musculoskeletal: Right hip and buttock tenderness. Extremities: No edema. Psychiatric: Normal mood and affect. Results Labs 12/14/22 16:52 12/14/22 16:52 Labs: Laboratory Results - last 24 hr 12/14/22 12/14/22 16:52 18:02 MCV 91.4 MCH 29.8 MCHC 32.6 RDW 12.6 Plt Count 318 D MPV 8.8 L Immature Gran % (Auto) 0.3 Neut % (Auto) 75.3 H Lymph % (Auto) 13.9 L [place] % (Auto) 5.9 Eos % (Auto) 3.7 Baso % (Auto) 0.9 Lymph # (Auto) 1.3 [place] # (Auto) 0.5 Eos # (Auto) 0.3 Baso # (Auto) 0.1 Abs Immat Gran (auto) 0.03 Absolute Neuts (auto) 6.9 Absolute Nucleated RBC 0.000 Nucleated RBC % (auto) 0.0 PT 20.0 H INR 1.6 H Anion Gap 17 Estim Creat Clear Calc 21.5 Estimated GFR 24 Random Glucose 94 Calcium 9.3 Magnesium 1.7 Total Bilirubin 0.5 Direct Bilirubin 0.2 AST 16 ALT 7 Alkaline Phosphatase 52 Total Protein 7.7 Albumin 3.5 Stool Occult Blood NEGATIVE Imaging Radiologist's Impressions: Impressions Abdomen/Pelvis CT 12/14/22 17:42 IMPRESSION: 1. No acute abnormalities are identified in the right lower quadrant. No acute fractures are identified in the right hip. 2. Complex left renal cyst, decreased in size as compared to prior, potentially due to interval internal hemorrhage as this was simple and larger on the prior study. Consider follow-up assessment with ultrasound on a nonemergent basis. 3. Moderate degenerative spondylosis in the lower thoracic and lumbar spine. 4. Mild osteoarthritis in the right hip joint. 5. Small fat-containing left inguinal hernia. 6. Mild colonic diverticulosis without evidence of acute diverticulitis. 7. 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 Follow-up every 5 years is recommended if the aorta that meets the criteria for AAA (>1.5 x proximal normal segment; no f/u if < 1.5 x proximal normal segment; no f/u for aorta < 2.6 cm). Hip CT 12/14/22 17:42 IMPRESSION: 1. No acute abnormalities are identified in the right lower quadrant. No acute fractures are identified in the right hip. 2. Complex left renal cyst, decreased in size as compared to prior, potentially due to interval internal hemorrhage as this was simple and larger on the prior study. Consider follow-up assessment with ultrasound on a nonemergent basis. 3. Moderate degenerative spondylosis in the lower thoracic and lumbar spine. 4. Mild osteoarthritis in the right hip joint. 5. Small fat-containing left inguinal hernia. 6. Mild colonic diverticulosis without evidence of acute diverticulitis. 7. 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 Follow-up every 5 years is recommended if the aorta that meets the criteria for AAA (>1.5 x proximal normal segment; no f/u if < 1.5 x proximal normal segment; no f/u for aorta < 2.6 cm). Assessment and Plan (1) KATLIN (acute kidney injury): Status: Acute (2) Orthostatic hypotension: Status: Acute Plan Pt is an 82-year-old male with a PMH significant for?paroxysmal AFib on Eliquis, hx of PE, HTN, COPD, hx of lung cancer in remission, and BPH who presents to the ED for evaluation of right hip pain and difficulty ambulating after a mechanical fall at home earlier in the week. Pt will be admitted to the hospital treatment and further evaluation of KATLIN in the setting of reduced mobility due to right hip pain. KATLIN Pt with creatinine of 2.55, up from 1.34 on 06/29/2022 Likely secondary to dehydration int he setting of reduced po intake Received IVF in ED, will place on maintenance fluids Follow BMP Orthostatic presyncope Patient states has had chronic lightheadedness and dizziness since having COVID 1 1/2 years ago Orthostatics positive earlier in the ED: SBP drop of 39 and DBP drop of 15 from supine to sitting Likely secondary to dehydration int he setting of reduced po intake Received IVF in ED, will place on maintenance fluids Recheck orthostatics tomorrow Right hip pain and difficulty ambulating S/P fall at home PT evaluation Analgesics for pain management COPD Not in acute exacerbation Continue home inhalers Paroxysmal AFib Continue Eliquis metoprolol GERD PPI BPH Continue tamsulosin DNR/DNI Attending:?Dr. Julio DVT Prophylaxis: On Eliquis Patient admitted to the hospital under observation for treatment and further evaluation of KATLIN, right hip pain, and positive orthostatics. Time Spent With Patient Time: Total time managing care of this patient today ____ minutes. Quality Stroke Does the patient have a stroke diagnosis?: No VTE Prior VTE?: No VTE Risk Level:: Medical - moderate - high VTE Device Contraindication: Treatment Not Indicated VTE Drug Contraindication: N/A - Med Ordered
--- NOTE | 2022-12-14 20:16 | PC.NURSE ---
liana ndiaye at bedside speaking w pt re: admission. aox4. calm, coop. no distress. when pt moving around in bed changing into gown w rn standby pt breathing sounded coarse- lungs clear in all lobes upon auscultation and 99% o2 sat on RA, talking full sentences. liana ndiaye at bedside aware
--- NOTE | 2022-12-14 20:30 | PC.NURSE ---
attempted to call report to med surg- Rn not available- notified RN to contact ED via [employer] connect when ready
[2022-12-14] MEDS: Apixaban 5 MG TABLET PO (20:51)
[2022-12-14] MEDS: Folic Acid 1 MG TABLET PO (20:51)
[2022-12-14] MEDS: Tamsulosin HCL 0.4 MG CAPSULE PO (20:51)
[2022-12-14] MEDS: Morphine Sulfate 4 MG/ML CARTRIDGE IVPUSH (20:51)
--- NOTE | 2022-12-14 21:18 | PC.NURSE ---
REPORT CALLED TO [facility] PT TO BE TRANSPORTED VIA STRETCHER TO FLOOR
[2022-12-14 22:36] LABS: Appearance Urine Clear; Color Urine Yellow; Glucose Urine UA Negative (Negative); Leukocyte Esterase Urine Negative (Negative); Nitrite Urine Negative (Negative); Specific Gravity - Urine 1.015 (1.005-1.025); Urine Blood Negative (Negative); Urine Ketones Negative (Negative); Urine Protein Negative (Neg-Trace)
[2022-12-15] VITALS (7 sets, daily range): BP systolic 114–139; BP diastolic 60–70; PULSE 69–94; RESP 18; TEMP 36–36.5; O2SAT 92–95
[2022-12-15] MEDS: Lactated Ringers 1,000 ML 100 ML IVCONT ×3 (00:12→16:15)
[2022-12-15] MEDS: 0.9 % Sodium Chloride Flush 3 ML SYRINGE IVFLUSH ×2 (00:13→20:40)
[2022-12-15] MEDS: Morphine Sulfate 2 MG/ML CARTRIDGE IVPUSH ×2 (01:36→08:41)
[2022-12-15] MEDS: Omeprazole 20 MG CAPSULE.DR PO (06:21)
[2022-12-15 06:31] LABS: MANUAL DIFF FLAG NO
[2022-12-15 06:55] LABS: Anion Gap 11 (12-20); Blood Urea Nitrogen 26 mg/dL (9-16); Calcium 8.4 mg/dL (8.4-10.2); Carbon Dioxide 23 mmol/L (22-29); Chloride 108 mmol/L (96-108); Creatinine Clr Calc Pharmacy 23.4; Estimated Glomerular Filt Rate 26; Glucose Random 85 mg/dL (60-115); Potassium 4.3 mmol/L (3.3-5.1); Sodium 138 mmol/L (135-145)
[2022-12-15 07:18] LABS: Basophils Absolute Auto 0.1 X10*3/uL (0.0-0.2); Basophils Percent Auto 1.4 % (0-2); Eosinophils Absolute Auto 0.5 X10*3/uL (0.0-0.4); Eosinophils Percent Auto 6.5 % (0-4); Hematocrit 31.2 % (42.0-52.0); Imm Gran Abs Auto 0.06 X10*3/uL (0.00-0.03); Imm Gran Pct Auto 0.8 % (0.0-0.4); Lymphocytes Absolute Auto 1.7 X10*3/uL (1.2-4.9); Lymphocytes Percent Auto 21.2 % (20-40); Mean Corpuscular HGB Conc 32.1 g/dl (31.0-36.0); Mean Corpuscular Hemoglobin 29.9 pg (27.0-33.0); Mean Corpuscular Volume 93.4 fL (80.0-98.0); Mean Platelet Volume 9.2 fL (9.4-12.4); Monocytes Absolute Auto 0.8 X10*3/uL (0.1-1.2); Monocytes Percent Auto 10.5 % (2-11); Neutrophils Absolute Auto 4.7 x10*3/uL (2.0-8.3); Neutrophils Percent Auto 59.6 % (45-73); Platelet Count 281 X10*3/uL (160-400); Red Blood Count 3.34 X10*6/uL (4.60-5.80); Red Cell Distribution Width 12.7 % (11.0-16.0); White Blood Count 7.9 X10*3/uL (4.8-10.8)
[2022-12-15] MEDS: PARoxetine HCL 40 MG TABLET PO (08:43)
[2022-12-15] MEDS: Apixaban 5 MG TABLET PO ×2 (08:43→20:39)
[2022-12-15] MEDS: Metoprolol Succinate ER 50 MG TAB.ER.24H PO (08:43)
--- NOTE | 2022-12-15 11:53 | P.PNIM_ITS ---
Subjective Subjective Date of Service: 12/15/22 Interval History: Complaining of right hip pain even with sitting, also complaining of dizziness unchanged since last 1 year, that he described as lightheadedness no spinning, denies abdominal pain, no nausea, no vomiting no urinary symptoms of urgency or frequency, no acute events since admission. Review of Systems All other system reviewed and negative. Physical Exam 2 Vital Signs: Vital Signs: Last Vital Signs Temp 96.8 F 12/15/22 08:00 Pulse 75 12/15/22 08:00 Resp 18 12/15/22 08:00 BP 114/61 12/15/22 08:00 Pulse Ox 95 12/15/22 08:00 O2 Del Method Room Air 12/15/22 08:00 BMI result Body Mass Index 22.3 Const: Other: General awake ,alert x3, resting comfortably in no acute distress. Neck no JVD. CVS regular rate rhythm, Respiratory lungs clear to auscultation, no respiratory distress, no wheeze, no rhonchi. Gastrointestinal abdomen soft, non tender, bowel sounds audible, no guarding , no rigidity. Extremities no edema. Right no bruising, no swelling limited range of motion due to pain Neuro nonfocal , speech clear, hard of hearing. Skin no rash Psych appropriate affect Objective Data Active Medications Acetaminophen (Acetaminophen 325 Mg Tablet) 650 mg PO Q6H PRN PRN Reason: Pain, Mild (Pain Scale 1-3) Acetaminophen (Acetaminophen 325 Mg Tablet) 650 mg PO TID [facility] Albuterol Sulfate (Albuterol Sulfate 90 Mcg 8 Gm Inhaler) 2 puff INHALE Q4H PRN PRN Reason: wheezing Apixaban (Apixaban 5 Mg Tablet) 5 mg PO BID [facility] Last Admin: 12/15/22 08:43 Dose: 5 mg Documented By: KEN Folic Acid (Folic Acid 1 Mg Tablet) 1 mg PO BEDTIME [facility] Last Admin: 12/14/22 20:51 Dose: 1 mg Documented By: KAITY Lactated Ringer's (Lr) 1,000 mls @ 100 mls/hr IVCONT .Q10H [facility] Last Admin: 12/15/22 08:44 Dose: 100 mls/hr Documented By: KEN Melatonin (Melatonin 3 Mg Tablet) 6 mg PO BEDTIME PRN PRN Reason: Insomnia Metoprolol Succinate (Metoprolol Succinate Er 50 Mg Tab.Er.24h) 50 mg PO DAILY [facility]; Protocol Last Admin: 12/15/22 08:43 Dose: 50 mg Documented By: KEN Nicotine (Nicotine 14 Mg Patch.Td24) 14 mg TRANSDERMA DAILY [facility] Last Admin: 12/15/22 08:44 Dose: Not Given Documented By: KEN Non-Admin Reason: Patient Refused Omeprazole (Omeprazole 20 Mg Capsule.) 20 mg PO DAILY@0630 [facility] Last Admin: 12/15/22 06:21 Dose: 20 mg Documented By: BRENDA Ondansetron HCl (Ondansetron Hcl 4 Mg/2 Ml Vial) 4 mg IVPUSH Q8H PRN PRN Reason: Nausea and Vomiting Oxycodone HCl (Oxycodone Hcl Immed Release 5 Mg Tablet) 5 mg PO Q6H PRN PRN Reason: Pain, Moderate(Pain Scale 4-6) Paroxetine HCl (Paroxetine Hcl 20 Mg Tablet) 20 mg PO DAILY [facility] Sodium Chloride (0.9 % Sodium Chloride Flush 3 Ml Syringe) 3 ml IVFLUSH QSHIFT [facility] Last Admin: 12/15/22 08:44 Dose: Not Given Documented By: KEN Non-Admin Reason: IV Running Tamsulosin HCl (Tamsulosin Hcl 0.4 Mg Capsule) 0.4 mg PO BEDTIME [facility] Last Admin: 12/14/22 20:51 Dose: 0.4 mg Documented By: KAITY Trazodone HCl (Trazodone Hcl 50 Mg Tablet) 50 mg PO BEDTIME PRN PRN Reason: Insomnia Labs 12/15/22 05:57 12/15/22 05:57 Labs: Laboratory Results - last 24 hr 12/14/22 12/14/22 12/14/22 16:52 18:02 22:25 MCV 91.4 MCH 29.8 MCHC 32.6 RDW 12.6 Plt Count 318 D MPV 8.8 L Immature Gran % (Auto) 0.3 Neut % (Auto) 75.3 H Lymph % (Auto) 13.9 L [place] % (Auto) 5.9 Eos % (Auto) 3.7 Baso % (Auto) 0.9 Lymph # (Auto) 1.3 [place] # (Auto) 0.5 Eos # (Auto) 0.3 Baso # (Auto) 0.1 Abs Immat Gran (auto) 0.03 Absolute Neuts (auto) 6.9 Absolute Nucleated RBC 0.000 Nucleated RBC % (auto) 0.0 PT 20.0 H INR 1.6 H Anion Gap 17 Estim Creat Clear Calc 21.5 Estimated GFR 24 Random Glucose 94 Calcium 9.3 Magnesium 1.7 Total Bilirubin 0.5 Direct Bilirubin 0.2 AST 16 ALT 7 Alkaline Phosphatase 52 Total Protein 7.7 Albumin 3.5 Urine Color Yellow Urine Appearance Clear Urine pH 6.0 Ur Specific [place] 1.015 Urine Protein Negative Urine Glucose (UA) Negative Urine Ketones Negative Urine Blood Negative Urine Nitrite Negative Ur Leukocyte Esterase Negative Stool Occult Blood NEGATIVE 12/15/22 05:57 MCV 93.4 MCH 29.9 MCHC 32.1 RDW 12.7 Plt Count 281 MPV 9.2 L Immature Gran % (Auto) 0.8 H Neut % (Auto) 59.6 Lymph % (Auto) 21.2 [place] % (Auto) 10.5 Eos % (Auto) 6.5 H Baso % (Auto) 1.4 Lymph # (Auto) 1.7 [place] # (Auto) 0.8 Eos # (Auto) 0.5 H Baso # (Auto) 0.1 Abs Immat Gran (auto) 0.06 H Absolute Neuts (auto) 4.7 Absolute Nucleated RBC 0.000 Nucleated RBC % (auto) 0.0 PT INR Anion Gap 11 L Estim Creat Clear Calc 23.4 Estimated GFR 26 Random Glucose 85 Calcium 8.4 D Magnesium Total Bilirubin Direct Bilirubin AST ALT Alkaline Phosphatase Total Protein Albumin Urine Color Urine Appearance Urine pH Ur Specific [place] Urine Protein Urine Glucose (UA) Urine Ketones Urine Blood Urine Nitrite Ur Leukocyte Esterase Stool Occult Blood Assessment and Plan (1) Orthostatic hypotension: Status: Acute (2) Osteoarthritis of right hip: Status: Acute (3) Cyst of left kidney: Status: Acute (4) KATLIN (acute kidney injury): Status: Acute Plan 82-year-old male with a PMH significant for?paroxysmal AFib on Eliquis, hx of PE, HTN, COPD, hx of lung cancer in remission, and BPH who presents to the ED for evaluation of right hip pain and difficulty ambulating after a mechanical fall at home earlier in the week. Pt will be admitted to the hospital treatment and further evaluation of KATLIN in the setting of reduced mobility due to right hip pain. KATLIN on chronic kidney disease stage 3 creatinine of 2.55, on admission, up from 1.34 on 06/29/2022 Repeat creatinine remains elevated 2.39, continue IV fluids , obtain urine protein creatinine ratio, urine sodium ,obtain Nephrology consultation Follow BMP Orthostatic presyncope chronic lightheadedness and dizziness since having COVID 1 1/2 years ago Orthostatics positive on admission treated with IV fluid repeat orthostatic studies significantly improved but remains mildly positive, continue IV fluids Decrease dose of Paxil this causes dizziness, adjust blood pressure medication Right hip pain and difficulty ambulating S/P fall at home, add scheduled Tylenol and as needed oxycodone PT evaluation History of left renal cyst, size decreased from prior study, consult urology Acute anemia no blood loss Noted Likely Due To kidney disease, stool occult blood negative check iron profile, B12 folate and ferritin COPD Not in acute exacerbation,Continue home inhalers Paroxysmal AFib Continue Eliquis and metoprolol GERD PPI BPH Continue tamsulosin DNR/DNI DVT Prophylaxis: On Eliquis Continue hospitalization for treatment and further evaluation of KATLIN, right hip pain, and positive orthostatics and left renal cyst. Time Spent With Patient Time: Total time managing care of this patient today ____ minutes. Quality Stroke Does the patient have a stroke diagnosis?: No VTE Prior VTE?: No VTE Risk Level:: Medical - moderate - high VTE Device Contraindication: Treatment Not Indicated VTE Drug Contraindication: N/A - Med Ordered
[2022-12-15] MEDS: Albuterol Sulfate 90 MCG 8 GM INHALER 2 PUFF INHALE (12:33)
--- NOTE | 2022-12-15 13:17 | MHC.CM.PN ---
IMM 12/15/22, Pt lives with his son, who helps with shopping and care of house. He is indendent, no home health services, has a walker at home. He has used [facility] in the past, agrees to using them if indicated at DC. HCP on file, son to bring him home. CM to follow and assist with DC plan.
[2022-12-15 13:20] LABS: Osmolality Urine 497 mosm/kg (373-1093)
[2022-12-15 13:22] LABS: Creatinine Urine 68.81 mg/dL; Total Protein Urine Random < 7 mg/dL (<12)
[2022-12-15] MEDS: Acetaminophen 325 MG TABLET 650 MG PO ×2 (13:25→20:39)
[2022-12-15] MEDS: oxyCODONE HCl Immed Release 5 MG TABLET PO ×2 (13:25→21:29)
[2022-12-15] MEDS: Tamsulosin HCL 0.4 MG CAPSULE PO (20:39)
[2022-12-15] MEDS: Folic Acid 1 MG TABLET PO (20:39)
[2022-12-15] MEDS: traZODone HCL 50 MG TABLET PO (21:29)
[2022-12-16] MEDS: Lactated Ringers 1,000 ML 100 ML IVCONT ×2 (01:29→04:10)
[2022-12-16 02:55] VITALS: BP 180/81; PULSE 70; RESP 18; TEMP 36.2; O2SAT 96
[2022-12-16 03:20] VITALS: BP 155/75
[2022-12-16] MEDS: Omeprazole 20 MG CAPSULE.DR PO (05:53)
[2022-12-16] MEDS: oxyCODONE HCl Immed Release 5 MG TABLET PO ×2 (05:54→20:59)
[2022-12-16 06:21] LABS: Hematocrit 29.9 % (42.0-52.0); Hemoglobin 9.9 g/dl (14.0-18.0); Mean Corpuscular HGB Conc 33.1 g/dl (31.0-36.0); Mean Corpuscular Hemoglobin 30.7 pg (27.0-33.0); Mean Corpuscular Volume 92.6 fL (80.0-98.0); Mean Platelet Volume 8.8 fL (9.4-12.4); Platelet Count 258 X10*3/uL (160-400); Red Blood Count 3.23 X10*6/uL (4.60-5.80); Red Cell Distribution Width 12.6 % (11.0-16.0); White Blood Count 7.4 X10*3/uL (4.8-10.8)
[2022-12-16 06:48] LABS: Anion Gap 12 (12-20); Blood Urea Nitrogen 24 mg/dL (9-16); Calcium 8.6 mg/dL (8.4-10.2); Carbon Dioxide 22 mmol/L (22-29); Chloride 107 mmol/L (96-108); Creatinine Clr Calc Pharmacy 25.9; Estimated Glomerular Filt Rate 29; Glucose Random 85 mg/dL (60-115); Iron 26 mcg/dL (45-160); Percent Iron Saturation 19 % (15-50); Potassium 4.3 mmol/L (3.3-5.1); Sodium 137 mmol/L (135-145); Total Iron Binding Capacity 135 mcg/dL (228-428); Unsaturated Iron Binding 109 ug/dL
[2022-12-16 07:02] LABS: Ferritin 227 ng/mL (20-250)
[2022-12-16 07:17] LABS: Folate 15.3 ng/mL (> or = 4.0); Vitamin B12 417 pg/mL (200-900)
[2022-12-16 07:31] VITALS: BP 169/74; PULSE 74; RESP 18; TEMP 36.1; O2SAT 95
[2022-12-16] MEDS: Apixaban 5 MG TABLET PO ×2 (09:09→20:58)
[2022-12-16] MEDS: Metoprolol Succinate ER 50 MG TAB.ER.24H PO (09:09)
[2022-12-16] MEDS: PARoxetine HCL 20 MG TABLET PO (09:09)
[2022-12-16] MEDS: Acetaminophen 325 MG TABLET 650 MG PO ×3 (09:10→20:58)
[2022-12-16] MEDS: 0.9 % Sodium Chloride Flush 3 ML SYRINGE IVFLUSH ×3 (09:11→21:01)
--- NOTE | 2022-12-16 12:12 | PM.EVENT ---
Event Note Date of Service: 12/16/22 Event Note: Pt seen and examined Full consult to follow KATLIN - Renal hypoperfusion - e CKD- Stage 3 a/b Fluctuating BP Urine studies not c/w Prerenal state No [place] H/o Drained renal cyst HTN - Agree with checking orthostasis No Need for IVF If Jessica better or stable can be d/c'd in 24 hrs with out pt f/u Thx Dr. Luo Time Spent With Patient Time: Total time managing care of this patient today ____ minutes.
--- NOTE | 2022-12-16 12:36 | MHC.CM.PN ---
PT sanket recommends STR. Met with patient to obtain SNF preferences. He stated that he would speak with his sons about STR. Patient lives in [place]. Local referrals sent. Will obtain pt preference once he speaks with his sons. DP STR via BLS.
--- NOTE | 2022-12-16 13:45 | P.CNUR_ITS ---
History of Present Illness Consult details Consult date: 12/16/22 Narrative: Consulting complaint: Large left renal cyst 82-year-old male admitted to hospital for right hip pain and difficulty ambulating following fall. Known large cyst on left kidney with mild complexity. Prior discussion regarding drainage. Patient on AFib and anticoagulation. Both low-dose aspirin and Eliquis. CT reviewed. Moderate left shift kidney with large mildly complex cyst. Cyst has decreased in size compared to prior imaging in June. Creatinine at that point in time within normal range. Recommend medical management for current acute on chronic renal exacerbation. May follow as outpatient for cyst management. Will require suspension of anticoagulation for drainage. Review of Systems 2 Constitutional: Constitutional: Reports as per HPI and Reports no additional constitutional complaints Cardiovascular: Cardiovascular: Reports as per HPI and Reports no additional cardiovascular complaints Respiratory: Respiratory: Reports as per HPI and Reports no additional respiratory complaints Gastrointestinal: Gastrointestinal: Reports as per HPI and Reports no additional gastrointestinal complaints Genitourinary: Genitourinary: Reports as per HPI Musculoskeletal: Musculoskeletal: Reports no additional musculoskeletal complaints and Reports as per HPI Neurologic: Reports system reviewed and no additional complaints, except as documented and Reports as per HPI [facility] Past Medical History Medical History Chronic anticoagulation PAF (paroxysmal atrial fibrillation) COPD (chronic obstructive pulmonary disease) Pulmonary emboli Essential hypertension Lung cancer Family History Family History Father Lung cancer Surgical History Surgical History No pertinent past surgical history Social History Social History Household Members: Family Household Members Other:: lives with son Housing: House Do you presently have visiting nurse or other home services: No Alcohol intake: never Patient Tobacco Use Status: Current everyday Tobacco user Tobacco use type: Cigarette Cigarettes Per Day: 3 Years Smoked: 50 e-Cigarette/Vaping Use: Currently Using Second Hand Smoke Exposure: No Advance Directives Date on File: 10/19/21 service: No Current occupational status: retired Meds Allergies Allergy/AdvReac Type Severity Reaction Status Date / Time No Known Allergies Allergy Verified 06/27/22 16:10 Active Medications: Current Medications Acetaminophen (Acetaminophen 325 Mg Tablet) 650 mg PO Q6H PRN PRN Reason: Pain, Mild (Pain Scale 1-3) Acetaminophen (Acetaminophen 325 Mg Tablet) 650 mg PO TID [facility] Last Admin: 12/16/22 09:10 Dose: 650 mg Albuterol Sulfate (Albuterol Sulfate 90 Mcg 8 Gm Inhaler) 2 puff INHALE Q4H PRN PRN Reason: wheezing Last Admin: 12/15/22 12:33 Dose: 2 puff Apixaban (Apixaban 5 Mg Tablet) 5 mg PO BID [facility] Last Admin: 12/16/22 09:09 Dose: 5 mg Folic Acid (Folic Acid 1 Mg Tablet) 1 mg PO BEDTIME [facility] Last Admin: 12/15/22 20:39 Dose: 1 mg Melatonin (Melatonin 3 Mg Tablet) 6 mg PO BEDTIME PRN PRN Reason: Insomnia Metoprolol Succinate (Metoprolol Succinate Er 50 Mg Tab.Er.24h) 50 mg PO DAILY [facility]; Protocol Last Admin: 12/16/22 09:09 Dose: 50 mg Nicotine (Nicotine 14 Mg Patch.Td24) 14 mg TRANSDERMA DAILY [facility] Last Admin: 12/16/22 09:12 Dose: Not Given Omeprazole (Omeprazole 20 Mg Capsule.Dr) 20 mg PO DAILY@0630 [facility] Last Admin: 12/16/22 05:53 Dose: 20 mg Ondansetron HCl (Ondansetron Hcl 4 Mg/2 Ml Vial) 4 mg IVPUSH Q8H PRN PRN Reason: Nausea and Vomiting Oxycodone HCl (Oxycodone Hcl Immed Release 5 Mg Tablet) 5 mg PO Q6H PRN PRN Reason: Pain, Moderate(Pain Scale 4-6) Last Admin: 12/16/22 05:54 Dose: 5 mg Paroxetine HCl (Paroxetine Hcl 20 Mg Tablet) 20 mg PO DAILY [facility] Last Admin: 12/16/22 09:09 Dose: 20 mg Sodium Chloride (0.9 % Sodium Chloride Flush 3 Ml Syringe) 3 ml IVFLUSH QSHIFT [facility] Last Admin: 12/16/22 09:11 Dose: 3 ml Tamsulosin HCl (Tamsulosin Hcl 0.4 Mg Capsule) 0.4 mg PO BEDTIME [facility] Last Admin: 12/15/22 20:39 Dose: 0.4 mg Trazodone HCl (Trazodone Hcl 50 Mg Tablet) 50 mg PO BEDTIME PRN PRN Reason: Insomnia Last Admin: 12/15/22 21:29 Dose: 50 mg Home Medications Medication Instructions Recorded Confirmed Last Taken Type albuterol sulfate 90 mcg/actuation 2 puff inhalation Q4H PRN wheezing 07/14/21 12/14/22 07/13/21 History aerosol inhaler omeprazole 20 mg capsule,delayed 1 cap PO DAILY@0630 07/14/21 12/14/22 12/14/22 09:00 History release paroxetine HCl 40 mg tablet 1 tab PO DAILY 07/14/21 12/14/22 12/14/22 09:00 History tamsulosin 0.4 mg capsule 1 cap PO BEDTIME 07/14/21 12/14/22 12/13/22 History apixaban 5 mg tablet (Eliquis) 5 mg PO BID 08/16/21 12/14/22 12/14/22 09:00 History metoprolol succinate 25 mg 50 mg PO DAILY 06/27/22 12/14/22 12/14/22 09:00 History tablet,extended release 24 hr trazodone 50 mg tablet 50 mg PO BEDTIME PRN Insomnia 06/27/22 12/14/22 12/13/22 History acetaminophen 325 mg tablet 650 mg PO Q6H PRN Pain 12/14/22 12/14/22 Unknown History (Tylenol) aspirin 81 mg tablet,delayed 81 mg PO DAILY PRN Pain 12/14/22 12/14/22 Unknown History release folic acid 1 mg tablet 1 mg PO BEDTIME 12/14/22 12/14/22 12/13/22 History naproxen sodium 220 mg tablet 220 mg PO BID PRN Pain 12/14/22 12/14/22 Unknown History (Aleve) Physical Exam 2 Vital Signs: Vital Signs: Last Vital Signs Temp 96.9 F 12/16/22 07:31 Pulse 74 12/16/22 07:31 Resp 18 12/16/22 07:31 BP 169/74 H 12/16/22 07:31 Pulse Ox 95 12/16/22 07:31 O2 Del Method Room Air 12/16/22 07:31 BMI result Body Mass Index 22.3 Const: General: cooperative, healthy appearing, comfortable and no acute distress Orientation/consciousness: patient oriented x3 HEENT: Face and sinus: Yes normal facial exam Mouth: moist mucous membranes Neck: Neck: Yes normal visual inspection, Yes full ROM and Yes trachea midline Chest: Chest palpation & inspection: normal inspection of the chest Resp: Effort & Inspection: normal respiratory effort, able to speak in complete sentences and no respiratory distress GI: Inspection: Yes normal to inspection Back/Spine/Pelvis: Cervical Spine: normal cervical lordosis Thoracic/Lumbar Spine: thoracic and lumbar spine normal to inspection Skin: General skin exam: no rashes or lesions noted Neuro: General: patient oriented x3, tone normal and moves all extremities Extrem: General: Yes normal to inspection and Yes capillary refill normal Results Labs 12/16/22 05:46 12/16/22 05:46 Labs: Abnormal lab results 12/16/22 Range/Units 05:46 RBC 3.23 L (4.60-5.80) X10*6/uL Hgb 9.9 L (14.0-18.0) g/dl Hct 29.9 L (42.0-52.0) % MPV 8.8 L (9.4-12.4) fL BUN 24 H (9-16) mg/dL Creatinine 2.16 H (0.5-1.4) mg/dL Iron 26 L (45-160) mcg/dL TIBC 135 L (228-428) mcg/dL Short CBC 12/16/22 Range/Units 05:46 WBC 7.4 (4.8-10.8) X10*3/uL Hgb 9.9 L (14.0-18.0) g/dl Hct 29.9 L (42.0-52.0) % Plt Count 258 (160-400) X10*3/uL BMP 12/16/22 05:46 Sodium 137 Potassium 4.3 Chloride 107 Carbon Dioxide 22 BUN 24 H Creatinine 2.16 H Calcium 8.6 Urine 12/14/22 Range/Units 22:25 Urine Color Yellow Urine Appearance Clear Urine pH 6.0 (5.0-9.0) Ur Specific [place] 1.015 (1.005-1.025) Urine Protein Negative (Neg-Trace) mg/dL Urine Glucose (UA) Negative (Negative) mg/dL All other labs normal. Assessment and Plan (1) Cyst of left kidney: Status: Acute Plan Outpatient evaluation Time Spent With Patient Time: Total time managing care of this patient today ____ minutes. Procedures Date of Service Date of Service: 12/16/22
[2022-12-16 15:16] VITALS: BP 174/86; PULSE 75; RESP 18; TEMP 36; O2SAT 96
--- NOTE | 2022-12-16 17:05 | HO.PM.IMPN ---
Subjective Subjective Date of Service: 12/16/22 Interval History: Complaining of persistent right hip pain otherwise tolerating diet no nausea no vomiting no abdominal pain, no diarrhea, no urinary symptoms of frequency, no urgency, no fevers,no chills. Review of Systems All other system reviewed and negative. Physical Exam Vital Signs: Vital Signs: Last Vital Signs Temp 96.8 F 12/16/22 15:16 Pulse 75 12/16/22 15:16 Resp 18 12/16/22 15:16 BP 174/86 H 12/16/22 15:16 Pulse Ox 96 12/16/22 15:16 O2 Del Method Room Air 12/16/22 15:16 BMI result Body Mass Index 22.3 Const: Other: General awake ,alert x3, resting comfortably in no acute distress. Neck no JVD. CVS regular rate rhythm, Respiratory lungs clear to auscultation, no respiratory distress, no wheeze, no rhonchi. Gastrointestinal abdomen soft, non tender, bowel sounds audible, no guarding , no rigidity. Extremities no edema. Right no bruising, no swelling limited range of motion due to pain Neuro non focal , speech clear, hard of hearing. Skin no rash Psych appropriate affect Objective Data Active Medications Acetaminophen (Acetaminophen 325 Mg Tablet) 650 mg PO Q6H PRN PRN Reason: Pain, Mild (Pain Scale 1-3) Acetaminophen (Acetaminophen 325 Mg Tablet) 650 mg PO TID [facility] Last Admin: 12/16/22 16:04 Dose: 650 mg Documented By: QUINN Albuterol Sulfate (Albuterol Sulfate 90 Mcg 8 Gm Inhaler) 2 puff INHALE Q4H PRN PRN Reason: wheezing Last Admin: 12/15/22 12:33 Dose: 2 puff Documented By: KEN Apixaban (Apixaban 5 Mg Tablet) 5 mg PO BID [facility] Last Admin: 12/16/22 09:09 Dose: 5 mg Documented By: QUINN Folic Acid (Folic Acid 1 Mg Tablet) 1 mg PO BEDTIME [facility] Last Admin: 12/15/22 20:39 Dose: 1 mg Documented By: TANA Melatonin (Melatonin 3 Mg Tablet) 6 mg PO BEDTIME PRN PRN Reason: Insomnia Metoprolol Succinate (Metoprolol Succinate Er 50 Mg Tab.Er.24h) 50 mg PO DAILY [facility]; Protocol Last Admin: 12/16/22 09:09 Dose: 50 mg Documented By: QUINN Nicotine (Nicotine 14 Mg Patch.Td24) 14 mg TRANSDERMA DAILY [facility] Last Admin: 12/16/22 09:12 Dose: Not Given Documented By: QUINN Non-Admin Reason: Patient Refused Omeprazole (Omeprazole 20 Mg Capsule.) 20 mg PO DAILY@0630 [facility] Last Admin: 12/16/22 05:53 Dose: 20 mg Documented By: TANA Ondansetron HCl (Ondansetron Hcl 4 Mg/2 Ml Vial) 4 mg IVPUSH Q8H PRN PRN Reason: Nausea and Vomiting Oxycodone HCl (Oxycodone Hcl Immed Release 5 Mg Tablet) 5 mg PO Q6H PRN PRN Reason: Pain, Moderate(Pain Scale 4-6) Last Admin: 12/16/22 05:54 Dose: 5 mg Documented By: TANA Paroxetine HCl (Paroxetine Hcl 20 Mg Tablet) 20 mg PO DAILY [facility] Last Admin: 12/16/22 09:09 Dose: 20 mg Documented By: QUINN Sodium Chloride (0.9 % Sodium Chloride Flush 3 Ml Syringe) 3 ml IVFLUSH QSHIFT [facility] Last Admin: 12/16/22 16:06 Dose: 3 ml Documented By: QUINN Tamsulosin HCl (Tamsulosin Hcl 0.4 Mg Capsule) 0.4 mg PO BEDTIME [facility] Last Admin: 12/15/22 20:39 Dose: 0.4 mg Documented By: TANA Trazodone HCl (Trazodone Hcl 50 Mg Tablet) 50 mg PO BEDTIME PRN PRN Reason: Insomnia Last Admin: 12/15/22 21:29 Dose: 50 mg Documented By: TANA Labs 12/16/22 05:46 12/16/22 05:46 Labs: Laboratory Results - last 24 hr 12/16/22 05:46 MCV 92.6 MCH 30.7 MCHC 33.1 RDW 12.6 Plt Count 258 MPV 8.8 L Absolute Nucleated RBC 0.000 Nucleated RBC % (auto) 0.0 Anion Gap 12 Estim Creat Clear Calc 25.9 Estimated GFR 29 Random Glucose 85 Calcium 8.6 Iron 26 L TIBC 135 L % Saturation 19 Unsat Iron Binding 109 Ferritin 227 Vitamin B12 417 Folate 15.3 Assessment and Plan (1) Orthostatic hypotension: Status: Acute (2) Osteoarthritis of right hip: Status: Acute (3) Cyst of left kidney: Status: Acute (4) KATLIN (acute kidney injury): Status: Acute Plan 82-year-old male with a PMH significant for?paroxysmal AFib on Eliquis, hx of PE, HTN, COPD, hx of lung cancer in remission, and BPH who presents to the ED for evaluation of right hip pain and difficulty ambulating after a mechanical fall at home earlier in the week. Pt will be admitted to the hospital treatment and further evaluation of KATLIN in the setting of reduced mobility due to right hip pain. KATLIN on chronic kidney disease stage 3 creatinine of 2.55, on admission, up from 1.34 on 06/29/2022 baseline creatinine around 1.7/1.8. Repeat creatinine improved to 2.16, will DC IV fluids urine studies not consistent with pre renal state, no obstruction noted seen by Nephrology day recommend to follow BMP if improving recommend discharge and outpatient follow-up with Nephrology , follow BMP at a.m. Orthostatic presyncope chronic lightheadedness ,since having COVID 1 1/2 years ago Orthostatics positive on admission treated with IV fluid repeat orthostatic studies improved ,dc IV fluids dose of Paxil decrease to 20 mg due to side effect of dizziness, Right hip pain and difficulty ambulating S/P fall at home, continue scheduled Tylenol and as needed oxycodone, PT recommend home with family support History of left renal cyst, size decreased from prior study, seen by Urology they recommend outpatient follow-up will need to hold Eliquis for any procedures. Acute anemia no blood loss Noted Likely Due To kidney disease, stool occult blood negative , iron profile not consistent with iron deficiency anemia, normal B12 and folate . COPD Not in acute exacerbation,Continue home inhalers Paroxysmal AFib Continue Eliquis and metoprolol GERD PPI BPH Continue tamsulosin DNR/DNI DVT Prophylaxis: On Eliquis Continue hospitalization for treatment and further evaluation of KATLIN, right hip pain, and positive orthostatics and left renal cyst. Time Spent With Patient Time: Total time managing care of this patient today ____ minutes. Quality Stroke Does the patient have a stroke diagnosis?: No VTE Prior VTE?: No VTE Risk Level:: Medical - moderate - high VTE Device Contraindication: Treatment Not Indicated VTE Drug Contraindication: N/A - Med Ordered
[2022-12-16] MEDS: Celecoxib 200 MG CAPSULE PO (17:41)
[2022-12-16 19:37] VITALS: BP 158/81; PULSE 81; RESP 18; TEMP 36; O2SAT 95
[2022-12-16] MEDS: Folic Acid 1 MG TABLET PO (20:59)
[2022-12-16] MEDS: traZODone HCL 50 MG TABLET PO (20:59)
[2022-12-16] MEDS: Tamsulosin HCL 0.4 MG CAPSULE PO (22:25)
[2022-12-17] VITALS (7 sets, daily range): BP systolic 111–181; BP diastolic 62–85; PULSE 70–87; RESP 16–18; TEMP 36.1–36.5; O2SAT 95–97
[2022-12-17] MEDS: Albuterol Sulfate 90 MCG 8 GM INHALER 2 PUFF INHALE (01:33)
[2022-12-17] MEDS: oxyCODONE HCl Immed Release 5 MG TABLET PO (04:23)
[2022-12-17] MEDS: Omeprazole 20 MG CAPSULE.DR PO (05:29)
[2022-12-17 05:36] LABS: Hematocrit 30.9 % (42.0-52.0); Hemoglobin 10.3 g/dl (14.0-18.0); Mean Corpuscular HGB Conc 33.3 g/dl (31.0-36.0); Mean Corpuscular Hemoglobin 30.4 pg (27.0-33.0); Mean Corpuscular Volume 91.2 fL (80.0-98.0); Mean Platelet Volume 8.7 fL (9.4-12.4); Platelet Count 250 X10*3/uL (160-400); Red Blood Count 3.39 X10*6/uL (4.60-5.80); Red Cell Distribution Width 12.6 % (11.0-16.0); White Blood Count 9.2 X10*3/uL (4.8-10.8)
[2022-12-17 05:52] LABS: Anion Gap 14 (12-20); Blood Urea Nitrogen 21 mg/dL (9-16); Calcium 8.8 mg/dL (8.4-10.2); Carbon Dioxide 21 mmol/L (22-29); Chloride 107 mmol/L (96-108); Creatinine Clr Calc Pharmacy 26.2; Estimated Glomerular Filt Rate 30; Glucose Random 94 mg/dL (60-115); Potassium 4.2 mmol/L (3.3-5.1); Sodium 138 mmol/L (135-145)
[2022-12-17] MEDS: Metoprolol Succinate ER 50 MG TAB.ER.24H PO (08:48)
[2022-12-17] MEDS: PARoxetine HCL 20 MG TABLET PO (08:48)
[2022-12-17] MEDS: Apixaban 5 MG TABLET PO (08:48)
[2022-12-17] MEDS: Acetaminophen 325 MG TABLET 650 MG PO ×2 (08:49→16:36)
[2022-12-17] MEDS: 0.9 % Sodium Chloride Flush 3 ML SYRINGE IVFLUSH (08:49)
--- NOTE | 2022-12-17 11:27 | HO.PM.IMPN ---
Subjective Subjective Date of Service: 12/17/22 Interval History: Complaining of persistent lightheadedness on standing, unable to stand for longer duration due to right hip pain, oxycodone helping with pain, denies chest pain, no palpitations, no headache, no nausea, no vomiting, no diarrhea, no urinary symptoms no other acute issues overnight. Review of Systems All other system improved and negative Physical Exam Vital Signs: Vital Signs: Last Vital Signs Temp 97.6 F 12/17/22 07:33 Pulse 81 12/17/22 07:46 Resp 18 12/17/22 07:33 BP 159/85 H 12/17/22 07:46 Pulse Ox 95 12/17/22 07:33 O2 Del Method Room Air 12/17/22 07:33 BMI result Body Mass Index 22.3 Const: Other: General awake ,alert x3, resting comfortably in no acute distress. Neck no JVD. CVS regular rate rhythm, Respiratory lungs clear to auscultation, no respiratory distress, no wheeze, no rhonchi. Gastrointestinal abdomen soft, non tender, bowel sounds audible, no guarding , no rigidity. Extremities no edema. Right no bruising, no swelling limited range of motion due to pain Neuro non focal , speech clear, hard of hearing. Skin no rash Psych appropriate affect Objective Data Active Medications Acetaminophen (Acetaminophen 325 Mg Tablet) 650 mg PO Q6H PRN PRN Reason: Pain, Mild (Pain Scale 1-3) Acetaminophen (Acetaminophen 325 Mg Tablet) 650 mg PO TID [facility] Last Admin: 12/17/22 08:49 Dose: 650 mg Documented By: QUINN Albuterol Sulfate (Albuterol Sulfate 90 Mcg 8 Gm Inhaler) 2 puff INHALE Q4H PRN PRN Reason: wheezing Last Admin: 12/17/22 01:33 Dose: 2 puff Documented By: COLLIN Apixaban (Apixaban 5 Mg Tablet) 5 mg PO BID [facility] Last Admin: 12/17/22 08:48 Dose: 5 mg Documented By: QUINN Folic Acid (Folic Acid 1 Mg Tablet) 1 mg PO BEDTIME [facility] Last Admin: 12/16/22 20:59 Dose: 1 mg Documented By: TANA Melatonin (Melatonin 3 Mg Tablet) 6 mg PO BEDTIME PRN PRN Reason: Insomnia Metoprolol Succinate (Metoprolol Succinate Er 50 Mg Tab.Er.24h) 50 mg PO DAILY [facility]; Protocol Last Admin: 12/17/22 08:48 Dose: 50 mg Documented By: QUINN Nicotine (Nicotine 14 Mg Patch.Td24) 14 mg TRANSDERMA DAILY [facility] Last Admin: 12/17/22 08:49 Dose: Not Given Documented By: QUINN Non-Admin Reason: Patient Refused Omeprazole (Omeprazole 20 Mg Capsule.Dr) 20 mg PO DAILY@0630 [facility] Last Admin: 12/17/22 05:29 Dose: 20 mg Documented By: TANA Ondansetron HCl (Ondansetron Hcl 4 Mg/2 Ml Vial) 4 mg IVPUSH Q8H PRN PRN Reason: Nausea and Vomiting Oxycodone HCl (Oxycodone Hcl Immed Release 5 Mg Tablet) 5 mg PO Q6H PRN PRN Reason: Pain, Moderate(Pain Scale 4-6) Last Admin: 12/17/22 04:23 Dose: 5 mg Documented By: TANA Paroxetine HCl (Paroxetine Hcl 20 Mg Tablet) 20 mg PO DAILY [facility] Last Admin: 12/17/22 08:48 Dose: 20 mg Documented By: QUINN Sodium Chloride (0.9 % Sodium Chloride Flush 3 Ml Syringe) 3 ml IVFLUSH QSHIFT [facility] Last Admin: 12/17/22 08:49 Dose: 3 ml Documented By: QUINN Tamsulosin HCl (Tamsulosin Hcl 0.4 Mg Capsule) 0.4 mg PO BEDTIME [facility] Last Admin: 12/16/22 22:25 Dose: 0.4 mg Documented By: TANA Trazodone HCl (Trazodone Hcl 50 Mg Tablet) 50 mg PO BEDTIME PRN PRN Reason: Insomnia Last Admin: 12/16/22 20:59 Dose: 50 mg Documented By: TANA Labs 12/17/22 05:27 12/17/22 05:27 Labs: Laboratory Results - last 24 hr 12/17/22 05:27 MCV 91.2 MCH 30.4 MCHC 33.3 RDW 12.6 Plt Count 250 MPV 8.7 L Absolute Nucleated RBC 0.000 Nucleated RBC % (auto) 0.0 Anion Gap 14 Estim Creat Clear Calc 26.2 Estimated GFR 30 Random Glucose 94 Calcium 8.8 Assessment and Plan (1) Orthostatic hypotension: Status: Acute (2) Osteoarthritis of right hip: Status: Acute Plan 82-year-old male with a PMH significant for?paroxysmal AFib on Eliquis, hx of PE, HTN, COPD, hx of lung cancer in remission, and BPH who presents to the ED for evaluation of right hip pain and difficulty ambulating after a mechanical fall at home earlier in the week. Pt will be admitted to the hospital treatment and further evaluation of KATLIN in the setting of reduced mobility due to right hip pain. KATLIN on chronic kidney disease stage 3 creatinine of 2.55, on admission, up from 1.34 on 06/29/2022 baseline creatinine around 1.7/1.8. Repeat creatinine improved to 2.14, s/p IV fluids urine studies not consistent with pre renal state, no obstruction noted, seen by Nephrology they recommend to follow BMP Outpatient follow-up with Nephrology upon discharge for continued monitoring. Orthostatic presyncope chronic lightheadedness ,since having COVID 1 1/2 years ago Orthostatics BP remains positive status post IV fluids dose of Paxil decrease to 20 mg due to side effect of dizziness, [place]a stocking, stable sodium, blood sugars, will change metoprolol to p.m. and will add as needed midodrin for daytime, case discussed with Nephrology Right hip pain and difficulty ambulating S/P fall at home, continue scheduled Tylenol and add scheduled oxycodone, avoid NSAIDs due to renal failure. PT recommend str History of left renal cyst, size decreased from prior study, seen by Urology they recommend outpatient follow-up will need to hold Eliquis for any procedures. Acute anemia no blood loss Noted Likely Due To kidney disease, stool occult blood negative , iron profile not consistent with iron deficiency anemia, normal B12 and folate . Hematocrit above transfusion threshold COPD Not in acute exacerbation,Continue home inhalers Paroxysmal AFib Continue Eliquis and metoprolol GERD PPI BPH Continue tamsulosin DNR/DNI DVT Prophylaxis: On Eliquis Continue hospitalization for treatment and further evaluation of KATLIN, right hip pain, and positive orthostatics , need safe disposition to rehab Time Spent With Patient Time: Total time managing care of this patient today ____ minutes. Quality Stroke Does the patient have a stroke diagnosis?: No VTE Prior VTE?: No VTE Risk Level:: Medical - moderate - high VTE Device Contraindication: Treatment Not Indicated VTE Drug Contraindication: N/A - Med Ordered
--- NOTE | 2022-12-17 12:04 | PC.NURSE ---
Pt refused IV
--- NOTE | 2022-12-17 17:53 | PM.EVENT ---
Event Note Date of Service: 12/18/22 Event Note: I spoke with a patient who was initially planned to go to rehab once a bed became available. However, he has now decided to return home against medical advice. The patient remains alert, oriented to self, time, and place, and comprehends the circumstances that brought him to the hospital. Despite my best efforts to persuade him to stay, he remains determined to leave, acknowledging the significant risks to his health, including the potential for fatality, and is willing to take those chances. His son has also been notified and will attempt to persuade him to reconsider. I recommend that the case management team follow up with him tomorrow and offer home-based services as the next best alternative. Son Gregory came and said I don't want him to go rehab and proceeded to take him home. TESS Calabrese will completed by his attending Physician Dr. Johnson Time Spent With Patient Time: Total time managing care of this patient today ____ minutes.
--- NOTE | 2022-12-17 18:23 | PC.NURSE ---
Pt became angry, wanting to leave, came to nurses Pod threatening to fight this junior copywriter. Security called. AMA form given by primary nurse, son called and agreed to come and filler picker the patient and bring him home.
--- NOTE | 2022-12-17 18:35 | PC.NURSE ---
Patient left AMA accompanied by the son. and charge nurse aware. He had been educated on the health risk of leaving [facility].
--- NOTE | 2022-12-23 01:25 | CONS_ITS ---
DATE OF SERVICE: 12/16/2022 REASON FOR CONSULTATION: Consult requested by the medical team to evaluate and help in management of patient with renal insufficiency. Patient is an 82-year-old male with past medical history of paroxysmal atrial fibrillation on Eliquis in the setting of PE in the past, hypertension, COPD, CKD stage 3A/B at baseline, presented to the hospital with complaints of right hip pain, difficulty ambulating. He also had a mechanical fall before this happened about a week ago. He denies any loss of consciousness or striking his head. He has chronic lightheadedness and dizziness. This has been going on since he had COVID about a year and a half. He denied any fever, chills, nausea, vomiting. In the ER, patient's blood pressure was on the elevated side to 179/84. His BUN and creatinine were 26 and 2.55, which is higher than his baseline and hence renal consultation has been requested. CT of the abdomen and pelvis did not show any hydronephrosis. REVIEW OF SYSTEMS: As noted above. Other system reviewed are negative. PAST MEDICAL HISTORY: History of paroxysmal atrial fibrillation on Eliquis, history of PE, history of hypertension, COPD, history of lung CA in remission, history of BPH. FAMILY HISTORY: Include history of father having lung cancer. PAST SURGICAL HISTORY: No pertinent past surgical history. SOCIAL HISTORY: Patient lives with his son. He is a smoker on a daily basis. Does not drink significant alcohol. No drug use. ALLERGIES: PATIENT HAS NO KNOWN DRUG ALLERGIES. MEDICATIONS: Home medications and inpatient medications reviewed. PHYSICAL EXAMINATION: GENERAL: Patient is resting in the bed. Awake, alert, able to follow commands. VITAL SIGNS: Blood pressure was 174/86, pulse 75, afebrile. HEENT: Pupils equal bilaterally to light. No jugular venous distention is noted. NECK: Supple. CARDIOVASCULAR SYSTEM: S1, S2 without rub. RESPIRATORY SYSTEM: Decreased in bases. No crepitation or rhonchi is noted. ABDOMEN: Soft, nontender. No guarding noted. Bowel sounds normal. EXTREMITIES: No significant edema. LABORATORY DATA: Done recently; sodium was 137, potassium 4.3, chloride 107, CO2 of 22, BUN 24, creatinine 2.16, hemoglobin 9.9, hematocrit 30, WBC 7.4, platelets 258. IMPRESSION: 1. 82-year-old male with acute kidney injury. Acute kidney injury in this patient likely secondary to renal hypoperfusion/prerenal state. His renal function is already improving with creatinine dropping to 2.16. He was hydrated. No obstruction based on the renal ultrasound. I doubt patient has acute GN/interstitial disease. 2. Chronic kidney disease stage 3A/B at baseline. 3. Orthostatic pre-hypotension. 4. Right hip pain, status post fall. 5. History of left renal cyst with a size of which is decreased after compared to the prior study. RECOMMENDATIONS: At this juncture, I recommend checking spot urine for electrolytes, protein, creatinine. There is no immediate need for hydration as his renal function has already improved. I would avoid using nephrotoxic agents. Continue Flomax as he has BPH. He was on Naproxen Sodium and I would discontinue this medication. Check renal function again in a.m. If otherwise stable, he can be discharged and followed as an outpatient. Thank you for allowing me to participate in medical management of the patient. MD SHAGGY Nicolas/YAZAN / [id number]
--- NOTE | 2022-12-23 18:28 | P.DS_ITS ---
DS: Providers Provider Date of Service: 12/17/22 Date of admission: 12/14/22 19:12 Primary care physician: Philippe Cesar III, MD Consults: 12/15/22 11:49 Consult to Urology Routine Consulting Provider: Rica Burgess Reason for consultation: renal cyst Has provider been notified: No 12/15/22 11:50 Consult to Nephrology Routine Consulting Provider: Ottoniel Villagomez Reason for consultation: katlin Has provider been notified: No DS: Diagnosis Discharge Diagnosis (1) Orthostatic hypotension: Status: Acute (2) Osteoarthritis of right hip: Status: Acute DS: Summary Hospital Course Hospital Course: History of presenting illness: Date of Service: 12/14/22 Attending physician on admission: Neymar Julio Chief Complaint: Right hip pain, hx of fall 1 week ago Pt is an 82-year-old male with a PMH significant for?paroxysmal AFib on Eliquis, hx of PE, HTN, COPD, hx of lung cancer in remission, and BPH who presents to the ED for evaluation of right hip pain and difficulty ambulating after a mechanical fall at home earlier in the week. Patient states Friday the power went out in his house and he fell as he attempted to get up from bed in the middle of the night. Patient experienced left forearm of bruising and right hip pain after the fall. Patient denies LOC or head strike. Had been experiencing pain with ambulation s/p fall, using a cane for assistance. Patient reports chronic lightheadedness and dizziness with standing that has occurred for the past 1 1/2 years since being infected with COVID. He reports he has been eating OK , though admits to not drinking enough fluids. Patient denies shortness of breath. No chest pain/pressure, palpitations. Denies fever, chills, nausea, vomiting. In the ED patient was afebrile but hypertensive up to 179/84, 97% on RA. Labs were significant for H&H of 11.4/35.0, BUN 26, creatinine 2.55. Electrolytes largely WNL. Hepatic function WNL. Troponin negative. Stool negative for occult blood. Orthostatics were positive with an SBP change of 39 and DBP change of 15 from supine to sitting. CT?of abdomen/pelvis and hip showed no acute abnormalities in right lower quadrant and no acute fractures in right hip. Redemonstrated complex left renal cyst that has decreased in size as compared to prior. 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 EKG demonstrated sinus rhythm with first-degree AV block without evidence of significant ST elevations or depressions. Pt was treated with morphine and IVF. Pt will be admitted to the hospital treatment and further evaluation of KATLIN in the setting of reduced mobility due to right hip pain. Hospital course: 82-year-old male with a PMH significant for?paroxysmal AFib on Eliquis, hx of PE, HTN, COPD, hx of lung cancer in remission, and BPH who presents to the ED for evaluation of right hip pain and difficulty ambulating after a mechanical fall at home earlier in the week. Pt will be admitted to the hospital treatment and further evaluation of KATLIN in the setting of reduced mobility due to right hip pain. Patient admitted to medical floor with a diagnosis of KATLIN and orthostatic presyncope and noted to have orthostatic blood pressures,right hip pain with difficulty in ambulation and lightheadedness with standing, Patient evaluated by Physical therapy and plan was short-term rehab however patient decided to leave hospital against medical advice, he was of informed about potential risk for fall and fatality he was able to comprehend but still decided to leave hospital ,patient's son came and said he does not want him to go to rehab and proceeded to take him home. Patient was treated with following medical issues. KATLIN on chronic kidney disease stage 3, admitted to medical floor noted to have creatinine of 2.55 on admission with baseline creatinine of 1.7 patient treated with IV fluid noted to have mild improvement in creatinine that improved to 2.14 patient evaluated by Nephrology, urine studies were not consistent with pre renal state, no obstruction noted nephrology recommended outpatient follow-up for continued monitoring and further workup. Orthostatic presyncope, patient admitted to chronic lightheadedness since COVID infection 1 - 1/2 years ago Orthostatics BP remains positive status post IV fluids ,dose of Paxil decrease to 20 mg due to side effect of dizziness,Beka stocking placed Noted to have stable sodium, blood sugars, metoprolol changed to p.m. and as needed midodrin added for daytime. Right hip pain and difficulty ambulating S/P fall at home, continue scheduled Tylenol and add scheduled oxycodone, avoid NSAIDs due to renal failure.PT recommend str patient declined History of left renal cyst, size decreased from prior study, seen by Urology they recommend outpatient follow-up will need to hold Eliquis for any procedures. Acute anemia no blood loss Noted Likely Due To kidney disease, stool occult blood negative , iron profile not consistent with iron deficiency anemia, normal B12 and folate . Hematocrit above transfusion threshold COPD Not in acute exacerbation,Continue home inhalers Paroxysmal AFib Continue Eliquis and metoprolol GERD PPI BPH Continue tamsulosin Time Spent with Patient Time attestation: Total time managing care of this patient today ____ minutes. Discharge coordination time: Greater than 30 minutes Quality: Safe Use of Opioids Does Pt have an Active Cancer Diagnosis on the Problem List?: No Quality: Stroke Does the patient have a stroke diagnosis?: No Physical Exam Vital Signs: Vital Signs: Last Vital Signs Temp 97.7 F 12/17/22 15:10 Pulse 74 12/17/22 15:10 Resp 16 12/17/22 15:10 BP 181/81 H 12/17/22 15:10 Pulse Ox 97 12/17/22 15:10 O2 Del Method Room Air 12/17/22 15:10 BMI result Body Mass Index 22.3 Const: Other: General awake ,alert x3, in no acute distress, lightheadedness with standing. Neck no JVD. CVS regular rate rhythm, Respiratory lungs clear to auscultation, no respiratory distress, no wheeze, no rhonchi. Gastrointestinal abdomen soft, non tender, bowel sounds audible, no guarding , no rigidity. Extremities no edema. Right hip no bruising, no swelling limited range of motion due to pain Neuro non focal , speech clear, hard of hearing. Skin no rash Psych appropriate affect DS: Data Data Completed and Pending Completed studies during hospitalization [Text1]: Procedures Drainage of Left Kidney, Percutaneous Approach (06/27/22) Introduction of Remdesivir Anti-infective into Peripheral Vein, Percutaneous Approach, [employer] (10/06/21) Discharge Plan Discharge Anticipated Discharge Date/Time: 12/17/22 17:59 Patient Disposition: Left Against Medical Advice Discharge Diagnosis: fall, KATLIN Referrals: Philippe Cesar III, MD [Primary Care Provider] - 1 Week Discharge Medications: Continued tamsulosin 0.4 mg capsule 1 cap PO BEDTIME omeprazole 20 mg capsule,delayed release(DR/EC) 1 cap PO DAILY@0630 albuterol sulfate 90 mcg/actuation HFA aerosol inhaler 2 puff inhalation Q4H PRN (Reason: wheezing) paroxetine HCl 40 mg tablet 1 tab PO DAILY metoprolol succinate 25 mg tablet extended release 24 hr 50 mg PO DAILY Protocol: Hold for SBP/HR < HOLD for SBP < : 90 HOLD for HR < : 60 trazodone 50 mg tablet 50 mg PO BEDTIME PRN (Reason: Insomnia) acetaminophen [Tylenol] 325 mg Tablet 650 mg PO Q6H PRN (Reason: Pain) aspirin 81 mg Tablet,Delayed Release (Dr/Ec) 81 mg PO DAILY PRN (Reason: Pain) naproxen sodium [Aleve] 220 mg Tablet 220 mg PO BID PRN (Reason: Pain) folic acid 1 mg tablet 1 mg PO BEDTIME Eliquis 5 mg tablet 5 mg PO BID Discharge Orders: Discharge Order (Routine); Ordered 01/06/23 Ordered By: Karan Johnson Diet: Advance to usual diet Care Plan Goals: Leaving against medical advice Health Concerns: Falls Plan of Treatment: Follow up with your primary care provider as soon as possible, call in the morning Assessment: as above Discharge Date/Time: 12/17/22 18:25
== END 2022-12-17 18:25 | disposition left against medical advice (07) | DRG 684 ==
LOC: HO.ED 18:09 → HO.EDOVER 19:17 → HO.S3 19:54
PROVIDERS: Physician Assistant; Admitting Provider Student in an Organized Health Care Education/Training Program; Emergency Provider Internal Medicine; PCP Internal Medicine; Visit Provider Hospitalist
DX: N17.9 Acute kidney failure, unspecified (principal); J44.9 Chronic obstructive pulmonary disease, unspecified; F17.210 Nicotine dependence, cigarettes, uncomplicated; I71.43 Infrarenal abdominal aortic aneurysm, without rupture; E86.0 Dehydration; N40.0 Benign prostatic hyperplasia without lower urinary tract symptoms; N28.1 Cyst of kidney, acquired; Z66 Do not resuscitate; I12.9 Hypertensive chronic kidney disease with stage 1 through stage 4 chronic kidney disease, or unspecified chronic kidney disease; N18.30 Chronic kidney disease, stage 3 unspecified; I95.1 Orthostatic hypotension; Z71.6 Tobacco abuse counseling; I48.0 Paroxysmal atrial fibrillation; M16.11 Unilateral primary osteoarthritis, right hip; Z86.711 Personal history of pulmonary embolism; Z85.118 Personal history of other malignant neoplasm of bronchus and lung; Z79.01 Long term (current) use of anticoagulants; Z79.899 Other long term (current) drug therapy
CPT/HCPCS: 36415; 73700; 74176; 80048; 80076; 81003; 82272; 82570; 82607; 82728; 82746; 83540; 83735; 83935; 84156; 84300; 84484; 85025; 85027; 85610; 93005; 97162; 97165; 97535; 99285; J2270

== ENCOUNTER → 2022-12-14 19:12 | Outpatient (BNV) | payer MEDICARE, SELFPAY | PROVIDERS: Admitting Provider Student in an Organized Health Care Education/Training Program; Emergency Provider Internal Medicine; PCP Internal Medicine; Visit Provider Student in an Organized Health Care Education/Training Program | DX: I95.1 Orthostatic hypotension (principal); M16.11 Unilateral primary osteoarthritis, right hip; Z53.29 Procedure and treatment not carried out because of patient's decision for other reasons | CPT/HCPCS: 99222; 99233; 99239; 99499 ==

== ENCOUNTER → 2022-12-14 19:12 | Outpatient (BNV) | payer MEDICARE, SELFPAY | PROVIDERS: Admitting Provider Student in an Organized Health Care Education/Training Program; Emergency Provider Internal Medicine; PCP Internal Medicine; Visit Provider Urology | DX: N28.1 Cyst of kidney, acquired (principal) | CPT/HCPCS: 99222 ==

== ENCOUNTER 2023-02-10 16:32 | Emergency (ER) | payer MEDICARE, SELFPAY ==
--- NOTE | ~2023-02-10 | XR_ITS ---
EXAMINATION: XR CHEST CLINICAL INFORMATION: Shortness of breath COMPARISON: Chest radiograph 06/27/2022 CT abdomen pelvis 12/14/2022 TECHNIQUE: Frontal view of the chest was obtained. FINDINGS: Compared to the prior study from 06/27/2022 there is been no interval change again noted is decreased left hemithorax volume. Heart size normal. There is no evidence of CHF. No infiltrates are seen. A tiny left pleural effusion or pleural thickening could be present, but appears unchanged. XR/XR chest 1V IMPRESSION: No acute intrathoracic disease. Question of tiny left pleural effusion versus pleural thickening.
--- NOTE | 2023-02-10 16:46 | ED.SOB ---
HPI - SOB/Dyspnea General Chief Complaint: General Medical Stated Complaint: SOB X 2 DAYS R LEG PAIN DIZZINESS Time Seen by Provider: 02/10/23 16:39 Source: patient and EMS Mode of arrival: EMS Limitations: no limitations History of Present Illness HPI Narrative: Pt is an 82-year-old male with a PMH significant for?paroxysmal AFib on Eliquis, hx of PE, HTN, COPD, hx of lung cancer s/p lobectomy in remission for increased shortness of breath for3 days patient been coughing for last 3 days, denies any fever was saturating 95% at room air when EMS reached patient also complaining of right hip pain which is going on for a while was seen here on 12/14 when he had a hip CT scan which was negative shows only arthritis patient also does have history of sciatica Related Data Home Medications Medication Instructions Recorded Confirmed albuterol sulfate 90 mcg/actuation 2 puff inhalation Q4H PRN wheezing 07/14/21 12/14/22 aerosol inhaler omeprazole 20 mg capsule,delayed 1 cap PO DAILY@0630 07/14/21 12/14/22 release paroxetine HCl 40 mg tablet 1 tab PO DAILY 07/14/21 12/14/22 tamsulosin 0.4 mg capsule 1 cap PO BEDTIME 07/14/21 12/14/22 apixaban 5 mg tablet (Eliquis) 5 mg PO BID 08/16/21 12/14/22 metoprolol succinate 25 mg 50 mg PO DAILY 06/27/22 12/14/22 tablet,extended release 24 hr trazodone 50 mg tablet 50 mg PO BEDTIME PRN Insomnia 06/27/22 12/14/22 acetaminophen 325 mg tablet 650 mg PO Q6H PRN Pain 12/14/22 12/14/22 (Tylenol) aspirin 81 mg tablet,delayed 81 mg PO DAILY PRN Pain 12/14/22 12/14/22 release folic acid 1 mg tablet 1 mg PO BEDTIME 12/14/22 12/14/22 naproxen sodium 220 mg tablet 220 mg PO BID PRN Pain 12/14/22 12/14/22 (Aleve) Previous Rx's Medication Instructions Recorded oxycodone-acetaminophen 5 mg-325 1 tab PO Q6H PRN pain #20 tabs 02/10/23 mg tablet (Percocet) Allergies Allergy/AdvReac Type Severity Reaction Status Date / Time No Known Allergies Allergy Unverified 02/10/23 16:47 Review of Systems Review of Systems: Yes all other systems are reviewed and are negative [facility] Past Medical History Medical History Chronic anticoagulation PAF (paroxysmal atrial fibrillation) COPD (chronic obstructive pulmonary disease) Pulmonary emboli Essential hypertension Lung cancer Surgical History No pertinent past surgical history Family History Family History Father Lung cancer Social History Social History Household Members: Family Household Members Other:: lives with son Housing: House Do you presently have visiting nurse or other home services: No Alcohol intake: never Comment: 1:1 sitter Patient Tobacco Use Status: Current everyday Tobacco user Tobacco use type: Cigarette Cigarettes Per Day: 3 Years Smoked: 50 Smoked in Last 30 Days: Yes e-Cigarette/Vaping Use: Currently Using Second Hand Smoke Exposure: No Use of substances other than those prescribed or required for medical reasons: No Advance Directives: Yes Advance Directives on File: Yes Advance Directives Date on File: 10/19/21 service: No Current occupational status: retired Physical Exam Vital Signs: Vital Signs: Last Vital Signs Temp 98 F 02/10/23 20:00 Pulse 109 H 02/10/23 20:00 Resp 18 02/10/23 20:00 BP 120/58 L 02/10/23 20:00 Pulse Ox 98 02/10/23 20:00 O2 Del Method Room Air 02/10/23 20:00 BMI result Body Mass Index 19.5 Appearance: Alert. Oriented X3. No acute distress. Eyes: PERRLA, No Nystagmus ENT: Pharynx normal. Oral Mucosa moist Neck: Normal inspection. Neck supple. CVS: Normal heart rate and rhythm. Pulses normal. Respiratory: No respiratory distress. Equal air entry bilateral, bilateral wheezing with occasional crackles at the bases Abdomen: Soft and nontender. Bowel sounds are present, no mass palpable, no CVA tenderness Skin: Skin warm and dry. Normal skin color. Normal skin turgor. Extremities: No lower extremity edema. No calf tenderness right sciatic tenderness++ a SLR positive at 60 degrees right-sided no spinal tenderness Neuro: Oriented X 3. No motor deficit. Ambulating steady gait Medications Administered Discontinued Medications Generic Name Dose Route Start Last Admin Trade Name Chavo PRN Reason Stop Dose Admin Albuterol Sulfate 2.5 mg/ 0 mg 02/10/23 16:49 02/10/23 17:30 Albuterol/Ipratropium 3 ml INHALE 02/10/23 16:50 5 dose ONCE ONE Administration Tramadol HCl 50 mg 02/10/23 17:59 02/10/23 18:03 Tramadol Hcl 50 Mg Tablet PO 02/10/23 18:00 50 mg ONCE ONE Administration Medical Decision Making Differential Diagnosis Differential Diagnoses: The differential diagnosis associated with the presentation includes Patient has chronic lung disease comes here for right sciatic ostium of pain medicine patient with seen here had a CT scan done of the hip on 12/15/2019 which was negative for any fracture discharge patient on pain management for nits and Admission/Observation Consideration of admission/observation: Escalation of care including admission/observation considered Lab Data MDM Lab Attestation statement: I reviewed the patient's lab results. 02/10/23 17:09 02/10/23 17:09 Labs: Lab Results 02/10/23 Range/Units 17:09 WBC 7.4 (4.8-10.8) X10*3/uL RBC 3.18 L (4.60-5.80) X10*6/uL Hgb 9.5 L (14.0-18.0) g/dl Hct 29.0 L (42.0-52.0) % MCV 91.2 (80.0-98.0) fL MCH 29.9 (27.0-33.0) pg MCHC 32.8 (31.0-36.0) g/dl RDW 17.1 H (11.0-16.0) % Plt Count 264 (160-400) X10*3/uL MPV 8.8 L (9.4-12.4) fL Immature Gran % (Auto) 0.3 (0.0-0.4) % Neut % (Auto) 75.4 H (45-73) % Lymph % (Auto) 15.6 L (20-40) % [place] % (Auto) 5.4 (2-11) % Eos % (Auto) 2.3 (0-4) % Baso % (Auto) 1.0 (0-2) % Lymph # (Auto) 1.2 (1.2-4.9) X10*3/uL [place] # (Auto) 0.4 (0.1-1.2) X10*3/uL Eos # (Auto) 0.2 (0.0-0.4) X10*3/uL Baso # (Auto) 0.1 (0.0-0.2) X10*3/uL Abs Immat Gran (auto) 0.02 (0.00-0.03) X10*3/uL Absolute Neuts (auto) 5.6 (2.0-8.3) x10*3/uL Absolute Nucleated RBC 0.000 (0.0-0.012) X10*3/uL Nucleated RBC % (auto) 0.0 (0.0-0.2) /100WBC PT 15.9 H D (11.1-13.3) SEC INR 1.3 H (0.9-1.1) Sodium 136 (135-145) mmol/L Potassium 4.6 (3.3-5.1) mmol/L Chloride 105 (96-108) mmol/L Carbon Dioxide 21 L (22-29) mmol/L Anion Gap 15 (12-20) BUN 26 H (9-16) mg/dL Creatinine 2.14 H (0.5-1.4) mg/dL Estim Creat Clear Calc 22.9 Estimated GFR 30 Random Glucose 94 (60-115) mg/dL Lactic Acid 1.2 (0.5-2.0) mmol/L Calcium 8.9 (8.4-10.2) mg/dL Total Bilirubin 0.4 (0.0-1.0) mg/dL AST 11 (5-37) U/L ALT 5 (0-40) U/L Alkaline Phosphatase 55 (39-117) U/L Troponin I High Sens 7.3 D (<3.5-35.0) ng/L B-Natriuretic Peptide 106 H (<100) pg/mL Total Protein 6.9 (6.5-8.0) g/dL Albumin 3.5 (3.5-5.0) g/dL Influenza Type A (PCR) NEGATIVE (Negative) Influenza Type B (PCR) NEGATIVE (Negative) RSV RNA Qual (PCR) NEGATIVE (Negative) SARS-CoV-2 RNA (RT-PCR) NEGATIVE (Negative) Independent Interpretation I performed an independent interpretation of an: EKG and Plain X-Ray Interpretation: Normal sinus rhythm heart rate 95 beats per minute normal interval normal axis no acute ST-T changes no acute ischemia Discharge Plan Discharge Clinical Impression: Right sided sciatica Patient Disposition: Home, Self-Care Instructions: Sciatica (ED) Additional Instructions: Rest at home Stop smoking Take pain medication as prescribed Follow-up with PCP Prescriptions: New oxycodone-acetaminophen [Percocet] 5-325 mg tablet 1 tab PO Q6H PRN (Reason: pain) Qty: 20 0RF Rx Instructions: Partial Fill upon patient request. No Action tamsulosin 0.4 mg capsule 1 cap PO BEDTIME omeprazole 20 mg capsule,delayed release(DR/EC) 1 cap PO DAILY@0630 albuterol sulfate 90 mcg/actuation HFA aerosol inhaler 2 puff inhalation Q4H PRN (Reason: wheezing) paroxetine HCl 40 mg tablet 1 tab PO DAILY metoprolol succinate 25 mg tablet extended release 24 hr 50 mg PO DAILY Protocol: Hold for SBP/HR < HOLD for SBP < : 90 HOLD for HR < : 60 trazodone 50 mg tablet 50 mg PO BEDTIME PRN (Reason: Insomnia) acetaminophen [Tylenol] 325 mg Tablet 650 mg PO Q6H PRN (Reason: Pain) aspirin 81 mg Tablet,Delayed Release (Dr/Ec) 81 mg PO DAILY PRN (Reason: Pain) naproxen sodium [Aleve] 220 mg Tablet 220 mg PO BID PRN (Reason: Pain) folic acid 1 mg tablet 1 mg PO BEDTIME Eliquis 5 mg tablet 5 mg PO BID
--- NOTE | 2023-02-10 16:48 | ECG_ITS ---
Test Reason : DIZZINES Blood Pressure : / mmHG Vent. Rate : 095 BPM Atrial Rate : 095 BPM P-R Int : 178 ms QRS Dur : 082 ms QT Int : 340 ms P-R-T Axes : 085 097 064 degrees QTc Int : 427 ms Normal sinus rhythm Rightward axis Borderline ECG No previous ECGs available Referred By: Cyril Esquivel Electronically Signed By:
[2023-02-10 16:56] VITALS: BP 158/100; PULSE 106; O2SAT 99
[2023-02-10 17:15] VITALS: BP 179/89; PULSE 91; RESP 14; TEMP 36.6; O2SAT 99; BMI 19.5
[2023-02-10 17:18] LABS: MANUAL DIFF FLAG NO
[2023-02-10 17:21] LABS: Basophils Absolute Auto 0.1 X10*3/uL (0.0-0.2); Eosinophils Absolute Auto 0.2 X10*3/uL (0.0-0.4); Eosinophils Percent Auto 2.3 % (0-4); Hemoglobin 9.5 g/dl (14.0-18.0); Imm Gran Abs Auto 0.02 X10*3/uL (0.00-0.03); Imm Gran Pct Auto 0.3 % (0.0-0.4); Lymphocytes Absolute Auto 1.2 X10*3/uL (1.2-4.9); Lymphocytes Percent Auto 15.6 % (20-40); Mean Corpuscular HGB Conc 32.8 g/dl (31.0-36.0); Mean Corpuscular Hemoglobin 29.9 pg (27.0-33.0); Mean Corpuscular Volume 91.2 fL (80.0-98.0); Mean Platelet Volume 8.8 fL (9.4-12.4); Monocytes Absolute Auto 0.4 X10*3/uL (0.1-1.2); Monocytes Percent Auto 5.4 % (2-11); Neutrophils Absolute Auto 5.6 x10*3/uL (2.0-8.3); Neutrophils Percent Auto 75.4 % (45-73); Platelet Count 264 X10*3/uL (160-400); Red Blood Count 3.18 X10*6/uL (4.60-5.80); Red Cell Distribution Width 17.1 % (11.0-16.0); White Blood Count 7.4 X10*3/uL (4.8-10.8)
[2023-02-10 17:29] LABS: Lactic Acid 1.2 mmol/L (0.5-2.0)
[2023-02-10] MEDS: Albuterol Sulfate 2.5 MG, Albuterol/Iprat 2.5/0.5MG 3 ML 3 ML INHALE (17:30)
[2023-02-10 17:32] VITALS: PULSE 91; RESP 14; O2SAT 99
[2023-02-10 17:35] VITALS: BP 164/87
[2023-02-10 17:36] LABS: Alanine Aminotransferase 5 U/L (0-40); Albumin Level 3.5 g/dL (3.5-5.0); Alkaline Phosphatase 55 U/L (39-117); Anion Gap 15 (12-20); Aspartate Amino Transferase 11 U/L (5-37); Bilirubin Total 0.4 mg/dL (0.0-1.0); Blood Urea Nitrogen 26 mg/dL (9-16); Calcium 8.9 mg/dL (8.4-10.2); Carbon Dioxide 21 mmol/L (22-29); Chloride 105 mmol/L (96-108); Creatinine Clr Calc Pharmacy 22.9; Estimated Glomerular Filt Rate 30; Glucose Random 94 mg/dL (60-115); Potassium 4.6 mmol/L (3.3-5.1); Sodium 136 mmol/L (135-145); Total Protein 6.9 g/dL (6.5-8.0)
[2023-02-10 17:40] LABS: B Type Natriuretic Peptide 106 pg/mL (<100); Troponin-I High Sensitivity 7.3 ng/L (<3.5-35.0)
[2023-02-10 17:41] LABS: INTERNATIONAL NORM RATIO 1.3 (0.9-1.1); Prothrombin Time 15.9 SEC (11.1-13.3)
[2023-02-10 17:58] LABS: Influenza A PCR NEGATIVE (Negative); Influenza B PCR NEGATIVE (Negative); Resp Syncy Virus RNA Qual PCR NEGATIVE (Negative); SARS COV2 PCR INHOUSE NEGATIVE (Negative)
[2023-02-10 18:00] VITALS: BP 168/78; PULSE 108; RESP 16; O2SAT 95
[2023-02-10] MEDS: traMADoL HCL 50 MG TABLET PO (18:03)
--- NOTE | 2023-02-10 18:04 | PC.NURSE ---
md jamison ordered tramadol for hip pain.
[2023-02-10 20:00] VITALS: BP 120/58; PULSE 109; RESP 18; TEMP 36.6; O2SAT 98
== END 2023-02-11 05:41 | disposition home or self-care (01) ==
PROVIDERS: Emergency Provider Internal Medicine; PCP Internal Medicine
DX: M54.41 Lumbago with sciatica, right side (principal); R06.02 Shortness of breath; M79.604 Pain in right leg; R42 Dizziness and giddiness; I48.91 Unspecified atrial fibrillation; Z79.01 Long term (current) use of anticoagulants; Z79.899 Other long term (current) drug therapy; Z20.822 Contact with and (suspected) exposure to COVID-19; Z20.828 Contact with and (suspected) exposure to other viral communicable diseases
CPT/HCPCS: 0241U; 36415; 71045; 80053; 83605; 83880; 84484; 85025; 85610; 87040; 93005; 99284; 99285

== ENCOUNTER 2025-02-15 10:40 | Inpatient (IN) | payer MEDICARE, SELFPAY ==
[2025-02-15] VITALS (17 sets, daily range): BP systolic 78–135; BP diastolic 48–95; PULSE 72–126; RESP 16–20; TEMP 36.3–36.9; O2SAT 98–99; BMI 19.4
--- NOTE | ~2025-02-15 | CT_ITS ---
EXAMINATION: CT ABDOMEN AND PELVIS WITHOUT CONTRAST CLINICAL INFORMATION: Back pain, known abdominal aortic aneurysm COMPARISON: 12/14/2022 TECHNIQUE: Multidetector volumetric imaging was performed from the superior aspect of the liver through the pubic symphysis. Sagittal and coronal reformatted images were obtained on the technologist's workstation. This CT examination was performed using dose optimization techniques as appropriate, variously including the following: *Automated exposure control *Adjustment of mA and/or kV according to patient size (this includes techniques or standardized protocols for targeted exams where dose is matched to indication/reason for exam; i.e. extremities or head) *Use of iterative reconstruction technique FINDINGS: LUNG BASES: Again seen are coarse reticular markings and septal lines in the lung bases with hyper aeration, posterior left greater than the right base. LIVER, GALLBLADDER, AND BILIARY TREE: Again seen is a simple hepatic cyst in the posterior aspect of the left superior lateral hepatic segment. The gallbladder is unremarkable with no evidence of radiopaque gallstones, gallbladder wall thickening, or obvious pericholecystic inflammatory changes. PANCREAS: Unremarkable. SPLEEN: Unremarkable. ADRENAL GLANDS: There is focal calcification in the medial limb of the left adrenal gland. There is mild thickening and decreased attenuation of the left adrenal gland. Right adrenal gland is unremarkable. KIDNEYS AND URETERS: There is severe cortical thinning of the left kidney and numerous large parapelvic cyst. Again seen is a large cystic mass with internal septations measuring up to 13 mm thick. There is thin peripheral calcification along the posterior superior wall. There is also irregular thickening along the wall of the mass. The mass measures 10.3 x 8.1 x 6.4 cm, and previously measured 18.7 x 12.3 x 14.5 cm apparent cc by transverse by AP). Right kidney demonstrates multiple simple renal cyst. BLADDER: Unremarkable. GASTROINTESTINAL TRACT: Again seen are scattered pseudodiverticula throughout the colon, more numerous in the sigmoid colon. The cecum extends toward the midline in the upper abdomen and the appendix is not clearly identified. ABDOMINAL WALL: Left inguinal hernia passes lateral to the epigastric vessels and contains adipose tissue that shows mild fat stranding at the inguinal canal, increased from the prior. LYMPH NODES: Normal. VASCULAR: Again seen is a bilobed fusiform enlargement of the distal abdominal aorta distal to the inferior mesenteric artery origin not exceeding 3 cm. There is moderate atherosclerotic calcification in the aorta and iliac vessels PELVIC VISCERA: Punctate calcifications are present in the mildly enlarged prostate OSSEOUS STRUCTURES: Moderate degenerative changes are present in the hip joints with axial joint space narrowing and marginal osteophytes. There is also subchondral sclerosis in the superior hip joints. There is straightening of the lumbar lordosis and multilevel degenerative disc disease with disc space narrowing, vacuum phenomena, endplate sclerosis and degenerative irregularity, and facet arthropathy. CT/CT abdomen pelvis wo IV con IMPRESSION: Stable moderate degenerative disc disease and facet arthropathy. Left inguinal hernia shows new fat stranding in the inguinal region raising question that it may be symptomatic. 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 It demonstrates interval decrease in size. Severe left renal cortical thinning. 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 Colonic diverticulosis Fleischner guidelines were followed. Electronically signed by: Maximo Zayas MD 02/15/2025 01:10 PM AUGUST
--- NOTE | ~2025-02-15 | XR_ITS ---
EXAMINATION: XR CHEST 1 VIEW HISTORY: rapid AFib, dizziness COMPARISON: Comparison is made with the prior examination dated 02/10/2023. FINDINGS: Two AP portable views of the chest performed at 12:09 PM are submitted. Again seen is volume loss on the left with shift of the cardiomediastinal silhouette. The lungs are clear. There is a small left pleural effusion versus pleural thickening. There is no pneumothorax or pulmonary vascular congestion. The heart is normal in size. There is degenerative disc disease of the spine. XR/XR chest 1V IMPRESSION: Small left pleural effusion versus pleural thickening. Electronically signed by: Den Delgado MD 02/15/2025 12:23 PM [facility]
--- NOTE | ~2025-02-15 | XR_ITS ---
EXAMINATION: XR CHEST 1 VIEW HISTORY: cough /wheezing COMPARISON: Comparison is made with the prior examination dated 02/15/2025. FINDINGS: A single AP portable view of the chest performed at 12:10 PM is submitted. Again seen is volume loss on the left. There is left pleural thickening versus a tiny pleural effusion without change. The right lung is clear. There is no pneumothorax or pulmonary vascular congestion. The heart is normal in size. There is degenerative disc disease of the spine. XR/XR chest 1V IMPRESSION: Small left pleural effusion versus pleural thickening without change. Electronically signed by: Den Delgado MD 02/18/2025 12:27 PM [facility] [place]
--- NOTE | ~2025-02-15 | XR_ITS ---
EXAMINATION: XR LUMBOSACRAL SPINE CLINICAL INFORMATION: lower back pain COMPARISON: CT June 27, [address] TECHNIQUE: Three views of the lumbosacral spine. FINDINGS: There are 5 nonrib-bearing lumbar segments. There is mild wedging of superior endplate of L1. T12-L1: There is subtle retrolisthesis L1-L2: There is mild disc space narrowing and posterior osteophyte L2-L3: There is mild to moderate disc space narrowing with bridging anterior osteophyte. There is chondrocalcinosis in the disc L3-L4: There is moderate loss of disc height and endplate osteophytes with facet sclerosis L4-L5: There is moderate loss of disc height, vacuum phenomena, endplate sclerosis and osteophytes. There is facet arthropathy. L5-S1: There is mild disc space narrowing and endplate osteophytes with facet sclerosis. XR/XR lumbar spine 2-3V IMPRESSION: There is mild wedging of superior endplate of L1. However, when comparing today's CT with CT performed more than 2 years ago, there was no change in vertebral body height. Multilevel degenerative disc disease and facet arthropathy. Electronically signed by: Maximo Zayas MD 02/15/2025 01:17 PM [facility]
--- NOTE | 2025-02-15 10:55 | ECG_ITS ---
Test Reason : TACHY Blood Pressure : */* mmHG Vent. Rate : 134 BPM Atrial Rate : * BPM P-R Int : * ms QRS Dur : 80 ms QT Int : 258 ms P-R-T Axes : * 106 39 degrees QTcB Int : 385 ms Atrial fibrillation with rapid ventricular response Rightward axis Abnormal ECG When compared with ECG of 14-Dec-2022 16:54, Atrial fibrillation has replaced Sinus rhythm Vent. rate has increased by 69 bpm Referred By: Generic ED Physician Electronically Signed By: THERESA YUAN MD
--- NOTE | 2025-02-15 11:32 | ED.GENADULT ---
HPI - General Adult General Chief complaint: General Medical Stated complaint: BACK PAIN X2D, NO NEW INJURY Time Seen by Provider: 02/15/25 11:22 Source: patient and EMS Mode of arrival: EMS Limitations: no limitations History of Present Illness ED Provider: DR. Castillo HPI narrative: 84-year-old male PMHx paroxysmal AFib on Eliquis, PE, HTN, COPD, lung cancer, s/p lobectomy remission came in today for evaluation of 2 weeks of low back pain with no injury, no fall, no history of heavy lifting, had a history of back surgery and chronic back pain 10 years ago, patient is complaining of dizziness and lightheadedness. Patient lives home with his son mostly with assistance for his daily activity. Related Data Home Medications ?Medication ?Instructions ?Recorded ?Confirmed albuterol sulfate 90 mcg/actuation 2 puff inhalation Q4H PRN wheezing 07/14/21 12/14/22 aerosol inhaler omeprazole 20 mg capsule,delayed 1 cap PO DAILY@0630 07/14/21 12/14/22 release paroxetine HCl 40 mg tablet 1 tab PO DAILY 07/14/21 12/14/22 tamsulosin 0.4 mg capsule 1 cap PO BEDTIME 07/14/21 12/14/22 apixaban 5 mg tablet (Eliquis) 5 mg PO BID 08/16/21 12/14/22 metoprolol succinate 25 mg 50 mg PO DAILY 06/27/22 12/14/22 tablet,extended release 24 hr trazodone 50 mg tablet 50 mg PO BEDTIME PRN Insomnia 06/27/22 12/14/22 acetaminophen 325 mg tablet 650 mg PO Q6H PRN Pain 12/14/22 12/14/22 (Tylenol) aspirin 81 mg tablet,delayed 81 mg PO DAILY PRN Pain 12/14/22 12/14/22 release folic acid 1 mg tablet 1 mg PO BEDTIME 12/14/22 12/14/22 naproxen sodium 220 mg tablet 220 mg PO BID PRN Pain 12/14/22 12/14/22 (Aleve) Previous Rx's ?Medication ?Instructions ?Recorded oxycodone-acetaminophen 5 mg-325 1 tab PO Q6H PRN pain #20 tabs 02/10/23 mg tablet (Percocet) Allergies Allergy/AdvReac Type Severity Reaction Status Date / Time No Known Allergies Allergy Verified 02/15/25 10:53 Review of Systems Review of Systems: All other systems are reviewed and are negative Constitutional: Reports as per HPI and Reports no additional constitutional complaints Eyes: Reports as per HPI and Reports no additional eye complaints Reports system reviewed and no additional complaints, except as documented Cardiovascular: Reports as per HPI and Reports no additional cardiovascular complaints Respiratory: Reports as per HPI and Reports no additional respiratory complaints Gastrointestinal: Reports as per HPI and Reports no additional gastrointestinal complaints Genitourinary: Reports no additional female genitourinary complaints Musculoskeletal: Reports no additional musculoskeletal complaints Skin/Breast: Reports system reviewed and no additional complaints, except as docu Psychiatric: Reports no additional psychiatric complaints Endocrine: Reports no additional endocrine complaints Hematologic/Lymphatic: Reports no additional hematologic/lymphatic complaints Allergic/Immunologic: Reports no additional allergic/immunologic complaints Reports system reviewed and no additional complaints, except as documented and Reports Abnormal speech present [facility] Past Medical History Medical History COPD (chronic obstructive pulmonary disease) AAA (abdominal aortic aneurysm) Osteoarthritis of right hip Cyst of left kidney Chronic anticoagulation PAF (paroxysmal atrial fibrillation) COPD (chronic obstructive pulmonary disease) Pulmonary emboli Essential hypertension Lung cancer Surgical History History of lobectomy of lung No pertinent past surgical history Family History Family History Father Lung cancer Social History Social History Household Members: Family Household Members Other:: lives with son Housing: House Do you presently have visiting nurse or other home services: No Alcohol intake: never Comment: 1:1 sitter Patient Tobacco Use Status: Current everyday Tobacco user Tobacco use type: Cigarette Cigarettes Per Day: 3 Years Smoked: 50 Smoked in Last 30 Days: No e-Cigarette/Vaping Use: Currently Using Second Hand Smoke Exposure: No Use of substances other than those prescribed or required for medical reasons: No Advance Directives: Yes Advance Directives on File: Yes Advance Directives Date on File: 10/19/21 service: No Current occupational status: retired Physical Exam ED Vital Signs: Vital Signs - 24 hr 02/15/25 10:50 02/15/25 11:10 02/15/25 11:43 Temperature 97.4 F 98.1 F Pulse Rate 126 H 120 H Respiratory Rate 20 18 Blood Pressure 135/92 H Pulse Oximetry 99 Oxygen Delivery Method Room Air 02/15/25 11:46 02/15/25 11:51 02/15/25 12:32 Temperature Pulse Rate 123 H 89 72 Respiratory Rate 20 19 Blood Pressure 117/67 124/74 Pulse Oximetry 98 Oxygen Delivery Method Room Air 02/15/25 12:33 02/15/25 12:34 02/15/25 13:40 Temperature 97.6 F Pulse Rate 101 H 77 110 H Respiratory Rate 20 Blood Pressure 114/72 94/61 121/70 Pulse Oximetry Oxygen Delivery Method 02/15/25 14:14 Temperature Pulse Rate 118 H Respiratory Rate Blood Pressure 127/91 H Pulse Oximetry Oxygen Delivery Method BMI result Body Mass Index 19.4 Vital signs have been reviewed and appear to be correct. Blood pressure elevated. Heart rate normal. Respiratory rate normal. Temperature normal. Oxygen saturation normal. Appearance: Alert. Oriented X3. No acute distress. Head: Normal external exam. Normocephalic. Atraumatic. No Mercado signs noted. No raccoon eyes noted Eyes: PERRLA. EOMI. Conjunctiva and sclera normal. Eyelids normal. ENT: TM's Normal. Pharynx normal. Uvula midline. Moist mucous membranes. No trismus noted. No drooling noted. No muffled voice noted. Neck: Normal inspection. Neck supple. FROM. No adenopathy. Thyroid Normal. No meningeal signs. No neck mass noted. CVS: Normal heart rate and rhythm. Heart sound normal. No murmurs noted. Pulses normal throughout. Respiratory: No respiratory distress. Painless inspiration. Breath sounds normal. No wheezes/rales/rhonchi noted. Chest nontender. No accessory muscle usage noted or decreased air movement noted. Abdomen: Soft and nontender. Bowel sounds normal in all 4 quadrants. No distention noted. No organomegaly noted. No visible injury noted. Back: No CVA tenderness. Full range of motion noted. Skin: Skin warm and dry. Normal skin color. Normal skin turgor. No rashes/lesions/lacerations noted. Extremities: No lower extremity edema. Extremities exhibit normal range of motion. Extremities nontender. Neuro: Oriented X 3. Cranial nerve exam: II-XII are grossly intact No motor deficit. No sensory deficit. Reflexes normal. Course Reevaluation(s) Reevaluation #1: 84-year-old male came in for evaluation dizziness and lightheadedness. Rapid atrial fibrillation that is controlled with 5 mg IV metoprolol and 25 mg of metoprolol orally. UTI with no sepsis, tachycardia is secondary to atrial fibrillation and not infection. Will cover with ceftriaxone. CT abdomen pelvis shows no acute intra-abdominal aneurysmal emergency. CT is concern renal cell carcinoma will get Urology consult as an inpatient. Time: 14:19 Medications Administered Discontinued Medications Generic Name Dose Route Start Last Admin Trade Name Freq PRN Reason Stop Dose Admin Metoprolol Tartrate 5 mg 02/15/25 11:31 02/15/25 11:46 Metoprolol Tartrate 5 Mg/5 Ml Vial IVPUSH 02/15/25 11:32 5 mg ONCE ONE Administration Protocol Metoprolol Tartrate 25 mg 02/15/25 14:11 02/15/25 14:14 Metoprolol Tartrate 25 Mg Tablet PO 02/15/25 14:12 25 mg ONCE ONE Administration Protocol Medical Decision Making Differential Diagnosis Differential Diagnoses: The differential diagnosis associated with the presentation includes ( Rapid atrial fibrillation, dysrhythmia, electrolyte derangement, severe anemia, dehydration, intra-abdominal aneurysm, renal mass, UTI) Admission/Observation Consideration of admission/observation: Escalation of care including admission/observation considered Consult Healthcare Provider Management of the patient was discussed with: Hospitalist ( Dr. Chavez) Lab Data MDM Lab Attestation statement: I reviewed the patient's lab results. 02/15/25 11:39 02/15/25 11:39 Labs: Lab Results 02/15/25 02/15/25 Range/Units 11:39 13:42 WBC 7.2 (4.8-10.8) X10*3/uL RBC 3.96 L D (4.60-5.80) X10*6/uL Hgb 12.2 L D (14.0-18.0) g/dl Hct 36.9 L D (42.0-52.0) % MCV 93.2 (80.0-98.0) fL MCH 30.8 (27.0-33.0) pg MCHC 33.1 (31.0-36.0) g/dl RDW 13.3 (11.0-16.0) % Plt Count 207 (160-400) X10*3/uL MPV 9.4 (9.4-12.4) fL Immature Gran % (Auto) 0.4 (0.0-0.4) % Neut % (Auto) 69.3 (45-73) % Lymph % (Auto) 18.2 L (20-40) % Geary % (Auto) 8.4 (2-11) % Eos % (Auto) 2.9 (0-4) % Baso % (Auto) 0.8 (0-2) % Lymph # (Auto) 1.3 (1.2-4.9) X10*3/uL Geary # (Auto) 0.6 (0.1-1.2) X10*3/uL Eos # (Auto) 0.2 (0.0-0.4) X10*3/uL Baso # (Auto) 0.1 (0.0-0.2) X10*3/uL Abs Immat Gran (auto) 0.03 (0.00-0.03) X10*3/uL Absolute Neuts (auto) 5.0 (2.0-8.3) x10*3/uL Absolute Nucleated RBC 0.000 (0.0-0.012) X10*3/uL Nucleated RBC % (auto) 0.0 (0.0-0.2) /100WBC PT 14.1 H (11.2-13.5) SEC INR 1.2 H (0.9-1.1) Sodium 138 (135-145) mmol/L Potassium 4.7 (3.3-5.1) mmol/L Chloride 109 H (96-108) mmol/L Carbon Dioxide 22 (22-29) mmol/L Anion Gap 12 (12-20) BUN 37 H (9-16) mg/dL Creatinine 2.45 H (0.5-1.4) mg/dL Estim Creat Clear Calc 19.2 Estimated GFR 25 Random Glucose 100 (60-115) mg/dL Calcium 9.0 (8.4-10.2) mg/dL Total Bilirubin 0.5 (0.0-1.0) mg/dL AST 16 (5-37) U/L ALT < 6 (0-40) U/L Alkaline Phosphatase 77 (39-117) U/L Troponin I High Sens 21.8 D (<3.5-35.0) ng/L Total Protein 6.8 (6.5-8.0) g/dL Albumin 3.8 (3.5-5.0) g/dL Urine Color Yellow Urine Appearance Clear Urine pH 5.0 (5.0-9.0) Ur Specific [place] 1.020 (1.005-1.025) Urine Protein Trace (Neg-Trace) mg/dL Urine Glucose (UA) Negative (Negative) mg/dL Urine Ketones Trace (Negative) mg/dL Urine Blood Negative (Negative) Urine Nitrite Negative (Negative) Ur Leukocyte Esterase Moderate (2+) H (Negative) Urine RBC 0-2 (0-2) /HPF Urine WBC 21-50 H (0-5) /HPF Ur Squamous Epith Cells 0-2 (0-2) /HPF Urine Bacteria Trace (None Seen) Hyaline Casts 0-2 (0-2) /LPF Influenza Type A (PCR) NEGATIVE (Negative) Influenza Type B (PCR) NEGATIVE (Negative) RSV RNA Qual (PCR) NEGATIVE (Negative) SARS-CoV-2 RNA (RT-PCR) NEGATIVE (Negative) Independent Interpretation I performed an independent interpretation of an: CT Scan ( abdomen and pelvis:Stable moderate degenerative disc disease and facet arthropathy. Left inguinal hernia shows new fat stranding in the inguinal region raising question that it may be symptomatic. Bosniak III cystic mass of the left kidney should be considered highly suspicious for renal cell) Radiology Impression Discussion of test interpretation with radiology: I have reviewed the radiologist's reading. Critical Care Time Critical Care Time Critical Care Time: Yes Total Critical Care Time: 60 Attestation: The patient was critically ill with a high probability of imminent or life-threatening deterioration. I spent greater than 30 minutes of discontinuous time evaluating the patient, delivering critical care at the bedside, discussing evaluating data with consultants. Critical care time does not include time spent performing separately billable procedures or teaching. Time spent performing critical care was 60 minutes. Discharge Plan Discharge Clinical Impression: Atrial fibrillation with rapid ventricular response, Acute UTI, Left renal mass Patient Disposition: Admitted As Inpatient Print Language: Croatian
[2025-02-15 11:43] LABS: MANUAL DIFF FLAG NO
--- NOTE | 2025-02-15 11:50 | ECG_ITS ---
Test Reason : TACHY Blood Pressure : */* mmHG Vent. Rate : 96 BPM Atrial Rate : * BPM P-R Int : * ms QRS Dur : 80 ms QT Int : 340 ms P-R-T Axes : * 106 63 degrees QTcB Int : 429 ms Atrial fibrillation with premature ventricular or aberrantly conducted complexes Rightward axis Abnormal ECG When compared with ECG of 15-Feb-2025 11:12, No significant change was found Referred By: Carrie Castillo Electronically Signed By: THERESA YUAN MD
[2025-02-15 11:52] LABS: INTERNATIONAL NORM RATIO 1.2 (0.9-1.1); Prothrombin Time 14.1 SEC (11.2-13.5)
[2025-02-15 11:54] LABS: Hematocrit 36.9 % (42.0-52.0); Hemoglobin 12.2 g/dl (14.0-18.0); Imm Gran Abs Auto 0.03 X10*3/uL (0.00-0.03); Imm Gran Pct Auto 0.4 % (0.0-0.4); Lymphocytes Absolute Auto 1.3 X10*3/uL (1.2-4.9); Mean Corpuscular HGB Conc 33.1 g/dl (31.0-36.0); Mean Corpuscular Hemoglobin 30.8 pg (27.0-33.0); Mean Corpuscular Volume 93.2 fL (80.0-98.0); NRBC Abs Auto 0.000 X10*3/uL (0.0-0.012); NRBC Pct Auto 0.0 /100WBC (0.0-0.2); Platelet Count 207 X10*3/uL (160-400); Red Blood Count 3.96 X10*6/uL (4.60-5.80); White Blood Count 7.2 X10*3/uL (4.8-10.8)
[2025-02-15 12:01] LABS: Alanine Aminotransferase < 6 U/L (0-40); Albumin Level 3.8 g/dL (3.5-5.0); Alkaline Phosphatase 77 U/L (39-117); Anion Gap 12 (12-20); Aspartate Amino Transferase 16 U/L (5-37); Blood Urea Nitrogen 37 mg/dL (9-16); Calcium 9.0 mg/dL (8.4-10.2); Carbon Dioxide 22 mmol/L (22-29); Chloride 109 mmol/L (96-108); Creatinine Clr Calc Pharmacy 19.2; Estimated Glomerular Filt Rate 25; Potassium 4.7 mmol/L (3.3-5.1); Sodium 138 mmol/L (135-145); Total Protein 6.8 g/dL (6.5-8.0)
[2025-02-15 12:08] LABS: Troponin-I High Sensitivity 21.8 ng/L (<3.5-35.0)
[2025-02-15 12:23] LABS: Resp Syncy Virus RNA Qual PCR NEGATIVE (Negative); SARS COV2 PCR INHOUSE NEGATIVE (Negative)
--- OUTSIDE RECORDS SUMMARY | 2025-02-15 13:29 | XMS_ITS | Clinical Summary ---
Author Organization [facility] Address [address] [place] [address] Phone Care Team Providers Care Oil Spreader Operator Name Role Phone Philippe Cesar MD Primary Care Provider [phone] Allergies Active Allergy Reactions Criticality Noted Date Comments Amoxicillin 03/20/2023 Pseudoephedrine 03/20/2023 Medications Eliquis 5 MG tablet Take 5 mg by mouth in the morning and 5 mg in the evening. 3 Active folic acid (FOLVITE) 1 MG tablet Take 1,000 mcg by mouth 1 (one) time each day 4 Active metoprolol succinate XL (TOPROL XL) 25 MG 24 hr tablet Take 75 mg by mouth 1 (one) time each day 3 Active omeprazole (PriLOSEC) [address] capsule Take 20 mg by mouth 1 (one) time each day 3 Active tamsulosin (FLOMAX) 0.4 MG 24 hr capsule TAKE 1 CAPSULE BY MOUTH EVERY DAY 30 MINUTES AFTER THE SAME MEAL 3 Active QUEtiapine (SEROquel) 25 MG tablet Take 50 mg by mouth 1 (one) time each day in the evening 4 Active PARoxetine (PAXIL) 40 MG tablet Take 40 mg by mouth Active fluticasone (Flonase Allergy Relief) 50 MCG/ACT nasal spray Administer into affected nostril(s) 6 Active ALBUTEROL SULFATE HFA IN 2 puff EVERY 4 HOURS (route: inhalation) 2 Active Active Problems Problem Noted Date Diagnosed Date Left pneumothorax 03/19/2023 Acute pulmonary edema 11/05/2021 Chronic obstructive pulmonar y disease with acute exacerbation 11/01/2021 Acute and chronic respirator y failure, unspecified whether with hypoxia or hypercapnia 02/24/2021 Depressive disorder 02/24/2021 Benign prostatic hyperplasia without lower urinary tract symptom 02/24/2021 Gastro-esophageal reflux disease without esophag itis 02/24/2021 Hypertensive heart disease without heart failure 02/24/2021 Unspecified dementia, mild, without behavioral disturbance, psychotic disturbance, mood disturbance, and anxiety 02/24/2021 Personal history of malignant neoplasm of bronch us and lung 02/24/2021 Personal history of COVID-19 02/24/2021 Paroxysmal atrial fibrillation 02/24/2021 Other pulmonary embolism without acute cor pulmo nale 02/24/2021 jail current use of insulin 02/24/2021 Insomnia 02/24/2021 Social History Tobacco Use Types Packs/Day Years Used Date Smoking Tobacco: Every Day Cigarettes Alcohol Use Standard Drinks/Week Comments Not Currently 0 (1 standard drink = 0.6 oz pur e alcohol) Sex and Gender Information Value Date Recorded Sex Assigned at Not on file Legal Sex Male 9:15 AM EDT Gender Identity Not on file Sexual Orientation Not on file Last Filed Vital Signs Vital Sign Reading Time Taken Comments Blood Pressure 100/54 03/20/2023 4:02 PM EST Pulse 80 03/20/2023 4:02 PM EST Temperature - - Respiratory Rate - - Oxygen Saturation - - Inhaled Oxygen Concentration - - Weight 61.7 kg (136 lb) 03/20/2023 4:02 PM EST Height - - Body Mass Index - - Plan of Treatment Health Maintenance Due Date Last Done Comments Influenza Vaccine (#1) 2024 3, 11/10/2011, 11/18/2010, Additional history exists Pneumococcal Vaccine: 50+ Years Completed 09/07/2015, 06/06/2011 Hepatitis B Vaccine Aged Out No longe r eligible based on patient's age to complete this topic Insurance Medicare Medicare Care Teams Oil Spreader Operator Relationship Specialty Start Date End Date Philippe Cesar MD [address] [place] [id number] PCP - General Internal Medicine 12/17/22
--- OUTSIDE RECORDS SUMMARY | 2025-02-15 13:29 | XMS_ITS ---
Author Name [facility] Organization Unknown Care Team Organization Name Specialty Phone Email Start Date End Da te [facility] 10/13/2024 [facility] GAGE EGAN Primary Care 03/04/2022 [facility] Termed, PROVIDER Primary Care 01/01/202209/24
--- OUTSIDE RECORDS SUMMARY | 2025-02-15 13:29 | XMS_ITS | Clinical Summary ---
Author Organization [facility] Address [address] [place] [address] Phone Care Team Providers Care Jewelry Mold Maker Name Role Phone Philippe Cesar MD Primary Care Provider [phone] Allergies Active Allergy Reactions Criticality Noted Date Comments Amoxicillin 02/27/2015 Pseudoephedrine Hcl 04/03/2006 Makes heart race & keeps him up Medications meclizine (ANTIVERT) 12.5 mg tablet Take 1 tablet (12.5 mg total) by mouth 3 (three) times a day if needed for dizziness. 4 Active nystatin, bulk, 10 billion unit powder Apply to affected skin twice a day. 3 Active nystatin (Nystop) 100,000 unit/gram powder APPLY TO AFFECTED SKIN TWICE DAILY 3 Active blood pressure monitor (Blood Pressure Kit) kit 1 Kit by Does not apply route Daily before dinner. Dx HTN 3 Active acetaminophen-code ine (TYLENOL #2) 300-15 mg per tablet Take 1 tablet by mouth every 6 (six) hours if needed. for pain Max Daily Amount: 4 tablets 4 Active tamsulosin (FLOMAX) 0.4 mg 24 hr capsule Take 1 capsule (0.4 mg total) by mouth 1 (one) time each day. Capsules should be taken 30 minutes following the same meal each day. 90 capsule 1 5 Active folic acid (FOLVITE) 1 mg tablet Take 1 tablet (1,000 mcg total) by mouth 1 (one) time each day. 90 tablet 1 5 Active apixaban (Eliquis) 5 mg tablet Take 1 tablet (5 mg total) by mouth 2 (two) times a day. 180 tablet 1 5 Active QUEtiapine (SEROquel) 50 mg tablet TAKE 1 TABLET(50 MG) BY MOUTH AT BEDTIME 90 tablet 1 5 Active albuterol HFA (PROAIR HFA ; PROVENTIL HFA ; VENTOLIN HFA) 90 mcg/actuation inhalerIndications :Stage 1 mild COPD by GOLD classification (CMS/HCC V24, CMS/HCC V28) Inhale 2 puffs by mouth every 4 (four) hours if needed for wheezing. 6.7 g 1 5 12/18/19 26 Active omeprazole (PriLOSEC) [address] capsule Take 1 capsule (20 mg total) by mouth 1 (one) time each day. Do not crush or chew. 90 capsule 5 Active PARoxetine (PAXIL) 40 mg tablet Take 1 tablet (40 mg total) by mouth 1 (one) time each day in the morning. 90 tablet 5 Active metoprolol succinate (TOPROL-XL) 50 mg 24 hr tablet Take 1 tablet (50 mg total) by mouth 1 (one) time each day. Do not crush or chew. 90 tablet 5 Active Active Problems Problem Noted Date Diagnosed Date COVID 05/03/2022 Dizziness 05/03/2022 Diffusion capacity of lung (dl), decreased 03/22 Overview (12/17/2023): Last Assessment & Plan: Likely secondary to the severe emphysema found on CT, honeycombing echocardiogram is pending to rule out possibility of pulmonary hypertension. CKD (chronic kidney disease) stage 3, GFR 30-59 ml/min 02/04/2019 Gastroesophageal reflux disease 04/14/2018 Assessment & Plan (06/16/2024 2:50 PM EDT): Elevated PSA 03/17/2017 Prediabetes 10/11/2013 Assessment & Plan (06/16/2024 2:50 PM EDT): Orders: Basic metabolic panel; Future Hemoglobin A1c; Future Depression, major, recurrent 10/06/2013 Insomnia 12/08/2012 Assessment & Plan (06/16/2024 2:50 PM EDT): Stage 1 mild COPD by GOLD classification 013 Overview (12/17/2023): Last Assessment & Plan: Mr. Ivey is doing good with the use of albuterol as needed. His dyspnea is also secondary to some smoking-related interstitial lung disease with honeycombing. DDD (degenerative disc disease), lumbar 09/04/19 13 HTN (hypertension) 09/03/2012 Assessment & Plan (06/16/2024 2:50 PM EDT): Orders: Basic metabolic panel; Future Ventral hernia 06/06/2011 Overview (12/17/2023): IMO update Renal cyst 03/06/2007 Overview (12/17/2023): Simple cysts US 05/03/2011 Calculus of kidney 12/17/2006 Encounters Date Type Department Care Team Description 01/19/2025 Telephone Adult Medicine [address] [address] Philippe Cesar MD from Last 3 Months Immunizations Immunization Administration Dates Next Due Influenza trivalent, 0.5mL, preservative free (Fluarix; FluLaval; Fluzone) ages 6mo and older (Afluria) 3 years and older 11/30/2012,11/10/2011,11/18/2010,11/22,11/13/2008,11/11/2007,12/17/2006 Pneumococcal conjugate 13 va lent (Prevnar 13, PCV13) 2mo and older 09/07/2015 Pneumococcal polysaccharide 23 valent (Pneumovax 23) 2yo and older 06/06/2011 Tdap Tetanus diptheria acell ular pertussis (Boostrix; Adacel) 7yo and older 11/11/2007 Zoster Live 06/06/2011 Zoster recombinant (Shingrix ) 19yo and older 02/21/2020,12/21/2019 Surgical History Surgery Date Site/Laterality Comments LUMBAR LAMINECTOMY PROCEDURE: HISTORICAL LUMB LAMINECTOMY HERNIA REPAIR PROCEDURE: HISTORICAL HERNIA REPAIR/ING; COMMENT: bilateral COLONOSCOPY W/ BIOPSIES 08/13/2011 PROCEDURE: DC COLONOSCOPY W/BIOPSY SINGLE/MULTIPLE; COMMENT: 6 mm rectal polyp: hyperplastic. Medical History Medical History Date Comments Urinary calculus, unspecified DX :Urinary calculus, unspecified; COMMENT: once - calcium? Tobacco use disorder 12/17/2006 DX:Tobacco use disorder Calculus of kidney 12/17/2006 DX:Calculus o f kidney Tympanic membrane perforation 01/25/2010 DX :Tympanic membrane perforation Renal cyst 03/06/2007 DX:Renal cyst Ventral hernia, unspecified, without mention of obstruction or gangrene 06/06/2011 DX:Ventral hernia, unspecified, without mention of obstruction or gangrene Anxiety DX:Anxiety; COMM ENT: dr amador Insomnia DX:Insomnia Panic DX:Panic HTN (hypertension) 09/03/2012 DX:HTN (hyper tension) Atrial fibrillation (CMS/HCC V24, CMS/HCC V28) 03/14/2016 DX:Atrial fibrillation (HCC) History of lung cancer 10/11/2013 DX:Histor y of lung cancer; COMMENT: Stage 1a SCCA; 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 CKD (chronic kidney disease) DX: CKD (chronic kidney disease); COMMENT: has seen nephro per patient Elevated PSA DX:Elevated PSA GERD (gastroesophageal reflu x disease) DX:GERD (gastroesophageal re flux disease) Family History Medical History Relation Name Comments Lung cancer Father smoker Arthritis Mother Relation Name Status Comments Father Mother Social History Tobacco Use Types Packs/Day Years Used Date Smoking Tobacco: Some Days Cigarettes 1 Last attempted to quit: 03/10/2012 Smokeless Tobacco: Never Tobacco Cessation:Ready to Q uit: Not Asked; Counseling Given: Not Answered Alcohol Use Standard Drinks/Week Comments No 0 (1 standard drink = 0.6 oz pur e alcohol) Sex and Gender Information Value Date Recorded Sex Assigned at Not on file Legal Sex Male 6:56 AM EST Gender Identity Not on file Sexual Orientation Not on file Last Filed Vital Signs Vital Sign Reading Time Taken Comments Blood Pressure 136/64 06/16/2024 11:20 AM EDT Pulse 68 06/16/2024 11:20 AM EDT Temperature 35.7 C (96.2 F) 06/16/2024 11:20 AM EDT Respiratory Rate - - Oxygen Saturation 92% 06/16/2024 11:20 AM EDT Inhaled Oxygen Concentration - - Weight 63.7 kg (140 lb 6.4 oz) 06/16/2024 11:20 AM EDT Height 170.2 cm (5' 7.01 ) 06/16/2024 11:20 AM E DT Body Mass Index 21.98 06/16/2024 11:20 AM EDT Plan of Treatment Health Maintenance Due Date Last Done Comments RSV Immunization Adult Patients (1 - 1-dose 75+ series) 2016 DTaP,Tdap,and Td Vaccines (2 - Td or Tdap) 11/10/2017 11/11/2007 Social Influencers of Health Screening 02/02/2022 COVID-19 Vaccine (3 - Mixed Product risk series) 03/04/2022 02/04/2022, 07/12/2020 Hypertension/CHF/CAD Annual BMP Blood Test 08/24/2023 08/23/2022 Influenza Vaccine (#1) 2024 , 12/18/2021, 11/25/2020, Additional history exists Cholesterol Screening (Lipid Panel) 12/26/2024 12/27/2019 Falls Risk Assessment 06/16/2025 06/16/2024 Medicare Annual Wellness Visit 06/16/2025 06/16/2024 Zoster Vaccines Completed 02/21/2020, 11/25, 06/06/2011 Pneumococcal Vaccine: 50+ Years Completed 01/30/2022, 09/07/2015, 06/06/2011 Depression Screening Completed 06/16/2024 HIB Vaccines Aged Out No longer eligi ble based on patient's age to complete this topic HPV Vaccines Aged Out No longer eligi ble based on patient's age to complete this topic Hepatitis A Vaccines Aged Out No long er eligible based on patient's age to complete this topic Hepatitis B Vaccines Aged Out No long er eligible based on patient's age to complete this topic IPV Vaccines Aged Out No longer eligi ble based on patient's age to complete this topic MMR Vaccines Aged Out No longer eligi ble based on patient's age to complete this topic Meningococcal ACWY Vaccine Aged Out N o longer eligible based on patient's age to complete this topic Meningococcal B Vaccine Aged Out No l onger eligible based on patient's age to complete this topic RSV Immunization Patients Under 20 months Aged Out No longer eligible based on patient's age to complete this topic Varicella Vaccines Aged Out No longer eligible based on patient's age to complete this topic Procedures Procedure Name Priority Date/Time Associated Diagnosis Comments ANNUAL BMP BLOOD TEST Routine 08/23/2022 LIPID PANEL Routine 12/27/2019 from Last 3 Months or Most Recently Relevant to Health Maintenance Results * Annual BMP Blood Test (08/23/2022) Annual BMP Blood Test abstracted Historical Provider HEALTH MAINTENANCE Final Result * Lipid panel (12/27/2019) LDL/HDL Ratio 4 0 - 4 Triglycerides 134 0 - 150 mg/dL Cholesterol 158 0 - 200 mg/dL HDL 44 >=40 mg/dL LDL Cholesterol 88 0 - 100 mg/dL Blood Venous blood specimen / Unknown Historical Provider LAB BLOOD ORDERABLES Cindy l Result from Last 3 Months or Most Recently Relevant to Health Maintenance Insurance MEDICARE Member Subscriber Plan / Payer (Ef fective 2006-Present) Name:KARSON TAYLOR Member ID:[id number] Relation to Subscriber:Self Name:Karson Taylor Subscriber ID:[id number] Payer ID:Not on file Type:Medicare Address: [address] [address] Care Teams Jewelry Mold Maker Relationship Specialty Start Date End Date Philippe Cesar MD [address] [place] [address] PCP - General Internal Medicine 07/13/20
[2025-02-15 13:51] LABS: Appearance Urine Clear; Glucose Urine UA Negative (Negative); PH 5.0 (5.0-9.0); Specific Gravity - Urine 1.020 (1.005-1.025); UMIC TRIGGER UACC YES
[2025-02-15 14:10] LABS: UACC Culture Trigger YES
--- NOTE | 2025-02-15 14:41 | PM.IMHP ---
History of Present Illness Date of Service: 02/15/25 Chief Complaint: back pain 84M PMH paroxysmal AFib on Eliquis, history of pulmonary embolism, hypertension, COPD, lung cancer status post lobectomy in remission, CKD 4, complex left renal cyst status post drainage presented with 2 weeks of low back pain. Patient denies any traumatic event. Reports history of back pain with back surgery 10 years prior to presentation. Denies any urinary retention or fecal incontinence or saddle anesthesia, denies dysuria or abdominal pain or fever. He does note some lightheadedness difficulty with ambulation. In ED noted to be positive for orthostatic, AFib with RVR, pyuria with trace bacteriuria, CT with Bosniak 3 cystic mass of the left kidney enlarged from previous. Review of Systems Review of Systems: Yes all other systems are reviewed and are negative [facility] Medical History COPD (chronic obstructive pulmonary disease) AAA (abdominal aortic aneurysm) Osteoarthritis of right hip Cyst of left kidney Chronic anticoagulation PAF (paroxysmal atrial fibrillation) COPD (chronic obstructive pulmonary disease) Pulmonary emboli Essential hypertension Lung cancer Family History Father Lung cancer Surgical History History of lobectomy of lung No pertinent past surgical history Social History Household Members: Family Household Members Other:: lives with son Housing: House Do you presently have visiting nurse or other home services: No Alcohol intake: never Comment: 1:1 sitter Patient Tobacco Use Status: Current everyday Tobacco user Tobacco use type: Cigarette Cigarettes Per Day: 3 Years Smoked: 50 Smoked in Last 30 Days: No e-Cigarette/Vaping Use: Currently Using Second Hand Smoke Exposure: No Use of substances other than those prescribed or required for medical reasons: No Advance Directives: Yes Advance Directives on File: Yes Advance Directives Date on File: 10/19/21 service: No Current occupational status: retired Meds Allergies Allergy/AdvReac Type Severity Reaction Status Date / Time No Known Allergies Allergy Verified 02/15/25 10:53 Active Medications: Current Medications Acetaminophen (Acetaminophen 325 Mg Tablet) 650 mg PO Q6H PRN PRN Reason: Pain, Mild 1-3,fever,headache Calcium Carbonate (Calcium Carbonate 750 Mg Tab.Chew) 750 mg PO Q4H PRN PRN Reason: Heartburn Ceftriaxone Sodium 1 gm/ (Sodium Chloride) 50 mls @ 100 mls/hr IV ONCE ONE Stop: 02/15/25 14:47 Ceftriaxone Sodium 1 gm/ (Sodium Chloride) 50 mls @ 100 mls/hr IV Q24H JOSE Sodium Chloride (Ns) 1,000 mls @ 75 mls/hr IVCONT .[id number] [facility] Lidocaine (Lidocaine 4 % Patch Adh..Patch) 1 patch TRANSDERMA DAILY [facility]; Protocol Magnesium Hydroxide (Milk Of Magnesia 30 Ml Oral.Susp) 30 ml PO DAILY PRN PRN Reason: Constipation Melatonin (Melatonin 3 Mg Tablet) 6 mg PO BEDTIME PRN PRN Reason: Insomnia Oxycodone HCl (Oxycodone Hcl Immed Release 5 Mg Tablet) 5 mg PO Q6H PRN PRN Reason: Pain, Severe (Pain Scale 7-10) Polyethylene Glycol (Polyethylene Glycol 3350 17 Gm Powd.Pack) 17 gm PO DAILY PRN PRN Reason: Constipation Sodium Chloride (0.9 % Sodium Chloride Flush 3 Ml Syringe) 3 ml IVFLUSH QSHIFT [facility] Home Medications ?Medication ?Instructions ?Recorded ?Confirmed ?Last Taken ?Type albuterol sulfate 90 mcg/actuation 2 puff inhalation Q4H PRN wheezing 07/14/21 12/14/22 07/13/21 History aerosol inhaler omeprazole 20 mg capsule,delayed 1 cap PO DAILY@0630 07/14/21 12/14/22 12/14/22 09:00 History release paroxetine HCl 40 mg tablet 1 tab PO DAILY 07/14/21 12/14/22 12/14/22 09:00 History tamsulosin 0.4 mg capsule 1 cap PO BEDTIME 07/14/21 12/14/22 12/13/22 History apixaban 5 mg tablet (Eliquis) 5 mg PO BID 08/16/21 12/14/22 12/14/22 09:00 History metoprolol succinate 25 mg 50 mg PO DAILY 06/27/22 12/14/22 12/14/22 09:00 History tablet,extended release 24 hr trazodone 50 mg tablet 50 mg PO BEDTIME PRN Insomnia 06/27/22 12/14/22 12/13/22 History acetaminophen 325 mg tablet 650 mg PO Q6H PRN Pain 12/14/22 12/14/22 Unknown History (Tylenol) aspirin 81 mg tablet,delayed 81 mg PO DAILY PRN Pain 12/14/22 12/14/22 Unknown History release folic acid 1 mg tablet 1 mg PO BEDTIME 12/14/22 12/14/22 12/13/22 History naproxen sodium 220 mg tablet 220 mg PO BID PRN Pain 12/14/22 12/14/22 Unknown History (Aleve) Physical Exam Vital Signs and Narrative: Vital Signs: Last Vital Signs Temp 97.6 F 02/15/25 13:40 Pulse 92 02/15/25 14:27 Resp 18 02/15/25 14:27 BP 121/95 H 02/15/25 14:27 Pulse Ox 98 02/15/25 11:46 O2 Del Method Room Air 02/15/25 11:46 BMI result Body Mass Index 19.4 General: AO X 3, frail and ill-appearing, very hard of hearing, in pain Resp: Diminished bilateral, no accessory muscles used CVS: S1,S2, rapid and irregular GI: soft, non tender, non distended Neuro: motor grossly intact, alert Psych: appropriate affect, appropriate insight Results Labs 02/15/25 11:39 02/15/25 11:39 Labs: Laboratory Results - last 24 hr 02/15/25 02/15/25 11:39 13:42 MCV 93.2 MCH 30.8 MCHC 33.1 RDW 13.3 Plt Count 207 MPV 9.4 Immature Gran % (Auto) 0.4 Neut % (Auto) 69.3 Lymph % (Auto) 18.2 L [place] % (Auto) 8.4 Eos % (Auto) 2.9 Baso % (Auto) 0.8 Lymph # (Auto) 1.3 [place] # (Auto) 0.6 Eos # (Auto) 0.2 Baso # (Auto) 0.1 Abs Immat Gran (auto) 0.03 Absolute Neuts (auto) 5.0 Absolute Nucleated RBC 0.000 Nucleated RBC % (auto) 0.0 PT 14.1 H INR 1.2 H Anion Gap 12 Estim Creat Clear Calc 19.2 Estimated GFR 25 Random Glucose 100 Calcium 9.0 Total Bilirubin 0.5 AST 16 ALT < 6 Alkaline Phosphatase 77 Troponin I High Sens 21.8 D Total Protein 6.8 Albumin 3.8 Urine Color Yellow Urine Appearance Clear Urine pH 5.0 Ur Specific [place] 1.020 Urine Protein Trace Urine Glucose (UA) Negative Urine Ketones Trace Urine Blood Negative Urine Nitrite Negative Ur Leukocyte Esterase Moderate (2+) H Urine RBC 0-2 Urine WBC 21-50 H Ur Squamous Epith Cells 0-2 Urine Bacteria Trace Hyaline Casts 0-2 Influenza Type A (PCR) NEGATIVE Influenza Type B (PCR) NEGATIVE RSV RNA Qual (PCR) NEGATIVE SARS-CoV-2 RNA (RT-PCR) NEGATIVE Imaging Radiologist's Impressions: Impressions Chest X-Ray 02/15/25 12:08 IMPRESSION: Small left pleural effusion versus pleural thickening. Electronically signed by: Den Delgado MD 02/15/2025 12:23 PM EST RP Lumbar Spine X-Ray 02/15/25 12:10 IMPRESSION: There is mild wedging of superior endplate of L1. However, when comparing today's CT with CT performed more than 2 years ago, there was no change in vertebral body height. Multilevel degenerative disc disease and facet arthropathy. Electronically signed by: Maximo Zayas MD 02/15/2025 01:17 PM EST RP Abdomen/Pelvis CT 02/15/25 12:14 IMPRESSION: Stable moderate degenerative disc disease and facet arthropathy. Left inguinal hernia shows new fat stranding in the inguinal region raising question that it may be symptomatic. 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 It demonstrates interval decrease in size. Severe left renal cortical thinning. 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 Colonic diverticulosis Fleischner guidelines were followed. Electronically signed by: Maximo Zayas MD 02/15/2025 01:10 PM EST RP Assessment and Plan (1) Orthostatic hypotension: Status: Acute Plan 84M PMH paroxysmal AFib on Eliquis, history of pulmonary embolism, hypertension, COPD, lung cancer status post lobectomy in remission, CKD 4, complex left renal cyst status post drainage presented with 2 weeks of low back pain Severe low back pain No acute fracture on imaging, lidocaine, oxycodone, bowel regimen, PT eval PT eval Paroxysmal AFib with RVR Monitor on telemetry, pain control, metoprolol, IV fluids For orthostatic hypotension IV fluids, monitor Bacteriuria and pyuria - possible UTI Empiric IV ceftriaxone, follow up cultures Enlarging left renal cyst Concerning for malignancy, outpatient follow up History of pulmonary embolism Continue Eliquis CKD 4 Creatinine stable around 2.5 DVT prophylaxis with Eliquis DNR/DNI Patient is elderly and frail with multiple active issues including rapid AFib, orthostatic hypotension, possible urinary tract infection. As he is at risk for decompensation would treat with IV antibiotics until urine culture resulted which is expected to take at least 2 midnights. As well likely to need at least 2 midnights for optimizing pain control, heart rate and orthostasis. Quality Stroke Does the patient have a stroke diagnosis?: No VTE Prior VTE?: Yes VTE Risk Level:: Medical - moderate - high VTE Device Contraindication: Treatment Not Indicated VTE Drug Contraindication: N/A - Med Ordered
[2025-02-15] MEDS: Lidocaine 4 % Patch ADH..PATCH 1 PATCH TRANSDERMA (14:50)
--- NOTE | 2025-02-15 14:54 | PC.NURSE ---
Pt presented to ED via EMS from home for lower back painX2 weeks along with dizziness/ poor PO intake X4 days. Pt denying any falls or injuries. Pt has hx of lower back issues, back surgery for herniated disc approx 10 years ago. Uses walker at baseline, lives with son. Alert and oriented, very hard of hearing. Breathing even and unlabored. Afib on the monitor. Takes pills whole, feeds self.
--- NOTE | 2025-02-15 16:03 | HO.NURTONUR ---
PER RN: Admit: low back pain, UTI, orthostatic hypotension, afib Alert and confused, walker at baseline IV:20 g in right forearm meds: NS running at 75 mL/hr Pills whole Uses urinal PT evaled today and recommends STR patient monitor: afib DNR/DNI PER MD: 84M PMH paroxysmal AFib on Eliquis, history of pulmonary embolism, hypertension, COPD, lung cancer status post lobectomy in remission, CKD 4, complex left renal cyst status post drainage presented with 2 weeks of low back pain. Patient denies any traumatic event. Reports history of back pain with back surgery 10 years prior to presentation. Denies any urinary retention or fecal incontinence or saddle anesthesia, denies dysuria or abdominal pain or fever. He does note some lightheadedness difficulty with ambulation. In ED noted to be positive for orthostatic, AFib with RVR, pyuria with trace bacteriuria, CT with Bosniak 3 cystic mass of the left kidney enlarged from previous.
--- NOTE | 2025-02-15 16:12 | PHA.MEDREC ---
Pharmacy Consult ? Medication Reconciliation Pharmacy has completed the medication reconciliation. Utilized med list from son and pharmacy claims. Pt states he last took his medications 2 days ago.
[2025-02-16] VITALS (16 sets, daily range): BP systolic 89–151; BP diastolic 52–74; PULSE 69–80; RESP 16–19; TEMP 36.2–37; O2SAT 95–97
[2025-02-16 06:32] LABS: Hematocrit 32.8 % (42.0-52.0); Hemoglobin 10.7 g/dl (14.0-18.0); Mean Corpuscular HGB Conc 32.6 g/dl (31.0-36.0); Mean Corpuscular Hemoglobin 31.0 pg (27.0-33.0); Mean Corpuscular Volume 95.1 fL (80.0-98.0); NRBC Abs Auto 0.000 X10*3/uL (0.0-0.012); NRBC Pct Auto 0.0 /100WBC (0.0-0.2); Platelet Count 184 X10*3/uL (160-400); Red Blood Count 3.45 X10*6/uL (4.60-5.80); White Blood Count 5.6 X10*3/uL (4.8-10.8)
[2025-02-16 06:52] LABS: Anion Gap 11 (12-20); Blood Urea Nitrogen 39 mg/dL (9-16); Calcium 8.4 mg/dL (8.4-10.2); Carbon Dioxide 18 mmol/L (22-29); Chloride 114 mmol/L (96-108); Creatinine Clr Calc Pharmacy 19.7; Estimated Glomerular Filt Rate 26; Magnesium 1.8 mg/dL (1.6-2.6); Potassium 4.5 mmol/L (3.3-5.1); Sodium 138 mmol/L (135-145)
[2025-02-16] MEDS: Metoprolol Succinate ER 50 MG TAB.ER.24H PO (08:13)
[2025-02-16] MEDS: PARoxetine HCL 40 MG TABLET PO (08:13)
[2025-02-16] MEDS: Lidocaine 4 % Patch ADH..PATCH 1 PATCH TRANSDERMA (08:14)
--- NOTE | 2025-02-16 08:35 | MHC.CM.PN ---
IMM was addressed with Patient. PT is recommending STR and Patient is agreeable to a [place] area bed search. CM has initiated and will follow for dc planning. PCP is Dr. Philippe Chen and Patient will need bls transport at dc. Patient lives in a house with his Son/HCP/Gregory and he was using a walker.
--- NOTE | 2025-02-16 11:37 | PC.NURSE ---
Pt's family is he can be sent home with a enough of his meds to get him by for a couple days. At home he needs paroxetine, metoprolol, omeprazole, and quietapine, and whatever gets ordered here. Gregory, son,
--- NOTE | 2025-02-16 14:09 | HO.PM.IMPN ---
Subjective Subjective Date of Service: 02/16/25 Interval History: uti Review of Systems says back pain improving no new c/o Physical Exam Exam: Exam: General: AO X 3, frail, very hard of hearing Resp: Diminished bilateral, no accessory muscles used CVS: S1,S2, rapid and irregular GI: soft, non tender, non distended Neuro: motor grossly intact, alert Vital Signs: Vital Signs: Last Vital Signs Temp 97.8 F 02/16/25 11:08 Pulse 112 H 02/16/25 13:15 Resp 18 02/16/25 11:08 BP 121/60 02/16/25 13:10 Pulse Ox 95 02/16/25 11:08 O2 Del Method Room Air 02/16/25 11:08 BMI result Body Mass Index 19.4 Objective Data Active Medications Acetaminophen (Acetaminophen 325 Mg Tablet) 650 mg PO Q6H PRN PRN Reason: Pain, Mild 1-3,fever,headache Last Admin: 02/15/25 20:01 Dose: 650 mg Documented By: MORTEZA Albuterol Sulfate (Albuterol Sulfate 90 Mcg 8 Gm Inhaler) 2 puff INHALE Q4H PRN PRN Reason: Wheezing Apixaban (Apixaban 5 Mg Tablet) 5 mg PO BID [facility] Last Admin: 02/16/25 08:13 Dose: 5 mg Documented By: MARIBEL Calcium Carbonate (Calcium Carbonate 750 Mg Tab.Chew) 750 mg PO Q4H PRN PRN Reason: Heartburn Last Admin: 02/15/25 22:54 Dose: 750 mg Documented By: MORTEZA Folic Acid (Folic Acid 1 Mg Tablet) 1 mg PO BEDTIME [facility] Last Admin: 02/15/25 20:01 Dose: 1 mg Documented By: MORTEZA Ceftriaxone Sodium 1 gm/ (Sodium Chloride) 50 mls @ 100 mls/hr IV Q24H JOSE Sodium Chloride (Ns) 1,000 mls @ 75 mls/hr IVCONT .[id number] [facility] Last Admin: 02/16/25 05:10 Dose: 75 mls/hr Documented By: MORTEZA Lidocaine (Lidocaine 4 % Patch Adh..Patch) 1 patch TRANSDERMA DAILY [facility]; Protocol Last Admin: 02/16/25 08:14 Dose: 1 patch Documented By: MARIBEL Magnesium Hydroxide (Milk Of Magnesia 30 Ml Oral.Susp) 30 ml PO DAILY PRN PRN Reason: Constipation Melatonin (Melatonin 3 Mg Tablet) 6 mg PO BEDTIME PRN PRN Reason: Insomnia Metoprolol Succinate (Metoprolol Succinate Er 50 Mg Tab.Er.24h) 50 mg PO DAILY [facility]; Protocol Last Admin: 02/16/25 08:13 Dose: 50 mg Documented By: MARIBEL Omeprazole (Omeprazole 20 Mg Capsule.Dr) 20 mg PO DAILY@0630 [facility] Last Admin: 02/16/25 05:10 Dose: 20 mg Documented By: MORTEZA Oxycodone HCl (Oxycodone Hcl Immed Release 5 Mg Tablet) 5 mg PO Q6H PRN PRN Reason: Pain, Severe (Pain Scale 7-10) Paroxetine HCl (Paroxetine Hcl 40 Mg Tablet) 40 mg PO DAILY [facility] Last Admin: 02/16/25 08:13 Dose: 40 mg Documented By: MARIBEL Polyethylene Glycol (Polyethylene Glycol 3350 17 Gm Powd.Pack) 17 gm PO DAILY PRN PRN Reason: Constipation Quetiapine Fumarate (Quetiapine Fumarate 50 Mg Tablet) 50 mg PO BEDTIME [facility] Last Admin: 02/15/25 20:01 Dose: 50 mg Documented By: MORTEZA Sodium Chloride (0.9 % Sodium Chloride Flush 3 Ml Syringe) 3 ml IVFLUSH QSHIFT [facility] Last Admin: 02/16/25 08:18 Dose: Not Given Documented By: MARIBEL Non-Admin Reason: IV Running Tamsulosin HCl (Tamsulosin Hcl 0.4 Mg Capsule) 0.4 mg PO BEDTIME [facility] Last Admin: 02/15/25 20:01 Dose: 0.4 mg Documented By: MORTEZA Trazodone HCl (Trazodone Hcl 50 Mg Tablet) 50 mg PO BEDTIME PRN PRN Reason: Insomnia Last Admin: 02/15/25 20:01 Dose: 50 mg Documented By: MORTEZA Labs 02/16/25 06:11 02/16/25 06:11 Labs: Laboratory Results - last 24 hr 02/15/25 02/16/25 13:42 06:11 MCV 95.1 MCH 31.0 MCHC 32.6 RDW 13.3 Plt Count 184 MPV 9.7 Absolute Nucleated RBC 0.000 Nucleated RBC % (auto) 0.0 Anion Gap 11 L Estim Creat Clear Calc 19.7 Estimated GFR 26 Random Glucose 88 Calcium 8.4 D Magnesium 1.8 Urine Color Yellow Urine Appearance Clear Urine pH 5.0 Ur Specific [place] 1.020 Urine Protein Trace Urine Glucose (UA) Negative Urine Ketones Trace Urine Blood Negative Urine Nitrite Negative Ur Leukocyte Esterase Moderate (2+) H Urine RBC 0-2 Urine WBC 21-50 H Ur Squamous Epith Cells 0-2 Urine Bacteria Trace Hyaline Casts 0-2 Microbiology Microbiology Results: Microbiology 02/15/25 Unknown Urine Culture - Final Urine clean catch - Clean Catch Midstream Assessment and Plan (1) Acute UTI: Status: Acute Plan 84M PMH paroxysmal AFib on Eliquis, history of pulmonary embolism, hypertension, COPD, lung cancer status post lobectomy in remission, CKD 4, complex left renal cyst status post drainage presented with 2 weeks of low back pain Severe low back pain No acute fracture on imaging continue lidocaine, oxycodone, bowel regimen, PT eval PT eval-str Paroxysmal AFib with RVR Monitor on telemetry, pain control, metoprolol, IV fluids For orthostatic hypotension check orthos IV fluids, monitor Bacteriuria and pyuria - possible UTI Empiric IV ceftriaxone, follow up cultures Enlarging left renal cyst Concerning for malignancy, outpatient follow up History of pulmonary embolism Continue Eliquis CKD 4 Creatinine stable around 2.5 DVT prophylaxis with Eliquis DNR/DNI Patient is elderly and frail with multiple active issues including rapid AFib, orthostatic hypotension, possible urinary tract infection. As he is at risk for decompensation would treat with IV antibiotics until urine culture, optimizing pain control, heart rate and orthostasis. Quality Stroke Does the patient have a stroke diagnosis?: No VTE Prior VTE?: Yes VTE Risk Level:: Medical - moderate - high VTE Device Contraindication: Treatment Not Indicated VTE Drug Contraindication: N/A - Med Ordered
[2025-02-17] VITALS (10 sets, daily range): BP systolic 112–153; BP diastolic 57–77; PULSE 71–84; RESP 16–19; TEMP 36.2–36.8; O2SAT 94–98
[2025-02-17] MEDS: Metoprolol Succinate ER 50 MG TAB.ER.24H PO (09:45)
[2025-02-17] MEDS: Lidocaine 4 % Patch ADH..PATCH 1 PATCH TRANSDERMA (09:46)
[2025-02-17] MEDS: PARoxetine HCL 40 MG TABLET PO (09:46)
--- NOTE | 2025-02-17 15:16 | HO.PM.IMPN ---
Subjective Subjective Date of Service: 02/17/25 Interval History: uti Review of Systems seems feeling better Review of Systems: Yes all other systems are reviewed and are negative Physical Exam Exam: Exam: General: AO X 3, frail, very hard of hearing Resp: Diminished bilateral, no accessory muscles used CVS: S1,S2, rapid and irregular GI: soft, non tender, non distended Neuro: motor grossly intact, alert Vital Signs: Vital Signs: Last Vital Signs Temp 98 F 02/17/25 14:02 Pulse 82 02/17/25 14:17 Resp 18 02/17/25 14:02 BP 143/60 H 02/17/25 14:16 Pulse Ox 97 02/17/25 14:02 O2 Del Method Room Air 02/17/25 14:02 BMI result Body Mass Index 19.4 Objective Data Active Medications Acetaminophen (Acetaminophen 325 Mg Tablet) 650 mg PO Q6H PRN PRN Reason: Pain, Mild 1-3,fever,headache Last Admin: 02/15/25 20:01 Dose: 650 mg Documented By: MORTEZA Albuterol Sulfate (Albuterol Sulfate 90 Mcg 8 Gm Inhaler) 2 puff INHALE Q4H PRN PRN Reason: Wheezing Apixaban (Apixaban 5 Mg Tablet) 5 mg PO BID [facility] Last Admin: 02/17/25 09:46 Dose: 5 mg Documented By: MARIBEL Calcium Carbonate (Calcium Carbonate 750 Mg Tab.Chew) 750 mg PO Q4H PRN PRN Reason: Heartburn Last Admin: 02/15/25 22:54 Dose: 750 mg Documented By: MORTEZA Folic Acid (Folic Acid 1 Mg Tablet) 1 mg PO BEDTIME [facility] Last Admin: 02/16/25 19:49 Dose: 1 mg Documented By: MORTEZA Ceftriaxone Sodium 1 gm/ (Sodium Chloride) 50 mls @ 100 mls/hr IV Q24H [facility] Last Infusion: 02/17/25 15:07 Dose: Infused Documented By: SEAN Lidocaine (Lidocaine 4 % Patch Adh..Patch) 1 patch TRANSDERMA DAILY [facility]; Protocol Last Admin: 02/17/25 09:46 Dose: 1 patch Documented By: MARIBEL Magnesium Hydroxide (Milk Of Magnesia 30 Ml Oral.Susp) 30 ml PO DAILY PRN PRN Reason: Constipation Melatonin (Melatonin 3 Mg Tablet) 6 mg PO BEDTIME PRN PRN Reason: Insomnia Metoprolol Succinate (Metoprolol Succinate Er 50 Mg Tab.Er.24h) 50 mg PO DAILY [facility]; Protocol Last Admin: 02/17/25 09:45 Dose: 50 mg Documented By: MARIBEL Omeprazole (Omeprazole 20 Mg Capsule.Dr) 20 mg PO DAILY@0630 [facility] Last Admin: 02/17/25 05:42 Dose: 20 mg Documented By: MORTEZA Oxycodone HCl (Oxycodone Hcl Immed Release 5 Mg Tablet) 5 mg PO Q6H PRN PRN Reason: Pain, Severe (Pain Scale 7-10) Paroxetine HCl (Paroxetine Hcl 40 Mg Tablet) 40 mg PO DAILY [facility] Last Admin: 02/17/25 09:46 Dose: 40 mg Documented By: MARIBEL Polyethylene Glycol (Polyethylene Glycol 3350 17 Gm Powd.Pack) 17 gm PO DAILY PRN PRN Reason: Constipation Quetiapine Fumarate (Quetiapine Fumarate 50 Mg Tablet) 50 mg PO BEDTIME [facility] Last Admin: 02/16/25 19:49 Dose: 50 mg Documented By: MORTEZA Sodium Chloride (0.9 % Sodium Chloride Flush 3 Ml Syringe) 3 ml IVFLUSH QSHIFT [facility] Last Admin: 02/17/25 15:07 Dose: Not Given Documented By: SEAN Non-Admin Reason: IV Running Tamsulosin HCl (Tamsulosin Hcl 0.4 Mg Capsule) 0.4 mg PO BEDTIME [facility] Last Admin: 02/16/25 19:49 Dose: 0.4 mg Documented By: MORTEZA Trazodone HCl (Trazodone Hcl 50 Mg Tablet) 50 mg PO BEDTIME PRN PRN Reason: Insomnia Last Admin: 02/16/25 19:49 Dose: 50 mg Documented By: MORTEZA Labs 02/16/25 06:11 02/16/25 06:11 Microbiology Microbiology Results: Microbiology 02/15/25 14:45 Blood Culture - Preliminary Blood - Venous No growth after 24 hours. 02/15/25 14:45 Blood Culture - Preliminary Blood - Venous No growth after 24 hours. 02/15/25 Unknown Urine Culture - Final Urine clean catch - Clean Catch Midstream Assessment and Plan (1) Acute UTI: Status: Acute Plan 84M PMH paroxysmal AFib on Eliquis, history of pulmonary embolism, hypertension, COPD, lung cancer status post lobectomy in remission, CKD 4, complex left renal cyst status post drainage presented with 2 weeks of low back pain Severe low back pain No acute fracture on imaging continue lidocaine, oxycodone, bowel regimen, PT eval PT eval-str Paroxysmal AFib with RVR Monitor on telemetry, pain control, metoprolol, IV fluids For orthostatic hypotension s/p ivf ,seem asymptomtaic Bacteriuria and pyuria - possible UTI Empiric IV ceftriaxone, follow up cultures Enlarging left renal cyst Concerning for malignancy, outpatient follow up History of pulmonary embolism Continue Eliquis CKD 4 Creatinine stable around 2.5 DVT prophylaxis with Eliquis DNR/DNI plan: str placement Quality Stroke Does the patient have a stroke diagnosis?: No VTE Prior VTE?: Yes VTE Risk Level:: Medical - moderate - high VTE Device Contraindication: Treatment Not Indicated VTE Drug Contraindication: N/A - Med Ordered
[2025-02-17] MEDS: Albuterol Sulfate 90 MCG 8 GM INHALER 2 PUFF INHALE (17:16)
[2025-02-17] MEDS: guaiFENesin 200 MG/10 ML 10 ML LIQUID PO (17:16)
[2025-02-17] MEDS: oxyCODONE HCl Immed Release 5 MG TABLET PO (18:33)
[2025-02-17] MEDS: 0.9 % Sodium Chloride Flush 3 ML SYRINGE IVFLUSH (21:17)
[2025-02-18] VITALS (10 sets, daily range): BP systolic 100–128; BP diastolic 51–87; PULSE 79–111; RESP 16–18; TEMP 36.3–36.8; O2SAT 93–97
[2025-02-18] MEDS: oxyCODONE HCl Immed Release 5 MG TABLET PO ×2 (02:55→14:10)
[2025-02-18 08:44] LABS: Chlamydia pneumoniae PCR Not Detected (Not Detect.); Coronavirus 229E PCR Not Detected (Not Detect.); Coronavirus HKU1 PCR Not Detected (Not Detect.); Coronavirus NL63 PCR Not Detected (Not Detect.); Coronavirus OC43 PCR Not Detected (Not Detect.); RSV PCR Not Detected (Not Detect.); Rhino/Enterovirus PCR Not Detected (Not Detect.)
[2025-02-18] MEDS: Albuterol Sulfate 90 MCG 8 GM INHALER 2 PUFF INHALE (09:08)
[2025-02-18] MEDS: 0.9 % Sodium Chloride Flush 3 ML SYRINGE IVFLUSH (09:28)
[2025-02-18] MEDS: Lidocaine 4 % Patch ADH..PATCH 1 PATCH TRANSDERMA (09:30)
[2025-02-18] MEDS: PARoxetine HCL 40 MG TABLET PO (09:32)
[2025-02-18] MEDS: Metoprolol Succinate ER 50 MG TAB.ER.24H PO (09:32)
[2025-02-18 10:32] LABS: Influenza A H1 PCR Not Detected (Not Detect.); Influenza A H1-2009 PCR Not Detected (Not Detect.); Influenza A H3 PCR Not Detected (Not Detect.); SARS-CoV-2 PCR Not Detected (Not Detect.)
--- NOTE | 2025-02-18 11:30 | MHC.CM.PN ---
Addendum entered by Darcy Loja RN 02/18/25 11:46: Per MD, dc cancelled. Plan for [facility] tomorrow if med clear. Original Note: Per MD patient medically cleared for dc to STR. Patient accepted bed at [facility]. BLS transport scheduled for 2pm. Patient, and RN aware. LM for son to inform, per patient request.
--- NOTE | 2025-02-18 11:37 | PM.DS ---
DS: Providers Provider Date of admission: 02/15/25 14:33 Date of discharge: 02/18/25 Primary care physician: Philippe Cesar III, MD Attending physician on discharge: Toñito Yang Discharging clinician: Toñito Yang DS: Diagnosis Discharge Diagnosis (1) Acute UTI: Status: Acute DS: Summary Hospital Course Hospital Course: HPI:84M PMH paroxysmal AFib on Eliquis, history of pulmonary embolism, hypertension, COPD, lung cancer status post lobectomy in remission, CKD 4, complex left renal cyst status post drainage presented with 2 weeks of low back pain. Patient denies any traumatic event. Reports history of back pain with back surgery 10 years prior to presentation. Denies any urinary retention or fecal incontinence or saddle anesthesia, denies dysuria or abdominal pain or fever. He does note some lightheadedness difficulty with ambulation. In ED noted to be positive for orthostatic, AFib with RVR, pyuria with trace bacteriuria, CT with Bosniak 3 cystic mass of the left kidney enlarged from previous. Hospital course:84M PMH paroxysmal AFib on Eliquis, history of pulmonary embolism, hypertension, COPD, lung cancer status post lobectomy in remission, CKD 4, complex left renal cyst status post drainage presented with 2 weeks of low back pain:Low back pain chronic per patient -no acute fractures on imaging: Seems to be improving Tylenol, lidocaine patch, oxycodone p.r.n., bowel regimen. UTI: Complete Ceftin 250 b.i.d. for 5 more days. Orthostatic hypotension: Received fluid, seem improved currently asymptomatic, orthostatic precautions. Paroxysmal AFib with RVR: As per patient weight and age-Eliquis adjusted to 2.5 mg po b.i.d. in addition patient also had Acute hypoxemic respiratory failure secondary to COPD exacerbation: cxr -mild pleural thickening vs small effusion left : patient started on nebs ,steriods ,antibiotics - Improved with nebs and steroids, switched to p.o. steroids upon discharge continue antibiotics(already on Ceftin added doxycycline for 5 more days), incentive spirometry, chest physiotherapy. Enlarging left renal cyst-Concerning for malignancy, outpatient follow up. plan: Low back pain chronic per patient -no acute fractures on imaging: Seems to be improving Tylenol, lidocaine patch, oxycodone p.r.n., bowel regimen. UTI: Complete Ceftin 250 b.i.d.. Orthostatic hypotension: Received fluid, seem improved currently asymptomatic, orthostatic precautions. Paroxysmal AFib with RVR: As per patient weight and age-Eliquis adjusted to 2.5 mg po b.i.d. Continue COPD medications, prednisone 40 mg daily for 4 more days, complete Ceftin/doxycycline for 7 days. repeat chest imaging in 3-4 weeks. Enlarging left renal cyst-Concerning for malignancy, outpatient follow up Above management discussed with the patient in detail length he understand and in agreement with the above plan, time spent 50 minute. Time Attestation Total time managing care of this patient today: 50 mintues. Discharge Coordination Time (in mins): 50 minute Quality: Safe Use of Opioids Does Pt have an Active Cancer Diagnosis on the Problem List?: No Quality: Stroke Does the patient have a stroke diagnosis?: No Physical Exam Exam: Exam: General: AO X 3, frail, very hard of hearing Resp: Air entry improving, no rales or wheezing CVS: S1,S2, rapid and irregular GI: soft, non tender, non distended Neuro: motor grossly intact, alert Vital Signs: Vital Signs: Last Vital Signs Temp 98.3 F 02/18/25 08:00 Pulse 99 02/18/25 09:08 Resp 16 02/18/25 09:08 BP 108/59 L 02/18/25 08:00 Pulse Ox 94 02/18/25 08:00 O2 Del Method Room Air 02/18/25 08:00 BMI result Body Mass Index 19.4 DS: Data Data Completed and Pending Completed studies during hospitalization [Text1]: Procedures Drainage of Left Kidney, Percutaneous Approach (06/27/22) Introduction of Remdesivir Anti-infective into Peripheral Vein, Percutaneous Approach, [employer] 5 (10/06/21) Labs on day of discharge: Laboratory Results - last 24 hr 02/17/25 17:15 Respiratory Panel [place] See Note Adenovirus (Rapid PCR) Not Detected B.pert (TEM-PCR) Not Detected B.parapertussis DNA PCR Not Detected C. pneumoniae DNA (PCR) Not Detected Coronavirus OC43 (PCR) Not Detected Coronavirus HKU1 (PCR) Not Detected Coronavirus 229E (PCR) Not Detected Coronavirus NL63 (PCR) Not Detected Human Metapneumovir PCR Not Detected Influenza A (RT-PCR) Not Detected Influenza A (H1) PCR Not Detected Influ A (H1/09) PCR Not Detected Influenza A (H3) PCR Not Detected Influenza B (RT-PCR) Not Detected M. pneumoniae (PCR) Not Detected Parainfluenza 1 (PCR) Not Detected Parainfluenza 2 (PCR) Not Detected Parainfluenza 3 (PCR) Not Detected Parainfluenza 4 (PCR) Not Detected RSV (PCR) Not Detected Entero/Rhino (PCR) Not Detected SARS-CoV-2 RNA (RT-PCR) Not Detected Preliminary micro results at discharge 02/15/25 14:45 Blood Culture - Preliminary Blood - Venous No growth after 48 hours. 02/15/25 14:45 Blood Culture - Preliminary Blood - Venous No growth after 48 hours. Imaging Chest x-ray: Radiologist's impression: ITS Impressions Chest X-Ray 02/15/25 12:08 IMPRESSION: Small left pleural effusion versus pleural thickening. Electronically signed by: Den Delgado MD 02/15/2025 12:23 PM [facility] RP Lumbar Spine X-Ray 02/15/25 12:10 IMPRESSION: There is mild wedging of superior endplate of L1. However, when comparing today's CT with CT performed more than 2 years ago, there was no change in vertebral body height. Multilevel degenerative disc disease and facet arthropathy. Electronically signed by: Maximo Zayas MD 02/15/2025 01:17 PM EST RP Abdomen/Pelvis CT 02/15/25 12:14 IMPRESSION: Stable moderate degenerative disc disease and facet arthropathy. Left inguinal hernia shows new fat stranding in the inguinal region raising question that it may be symptomatic. 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 It demonstrates interval decrease in size. Severe left renal cortical thinning. 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 Colonic diverticulosis Fleischner guidelines were followed. Chest X-Ray 02/18/25 12:08 IMPRESSION: Small left pleural effusion versus pleural thickening without change. Discharge Plan Discharge Anticipated Discharge Date/Time: 02/18/25 11:30 Patient Disposition: [facility] Discharge Diagnosis: uti ,possible orthostatic hypotension Referrals: [facility] & [facility] [Outside] - 1 Day Referral Note: short term rehab Balta Rodrigues MD [Physician, Urology] - 1 Week Referral Note: enlarged left renal complex cyst Philippe Cesar III, MD [Primary Care Provider, Medical] - 1 Week Discharge Medications: New polyethylene glycol 3350 17 gram Powder In Packet 17 g PO DAILY PRN (Reason: Constipation) Qty: 200 0RF benzonatate 100 mg Capsule 100 mg PO TID PRN (Reason: Cough) Qty: 15 0RF lidocaine [Lidocaine Pain Relief] 4 % Adhesive Patch,Medicated 1 patch transdermal DAILY Qty: 1 0RF Protocol: Apply to: Apply to: back guaifenesin 100 mg/5 mL Liquid 10 mg PO Q4H PRN (Reason: Cough) Qty: 100 0RF oxycodone 5 mg Tablet 5 mg PO Q6H PRN (Reason: Pain, Severe (Pain Scale 7-10)) Qty: 10 0RF Rx Instructions: Partial Fill upon patient request. cefuroxime axetil 250 mg Tablet 250 mg PO Q12H Qty: 1 0RF doxycycline hyclate [Doxy-100] 100 mg Recon Soln 100 mg IV Q12H Qty: 10 0RF ipratropium-albuterol 0.5 mg-3 mg(2.5 mg base)/3 mL Solution For Nebulization 3 ml inhalation Q3H PRN (Reason: sob) Qty: 1 0RF prednisone 20 mg Tablet 40 mg PO DAILY Qty: 1 0RF Continued tamsulosin 0.4 mg capsule 1 cap PO BEDTIME omeprazole 20 mg capsule,delayed release(DR/EC) 1 cap PO DAILY@0630 albuterol sulfate 90 mcg/actuation HFA aerosol inhaler 2 puff inhalation Q4H PRN (Reason: wheezing) paroxetine HCl 40 mg tablet 1 tab PO DAILY metoprolol succinate 25 mg tablet extended release 24 hr 50 mg PO DAILY Protocol: Hold for SBP/HR < HOLD for SBP < : 90 HOLD for HR < : 60 trazodone 50 mg tablet 50 mg PO BEDTIME PRN (Reason: Insomnia) acetaminophen [Tylenol] 325 mg Tablet 650 mg PO Q6H PRN (Reason: Pain) folic acid 1 mg tablet 1 mg PO BEDTIME quetiapine 50 mg tablet 50 mg PO BEDTIME Changed Eliquis 5 mg tablet 2.5 mg PO BID Qty: 1 0RF Discharge Orders: Discharge Order (Routine); Ordered 02/19/25 Ordered By: Toñito Yang Diet: Advance to usual diet Activity on Discharge: As tolerated Stand Alone Forms: Patient Portal Discharge page Print Language: French Care Plan Goals: Low back pain chronic per patient -no acute fractures on imaging: Seems to be improving Tylenol, lidocaine patch, oxycodone p.r.n., bowel regimen. UTI: Complete Ceftin 250 b.i.d. Orthostatic hypotension: Received fluid, seem improved currently asymptomatic, orthostatic precautions. Paroxysmal AFib with RVR: As per patient weight and age-Eliquis adjusted to 2.5 mg po b.i.d. Acute hypoxemic respiratory failure secondary to COPD exacerbation: Improved with nebs and steroids, switched to p.o. steroids upon discharge continue antibiotics(already on Ceftin added doxycycline ), incentive spirometry, chest physiotherapy. Enlarging left renal cyst-Concerning for malignancy, outpatient follow up Health Concerns: as above. Plan of Treatment: follow up with urology regarding suspicious left renal cyst Assessment: as above. Discharge Date/Time: 02/19/25 16:37
[2025-02-18 12:07] LABS: VBG HCO3 19 mmol/L (22-26); VBG O2 % Saturation 76.0 %
[2025-02-18 12:08] LABS: Venous Blood Gas Refer to POC result
--- NOTE | 2025-02-18 14:17 | HO.PM.IMPN ---
Subjective Subjective Date of Service: 02/18/25 Interval History: COPD exacerbation, possible acute bronchitis Review of Systems Patient was short of breath, having aggressive cough today Desaturated with walking 86% Review of Systems: Yes all other systems are reviewed and are negative Physical Exam Exam: Exam: General: AO X 3, frail, very hard of hearing Resp: Diminished bilateral, no accessory muscles used CVS: S1,S2, rapid and irregular GI: soft, non tender, non distended Neuro: motor grossly intact, alert Vital Signs: Vital Signs: Last Vital Signs Temp 98.3 F 02/18/25 08:00 Pulse 99 02/18/25 09:08 Resp 16 02/18/25 09:08 BP 108/59 L 02/18/25 08:00 Pulse Ox 94 02/18/25 08:00 O2 Del Method Room Air 02/18/25 08:00 BMI result Body Mass Index 19.4 Objective Data Active Medications Acetaminophen (Acetaminophen 325 Mg Tablet) 650 mg PO Q6H PRN PRN Reason: Pain, Mild 1-3,fever,headache Last Admin: 02/15/25 20:01 Dose: 650 mg Documented By: MORTEZA Albuterol/Ipratropium (Albuterol/Iprat 2.5/0.5mg 3 Ml Ampul.Neb) 3 ml INHALE RQ4H WHILE AWAKE [facility] Last Admin: 02/18/25 13:10 Dose: Not Given Documented By: CHAYA Non-Admin Reason: rt unavilable. Albuterol/Ipratropium (Albuterol/Iprat 2.5/0.5mg 3 Ml Ampul.Neb) 3 ml INHALE Q3H PRN PRN Reason: sob Apixaban (Apixaban 2.5 Mg Tablet) 2.5 mg PO BID [facility] Benzonatate (Benzonatate 100 Mg Capsule) 100 mg PO TID PRN PRN Reason: Cough Last Admin: 02/17/25 17:16 Dose: 100 mg Documented By: SEAN Calcium Carbonate (Calcium Carbonate 750 Mg Tab.Chew) 750 mg PO Q4H PRN PRN Reason: Heartburn Last Admin: 02/15/25 22:54 Dose: 750 mg Documented By: MORTEZA Cefuroxime Axetil (Cefuroxime Axetil 250 Mg Tablet) 250 mg PO Q12H [facility] Last Admin: 02/18/25 09:30 Dose: 250 mg Documented By: DYLAN Folic Acid (Folic Acid 1 Mg Tablet) 1 mg PO BEDTIME JOSE Last Admin: 02/17/25 21:17 Dose: 1 mg Documented By: JIMY Guaifenesin (Guaifenesin 200 Mg/10 Ml 10 Ml Liquid) 10 ml PO Q4H PRN PRN Reason: Cough Last Admin: 02/17/25 17:16 Dose: 10 ml Documented By: SEAN Doxycycline Hyclate 100 mg/ (Sodium Chloride) 250 mls @ 166.67 mls/hr IV Q12H [facility] Last Infusion: 02/18/25 14:10 Dose: Infused Documented By: JULIANNA Lidocaine (Lidocaine 4 % Patch Adh..Patch) 1 patch TRANSDERMA DAILY [facility]; Protocol Last Admin: 02/18/25 09:30 Dose: 1 patch Documented By: DYLAN Magnesium Hydroxide (Milk Of Magnesia 30 Ml Oral.Susp) 30 ml PO DAILY PRN PRN Reason: Constipation Melatonin (Melatonin 3 Mg Tablet) 6 mg PO BEDTIME PRN PRN Reason: Insomnia Methylprednisolone Sodium Succinate (Methylprednisolone Sod Succ 40 Mg/Ml Vial) 40 mg IVPUSH TID [facility] Last Admin: 02/18/25 14:10 Dose: 40 mg Documented By: JULIANNA Metoprolol Succinate (Metoprolol Succinate Er 50 Mg Tab.Er.24h) 50 mg PO DAILY [facility]; Protocol Last Admin: 02/18/25 09:32 Dose: 50 mg Documented By: DYLAN Omeprazole (Omeprazole 20 Mg Capsule.Dr) 20 mg PO DAILY@0630 [facility] Last Admin: 02/18/25 05:41 Dose: 20 mg Documented By: JIMY Ondansetron HCl (Ondansetron Hcl 4 Mg/2 Ml Vial) 4 mg IVPUSH Q6H PRN PRN Reason: Nausea and Vomiting Last Admin: 02/17/25 17:16 Dose: 4 mg Documented By: SEAN Oxycodone HCl (Oxycodone Hcl Immed Release 5 Mg Tablet) 5 mg PO Q6H PRN PRN Reason: Pain, Severe (Pain Scale 7-10) Last Admin: 02/18/25 14:10 Dose: 5 mg Documented By: JULIANNA Paroxetine HCl (Paroxetine Hcl 40 Mg Tablet) 40 mg PO DAILY [facility] Last Admin: 02/18/25 09:32 Dose: 40 mg Documented By: DYLAN Polyethylene Glycol (Polyethylene Glycol 3350 17 Gm Powd.Pack) 17 gm PO DAILY PRN PRN Reason: Constipation Quetiapine Fumarate (Quetiapine Fumarate 50 Mg Tablet) 50 mg PO BEDTIME [facility] Last Admin: 02/17/25 21:17 Dose: 50 mg Documented By: JIMY Sodium Chloride (0.9 % Sodium Chloride Flush 3 Ml Syringe) 3 ml IVFLUSH QSHIFT [facility] Last Admin: 02/18/25 09:28 Dose: 3 ml Documented By: DYLAN Tamsulosin HCl (Tamsulosin Hcl 0.4 Mg Capsule) 0.4 mg PO BEDTIME [facility] Last Admin: 02/17/25 21:17 Dose: 0.4 mg Documented By: JIMY Trazodone HCl (Trazodone Hcl 50 Mg Tablet) 50 mg PO BEDTIME PRN PRN Reason: Insomnia Last Admin: 02/16/25 19:49 Dose: 50 mg Documented By: MORTEZA Labs 02/16/25 06:11 02/16/25 06:11 Labs: Laboratory Results - last 24 hr 02/17/25 02/18/25 17:15 12:02 VBG pH 7.32 VBG pCO2 36 VBG pO2 52 VBG HCO3 19 L VBG O2 Saturation 76.0 VBG Base Excess -6.1 Respiratory Panel [place] See Note Adenovirus (Rapid PCR) Not Detected B.pert (TEM-PCR) Not Detected B.parapertussis DNA PCR Not Detected C. pneumoniae DNA (PCR) Not Detected Coronavirus OC43 (PCR) Not Detected Coronavirus HKU1 (PCR) Not Detected Coronavirus 229E (PCR) Not Detected Coronavirus NL63 (PCR) Not Detected Human Metapneumovir PCR Not Detected Influenza A (RT-PCR) Not Detected Influenza A (H1) PCR Not Detected Influ A (H1/09) PCR Not Detected Influenza A (H3) PCR Not Detected Influenza B (RT-PCR) Not Detected M. pneumoniae (PCR) Not Detected Parainfluenza 1 (PCR) Not Detected Parainfluenza 2 (PCR) Not Detected Parainfluenza 3 (PCR) Not Detected Parainfluenza 4 (PCR) Not Detected RSV (PCR) Not Detected Entero/Rhino (PCR) Not Detected SARS-CoV-2 RNA (RT-PCR) Not Detected Microbiology Microbiology Results: Microbiology 02/15/25 14:45 Blood Culture - Preliminary Blood - Venous No growth after 48 hours. 02/15/25 14:45 Blood Culture - Preliminary Blood - Venous No growth after 48 hours. Assessment and Plan (1) Acute UTI: Status: Acute Plan 84M PMH paroxysmal AFib on Eliquis, history of pulmonary embolism, hypertension, COPD, lung cancer status post lobectomy in remission, CKD 4, complex left renal cyst status post drainage presented with 2 weeks of low back pain Acute hypoxemic respiratory failure secondary to COPD exacerbation, possible acute bronchitis RPP - negative plan: nebs , steriods ,antibiotics ,oxygen taper low back pain No acute fracture on imaging Back pain improving continue lidocaine, oxycodone, bowel regimen, PT eval PT eval-str Paroxysmal AFib with RVR Monitor on telemetry, pain control, metoprolol, IV fluids For orthostatic hypotension s/p ivf ,seem asymptomtaic Bacteriuria and pyuria - possible UTI Empiric IV ceftriaxone, follow up cultures Enlarging left renal cyst Concerning for malignancy, outpatient follow up History of pulmonary embolism Continue Eliquis CKD 4 Creatinine stable around 2.5 DVT prophylaxis with Eliquis DNR/DNI plan: Acute hypoxemic respiratory failure secondary to COPD exacerbation, possible acute bronchitis-need oxygen , nebs ,steriods ,antibiotics , respiratory status is not optimal yet Quality Stroke Does the patient have a stroke diagnosis?: No VTE Prior VTE?: Yes VTE Risk Level:: Medical - moderate - high VTE Device Contraindication: Treatment Not Indicated VTE Drug Contraindication: N/A - Med Ordered
[2025-02-18] MEDS: Albuterol/Iprat 2.5/0.5MG 3 ML AMPUL.NEB INHALE ×2 (15:47→20:54)
[2025-02-19] MEDS: 0.9 % Sodium Chloride Flush 3 ML SYRINGE IVFLUSH ×2 (00:41→09:12)
[2025-02-19 03:30] VITALS: BP 158/80; PULSE 80; RESP 18; TEMP 36.2; O2SAT 94
[2025-02-19 08:00] VITALS: BP 162/81; PULSE 78; RESP 16; TEMP 36.1; O2SAT 94
[2025-02-19 08:50] VITALS: PULSE 78; RESP 16; O2SAT 94
[2025-02-19] MEDS: Albuterol/Iprat 2.5/0.5MG 3 ML AMPUL.NEB INHALE ×2 (08:50→12:04)
[2025-02-19 09:10] VITALS: BP 163/76; PULSE 76
[2025-02-19] MEDS: Metoprolol Succinate ER 50 MG TAB.ER.24H PO (09:10)
[2025-02-19] MEDS: PARoxetine HCL 40 MG TABLET PO (09:10)
[2025-02-19 12:06] VITALS: PULSE 78; RESP 16; O2SAT 95
--- NOTE | 2025-02-19 14:54 | MHC.CM.PN ---
PT WILL DC TO [facility] FOR STR AT 1500 HOURS TODAY VIA [facility] PT AWARE, AND SON SARAH INFORMED VIA T/C [phone]
[2025-02-19 15:34] VITALS: BP 149/79; PULSE 64; RESP 16; TEMP 36.2; O2SAT 98
== END 2025-02-19 16:37 | disposition skilled nursing facility (03) | DRG 689 ==
LOC: HO.ED 14:25 → HO.EDOVER 14:37 → HO.IMC 16:02 → HO.S3 02-17 12:54
PROVIDERS: Admitting Provider Internal Medicine; Emergency Provider Emergency Medicine; PCP Internal Medicine; Visit Provider Internal Medicine
DX: N39.0 Urinary tract infection, site not specified (principal); J96.01 Acute respiratory failure with hypoxia; J44.1 Chronic obstructive pulmonary disease with (acute) exacerbation; J44.0 Chronic obstructive pulmonary disease with (acute) lower respiratory infection; J91.8 Pleural effusion in other conditions classified elsewhere; I95.1 Orthostatic hypotension; Z90.2 Acquired absence of lung [part of]; I48.0 Paroxysmal atrial fibrillation; Z66 Do not resuscitate; N28.1 Cyst of kidney, acquired; J20.9 Acute bronchitis, unspecified; I12.9 Hypertensive chronic kidney disease with stage 1 through stage 4 chronic kidney disease, or unspecified chronic kidney disease; M54.59 Other low back pain; G89.29 Other chronic pain; F17.210 Nicotine dependence, cigarettes, uncomplicated; Z71.6 Tobacco abuse counseling; Z20.822 Contact with and (suspected) exposure to COVID-19; Z86.711 Personal history of pulmonary embolism; Z85.118 Personal history of other malignant neoplasm of bronchus and lung; Z79.01 Long term (current) use of anticoagulants; Z79.899 Other long term (current) drug therapy
CPT/HCPCS: 36415; 71045; 72100; 74176; 80048; 80053; 81001; 82803; 83735; 84484; 85025; 85027; 85610; 87040; 87086; 87633; 87637; 93005; 94640; 97162; 97530; 99285; J0616; J0696; J1271; J2405; J2919

== ENCOUNTER → 2025-02-15 10:55 | Outpatient (BNV) | payer MEDICARE, SELFPAY | PROVIDERS: Admitting Provider Internal Medicine; Emergency Provider Emergency Medicine; PCP Internal Medicine; Visit Provider Internal Medicine Cardiovascular Disease | DX: I48.91 Unspecified atrial fibrillation (principal) | CPT/HCPCS: 93010 ==

== ENCOUNTER → 2025-02-15 11:30 | Outpatient (BNV) | payer MEDICARE, SELFPAY | PROVIDERS: Emergency Provider Emergency Medicine; PCP Internal Medicine; Visit Provider Radiology Diagnostic Radiology | DX: K57.30 Diverticulosis of large intestine without perforation or abscess without bleeding (principal); N28.1 Cyst of kidney, acquired; K40.90 Unilateral inguinal hernia, without obstruction or gangrene, not specified as recurrent; M51.360 Other intervertebral disc degeneration, lumbar region with discogenic back pain only; I48.91 Unspecified atrial fibrillation; R42 Dizziness and giddiness | CPT/HCPCS: 71045; 72100; 74176 ==

== ENCOUNTER 2025-02-15 14:33 | Outpatient (BNV) | payer MEDICARE, SELFPAY | END 2025-02-18 12:08 | PROVIDERS: Admitting Provider Internal Medicine; Emergency Provider Emergency Medicine; PCP Internal Medicine; Visit Provider Radiology Diagnostic Radiology | DX: R05.9 Cough, unspecified (principal); R06.2 Wheezing | CPT/HCPCS: 71045 ==

== ENCOUNTER → 2025-02-15 14:33 | Outpatient (BNV) | payer MEDICARE, SELFPAY | PROVIDERS: Admitting Provider Internal Medicine; Emergency Provider Emergency Medicine; PCP Internal Medicine; Visit Provider Internal Medicine | DX: N39.0 Urinary tract infection, site not specified (principal) | CPT/HCPCS: 99223; 99232 ==